=== PATIENT | female | born 1930 | race African-American/Black ===

== ENCOUNTER 2019-09-05 21:56 | Emergency (ER) | payer BC, OTHER ==
[2019-09-05 22:31] VITALS: TEMP 98; BMI 22.4
--- NOTE | 2019-09-05 22:50 | PDOC ---
History of Present Illness - General Chief Complaint: Injury Stated Complaint: FALL Time Seen by Provider: 09/05/19 22:09 History Source: Patient, Family - History of Present Illness Initial Comments: Ms. Hyman is an 88 y/o woman with hx MCI, HTN, previous admission for urosepsis last September, presenting after a fall at home. She lives with her son who is at the bedside. She reports that before arrival she attempted to get out of bed, and slid herself off of the bed. She reports landing straight onto her buttocks , and then being unable to stand back up. She reports that her son found her approx 30 minutes later. She denies any LOC, weakness, chest pain, shortness of breath, palpitations, or change in vision before or after the event. She does not have a PCP, as they just moved from [place] in the last 2 weeks. She denies any fevers, chills, weakness, confusion, nausea, vomiting, chest pain, shortness of breath. Past History - Past Medical History Allergies/Adverse Reactions: Allergies Allergy/AdvReac Type Severity Reaction Status Date / Time No Known Allergies Allergy Verified 09/05/19 23:47 Home Medications: Ambulatory Orders Amoxicillin/Potassium Clav [Augmentin 500-125 Tablet] 1 each PO BID 10 Days #20 tablet 09/06/19 - Psycho Social/Smoking Cessation Hx Smoking History: Never smoked Have you smoked in the past 12 months: No Information on smoking cessation initiated: No Hx Alcohol Use: No Drug/Substance Use Hx: No Review of Systems - Review of Systems Able to Perform ROS?: Yes Comments:: ROS: GENERAL/CONSTITUTIONAL: No fever or chills. No weakness. HEAD, EYES, EARS, NOSE AND THROAT: No change in vision. No ear pain or discharge. No sore throat. CARDIOVASCULAR: No chest pain or shortness of breath RESPIRATORY: No cough, wheezing, or hemoptysis. GASTROINTESTINAL: No nausea, vomiting, diarrhea or constipation. GENITOURINARY: No dysuria, frequency, or change in urination. MUSCULOSKELETAL: No joint or muscle swelling or pain. No neck or back pain. SKIN: No rash NEUROLOGIC: No headache, vertigo, loss of consciousness, or change in strength/ sensation. ENDOCRINE: No increased thirst. No abnormal weight change HEMATOLOGIC/LYMPHATIC: No anemia, easy bleeding, or history of blood clots. ALLERGIC/IMMUNOLOGIC: No hives or skin allergy. *Physical Exam - Vital Signs Last Vital Signs Temp Pulse Resp BP Pulse Ox 98 F 81 20 161/83 97 09/05/19 22:29 09/05/19 22:29 09/05/19 22:29 09/05/19 22:29 09/05/19 22:29 - Physical Exam PE: GENERAL: Awake, alert, and fully oriented, in no acute distress HEAD: No signs of trauma, normocephalic, atraumatic EYES: PERRLA, EOMI, sclera anicteric, conjunctiva clear ENT: Auricles normal inspection, hearing grossly normal, nares patent, oropharynx clear without exudates. Moist mucosa NECK: Normal ROM, supple, no lymphadenopathy, JVD, or masses LUNGS: No distress, speaks full sentences, clear to auscultation bilaterally HEART: Regular rate and rhythm, normal S1 and S2, no murmurs, rubs or gallops, peripheral pulses normal and equal bilaterally. ABDOMEN: Soft, nontender, normoactive bowel sounds. No guarding, no rebound. No masses EXTREMITIES : Normal inspection, Normal range of motion, no edema. No clubbing or cyanosis NEUROLOGICAL: Cranial nerves II through XII grossly intact. Normal speech, normal gait, no focal sensorimotor deficits SKIN: Warm, Dry, normal turgor, no rashes or lesions noted ED Treatment Course - LABORATORY CBC & Chemistry Diagram: 09/05/19 23:00 09/05/19 23:00 - RADIOLOGY Radiology Studies Ordered: Category Date Time Status CHEST X-RAY PORTABLE* [RAD] Stat Radiology 09/05/19 22:27 Ordered Medical Decision Making - Medical Decision Making 88F w/hx MCI, HTN, previous inpatient admission for urosepsis (klebsiella) p/w mechanical fall at home with no LOC and several weeks of intermittent worsening confusion, c/w UTI. No blood thinner use, not currently meeting SIRS criteria. Plan: CBC CMP UA Urine culture CXR EKG CT Head Dispo: Pending labs, imaging --- UA notable for UTI. CXR - negative for acute process CBC, CMP - wnl --- CT Head negative for acute process. Plan for 1g ceftriaxone, then discharge home with course of Augmentin with close follow up at [facility] to f/u urine culture and adjust abx if needed, as well as to establish primary care (as they have just moved from [place]). Discharge - Discharge Information Problems reviewed: Yes Clinical Impression/Diagnosis: UTI (urinary tract infection) Qualifiers: Urinary tract infection type: acute cystitis Hematuria presence: without hematuria Qualified Code(s): N30.00 - Acute cystitis without hematuria Condition: Stable Disposition: HOME - Admission No - Additional Discharge Information Prescriptions: Amoxicillin/Potassium Clav [Augmentin 500-125 Tablet] 1 each PO BID 10 Days #20 tablet - Follow up/Referral - Patient Discharge Instructions Patient Printed Discharge Instructions: DI for Urinary Tract Infection (UTI), How to Prevent Falls Additional Instructions: You were seen in the ER after a fall. Your head CT was negative. Your blood work was normal. Your urine shows a urinary tract infection. We gave you one medicine here in the ER, and are prescribing you an antibiotic to take home. Please take the antibiotic as directed, twice a day for ten days, with food. Please make sure to follow up with the [facility] as soon as possible , in the next 3 days. Please return to the ER if you develop high fevers, weakness, chest pain, or trouble breathting. Otherwise be sure to follow up with the clinic - your antibiotics may need to be changed if your urine culture shows a bacteria that your current antibiotic does not treat effectively. - Post Discharge Activity
[2019-09-05 23:05] LABS: BASO % 0.7 % (0-2.0); EOS % 0.2 % (0-4.5); HEMATOCRIT 39.9 % (32.4-45.2); LYMPH % 6.1 % (8-40); MCH 30.1 pg (25.7-33.7); MCHC 32.5 g/dl (32.0-36.0); MEAN CELL VOLUME 92.6 fl (80-96); MONO % 5.8 % (3.8-10.2); NEUT % 87.2 % (42.8-82.8); PLATELET COUNT 282 K/MM3 (134-434); RBC 4.31 M/mm3 (3.60-5.2); RDW 12.7 % (11.6-15.6); WHITE BLOOD COUNT 6.8 K/mm3 (4.0-10.0)
[2019-09-05 23:24] LABS: INR 1.03 (0.83-1.09); PROTHROMBIN TIME (PATIENT) 12.2 SEC (9.7-13.0)
[2019-09-05 23:27] LABS: ACTIVATED PTT 26.9 SECONDS (25.2-36.5)
[2019-09-05 23:33] LABS: EPI CELLS 7.5 /HPF (0-5/HPF); HYALINE CASTS 13 /lpf (0-8); PH,URINE 5.5 (5.0-8.0); URINE APPEARANCE CLOUDY; URINE BACTERIA 4394.7 /hpf (NEGATIVE); URINE BILIRUBIN NEGATIVE (NEGATIVE); URINE COLOR YELLOW; URINE GLUCOSE (UA) NEGATIVE (NEGATIVE); URINE KETONE TRACE (NEGATIVE); URINE LEUK ESTERASE 1+ (NEGATIVE); URINE NITRITE POSITIVE (NEGATIVE); URINE PROTEIN NEGATIVE (NEGATIVE); URINE RBC 5 /hpf (0-4); URINE WBC 6 /hpf (0-5)
[2019-09-05 23:39] LABS: ALBUMIN 2.8 g/dl (3.4-5.0); BILIRUBIN,TOTAL 0.5 mg/dL (0.2-1); BLOOD UREA NITROGEN 17.5 mg/dL (7-18); CALCIUM 9.2 mg/dL (8.5-10.1); POTASSIUM 4.8 mmol/L (3.5-5.1); TOT PROT 8.2 g/dl (6.4-8.2)
--- NOTE | 2019-09-05 23:40 | PDOC ---
Documentation entered by Adrián Nunes SCRIBE, acting as scribe for Pilar Montoya MD. Pilar Montoya MD: This documentation has been prepared by the qiibe, Adrián Nunes SCRIBE, under my direction and personally reviewed by me in its entirety. I confirm that the documentation accurately reflects all work, treatment, procedures, and medical decision making performed by me. Attending Attestation - Resident Resident Name: ArlynFrederic - ED Attending Attestation I have performed the following: I have examined & evaluated the patient, The case was reviewed & discussed with the resident, I agree w/resident's findings & plan, Exceptions are as noted - HPI HPI: 09/05/19 22:22 The patient is an 88 year old with a past medical history of trigeminal neuralgia, dementia, HTN, HLD, and prior UTI with sepsis here today for evaluation of left hip and thigh pain. As per EMS, the patient was home with her son and rolled out of bed. Patient currently has left thigh and hip pain. Patients son reports that since Thanksgiving the patient has progressively getting more confused and weak. Patient denies headache, lightheadedness. Denies fever, chills. Denies chest pain, shortness of breath. Denies nausea, vomiting, diarrhea, abdominal pain. PCP: none (new to area) - Physicial Exam PE: 09/05/19 22:23 GENERAL: Well developed, well nourished, poor historian HEENT: Normocephalic, atraumatic. PERRLA, EOMI. No conjunctival pallor. Sclera are non- icteric. Moist mucous membranes. Oropharynx is clear. NECK: Supple. Full ROM. No JVD. Carotid pulses 2+ and symmetric, without bruits. No thyromegaly. No lymphadenopathy. CARDIOVASCULAR: Regular rate and rhythm. No murmurs, rubs, or gallops. Distal pulses are 2+ and symmetric. PULMONARY: No evidence of respiratory distress. Lungs clear to auscultation bilaterally. No wheezing, rales or rhonchi. ABDOMINAL: Soft. Non-tender. Non-distended. No rebound or guarding. No organomegaly. Normoactive bowel sounds. MUSCULOSKELETAL: +tenderness to left thigh and hip EXTREMITIES: No cyanosis. No clubbing. No edema. No calf tenderness. SKIN: Warm and dry. Normal capillary refill. No rashes. No jaundice. NEUROLOGICAL: +slow to respond but follows basic commands. Alert, awake, appropriate. Cranial nerves 2-12 intact. No deficits to light touch and temperature in face, upper extremities and lower extremities. No motor deficits in the face or arms and legs , Normal speech. Toes are down- going bilaterally. PSYCHIATRIC: Cooperative. Good eye contact. Appropriate mood and affect. 09/05/19 22:37 - Medical Decision Making 09/05/19 22:39 88-year-old female brought in by ambulance from home after she slid off the bed. HPI the son states that ever since she has had a slow somewhat insidious decline in her mentation. She does have a history of dementia baseline but she now seems slower than usual. They do not have any PCP in this area having moved from [place] recently Son did report that she is had complicated UTI in the past 09/05/19 22:46 Impression failure to thrive will rule out urinary tract infections, dehydration , electrolyte abnormalities and ACS plan c scan head,xrays hip/pelvis,UA,Uc,cbc,comp 09/05/19 23:39 Patient has no fever CBC is unremarkable UA shows urinary tract infection 09/05/19 23:49 pt has UTI and antibiotics will be started 09/06/19 00:44 EXPLAINED TO THE PATIENT AND HER SON that she will be started on antibioticsd but without the culture and sensitivities we don't now which antibiotics meet be most effective so she has be seen later this week she was put in the system for an appt with FLORINA lawrence on [facility] and also told to call tomorrow to confirm an appt 09/06/19 01:05 ct scan head is negative for any acute intracranial pathology
[2019-09-06] MEDS ORDERED: CEFTRIAXONE 1 GM/50 ML BAG ONE (00:27)
[2019-09-06 00:34] VITALS: BP 160/87; PULSE 78
--- NOTE | 2019-09-06 13:26 | EKG ---
Test Reason : Blood Pressure : / mmHG Vent. Rate : 080 BPM Atrial Rate : 080 BPM P-R Int : 204 ms QRS Dur : 096 ms QT Int : 416 ms P-R-T Axes : 016 -01 041 degrees QTc Int : 479 ms NORMAL SINUS RHYTHM POSSIBLE LEFT ATRIAL ENLARGEMENT LEFT VENTRICULAR HYPERTROPHY ABNORMAL ECG NO PREVIOUS ECGS AVAILABLE Confirmed by LILLY SONI, STUART ([id number]) on 09/06/2019 1:26:21 PM Referred By: Confirmed By:STUART CARR MD
== END 2019-09-06 01:24 | disposition home or self-care (01) ==
LOC: JER 21:56
DX: N39.0 Urinary tract infection, site not specified (principal); I10 Essential (primary) hypertension; W06.XXXA Fall from bed, initial encounter; Y93.89 Activity, other specified; Y92.013 Bedroom of single-family (private) house as the place of occurrence of the external cause; Y99.8 Other external cause status
CPT/HCPCS: 36415; 70450-TC; 71045-TC-FY; 73523-TC-FY; 80053; 81003; 82550; 82553; 84484; 85025; 85610; 85730; 87086; 87186; 93005; 93010; 99283-25

== ENCOUNTER 2019-10-11 08:57 | Inpatient (IN) | payer BC, OTHER ==
[2019-10-11 09:15] VITALS: BMI 26.6
--- NOTE | 2019-10-11 09:20 | PDOC ---
Attending Attestation - Resident Resident Name: Aureliano Obando - HPI HPI: 10/11/19 10:28 Pt presents to the ED complaining of generalized weakness and presyncope. Also complains of a vague sensation of chest heaviness. Denies shortness of breath. 10/11/19 10:33 - Physicial Exam PE: 10/11/19 10:33 gen: alert, NAD. CV: RRR no murmurs. pulm: + slight crackles at bases. 10/11/19 10:34 - Critical Care Time Total Critical Care Time: 30 Critical Care Statement: The care of this patient involved high complexity decision making to prevent further life threatening deterioration of the patient 's condition and/or to evaluate & treat vital organ system(s) failure or risk of failure. - Medical Decision Making 10/11/19 10:35 Pt presents to the ED complaining of lightheadness and chest heaviness. EKG shows ST elevations in lead 3, with reciprocal depressions. BP is borderline. Case discussed with Dr. Pineda from cardiology, who recommends medical management for now. Will start ASA, plavix and heparin, check labs and admit to medicine. Will check serial EKGS.
[2019-10-11] MEDS ORDERED: ASPIRIN 81 MG CHEWABLE TABLETS PO ONE (09:43)
[2019-10-11] MEDS ORDERED: ASPIRIN 81 MG CHEWABLE TABLETS ONE (09:46)
[2019-10-11] MEDS ORDERED: CLOPIDOGREL BISULFATE 300 MG TABLET PO ONE (09:56)
[2019-10-11] MEDS ORDERED: HEPARIN NA (PORCINE) 5,000 UNITS/ML 1ML VIAL IVPUSH PRN ×2 (09:57)
[2019-10-11] MEDS ORDERED: CLOPIDOGREL BISULFATE 300 MG TABLET ONE (09:58)
--- NOTE | 2019-10-11 09:58 | PDOC ---
History of Present Illness - General Chief Complaint: Lightheaded Stated Complaint: Shortness of Breath Time Seen by Provider: 10/11/19 09:19 History Source: Patient Exam Limitations: No Limitations - History of Present Illness Initial Comments: Patient's Son - Mal Hyman: [phone] Susie Hyman is an 88 yo F w a hx of CAD, HTN, HCL dementia who presents to the [facility] with acute onset of left arm pain and weakness associated with SOB. She states that she was walking this morning when all of a sudden she came close to falling and was having a hard time standing up. Here in the ER she endorses palpitations and an abnormal chest heaviness sensation however she denies having any active chest pain. PCP: None local Cards: None - Edwin Social hx: Denies smoking, drinking, or other substance usage Allergies: NKA, NKDA Past History - Past Medical History Allergies/Adverse Reactions: Allergies Allergy/AdvReac Type Severity Reaction Status Date / Time No Known Allergies Allergy Verified 10/11/19 09:12 Home Medications: Ambulatory Orders Unobtainable 10/11/19 COPD: No HTN: Yes Hypercholesterolemia: Yes - Immunization History Td Vaccination: Yes TDAP Vaccination: Yes Immunization Up to Date: Yes - Psycho Social/Smoking Cessation Hx Smoking History: Former smoker Have you smoked in the past 12 months: No If you are a former smoker, when did you quit?: 40 YEARS AGO Information on smoking cessation initiated: No Hx Alcohol Use: No Drug/Substance Use Hx: No Review of Systems - Review of Systems Able to Perform ROS?: Yes Comments:: CONSTITUTIONAL: Present: Fatigue Absent: fever, no chills EYES: Absent: visual changes ENT: Absent: ear pain, no sore throat CARDIOVASCULAR: Present: palpitations Absent: chest pain RESPIRATORY: Present: SOB Absent: cough GI: Present: Nausea Absent: abdominal pain, no vomiting, no constipation, no diarrhea GENITOURINARY: Absent: dysuria, no frequency, no hematuria MUSKULOSKELETAL: Absent: back pain, no arthralgia, no myalgia SKIN: Absent: rash NEURO: Absent: headache *Physical Exam - Vital Signs Last Vital Signs Temp Pulse Resp BP Pulse Ox 97.2 F L 86 20 125/80 97 10/11/19 18:00 10/11/19 18:00 10/11/19 18:00 10/11/19 18:00 10/11/19 16:17 - Physical Exam GENERAL: Not well kept - long facial hair. Well-appearing, well-nourished. Mild distress. HEENT: Normocephalic, atraumatic. PERRL, EOM intact. CARDIOVASCULAR: Normal S1, S2. Regular rate and rhythm. PULMONARY: B/l crackles at the bases. Mild evidence of respiratory distress. No wheezing or rhonchi. ABDOMEN: Soft, non-distended, non-tender. EXTREMITIES: Normal ROM in all four extremities. No gross deformities. SKIN: Warm, dry. No rash NEUROLOGICAL: Alert, awake, appropriate. Cranial nerves 2-12 intact. No deficits to light touch in face, upper extremities and lower extremities. No motor deficits in the in face, upper extremities and lower extremities. Normal speech. Toes are down-going bilaterally. ED Treatment Course - LABORATORY CBC & Chemistry Diagram: 10/11/19 09:37 10/11/19 11:37 - ADDITIONAL ORDERS Additional order review: Laboratory Results 10/11/19 10/11/19 10/11/19 11:37 11:37 10:45 PT with INR INR PTT (Actin FS) Sodium 140 Potassium 3.9 Chloride 108 H Carbon Dioxide 23 Anion Gap 10 BUN 13.3 Creatinine 1.1 Est GFR (CKD-EPI)AfAm 52.65 Est GFR (CKD-EPI)NonAf 45.42 Random Glucose 160 H Calcium 8.5 Magnesium Total Bilirubin 0.5 AST 35 ALT 24 Alkaline Phosphatase 315 H Creatine Kinase 64 Troponin I 0.09 H B-Natriuretic Peptide Total Protein 7.8 Albumin 2.6 L Blood Type AB POSITIVE Cancelled Antibody Screen Negative Cancelled 10/11/19 10/11/19 09:37 09:37 PT with INR 13.60 H INR 1.15 H PTT (Actin FS) 28.6 Sodium Cancelled Potassium Cancelled Chloride Cancelled Carbon Dioxide Cancelled Anion Gap Cancelled BUN Cancelled Creatinine Cancelled Est GFR (CKD-EPI)AfAm Cancelled Est GFR (CKD-EPI)NonAf Cancelled Random Glucose Cancelled Calcium Cancelled Magnesium Cancelled Total Bilirubin Cancelled AST Cancelled ALT Cancelled Alkaline Phosphatase Cancelled Creatine Kinase Cancelled Troponin I Cancelled B-Natriuretic Peptide Cancelled Total Protein Cancelled Albumin Cancelled Blood Type Antibody Screen 10/11/19 09:37 RBC 4.15 MCV 93.1 MCHC 32.0 RDW 13.9 MPV 9.5 Neutrophils % 76.4 Lymphocytes % 18.0 D Monocytes % 5.1 Eosinophils % 0.2 Basophils % 0.3 - RADIOLOGY Radiology Studies Ordered: Category Date Time Status CHEST X-RAY PORTABLE* [RAD] Stat Radiology 10/11/19 09:44 Completed - Medications Given in the ED: ED Medications Discontinued Medications Generic Name Dose Route Start Last Admin Trade Name Freq PRN Reason Stop Dose Admin Aspirin 162 mg 10/11/19 09:43 10/11/19 09:49 Asa - PO 10/11/19 09:44 162 mg ONCE ONE Administration Clopidogrel Bisulfate 300 mg 10/11/19 09:56 10/11/19 10:01 Plavix - PO 10/11/19 09:57 300 mg ONCE ONE Administration Medical Decision Making - Medical Decision Making Susie Hyman is an 88 yo F w a hx of CAD, HTN, HCL dementia who presents to the [facility] with acute onset of left arm pain and weakness associated with SOB. She states that she was walking this morning when all of a sudden she came close to falling and was having a hard time standing up. Here in the ER she endorses palpitations and an abnormal chest heaviness sensation however she denies having any active chest pain. Vital Signs Temp Pulse Resp BP Pulse Ox 97.4 F L 100 H 26 H 118/77 95 10/11/19 09:12 10/11/19 09:12 10/11/19 09:12 10/11/19 09:12 10/11/19 09:55 DDx IBNLT: ACS, Heart failure, CVA/TIA, electrolyte/metabolic abnormality EKG#1: There are ST elevations in leads 2,3, and aVF also V3, there are reciprocal ST depressions in 1, aVL - P waves are inverted in multiple leads questionable lead misplacement - Will repeat EKG EKG#2: ST elevation in lead 3 one mm and lead V3 1 mm, ST depression in lead 1 Right sided EKG: Possible 0.[address] elevations in V4R and V5R We are concerned with ACS Cardiac Consult: Dr. Pineda - Recommends admission to [facility] as this is not a good story and this is not an ideal candidate for invasive treatments. Labs: 1st Trop elevated at 0.09 POCUS Cardiac: There appears to be globally reduced cardiac function with a decreased ejection fraction. EPSS elevated at 1.1 MDM: Starting patient on ACS treatment with aspirin, heparin, ticagrelor and admitting to telemetry Disposition: Telemetry Discharge - Discharge Information Problems reviewed: Yes Clinical Impression/Diagnosis: ACS (acute coronary syndrome) Condition: Guarded - Admission Yes - Follow up/Referral - Patient Discharge Instructions - Post Discharge Activity
--- NOTE | 2019-10-11 09:59 | CON.CARD ---
Consult Consult Specialty:: Cardiology Referred by:: Emergency Medicine Reason for Consultation:: Acute coronary syndrome - History of Present Illness Chief Complaint: Dizziness History of Present Illness: 88 yo AAF past medical history of trigeminal neuralgia, dementia, HTN, HLD, and prior UTI with sepsis presents for dizziness and w/o true syncope, poor historian. Patient denies chest pain, dyspnea, palpitations, orthopnea, PND or LE edema, bedside US shows LV dysfunction. EKG shows evolving IWMI pattern. - History Source History Provided By: Medical Record Limitations to Obtaining History: Dementia - Alcohol/Substance Use Hx Alcohol Use: No - Smoking History Smoking history: Former smoker Have you smoked in the past 12 months: No If you are a former smoker, when did you quit?: 40 YEARS AGO Home Medications - Allergies Allergies/Adverse Reactions: Allergies Allergy/AdvReac Type Severity Reaction Status Date / Time No Known Allergies Allergy Verified 10/11/19 09:12 - Home Medications Home Medications: Ambulatory Orders Amoxicillin/Potassium Clav [Augmentin 500-125 Tablet] 1 each PO BID 10 Days #20 tablet 09/06/19 Review of Systems - Review of Systems Neurological: reports: Dizziness Vital Signs: Vital Signs Temperature 97.4 F L 10/11/19 09:12 Pulse Rate 100 H 10/11/19 09:12 Respiratory Rate 26 H 10/11/19 09:12 Blood Pressure 118/77 10/11/19 09:12 O2 Sat by Pulse Oximetry (%) 95 10/11/19 09:55 Constitutional: Yes: No Distress, Calm Neck: Yes: Supple Respiratory: Yes: Regular, CTA Bilaterally Gastrointestinal: Yes: Normal Bowel Sounds, Soft Cardiovascular: Yes: Regular Rate and Rhythm JVD: No Carotid Bruit: No Heart Sounds: Yes: S1, S2 Murmur: Yes: Systolic Murmur, Grade 1 Edema: No - Other Data NSR @ 94 evolving IWMI Echo: Pending Ejection Fraction %: LVEF < 40 % Problem List - Problems (1) Acute coronary syndrome Code(s): I24.9 - ACUTE ISCHEMIC HEART DISEASE, UNSPECIFIED (2) Hypertension Code(s): I10 - ESSENTIAL (PRIMARY) HYPERTENSION Qualifiers: Hypertension type: essential hypertension Qualified Code(s): I10 - Essential (primary) hypertension (3) Hyperlipidemia Code(s): E78.5 - HYPERLIPIDEMIA, UNSPECIFIED Qualifiers: Hyperlipidemia type: unspecified Qualified Code(s): E78.5 - Hyperlipidemia , unspecified Assessment/Plan 1. CAD acute coronary syndrome 2. Dementia 3. Hypertension 4. Hyperlipidemia P:1. ASA, Plavix, heparin, Lopressor, SOLEDAD-I/ARB if LVEF<40%, statin 2. Given baseline dementia and poor historian, not ideal candidate for invasive therapy 3. Echocardiogram to assess LV and valve fxn 4. Cycle cardiac enzymes to document peak, check TSH, lipd panel and Ha1c 5. Thank you for consultative opportunity
[2019-10-11] MEDS ORDERED: HEPARIN - 25,000 UNIT in SODIUM CHLORIDE 495 ML IV SCH (10:00)
[2019-10-11 10:01] LABS: BASO % 0.3 % (0-2.0); EOS % 0.2 % (0-4.5); HEMATOCRIT 38.6 % (32.4-45.2); HEMOGLOBIN 12.3 GM/dL (10.7-15.3); MCH 29.7 pg (25.7-33.7); MEAN CELL VOLUME 93.1 fl (80-96); MEAN PLT VOLUME 9.5 fl (7.5-11.1); MONO % 5.1 % (3.8-10.2); NEUT % 76.4 % (42.8-82.8); PLATELET COUNT 153 K/MM3 (134-434); RBC 4.15 M/mm3 (3.60-5.2); RDW 13.9 % (11.6-15.6); WHITE BLOOD COUNT 12.9 K/mm3 (4.0-10.0)
[2019-10-11] MEDS ORDERED: HEPARIN INFUSION - 25,000 UNITS/500 ML INFUS.BAG IVPB ONE (10:03)
[2019-10-11] MEDS ORDERED: HEPARIN NA (PORCINE) 5,000 UNITS/ML 1ML VIAL ONE (10:03)
[2019-10-11] MEDS: HEPARIN - 25,000 UNIT in SODIUM CHLORIDE 495 ML IV SCH (10:15)
[2019-10-11] MEDS: metoPROLOL SUCCINATE 25 MG TAB.SR.24H (FP) PO SCH (10:22)
[2019-10-11 10:59] LABS: INR 1.15 (0.83-1.09); PROTHROMBIN TIME (PATIENT) 13.6 SEC (9.7-13.0)
[2019-10-11 11:02] LABS: ACTIVATED PTT 28.6 SECONDS (25.2-36.5)
[2019-10-11 12:17] LABS: ALBUMIN 2.6 g/dl (3.4-5.0); BILIRUBIN,TOTAL 0.5 mg/dL (0.2-1); BLOOD UREA NITROGEN 13.3 mg/dL (7-18); CALCIUM 8.5 mg/dL (8.5-10.1); CREATININE 1.1 mg/dL (0.55-1.3); POTASSIUM 3.9 mmol/L (3.5-5.1); TOT PROT 7.8 g/dl (6.4-8.2)
--- NOTE | 2019-10-11 13:09 | EKG ---
Test Reason : Blood Pressure : / mmHG Vent. Rate : 094 BPM Atrial Rate : 094 BPM P-R Int : 174 ms QRS Dur : 086 ms QT Int : 376 ms P-R-T Axes : 011 -17 -06 degrees QTc Int : 470 ms NORMAL SINUS RHYTHM Possible inferior infarction age indetermined POSSIBLE LATERAL INFARCT , AGE UNDETERMINED ABNORMAL ECG WHEN COMPARED WITH ECG OF 11-OCT-2019 09:38, ST elevations in inferolateral leads improved MINIMAL CRITERIA FOR SEPTAL INFARCT ARE NOW PRESENT BORDERLINE CRITERIA FOR LATERAL INFARCT ARE NOW PRESENT T WAVE INVERSION NOW EVIDENT IN LATERAL LEADS Confirmed by Patricia Kearney ([id number]) on 10/11/2019 1:08:42 PM Referred By: Confirmed By:Patricia Kearney
--- NOTE | 2019-10-11 13:10 | EKG ---
Test Reason : Blood Pressure : / mmHG Vent. Rate : 097 BPM Atrial Rate : 097 BPM P-R Int : 168 ms QRS Dur : 090 ms QT Int : 372 ms P-R-T Axes : 017 -18 005 degrees QTc Int : 472 ms SINUS RHYTHM WITH PREMATURE ATRIAL COMPLEXES POSSIBLE LEFT ATRIAL ENLARGEMENT LEFT VENTRICULAR HYPERTROPHY Consider lateral ischemia Possible inferor infarction age indetermined Prolonged QTc ABNORMAL ECG WHEN COMPARED WITH ECG OF 11-OCT-2019 09:26, CRITERIA FOR INFERIOR INFARCT ARE NO LONGER PRESENT Confirmed by Patricia Kearney ([id number]) on 10/11/2019 1:10:10 PM Referred By: Confirmed By:Patricia Kearney
--- NOTE | 2019-10-11 13:12 | EKG ---
Test Reason : Blood Pressure : / mmHG Vent. Rate : 087 BPM Atrial Rate : 087 BPM P-R Int : 200 ms QRS Dur : 086 ms QT Int : 400 ms P-R-T Axes : -22 012 029 degrees QTc Int : 481 ms SINUS RHYTHM WITH PREMATURE ATRIAL COMPLEXES INFERIOR INFARCT , AGE UNDETERMINED ANTERIOR INFARCT , AGE UNDETERMINED MARKED ST ABNORMALITY, POSSIBLE LATERAL SUBENDOCARDIAL INJURY ABNORMAL ECG WHEN COMPARED WITH ECG OF 06-SEP-2019 00:26, SIGNIFICANT CHANGES HAVE OCCURRED Confirmed by Patricia Kearney ([id number]) on 10/11/2019 1:12:20 PM Referred By: Confirmed By:Patricia Kearney
[2019-10-11 14:03] LABS: URINE APPEARANCE CLEAR; URINE BILIRUBIN NEGATIVE (NEGATIVE); URINE COLOR YELLOW; URINE GLUCOSE (UA) NEGATIVE (NEGATIVE); URINE KETONE NEGATIVE (NEGATIVE); URINE LEUK ESTERASE NEGATIVE (NEGATIVE); URINE NITRITE NEGATIVE (NEGATIVE); URINE PROTEIN TRACE (NEGATIVE)
--- NOTE | 2019-10-11 15:23 | ECHO ---
Name: LAILA ANGULO ATRJOÃO Exam:Adult Echocardiogram Study Date: 10/11/2019 01:54 PM Age: 88 yrs Reason For Study: acs Height: 66 in Weight: 165 lb BSA: 1.8 m2 MMode/2D Measurements & Calculations IVSd: 1.1 cm Ao root diam: 3.1 cm LVIDd: 3.1 cm LA dimension: 3.1 cm LVIDs: 2.2 cm LVPWd: 1.3 cm LVPWs: 1.2 cm EDV(Teich): 36.8 ml ESV(Teich): 16.6 ml LVOT diam: 2.0 cm RV S Shine: 8.4 cm/sec Doppler Measurements & Calculations Ao V2 max: 94.3 cm/sec LV V1 max P.1 mmHg Ao max P.6 mmHg LV V1 max: 72.6 cm/sec LEVIS(V,D): 2.4 cm2 TR max shine: 319.6 cm/sec PA V2 max: 47.5 cm/sec TR max P.9 mmHg PA max P.90 mmHg PI end-d shine: 140.6 cm/sec Lat Peak E' Shine: 4.6 cm/sec Procedure The study was technically difficult with many images being suboptimal in quality. Left Ventricle The left ventricle is normal in size. There is mild concentric left ventricular hypertrophy. Ejection Fraction = 30%. Grade I diastolic dysfunction, (abnormal relaxation pattern). There are regional wall motion abnormalities as specified. There is septal akinesis. Anerolatera and inferior hypokinesia. Right Ventricle The right ventricle is moderately dilated. The right ventricular systolic function is moderately redu cathy. Atria The left atrial size is normal. Right atrium not well visualized. Mitral Valve There is mild to moderate mitral valve thickening. There is no mitral regurgitation noted. Tricuspid Valve The tricuspid valve is not well visualized, but is grossly normal. There is mild pulmonary hypertensi on. There is mild tricuspid regurgitation. Aortic Valve The aortic valve is trileaflet. Pulmonic Valve The pulmonic valve is not well visualized. Great Vessels The aortic root is normal size. Pericardium/Pleura There is no pericardial effusion. Interpretation Summary LV: Normal size, mild LVH, segmental wall motion abnormality as above, moderate to severe systolic dysfunction, EF about 30%, grade I diastolic dysfunction RV: Dilated and hypokinetic Mild TR with mild pulmonary hypertension Difficult suboptimal study. Patricia Kearney 10/11/2019 03:22 PM
--- NOTE | 2019-10-11 15:48 | HP ---
Admitting History and Physical - Primary Care Physician PCP: Holden Gallego - Admission History of Present Illness: Pt presents to the ED complaining of light headness and chest heaviness. EKG shows ST elevations in lead 3, with reciprocal depressions. BP is borderline. Case discussed with Dr. Pineda from cardiology, who recommends medical management for now. Will start ASA, plavix and heparin, check labs and admit to medicine. Will check serial EKGS. - Smoking History Smoking history: Former smoker Have you smoked in the past 12 months: No If you are a former smoker, when did you quit?: 40 YEARS AGO - Alcohol/Substance Use Hx Alcohol Use: No Home Medications - Allergies Allergies/Adverse Reactions: Allergies Allergy/AdvReac Type Severity Reaction Status Date / Time No Known Allergies Allergy Verified 10/11/19 09:12 - Home Medications Home Medications: Ambulatory Orders Carbamazepine [Carbamazepine ER] 200 mg PO BID 10/11/19 Aspirin [ASA -] 81 mg PO DAILY #30 tab.chew 10/13/19 Atorvastatin Ca [Lipitor] 80 mg PO HS #30 tablet 10/13/19 Carbamazepine Xr [Tegretol XR -] 400 mg PO BID tab.er.12h 10/13/19 Clopidogrel Bisulfate [Plavix -] 75 mg PO DAILY #30 tablet 10/13/19 Metoprolol Succinate [Toprol XL -] 25 mg PO DAILY #30 tab.sr.24h 10/13/19 Sacubitril/Valsartan [Entresto 24 mg-26 mg Tablet] 1 tab PO BID #60 tablet 10/13 Physical Examination Vital Signs: Vital Signs Temperature 99.0 F 10/11/19 09:15 Pulse Rate 95 H 10/11/19 11:05 Respiratory Rate 26 H 10/11/19 11:05 Blood Pressure 98/72 10/11/19 11:05 O2 Sat by Pulse Oximetry (%) 99 10/11/19 11:05 Constitutional: Yes: No Distress HENT: Yes: Atraumatic Neck: Yes: Supple Cardiovascular: Yes: Regular Rate and Rhythm Respiratory: Yes: CTA Bilaterally Gastrointestinal: Yes: Normal Bowel Sounds Extremities: Yes: WNL Neurological: Yes: Alert, Oriented Labs: CBC, BMP 10/11/19 09:37 10/11/19 11:37 Problem List - Problems (1) Acute coronary syndrome Assessment/Plan: iv heparin fu cardiac profile cardiology consult Code(s): I24.9 - ACUTE ISCHEMIC HEART DISEASE, UNSPECIFIED (2) Hyperlipidemia Assessment/Plan: on lipitor Code(s): E78.5 - HYPERLIPIDEMIA, UNSPECIFIED Qualifiers: Hyperlipidemia type: unspecified Qualified Code(s): E78.5 - Hyperlipidemia , unspecified (3) Hypertension Assessment/Plan: on meds head Ct lacunar infarc Code(s): I10 - ESSENTIAL (PRIMARY) HYPERTENSION Qualifiers: Hypertension type: essential hypertension Qualified Code(s): I10 - Essential (primary) hypertension Assessment/Plan Active Medications Generic Name Dose Route Start Last Admin Trade Name Freq PRN Reason Stop Dose Admin Aspirin 81 mg 10/12/19 10:00 Asa - PO DAILY [facility] Atorvastatin Calcium 80 mg 10/11/19 22:00 Lipitor - PO HS [facility] Clopidogrel Bisulfate 75 mg 10/12/19 10:00 Plavix - PO DAILY [facility] Heparin Sodium (Porcine) 1,000 unit 10/11/19 09:57 Heparin - IVPUSH PRN PRN Heparin Heparin Sodium (Porcine) 5,000 unit 10/11/19 09:57 10/11/19 10:10 Heparin - IVPUSH 5,000 unit PRN PRN Administration Heparin Heparin Sodium (Porcine) 25, 500 mls @ 20 mls/hr 10/11/19 10:45 10/11/19 10: 15 000 unit/ Sodium Chloride IV 1,000 unit/hr TITR KRISTIAN 20 mls/hr Administration Protocol 1,000 UNIT/HR Metoprolol Succinate 25 mg 10/11/19 10:15 10/11/19 10:22 Toprol Xl - PO 25 mg DAILY [facility] Administration Laboratory Tests 10/11/19 10/11/19 10/11/19 09:37 09:37 09:37 WBC 12.9 H RBC 4.15 Hgb 12.3 Hct 38.6 MCV 93.1 MCH 29.7 MCHC 32.0 RDW 13.9 Plt Count 153 D MPV 9.5 Absolute Neuts (auto) 9.9 H Neutrophils % 76.4 Lymphocytes % 18.0 D Monocytes % 5.1 Eosinophils % 0.2 Basophils % 0.3 Nucleated RBC % 0 PT with INR 13.60 H INR 1.15 H PTT (Actin FS) 28.6 Sodium Cancelled Potassium Cancelled Chloride Cancelled Carbon Dioxide Cancelled Anion Gap Cancelled BUN Cancelled Creatinine Cancelled Est GFR (CKD-EPI)AfAm Cancelled Est GFR (CKD-EPI)NonAf Cancelled Random Glucose Cancelled Calcium Cancelled Magnesium Cancelled Total Bilirubin Cancelled AST Cancelled ALT Cancelled Alkaline Phosphatase Cancelled Creatine Kinase Cancelled Troponin I Cancelled B-Natriuretic Peptide Cancelled Total Protein Cancelled Albumin Cancelled Urine Color Urine Appearance Urine pH Ur Specific Crawford Urine Protein Urine Glucose (UA) Urine Ketones Urine Blood Urine Nitrite Urine Bilirubin Urine Urobilinogen Ur Leukocyte Esterase Blood Type Antibody Screen 10/11/19 10/11/19 10/11/19 10:45 11:37 11:37 WBC RBC Hgb Hct MCV MCH MCHC RDW Plt Count MPV Absolute Neuts (auto) Neutrophils % Lymphocytes % Monocytes % Eosinophils % Basophils % Nucleated RBC % PT with INR INR PTT (Actin FS) Sodium 140 Potassium 3.9 Chloride 108 H Carbon Dioxide 23 Anion Gap 10 BUN 13.3 Creatinine 1.1 Est GFR (CKD-EPI)AfAm 52.65 Est GFR (CKD-EPI)NonAf 45.42 Random Glucose 160 H Calcium 8.5 Magnesium Total Bilirubin 0.5 AST 35 ALT 24 Alkaline Phosphatase 315 H Creatine Kinase 64 Troponin I 0.09 H B-Natriuretic Peptide Total Protein 7.8 Albumin 2.6 L Urine Color Urine Appearance Urine pH Ur Specific [place] Urine Protein Urine Glucose (UA) Urine Ketones Urine Blood Urine Nitrite Urine Bilirubin Urine Urobilinogen Ur Leukocyte Esterase Blood Type Cancelled AB POSITIVE Antibody Screen Cancelled Negative 10/11/19 10/11/19 10/11/19 13:33 16:40 18:30 WBC RBC Hgb Hct MCV MCH MCHC RDW Plt Count MPV Absolute Neuts (auto) Neutrophils % Lymphocytes % Monocytes % Eosinophils % Basophils % Nucleated RBC % PT with INR INR PTT (Actin FS) 56.1 H Sodium Potassium Chloride Carbon Dioxide Anion Gap BUN Creatinine Est GFR (CKD-EPI)AfAm Est GFR (CKD-EPI)NonAf Random Glucose Calcium Magnesium Total Bilirubin AST ALT Alkaline Phosphatase Creatine Kinase 53 Troponin I 0.15 H B-Natriuretic Peptide Total Protein Albumin Urine Color Yellow Urine Appearance Clear Urine pH 6.0 Ur Specific [place] 1.014 Urine Protein Trace Urine Glucose (UA) Negative Urine Ketones Negative Urine Blood Negative Urine Nitrite Negative Urine Bilirubin Negative Urine Urobilinogen 1.0 Ur Leukocyte Esterase Negative Blood Type Antibody Screen Active Medications Generic Name Dose Route Start Last Admin Trade Name Freq PRN Reason Stop Dose Admin Aspirin 81 mg 10/12/19 10:00 Asa - PO DAILY [facility] Atorvastatin Calcium 80 mg 10/11/19 22:00 10/11/19 21:00 Lipitor - PO Not Given HS [facility] Clopidogrel Bisulfate 75 mg 10/12/19 10:00 Plavix - PO DAILY [facility] Heparin Sodium (Porcine) 1,000 unit 10/11/19 09:57 Heparin - IVPUSH PRN PRN Heparin Heparin Sodium (Porcine) 5,000 unit 10/11/19 09:57 10/11/19 10:10 Heparin - IVPUSH 5,000 unit PRN PRN Administration Heparin Heparin Sodium (Porcine) 25, 500 mls @ 20 mls/hr 10/11/19 10:45 10/11/19 10: 15 000 unit/ Sodium Chloride IV 1,000 unit/hr TITR KRISTIAN 20 mls/hr Administration Protocol 1,000 UNIT/HR Metoprolol Succinate 25 mg 10/11/19 10:15 10/11/19 10:22 Toprol Xl - PO 25 mg DAILY [facility] Administration
[2019-10-11] MEDS: ATORVASTATIN CA 80 MG TABLET (FP) PO SCH (21:00)
[2019-10-12 06:16] LABS: N-TERMINAL BNP 5672.9 pg/ml (5-450)
[2019-10-12] MEDS: ASPIRIN 81 MG CHEWABLE TABLETS PO SCH (11:14)
[2019-10-12] MEDS: CLOPIDOGREL BISULFATE 75 MG TABLET (FP) PO SCH (11:14)
[2019-10-12] MEDS: metoPROLOL SUCCINATE 25 MG TAB.SR.24H (FP) PO SCH (11:14)
[2019-10-12] MEDS: HEPARIN - 25,000 UNIT in SODIUM CHLORIDE 495 ML IV SCH ×2 (11:15→14:01)
--- NOTE | 2019-10-12 16:46 | PN ---
Progress Note, Physician History of Present Illness: doing well daughter and son by bedside - Current Medication List Current Medications: Active Medications Aspirin (Asa -) 81 mg PO DAILY [facility] Last Admin: 10/12/19 11:14 Dose: 81 mg Atorvastatin Calcium (Lipitor -) 80 mg PO HS [facility] Last Admin: 10/11/19 21:00 Dose: Not Given Clopidogrel Bisulfate (Plavix -) 75 mg PO DAILY [facility] Last Admin: 10/12/19 11:14 Dose: 75 mg Heparin Sodium (Porcine) (Heparin -) 1,000 unit IVPUSH PRN PRN PRN Reason: Heparin Heparin Sodium (Porcine) (Heparin -) 5,000 unit IVPUSH PRN PRN PRN Reason: Heparin Last Admin: 10/11/19 10:10 Dose: 5,000 unit Heparin Sodium (Porcine) 25, (000 unit/ Sodium Chloride) 500 mls @ 20 mls/hr IV TITR [facility]; Protocol Last Admin: 10/12/19 14:01 Dose: 1,000 unit/hr, 20 mls/hr Metoprolol Succinate (Toprol Xl -) 25 mg PO DAILY [facility] Last Admin: 10/12/19 11:14 Dose: 25 mg - Objective Vital Signs: Vital Signs Temperature 98.4 F 10/12/19 15:00 Pulse Rate 82 10/12/19 15:00 Respiratory Rate 18 10/12/19 15:00 Blood Pressure 125/77 10/12/19 15:00 O2 Sat by Pulse Oximetry (%) 98 10/12/19 09:00 Constitutional: Yes: No Distress HENT: Yes: Atraumatic Neck: Yes: Supple Cardiovascular: Yes: Regular Rate and Rhythm Respiratory: Yes: CTA Bilaterally Gastrointestinal: Yes: Normal Bowel Sounds Extremities: Yes: WNL Neurological: Yes: Alert, Oriented Labs: CBC, BMP 10/11/19 09:37 10/11/19 11:37 INR, PTT INR 1.15 (0.83-1.09) H 10/11/19 09:37 Problem List - Problems (1) Acute coronary syndrome Assessment/Plan: iv heparin fu cardiac profile cardiology consult Code(s): I24.9 - ACUTE ISCHEMIC HEART DISEASE, UNSPECIFIED (2) Hyperlipidemia Assessment/Plan: on lipitor Code(s): E78.5 - HYPERLIPIDEMIA, UNSPECIFIED Qualifiers: Hyperlipidemia type: unspecified Qualified Code(s): E78.5 - Hyperlipidemia , unspecified (3) Hypertension Assessment/Plan: on meds head Ct lacunar infarc Code(s): I10 - ESSENTIAL (PRIMARY) HYPERTENSION Qualifiers: Hypertension type: essential hypertension Qualified Code(s): I10 - Essential (primary) hypertension (4) UTI (urinary tract infection) Code(s): N39.0 - URINARY TRACT INFECTION, SITE NOT SPECIFIED Qualifiers: Urinary tract infection type: acute cystitis Hematuria presence: without hematuria Qualified Code(s): N30.00 - Acute cystitis without hematuria Assessment/Plan d/w son and daughter in detail about care plan
[2019-10-12] MEDS ORDERED: PT OWN MED DRAWER 7, Y5N ONE (21:04)
[2019-10-12] MEDS: ATORVASTATIN CA 80 MG TABLET (FP) PO SCH (21:46)
[2019-10-12] MEDS: carBAMazepine XR 200 MG TAB.ER.12H PO SCH (21:46)
[2019-10-13 07:06] LABS: HEMATOCRIT 33.5 % (32.4-45.2); MCH 30.2 pg (25.7-33.7); MEAN CELL VOLUME 91.7 fl (80-96); MEAN PLT VOLUME 9.6 fl (7.5-11.1); PLATELET COUNT 162 K/MM3 (134-434); RBC 3.65 M/mm3 (3.60-5.2); RDW 13.9 % (11.6-15.6); WHITE BLOOD COUNT 6.3 K/mm3 (4.0-10.0)
[2019-10-13] MEDS: ASPIRIN 81 MG CHEWABLE TABLETS PO SCH (10:00)
[2019-10-13] MEDS: CLOPIDOGREL BISULFATE 75 MG TABLET (FP) PO SCH (10:00)
[2019-10-13] MEDS: metoPROLOL SUCCINATE 25 MG TAB.SR.24H (FP) PO SCH (10:00)
--- NOTE | 2019-10-13 10:06 | PN ---
Progress Note, Physician History of Present Illness: History from daughter, patient has been reporting chronic PAREDES and decreased exercise capacity for over a year. She currently denies symptoms of near or true syncope, chest pain, dyspnea, palpitations, orthopnea, PND or LE edema. - Current Medication List Current Medications: Active Medications Aspirin (Asa -) 81 mg PO DAILY [facility] Last Admin: 10/13/19 10:00 Dose: 81 mg Atorvastatin Calcium (Lipitor -) 80 mg PO HS [facility] Last Admin: 10/12/19 21:46 Dose: 80 mg Carbamazepine (Tegretol Xr -) 200 mg PO BID [facility] Last Admin: 10/12/19 21:46 Dose: 200 mg Clopidogrel Bisulfate (Plavix -) 75 mg PO DAILY [facility] Last Admin: 10/13/19 10:00 Dose: 75 mg Heparin Sodium (Porcine) (Heparin -) 1,000 unit IVPUSH PRN PRN PRN Reason: Heparin Heparin Sodium (Porcine) (Heparin -) 5,000 unit IVPUSH PRN PRN PRN Reason: Heparin Last Admin: 10/11/19 10:10 Dose: 5,000 unit Heparin Sodium (Porcine) 25, (000 unit/ Sodium Chloride) 500 mls @ 20 mls/hr IV TITR [facility]; Protocol Last Admin: 10/12/19 14:01 Dose: 1,000 unit/hr, 20 mls/hr Metoprolol Succinate (Toprol Xl -) 25 mg PO DAILY [facility] Last Admin: 10/13/19 10:00 Dose: 25 mg - Objective Vital Signs: Vital Signs Temperature 98.4 F 10/13/19 06:01 Pulse Rate 77 10/13/19 06:01 Respiratory Rate 18 10/13/19 06:01 Blood Pressure 119/72 10/13/19 06:01 O2 Sat by Pulse Oximetry (%) 99 10/12/19 20:16 Constitutional: Yes: No Distress, Calm, Thin Neck: Yes: Supple Cardiovascular: Yes: Regular Rate and Rhythm, Murmur (2/6 SM) Respiratory: Yes: Regular, Diminished, On Nasal O2 Gastrointestinal: Yes: Normal Bowel Sounds, Soft Edema: No Labs: CBC, BMP 10/13/19 06:25 10/11/19 11:37 INR, PTT INR 1.15 (0.83-1.09) H 10/11/19 09:37 - ....Imaging EKG: Report Reviewed (Tele: NSR) Problem List - Problems (1) Hypertension Code(s): I10 - ESSENTIAL (PRIMARY) HYPERTENSION Qualifiers: Hypertension type: essential hypertension Qualified Code(s): I10 - Essential (primary) hypertension (2) Hyperlipidemia Code(s): E78.5 - HYPERLIPIDEMIA, UNSPECIFIED Qualifiers: Hyperlipidemia type: unspecified Qualified Code(s): E78.5 - Hyperlipidemia , unspecified (3) Ischemic cardiomyopathy Code(s): I25.5 - ISCHEMIC CARDIOMYOPATHY (4) Coronary artery disease Code(s): I25.10 - ATHSCL HEART DISEASE OF [place] CORONARY ARTERY W/O ANG PCTRS Qualifiers: Coronary Disease-Associated Artery/Lesion type: [place] artery [place] vs. transplanted heart: [place] heart Associated angina: without angina Qualified Code(s): I25.10 - Atherosclerotic heart disease of [place] coronary artery without angina pectoris Assessment/Plan 10/11/19 Echo: Normal LV size with mild LVH mod-severe decreased LVEF 30%, grade I DD, mod dilated RV with mod decreased RV fxn, septal AK, anterolateral and inferior HK, mild TR RVSP 41 mmHg 10/11/2019 Calcified right posterior meningioma, chronic lacunar stroke left IC 1. CAD h/o [place] 2. Ischemic cardiomyopathy, LVEF 30% 3. Dementia 4. Hypertensive heart disease 5. Hyperlipidemia not at goal control 6. Right meningioma 7. Chronic lacunar stroke left IC P:1. ASA 81 qd, Plavix 75 qd, Toprol XL 25 qd, start Entresto 24/26 bid, eventual aldosterone inhibition, high dose statin, d/c heparin gtt, troponins plateaued 2. Given baseline dementia and poor historian, not ideal candidate for invasive therapy 3. Viability study as outpatient, consideration for LifeVest 4. PT->SNF 5. Thank you for consultative opportunity
[2019-10-13] MEDS: carBAMazepine XR 200 MG TAB.ER.12H PO SCH ×2 (12:18→22:50)
[2019-10-13] MEDS: SACUBITRIL/VALSARTAN 24 MG-26 MG TABLET PO SCH ×2 (12:32→22:50)
--- NOTE | 2019-10-13 13:26 | PN ---
Progress Note, Physician History of Present Illness: doing well daughter bedside - Current Medication List Current Medications: Active Medications Aspirin (Asa -) 81 mg PO DAILY [facility] Last Admin: 10/13/19 10:00 Dose: 81 mg Atorvastatin Calcium (Lipitor -) 80 mg PO HS [facility] Last Admin: 10/12/19 21:46 Dose: 80 mg Carbamazepine (Tegretol Xr -) 400 mg PO BID [facility] Clopidogrel Bisulfate (Plavix -) 75 mg PO DAILY [facility] Last Admin: 10/13/19 10:00 Dose: 75 mg Metoprolol Succinate (Toprol Xl -) 25 mg PO DAILY [facility] Last Admin: 10/13/19 10:00 Dose: 25 mg Sacubitril/Valsartan (Entresto 24 Mg-26 Mg Tablet) 1 tab PO BID [facility] Last Admin: 10/13/19 12:32 Dose: 1 tab - Objective Vital Signs: Vital Signs Temperature 98.4 F 10/13/19 06:01 Pulse Rate 77 10/13/19 06:01 Respiratory Rate 18 10/13/19 09:00 Blood Pressure 119/72 10/13/19 06:01 O2 Sat by Pulse Oximetry (%) 99 10/13/19 09:00 Constitutional: Yes: No Distress HENT: Yes: Atraumatic Neck: Yes: Supple Cardiovascular: Yes: Regular Rate and Rhythm Respiratory: Yes: CTA Bilaterally Gastrointestinal: Yes: Normal Bowel Sounds Extremities: Yes: WNL Edema: No Peripheral Pulses WNL: Yes Neurological: Yes: Alert, Oriented Labs: CBC, BMP 10/13/19 06:25 10/11/19 11:37 INR, PTT INR 1.15 (0.83-1.09) H 10/11/19 09:37 Problem List - Problems (1) Acute coronary syndrome Assessment/Plan: iv heparin...stopped on plavix doing well Code(s): I24.9 - ACUTE ISCHEMIC HEART DISEASE, UNSPECIFIED (2) Hyperlipidemia Assessment/Plan: on lipitor Code(s): E78.5 - HYPERLIPIDEMIA, UNSPECIFIED Qualifiers: Hyperlipidemia type: unspecified Qualified Code(s): E78.5 - Hyperlipidemia , unspecified (3) Hypertension Assessment/Plan: on meds head Ct lacunar infarc Code(s): I10 - ESSENTIAL (PRIMARY) HYPERTENSION Qualifiers: Hypertension type: essential hypertension Qualified Code(s): I10 - Essential (primary) hypertension (4) UTI (urinary tract infection) Code(s): N39.0 - URINARY TRACT INFECTION, SITE NOT SPECIFIED Qualifiers: Urinary tract infection type: acute cystitis Hematuria presence: without hematuria Qualified Code(s): N30.00 - Acute cystitis without hematuria (5) Trigeminal neuralgia Assessment/Plan: on med Code(s): G50.0 - TRIGEMINAL NEURALGIA Assessment/Plan d/w daughter all details about meds/reports/dc planning
--- NOTE | 2019-10-13 21:49 | CON.NEURO ---
Consult Consult Specialty:: NEUROLOGY-ZULEMA SONI - History of Present Illness History of Present Illness: Pt presents to the ED complaining of light headness and chest heaviness. EKG shows ST elevations in lead 3, with reciprocal depressions. BP is borderline. Case discussed with Dr. Pineda from cardiology, who recommends medical management for now. Will start ASA, plavix and heparin, check labs and admit to medicine. Will check serial EKGS. Asked to evaluate for possible dementia. 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 She denies memory difficulties and appears unaware of cognitive decline. - Alcohol/Substance Use Hx Alcohol Use: No - Smoking History Smoking history: Former smoker Have you smoked in the past 12 months: No If you are a former smoker, when did you quit?: 40 YEARS AGO Home Medications - Allergies Allergies/Adverse Reactions: Allergies Allergy/AdvReac Type Severity Reaction Status Date / Time No Known Allergies Allergy Verified 10/11/19 09:12 - Home Medications Home Medications: Ambulatory Orders Carbamazepine [Carbamazepine ER] 200 mg PO BID 10/11/19 Aspirin [ASA -] 81 mg PO DAILY #30 tab.chew 10/13/19 Atorvastatin Ca [Lipitor] 80 mg PO HS #30 tablet 10/13/19 Carbamazepine Xr [Tegretol XR -] 400 mg PO BID tab.er.12h 10/13/19 Clopidogrel Bisulfate [Plavix -] 75 mg PO DAILY #30 tablet 10/13/19 Metoprolol Succinate [Toprol XL -] 25 mg PO DAILY #30 tab.sr.24h 10/13/19 Sacubitril/Valsartan [Entresto 24 mg-26 mg Tablet] 1 tab PO BID #60 tablet 10/13 Physical Exam-Neuro Vital Signs: Vital Signs Temperature 97.8 F 10/13/19 18:00 Pulse Rate 86 10/13/19 18:00 Respiratory Rate 20 10/13/19 18:00 Blood Pressure 134/80 10/13/19 18:00 O2 Sat by Pulse Oximetry (%) 99 10/13/19 09:00 Labs: CBC, BMP 10/13/19 06:25 10/11/19 11:37 INR, PTT INR 1.15 (0.83-1.09) H 10/11/19 09:37 - Neuro Exam Level Of Consciousness: Yes: Alert, Oriented to Person, Oriented to Place (not oriented to time/month/season) Speech: Broca's Aphasia (+ mild anomia and minimal semantic paraphasic errors) Mini Mental Exam: Impaired concentration(impaired serial 7s/digit span), STM 1/ 3. MMSE SCORE-20 DTR's: 0 Left Achilles, 0 Right Achilles, 1+ Left Bicep, 1+ Right Bicep, 1+ Left Tricep, 1+ Right Tricep, 1+ Left Brachioradialis, 1+ Right Brachioradialis Babinski: Present (bilat upgoing toes) Motor Strength: 5/5: Left Arm, Right Arm, Left Leg, Right Leg Gait: Other (refused to stand) Imaging - Results Cat Scan: Report Reviewed (right high parietal convexity meningioma, left IC genu lacunar infarct.) Assessment/Plan Pt. with hx. of TGN, she has a mild dementia-scores 20/30 on MMSE with cortical cognitive deficits-mild aphasia/impaired att/conc. Likely AD but cannot exclude subcort. cog.deficits. Upon discharge would place her on namenda 5mg bid x 30 days than increase to 10mg bid. Thank you, Oneal Valle MD
[2019-10-13] MEDS ORDERED: PT OWN MED DRAWER 7, Y5N ONE (22:23)
[2019-10-13] MEDS: ATORVASTATIN CA 80 MG TABLET (FP) PO SCH (22:50)
[2019-10-14 07:16] LABS: HEMATOCRIT 33.9 % (32.4-45.2); HEMOGLOBIN 11.3 GM/dL (10.7-15.3); MCH 30.4 pg (25.7-33.7); MCHC 33.2 g/dl (32.0-36.0); MEAN CELL VOLUME 91.6 fl (80-96); MEAN PLT VOLUME 9.5 fl (7.5-11.1); PLATELET COUNT 163 K/MM3 (134-434); RDW 14.1 % (11.6-15.6); WHITE BLOOD COUNT 5.7 K/mm3 (4.0-10.0)
[2019-10-14] MEDS: metoPROLOL SUCCINATE 25 MG TAB.SR.24H (FP) PO SCH (09:26)
[2019-10-14] MEDS: CLOPIDOGREL BISULFATE 75 MG TABLET (FP) PO SCH (09:26)
[2019-10-14] MEDS: ASPIRIN 81 MG CHEWABLE TABLETS PO SCH (09:26)
[2019-10-14] MEDS: carBAMazepine XR 200 MG TAB.ER.12H PO SCH ×2 (09:27→22:13)
[2019-10-14] MEDS ORDERED: PT OWN MED DRAWER 7, Y5N ONE ×2 (09:28→22:01)
[2019-10-14] MEDS ORDERED: PNEUMOC 13-VAL CONJ-DIP CRM/PF 0.5 ML DISP.SYRIN IM ONE (10:00)
--- NOTE | 2019-10-14 11:20 | PN ---
Progress Note, Physician History of Present Illness: History from daughter, patient has been reporting chronic PAREDES and decreased exercise capacity for over a year. She currently denies symptoms of near or true syncope, chest pain, dyspnea, palpitations, orthopnea, PND or LE edema. Tolerates PT, awaiting SNF, no events on telemetry. - Current Medication List Current Medications: Active Medications Aspirin (Asa -) 81 mg PO DAILY [facility] Last Admin: 10/14/19 09:26 Dose: 81 mg Atorvastatin Calcium (Lipitor -) 80 mg PO HS [facility] Last Admin: 10/13/19 22:50 Dose: 80 mg Carbamazepine (Tegretol Xr -) 400 mg PO BID [facility] Last Admin: 10/14/19 09:27 Dose: 400 mg Clopidogrel Bisulfate (Plavix -) 75 mg PO DAILY [facility] Last Admin: 10/14/19 09:26 Dose: 75 mg Metoprolol Succinate (Toprol Xl -) 25 mg PO DAILY [facility] Last Admin: 10/14/19 09:26 Dose: 25 mg Sacubitril/Valsartan (Entresto 24 Mg-26 Mg Tablet) 1 tab PO BID [facility] Last Admin: 10/13/19 22:50 Dose: 1 tab - Objective Vital Signs: Vital Signs Temperature 98.9 F 10/14/19 06:00 Pulse Rate 80 10/14/19 06:00 Respiratory Rate 18 10/14/19 06:00 Blood Pressure 117/73 10/14/19 06:00 O2 Sat by Pulse Oximetry (%) 96 10/13/19 21:00 Constitutional: Yes: No Distress, Calm, Thin Neck: Yes: Supple Cardiovascular: Yes: Regular Rate and Rhythm Respiratory: Yes: Regular, CTA Bilaterally Gastrointestinal: Yes: Normal Bowel Sounds, Soft Edema: No Labs: CBC, BMP 10/14/19 06:25 10/11/19 11:37 INR, PTT INR 1.15 (0.83-1.09) H 10/11/19 09:37 - ....Imaging EKG: Report Reviewed (Tele: NSR) Problem List - Problems (1) Hypertension Code(s): I10 - ESSENTIAL (PRIMARY) HYPERTENSION Qualifiers: Hypertension type: essential hypertension Qualified Code(s): I10 - Essential (primary) hypertension (2) Hyperlipidemia Code(s): E78.5 - HYPERLIPIDEMIA, UNSPECIFIED Qualifiers: Hyperlipidemia type: unspecified Qualified Code(s): E78.5 - Hyperlipidemia , unspecified (3) Ischemic cardiomyopathy Code(s): I25.5 - ISCHEMIC CARDIOMYOPATHY (4) Coronary artery disease Code(s): I25.10 - ATHSCL HEART DISEASE OF [place] CORONARY ARTERY W/O ANG PCTRS Qualifiers: Coronary Disease-Associated Artery/Lesion type: [place] artery [place] vs. transplanted heart: [place] heart Associated angina: without angina Qualified Code(s): I25.10 - Atherosclerotic heart disease of [place] coronary artery without angina pectoris Assessment/Plan 10/11/19 Echo: Normal LV size with mild LVH mod-severe decreased LVEF 30%, grade I DD, mod dilated RV with mod decreased RV fxn, septal AK, anterolateral and inferior HK, mild TR RVSP 41 mmHg 10/11/2019 Calcified right posterior meningioma, chronic lacunar stroke left IC 1. CAD h/o [place] 2. Ischemic cardiomyopathy, LVEF 30% 3. Dementia likely Alzheimer's type 4. Hypertensive heart disease 5. Hyperlipidemia not at goal control 6. Right meningioma 7. Chronic lacunar stroke left IC 8. H/o trigeminal neuralgia P:1. ASA 81 qd, Plavix 75 qd, Toprol XL 25 qd, Entresto 24/26 bid, add aldosterone inhibition, BiDIl as outpatient, high dose statin, troponins plateaued 2. Given baseline dementia and poor historian, not ideal candidate for invasive therapy 3. Viability study as outpatient, LifeVest may preclude her from engagement in STR 4. PT->SNF 5. Recommendations for namenda 5 bid per neuro
[2019-10-14] MEDS: SACUBITRIL/VALSARTAN 24 MG-26 MG TABLET PO SCH ×2 (11:31→22:12)
[2019-10-14] MEDS: SPIRONOLACTONE 25 MG TABLET (FP) PO SCH (12:44)
--- NOTE | 2019-10-14 14:59 | DS ---
Physical Examination Vital Signs: Vital Signs Temperature 98.6 F 10/14/19 14:05 Pulse Rate 80 10/14/19 14:05 Respiratory Rate 18 10/14/19 14:05 Blood Pressure 110/53 L 10/14/19 14:05 O2 Sat by Pulse Oximetry (%) 96 10/14/19 10:00 Labs: CBC, BMP 10/14/19 06:25 10/11/19 11:37 Discharge Summary Problems reviewed: Yes Reason For Visit: Shortness of Breath Current Active Problems Acute coronary syndrome (Acute) Coronary artery disease (Acute) Ischemic cardiomyopathy (Acute) Trigeminal neuralgia (Acute) Condition: Guarded - Instructions Referrals: Holden Gallego MD [Staff Physician] - Lena Valle MD [Staff Physician] - Bharat Pineda MD [Staff Physician] - - Home Medications Comprehensive Discharge Medication List: Ambulatory Orders Carbamazepine [Carbamazepine ER] 200 mg PO BID 10/11/19 Aspirin [ASA -] 81 mg PO DAILY #30 tab.chew 10/13/19 Atorvastatin Ca [Lipitor] 80 mg PO HS #30 tablet 10/13/19 Carbamazepine Xr [Tegretol XR -] 400 mg PO BID tab.er.12h 10/13/19 Clopidogrel Bisulfate [Plavix -] 75 mg PO DAILY #30 tablet 10/13/19 Metoprolol Succinate [Toprol XL -] 25 mg PO DAILY #30 tab.sr.24h 10/13/19 Sacubitril/Valsartan [Entresto 24 mg-26 mg Tablet] 1 tab PO BID #60 tablet 10/13 Memantine HCl [Namenda -] 5 mg PO BID #60 tablet 10/14/19 vt home
--- NOTE | 2019-10-14 18:27 | PN ---
Progress Note, Physician - Current Medication List Current Medications: Active Medications Aspirin (Asa -) 81 mg PO DAILY [facility] Last Admin: 10/14/19 09:26 Dose: 81 mg Atorvastatin Calcium (Lipitor -) 80 mg PO HS [facility] Last Admin: 10/13/19 22:50 Dose: 80 mg Carbamazepine (Tegretol Xr -) 400 mg PO BID [facility] Last Admin: 10/14/19 09:27 Dose: 400 mg Clopidogrel Bisulfate (Plavix -) 75 mg PO DAILY [facility] Last Admin: 10/14/19 09:26 Dose: 75 mg Metoprolol Succinate (Toprol Xl -) 25 mg PO DAILY [facility] Last Admin: 10/14/19 09:26 Dose: 25 mg Sacubitril/Valsartan (Entresto 24 Mg-26 Mg Tablet) 1 tab PO BID [facility] Last Admin: 10/14/19 11:31 Dose: 1 tab Spironolactone (Aldactone -) 25 mg PO DAILY [facility] Last Admin: 10/14/19 12:44 Dose: 25 mg - Objective Vital Signs: Vital Signs Temperature 98.6 F 10/14/19 14:05 Pulse Rate 80 10/14/19 14:05 Respiratory Rate 18 10/14/19 14:05 Blood Pressure 110/53 L 10/14/19 14:05 O2 Sat by Pulse Oximetry (%) 96 10/14/19 10:00 Constitutional: Yes: No Distress HENT: Yes: Atraumatic Neck: Yes: Supple Cardiovascular: Yes: Regular Rate and Rhythm Respiratory: Yes: CTA Bilaterally Gastrointestinal: Yes: Normal Bowel Sounds Extremities: Yes: WNL Neurological: Yes: Alert, Oriented Labs: CBC, BMP 10/14/19 06:25 10/11/19 11:37 INR, PTT INR 1.15 (0.83-1.09) H 10/11/19 09:37 Problem List - Problems (1) Acute coronary syndrome Assessment/Plan: on plavix doing well Code(s): I24.9 - ACUTE ISCHEMIC HEART DISEASE, UNSPECIFIED (2) Hyperlipidemia Assessment/Plan: on lipitor Code(s): E78.5 - HYPERLIPIDEMIA, UNSPECIFIED Qualifiers: Hyperlipidemia type: unspecified Qualified Code(s): E78.5 - Hyperlipidemia , unspecified (3) Hypertension Assessment/Plan: on meds head Ct lacunar infarc Code(s): I10 - ESSENTIAL (PRIMARY) HYPERTENSION Qualifiers: Hypertension type: essential hypertension Qualified Code(s): I10 - Essential (primary) hypertension (4) UTI (urinary tract infection) Code(s): N39.0 - URINARY TRACT INFECTION, SITE NOT SPECIFIED Qualifiers: Urinary tract infection type: acute cystitis Hematuria presence: without hematuria Qualified Code(s): N30.00 - Acute cystitis without hematuria (5) Trigeminal neuralgia Code(s): G50.0 - TRIGEMINAL NEURALGIA Assessment/Plan for snf
[2019-10-14] MEDS: ATORVASTATIN CA 80 MG TABLET (FP) PO SCH (22:12)
[2019-10-15 07:03] LABS: HEMOGLOBIN 11.3 GM/dL (10.7-15.3); MCH 30.6 pg (25.7-33.7); MCHC 33.2 g/dl (32.0-36.0); MEAN CELL VOLUME 91.9 fl (80-96); MEAN PLT VOLUME 9.5 fl (7.5-11.1); PLATELET COUNT 173 K/MM3 (134-434); RDW 14.1 % (11.6-15.6); WHITE BLOOD COUNT 6.1 K/mm3 (4.0-10.0)
[2019-10-15] MEDS: SPIRONOLACTONE 25 MG TABLET (FP) PO SCH (09:16)
[2019-10-15] MEDS: ASPIRIN 81 MG CHEWABLE TABLETS PO SCH (09:16)
[2019-10-15] MEDS: metoPROLOL SUCCINATE 25 MG TAB.SR.24H (FP) PO SCH (09:16)
[2019-10-15] MEDS: CLOPIDOGREL BISULFATE 75 MG TABLET (FP) PO SCH (09:17)
[2019-10-15] MEDS: carBAMazepine XR 200 MG TAB.ER.12H PO SCH ×2 (09:17→22:25)
[2019-10-15] MEDS: SACUBITRIL/VALSARTAN 24 MG-26 MG TABLET PO SCH ×2 (09:18→22:25)
--- NOTE | 2019-10-15 10:00 | PN ---
Progress Note, Physician History of Present Illness: History from daughter, patient has been reporting chronic PAREDES and decreased exercise capacity for over a year. She currently denies symptoms of near or true syncope, chest pain, dyspnea, palpitations, orthopnea, PND or LE edema. Tolerates PT, awaiting SNF, no events on telemetry. - Current Medication List Current Medications: Active Medications Aspirin (Asa -) 81 mg PO DAILY [facility] Last Admin: 10/15/19 09:16 Dose: 81 mg Atorvastatin Calcium (Lipitor -) 80 mg PO HS [facility] Last Admin: 10/14/19 22:12 Dose: 80 mg Carbamazepine (Tegretol Xr -) 400 mg PO BID [facility] Last Admin: 10/15/19 09:17 Dose: 400 mg Clopidogrel Bisulfate (Plavix -) 75 mg PO DAILY [facility] Last Admin: 10/15/19 09:17 Dose: 75 mg Metoprolol Succinate (Toprol Xl -) 25 mg PO DAILY [facility] Last Admin: 10/15/19 09:16 Dose: 25 mg Sacubitril/Valsartan (Entresto 24 Mg-26 Mg Tablet) 1 tab PO BID [facility] Last Admin: 10/15/19 09:18 Dose: 1 tab Spironolactone (Aldactone -) 25 mg PO DAILY [facility] Last Admin: 10/15/19 09:16 Dose: 25 mg - Objective Vital Signs: Vital Signs Temperature 98.5 F 10/15/19 08:46 Pulse Rate 78 10/15/19 08:46 Respiratory Rate 16 10/15/19 08:46 Blood Pressure 105/63 10/15/19 08:46 O2 Sat by Pulse Oximetry (%) 96 10/14/19 21:00 Constitutional: Yes: No Distress, Calm, Thin Neck: Yes: Supple Cardiovascular: Yes: Regular Rate and Rhythm Respiratory: Yes: Regular, CTA Bilaterally Gastrointestinal: Yes: Normal Bowel Sounds, Soft Edema: No Labs: CBC, BMP 10/15/19 05:25 10/11/19 11:37 INR, PTT INR 1.15 (0.83-1.09) H 10/11/19 09:37 - ....Imaging EKG: Report Reviewed (Tele: NSR) Problem List - Problems (1) Hypertension Code(s): I10 - ESSENTIAL (PRIMARY) HYPERTENSION Qualifiers: Hypertension type: essential hypertension Qualified Code(s): I10 - Essential (primary) hypertension (2) Hyperlipidemia Code(s): E78.5 - HYPERLIPIDEMIA, UNSPECIFIED Qualifiers: Hyperlipidemia type: unspecified Qualified Code(s): E78.5 - Hyperlipidemia , unspecified (3) Ischemic cardiomyopathy Code(s): I25.5 - ISCHEMIC CARDIOMYOPATHY (4) Coronary artery disease Code(s): I25.10 - ATHSCL HEART DISEASE OF [place] CORONARY ARTERY W/O ANG PCTRS Qualifiers: Coronary Disease-Associated Artery/Lesion type: [place] artery [place] vs. transplanted heart: [place] heart Associated angina: without angina Qualified Code(s): I25.10 - Atherosclerotic heart disease of [place] coronary artery without angina pectoris Assessment/Plan 10/11/19 Echo: Normal LV size with mild LVH mod-severe decreased LVEF 30%, grade I DD, mod dilated RV with mod decreased RV fxn, septal AK, anterolateral and inferior HK, mild TR RVSP 41 mmHg 10/11/2019 Calcified right posterior meningioma, chronic lacunar stroke left IC 1. CAD h/o [place] 2. Ischemic cardiomyopathy, LVEF 30% 3. Dementia likely Alzheimer's type with sundowning 4. Hypertensive heart disease 5. Hyperlipidemia not at goal control 6. Right meningioma 7. Chronic lacunar stroke left IC 8. H/o trigeminal neuralgia P:1. ASA 81 qd, Plavix 75 qd, Toprol XL 25 qd, Lipitor 80 qd, Entresto 24/26 bid , Aldactone 25 qd, BiDIl as outpatient, high dose statin, troponins plateaued 2. Given baseline dementia and poor historian, not ideal candidate for invasive therapy 3. Viability study as outpatient, LifeVest may preclude her from engagement in STR 4. PT->SNF 5. Recommendations for namenda 5 bid per neuro
--- NOTE | 2019-10-15 18:21 | PN ---
Progress Note, Physician - Current Medication List Current Medications: Active Medications Aspirin (Asa -) 81 mg PO DAILY [facility] Last Admin: 10/15/19 09:16 Dose: 81 mg Atorvastatin Calcium (Lipitor -) 80 mg PO HS [facility] Last Admin: 10/14/19 22:12 Dose: 80 mg Carbamazepine (Tegretol Xr -) 400 mg PO BID [facility] Last Admin: 10/15/19 09:17 Dose: 400 mg Clopidogrel Bisulfate (Plavix -) 75 mg PO DAILY [facility] Last Admin: 10/15/19 09:17 Dose: 75 mg Metoprolol Succinate (Toprol Xl -) 25 mg PO DAILY [facility] Last Admin: 10/15/19 09:16 Dose: 25 mg Sacubitril/Valsartan (Entresto 24 Mg-26 Mg Tablet) 1 tab PO BID [facility] Last Admin: 10/15/19 09:18 Dose: 1 tab Spironolactone (Aldactone -) 25 mg PO DAILY [facility] Last Admin: 10/15/19 09:16 Dose: 25 mg - Objective Vital Signs: Vital Signs Temperature 98.6 F 10/15/19 13:51 Pulse Rate 82 10/15/19 13:51 Respiratory Rate 18 10/15/19 13:51 Blood Pressure 106/62 10/15/19 13:51 O2 Sat by Pulse Oximetry (%) 96 10/15/19 10:00 Constitutional: Yes: No Distress HENT: Yes: Atraumatic Neck: Yes: Supple Cardiovascular: Yes: Regular Rate and Rhythm Respiratory: Yes: CTA Bilaterally Extremities: Yes: WNL Labs: CBC, BMP 10/15/19 05:25 10/11/19 11:37 INR, PTT INR 1.15 (0.83-1.09) H 10/11/19 09:37 Problem List - Problems (1) Acute coronary syndrome Assessment/Plan: on plavix doing well Code(s): I24.9 - ACUTE ISCHEMIC HEART DISEASE, UNSPECIFIED (2) Hyperlipidemia Assessment/Plan: on lipitor Code(s): E78.5 - HYPERLIPIDEMIA, UNSPECIFIED Qualifiers: Hyperlipidemia type: unspecified Qualified Code(s): E78.5 - Hyperlipidemia , unspecified (3) Hypertension Assessment/Plan: on meds head Ct lacunar infarc Code(s): I10 - ESSENTIAL (PRIMARY) HYPERTENSION Qualifiers: Hypertension type: essential hypertension Qualified Code(s): I10 - Essential (primary) hypertension (4) UTI (urinary tract infection) Assessment/Plan: cxs negative Code(s): N39.0 - URINARY TRACT INFECTION, SITE NOT SPECIFIED Qualifiers: Urinary tract infection type: acute cystitis Hematuria presence: without hematuria Qualified Code(s): N30.00 - Acute cystitis without hematuria (5) Trigeminal neuralgia Code(s): G50.0 - TRIGEMINAL NEURALGIA
[2019-10-15] MEDS ORDERED: PT OWN MED DRAWER 7, Y5N ONE (21:32)
[2019-10-15] MEDS: ATORVASTATIN CA 80 MG TABLET (FP) PO SCH (22:25)
[2019-10-16 07:52] LABS: HEMATOCRIT 38.1 % (32.4-45.2); HEMOGLOBIN 12.5 GM/dL (10.7-15.3); MCH 30.5 pg (25.7-33.7); MCHC 32.9 g/dl (32.0-36.0); MEAN CELL VOLUME 92.7 fl (80-96); MEAN PLT VOLUME 9.5 fl (7.5-11.1); PLATELET COUNT 197 K/MM3 (134-434); RBC 4.11 M/mm3 (3.60-5.2); RDW 14.1 % (11.6-15.6); WHITE BLOOD COUNT 6.8 K/mm3 (4.0-10.0)
--- NOTE | 2019-10-16 09:38 | PN ---
Progress Note, Physician History of Present Illness: 88 yo AAF past medical history of trigeminal neuralgia, dementia, HTN, HLD, and prior UTI with sepsis presents for dizziness and w/o true syncope, poor historian. Patient denies chest pain, dyspnea, palpitations, orthopnea, PND or LE edema, bedside US shows LV dysfunction. EKG shows evolving IWMI pattern. - Current Medication List Current Medications: Active Medications Aspirin (Asa -) 81 mg PO DAILY [facility] Last Admin: 10/15/19 09:16 Dose: 81 mg Atorvastatin Calcium (Lipitor -) 80 mg PO HS [facility] Last Admin: 10/15/19 22:25 Dose: 80 mg Carbamazepine (Tegretol Xr -) 400 mg PO BID [facility] Last Admin: 10/15/19 22:25 Dose: 400 mg Clopidogrel Bisulfate (Plavix -) 75 mg PO DAILY [facility] Last Admin: 10/15/19 09:17 Dose: 75 mg Metoprolol Succinate (Toprol Xl -) 25 mg PO DAILY [facility] Last Admin: 10/15/19 09:16 Dose: 25 mg Sacubitril/Valsartan (Entresto 24 Mg-26 Mg Tablet) 1 tab PO BID [facility] Last Admin: 10/15/19 22:25 Dose: 1 tab Spironolactone (Aldactone -) 25 mg PO DAILY [facility] Last Admin: 10/15/19 09:16 Dose: 25 mg - Objective Vital Signs: Vital Signs Temperature 97.9 F 10/16/19 06:00 Pulse Rate 84 10/16/19 06:00 Respiratory Rate 18 10/16/19 06:00 Blood Pressure 141/65 10/16/19 06:00 O2 Sat by Pulse Oximetry (%) 97 10/15/19 21:00 Eyes: Yes: WNL, Conjunctiva Clear, EOM Intact HENT: Yes: WNL, Atraumatic, Normocephalic Neck: Yes: WNL, Supple, Trachea Midline Cardiovascular: Yes: WNL, Regular Rate and Rhythm Respiratory: Yes: WNL, Regular, CTA Bilaterally Gastrointestinal: Yes: WNL, Normal Bowel Sounds Genitourinary: Yes: WNL Musculoskeletal: Yes: WNL Extremities: Yes: WNL Edema: No Integumentary: Yes: WNL Neurological: Yes: WNL, Alert, Oriented ...Motor Strength: WNL Psychiatric: Yes: WNL Labs: CBC, BMP 10/16/19 06:34 10/11/19 11:37 INR, PTT INR 1.15 (0.83-1.09) H 10/11/19 09:37 Assessment/Plan Problem List - Problems (1) Hypertension Code(s): I10 - ESSENTIAL (PRIMARY) HYPERTENSION Qualifiers: Hypertension type: essential hypertension Qualified Code(s): I10 - Essential (primary) hypertension (2) Hyperlipidemia Code(s): E78.5 - HYPERLIPIDEMIA, UNSPECIFIED Qualifiers: Hyperlipidemia type: unspecified Qualified Code(s): E78.5 - Hyperlipidemia , unspecified (3) Ischemic cardiomyopathy Code(s): I25.5 - ISCHEMIC CARDIOMYOPATHY (4) Coronary artery disease Code(s): I25.10 - ATHSCL HEART DISEASE OF [place] CORONARY ARTERY W/O ANG PCTRS Qualifiers: Coronary Disease-Associated Artery/Lesion type: [place] artery [place] vs. transplanted heart: [place] heart Associated angina: without angina Qualified Code(s): I25.10 - Atherosclerotic heart disease of [place] coronary artery without angina pectoris Assessment/Plan 10/11/19 Echo: Normal LV size with mild LVH mod-severe decreased LVEF 30%, grade I DD, mod dilated RV with mod decreased RV fxn, septal AK, anterolateral and inferior HK, mild TR RVSP 41 mmHg 10/11/2019 Calcified right posterior meningioma, chronic lacunar stroke left IC 1. CAD h/o [place] 2. Ischemic cardiomyopathy, LVEF 30% 3. Dementia likely Alzheimer's type with sundowning 4. Hypertensive heart disease 5. Hyperlipidemia not at goal control 6. Right meningioma 7. Chronic lacunar stroke left IC 8. H/o trigeminal neuralgia P:1. ASA 81 qd, Plavix 75 qd, Toprol XL 25 qd, Lipitor 80 qd, Entresto 24/26 bid , Aldactone 25 qd, BiDIl as outpatient, high dose statin, troponins plateaued 2. Given baseline dementia and poor historian, not ideal candidate for invasive therapy 3. Viability study as outpatient, LifeVest may preclude her from engagement in STR 4. PT->SNF 5. Recommendations for namenda 5 bid per neuro coverage for dr. Pineda
[2019-10-16] MEDS ORDERED: PT OWN MED DRAWER 7, Y5N ONE ×2 (09:47→21:36)
[2019-10-16] MEDS: SPIRONOLACTONE 25 MG TABLET (FP) PO SCH (10:12)
[2019-10-16] MEDS: ASPIRIN 81 MG CHEWABLE TABLETS PO SCH (10:12)
[2019-10-16] MEDS: carBAMazepine XR 200 MG TAB.ER.12H PO SCH ×2 (10:12→21:57)
[2019-10-16] MEDS: SACUBITRIL/VALSARTAN 24 MG-26 MG TABLET PO SCH ×2 (10:13→21:56)
[2019-10-16] MEDS: metoPROLOL SUCCINATE 25 MG TAB.SR.24H (FP) PO SCH (10:13)
[2019-10-16] MEDS: CLOPIDOGREL BISULFATE 75 MG TABLET (FP) PO SCH (10:13)
--- NOTE | 2019-10-16 12:58 | PN ---
Progress Note, Physician History of Present Illness: awake answering questions - Current Medication List Current Medications: Active Medications Aspirin (Asa -) 81 mg PO DAILY [facility] Last Admin: 10/16/19 10:12 Dose: 81 mg Atorvastatin Calcium (Lipitor -) 80 mg PO HS [facility] Last Admin: 10/15/19 22:25 Dose: 80 mg Carbamazepine (Tegretol Xr -) 400 mg PO BID [facility] Last Admin: 10/16/19 10:12 Dose: 400 mg Clopidogrel Bisulfate (Plavix -) 75 mg PO DAILY [facility] Last Admin: 10/16/19 10:13 Dose: 75 mg Metoprolol Succinate (Toprol Xl -) 25 mg PO DAILY [facility] Last Admin: 10/16/19 10:13 Dose: 25 mg Sacubitril/Valsartan (Entresto 24 Mg-26 Mg Tablet) 1 tab PO BID [facility] Last Admin: 10/16/19 10:13 Dose: 1 tab Spironolactone (Aldactone -) 25 mg PO DAILY [facility] Last Admin: 10/16/19 10:12 Dose: 25 mg - Objective Vital Signs: Vital Signs Temperature 97.7 F 10/16/19 10:21 Pulse Rate 87 10/16/19 10:21 Respiratory Rate 18 10/16/19 10:21 Blood Pressure 141/86 10/16/19 10:21 O2 Sat by Pulse Oximetry (%) 97 10/15/19 21:00 Constitutional: Yes: No Distress HENT: Yes: Atraumatic Neck: Yes: Supple Cardiovascular: Yes: Regular Rate and Rhythm Respiratory: Yes: CTA Bilaterally Gastrointestinal: Yes: Normal Bowel Sounds Extremities: Yes: WNL Edema: No Neurological: Yes: Alert, Oriented Labs: CBC, BMP 10/16/19 06:34 10/11/19 11:37 INR, PTT INR 1.15 (0.83-1.09) H 10/11/19 09:37 Problem List - Problems (1) Acute coronary syndrome Assessment/Plan: on plavix doing well Code(s): I24.9 - ACUTE ISCHEMIC HEART DISEASE, UNSPECIFIED (2) Hyperlipidemia Assessment/Plan: on lipitor Code(s): E78.5 - HYPERLIPIDEMIA, UNSPECIFIED Qualifiers: Hyperlipidemia type: unspecified Qualified Code(s): E78.5 - Hyperlipidemia , unspecified (3) Hypertension Assessment/Plan: on meds head Ct lacunar infarc Code(s): I10 - ESSENTIAL (PRIMARY) HYPERTENSION Qualifiers: Hypertension type: essential hypertension Qualified Code(s): I10 - Essential (primary) hypertension (4) UTI (urinary tract infection) Assessment/Plan: will send another ua id consult Code(s): N39.0 - URINARY TRACT INFECTION, SITE NOT SPECIFIED Qualifiers: Urinary tract infection type: acute cystitis Hematuria presence: without hematuria Qualified Code(s): N30.00 - Acute cystitis without hematuria (5) Trigeminal neuralgia Code(s): G50.0 - TRIGEMINAL NEURALGIA
[2019-10-16 18:49] LABS: BASO % 0.5 % (0-2.0); EOS % 0.3 % (0-4.5); HEMATOCRIT 36.2 % (32.4-45.2); HEMOGLOBIN 11.9 GM/dL (10.7-15.3); LYMPH % 4.5 % (8-40); MCH 30.2 pg (25.7-33.7); MCHC 32.7 g/dl (32.0-36.0); MEAN CELL VOLUME 92.5 fl (80-96); MEAN PLT VOLUME 9.6 fl (7.5-11.1); MONO % 4.8 % (3.8-10.2); NEUT % 89.9 % (42.8-82.8); PLATELET COUNT 197 K/MM3 (134-434); RBC 3.92 M/mm3 (3.60-5.2)
[2019-10-16 19:26] LABS: ALBUMIN 2.4 g/dl (3.4-5.0); BILIRUBIN,TOTAL 0.5 mg/dL (0.2-1); BLOOD UREA NITROGEN 12.7 mg/dL (7-18); CALCIUM 8.1 mg/dL (8.5-10.1); CREATININE 0.8 mg/dL (0.55-1.3); POTASSIUM 4.1 mmol/L (3.5-5.1); TOT PROT 6.5 g/dl (6.4-8.2)
[2019-10-16 19:39] LABS: HYALINE CASTS 2 /lpf (0-8); URINE APPEARANCE CLEAR; URINE BACTERIA 1426.5 /hpf (NEGATIVE); URINE BILIRUBIN NEGATIVE (NEGATIVE); URINE COLOR YELLOW; URINE GLUCOSE (UA) NEGATIVE (NEGATIVE); URINE KETONE NEGATIVE (NEGATIVE); URINE LEUK ESTERASE 1+ (NEGATIVE); URINE NITRITE NEGATIVE (NEGATIVE); URINE PROTEIN NEGATIVE (NEGATIVE); URINE RBC 1 /hpf (0-4); URINE UROBILINOGEN 0.2 mg/dL (0.2-1.0); URINE WBC 8 /hpf (0-5)
[2019-10-16] MEDS ORDERED: CEFTRIAXONE 1 GM in DEXTROSE 5%-WATER - 50 ML IVPB ONE (20:37)
[2019-10-16] MEDS ORDERED: cefTRIAXone SODIUM 1 GM VIAL ONE (21:36)
[2019-10-16] MEDS ORDERED: DEXTROSE 5%-WATER - 50 ML IVPB ONE (21:36)
[2019-10-16] MEDS: ATORVASTATIN CA 80 MG TABLET (FP) PO SCH (21:57)
[2019-10-17 06:21] LABS: HEMATOCRIT 37.6 % (32.4-45.2); HEMOGLOBIN 12.2 GM/dL (10.7-15.3); MCH 30.2 pg (25.7-33.7); MCHC 32.6 g/dl (32.0-36.0); MEAN CELL VOLUME 92.8 fl (80-96); MEAN PLT VOLUME 9.4 fl (7.5-11.1); PLATELET COUNT 199 K/MM3 (134-434); RBC 4.05 M/mm3 (3.60-5.2); WHITE BLOOD COUNT 5.8 K/mm3 (4.0-10.0)
--- NOTE | 2019-10-17 09:42 | PN ---
Progress Note, Physician History of Present Illness: 88 yo AAF past medical history of trigeminal neuralgia, dementia, HTN, HLD, and prior UTI with sepsis presents for dizziness and w/o true syncope, poor historian. Patient denies chest pain, dyspnea, palpitations, orthopnea, PND or LE edema, bedside US shows LV dysfunction. EKG shows evolving IWMI pattern. - Current Medication List Current Medications: Active Medications Aspirin (Asa -) 81 mg PO DAILY [facility] Last Admin: 10/16/19 10:12 Dose: 81 mg Atorvastatin Calcium (Lipitor -) 80 mg PO HS [facility] Last Admin: 10/16/19 21:57 Dose: Not Given Carbamazepine (Tegretol Xr -) 400 mg PO BID [facility] Last Admin: 10/16/19 21:57 Dose: Not Given Clopidogrel Bisulfate (Plavix -) 75 mg PO DAILY [facility] Last Admin: 10/16/19 10:13 Dose: 75 mg Metoprolol Succinate (Toprol Xl -) 25 mg PO DAILY [facility] Last Admin: 10/16/19 10:13 Dose: 25 mg Sacubitril/Valsartan (Entresto 24 Mg-26 Mg Tablet) 1 tab PO BID [facility] Last Admin: 10/16/19 21:56 Dose: Not Given Spironolactone (Aldactone -) 25 mg PO DAILY [facility] Last Admin: 10/16/19 10:12 Dose: 25 mg - Objective Vital Signs: Vital Signs Temperature 98.2 F 10/17/19 06:13 Pulse Rate 82 10/17/19 06:13 Respiratory Rate 20 10/17/19 06:13 Blood Pressure 141/81 10/17/19 06:13 O2 Sat by Pulse Oximetry (%) 96 10/16/19 21:00 Eyes: Yes: WNL, Conjunctiva Clear, EOM Intact HENT: Yes: WNL, Atraumatic, Normocephalic Neck: Yes: WNL, Supple, Trachea Midline Cardiovascular: Yes: WNL, Regular Rate and Rhythm Respiratory: Yes: WNL, Regular, CTA Bilaterally Gastrointestinal: Yes: WNL, Normal Bowel Sounds Genitourinary: Yes: WNL Musculoskeletal: Yes: WNL Extremities: Yes: WNL Edema: No Integumentary: Yes: WNL Neurological: Yes: WNL, Alert, Oriented ...Motor Strength: WNL Psychiatric: Yes: WNL Labs: CBC, BMP 10/17/19 05:35 10/16/19 18:30 INR, PTT INR 1.15 (0.83-1.09) H 10/11/19 09:37 Assessment/Plan Problem List - Problems (1) Hypertension Code(s): I10 - ESSENTIAL (PRIMARY) HYPERTENSION Qualifiers: Hypertension type: essential hypertension Qualified Code(s): I10 - Essential (primary) hypertension (2) Hyperlipidemia Code(s): E78.5 - HYPERLIPIDEMIA, UNSPECIFIED Qualifiers: Hyperlipidemia type: unspecified Qualified Code(s): E78.5 - Hyperlipidemia , unspecified (3) Ischemic cardiomyopathy Code(s): I25.5 - ISCHEMIC CARDIOMYOPATHY (4) Coronary artery disease Code(s): I25.10 - ATHSCL HEART DISEASE OF [place] CORONARY ARTERY W/O ANG PCTRS Qualifiers: Coronary Disease-Associated Artery/Lesion type: [place] artery [place] vs. transplanted heart: [place] heart Associated angina: without angina Qualified Code(s): I25.10 - Atherosclerotic heart disease of [place] coronary artery without angina pectoris Assessment/Plan 10/11/19 Echo: Normal LV size with mild LVH mod-severe decreased LVEF 30%, grade I DD, mod dilated RV with mod decreased RV fxn, septal [place], anterolateral and inferior HK, mild TR RVSP 41 mmHg 10/11/2019 Calcified right posterior meningioma, chronic lacunar stroke left IC 1. CAD h/o [place] 2. Ischemic cardiomyopathy, LVEF 30% 3. Dementia likely Alzheimer's type with sundowning 4. Hypertensive heart disease 5. Hyperlipidemia not at goal control 6. Right meningioma 7. Chronic lacunar stroke left IC 8. H/o trigeminal neuralgia P:1. ASA 81 qd, Plavix 75 qd, Toprol XL 25 qd, Lipitor 80 qd, Entresto 24/26 bid , Aldactone 25 qd, BiDIl as outpatient, high dose statin, troponins plateaued 2. Given baseline dementia and poor historian, not ideal candidate for invasive therapy 3. Viability study as outpatient, LifeVest may preclude her from engagement in STR 4. PT->SNF 5. Recommendations for namenda 5 bid per neuro coverage for dr. Pineda
[2019-10-17] MEDS ORDERED: PT OWN MED DRAWER 7, Y5N ONE ×2 (09:56→21:21)
[2019-10-17] MEDS: SACUBITRIL/VALSARTAN 24 MG-26 MG TABLET PO SCH ×2 (10:07→21:42)
[2019-10-17] MEDS: metoPROLOL SUCCINATE 25 MG TAB.SR.24H (FP) PO SCH (10:07)
[2019-10-17] MEDS: SPIRONOLACTONE 25 MG TABLET (FP) PO SCH (10:07)
[2019-10-17] MEDS: CLOPIDOGREL BISULFATE 75 MG TABLET (FP) PO SCH (10:07)
[2019-10-17] MEDS: ASPIRIN 81 MG CHEWABLE TABLETS PO SCH (10:07)
[2019-10-17] MEDS: carBAMazepine XR 200 MG TAB.ER.12H PO SCH ×2 (10:08→21:42)
--- NOTE | 2019-10-17 13:48 | CON.ID ---
Consult - History of Present Illness History of Present Illness: 88 y.o. female with PMH of dementia, HTN, HLD, trigeminal neuralgia, previous UTI/Sepsis admitted initially for c/o dizziness and diagnosed with ACS, currently being managed. Initially pt with wbc of 12.9K but repeat testing was in normal range. Yesterday she was noted to have mild temp elevation to 99F with UA indicative of a UTI. Urine culture is pending. CXR with possible atelectasis vs infiltrate. A dose of Ceftriaxone was given yesterday. She is afebrile today. Pt is a poor historian and confused due to dementia but states she feels well. Denies dysuria/suprapubic pain, CP, SOB/cough, abdominal pain. No acute distress noted. Vitals are stable. - History Source History Provided By: Medical Record Limitations to Obtaining History: Dementia - Past Medical History EMERGENCY DEPT TECH: Yes: Dementia, Other (trigeminal neuralgia) Cardio/Vascular: Yes: HTN, Hyperlipdemia - Alcohol/Substance Use Hx Alcohol Use: No - Smoking History Smoking history: Former smoker Have you smoked in the past 12 months: No If you are a former smoker, when did you quit?: 40 YEARS AGO Home Medications - Allergies Allergies/Adverse Reactions: Allergies Allergy/AdvReac Type Severity Reaction Status Date / Time No Known Allergies Allergy Verified 10/11/19 09:12 - Home Medications Home Medications: Ambulatory Orders Carbamazepine [Carbamazepine ER] 200 mg PO BID 10/11/19 Aspirin [ASA -] 81 mg PO DAILY #30 tab.chew 10/13/19 Atorvastatin Ca [Lipitor] 80 mg PO HS #30 tablet 10/13/19 Carbamazepine Xr [Tegretol XR -] 400 mg PO BID tab.er.12h 10/13/19 Clopidogrel Bisulfate [Plavix -] 75 mg PO DAILY #30 tablet 10/13/19 Metoprolol Succinate [Toprol XL -] 25 mg PO DAILY #30 tab.sr.24h 10/13/19 Sacubitril/Valsartan [Entresto 24 mg-26 mg Tablet] 1 tab PO BID #60 tablet 10/13 Memantine HCl [Namenda -] 5 mg PO BID #60 tablet 10/14/19 Review of Systems Findings/Remarks: Pt has dementia, poor historian - Review of Systems Constitutional: reports: No Symptoms. denies: Chills, Diaphoresis, Fever, Lethargy, Loss of Appetite, Malaise, Night Sweats, Unintentional Wgt. Loss, Weakness, Other Eyes: reports: No Symptoms. denies: Blind Spots, Blurred Vision, Double Vision , Eye Pain, Floaters, Photophobia, Recent Change in Vision, Other HENT: reports: No Symptoms. denies: Difficult Swallowing, Ear Discharge, Ear Pain, Epistaxis, Gingival Bleeding, Hearing Loss, Mouth Swelling, Nasal Congestion, Ocular Prosthesis, Throat Pain, Toothache, Ringing in Ears, Other Neck: reports: No Symptoms. denies: Decreased ROM, Lumps, Pain on Movement, Stiffness, Swollen Glands, Tenderness, Other Cardiovascular: reports: No Symptoms. denies: Chest Pain, Edema, Palpitations, Shortness of Breath, Other Respiratory: reports: No Symptoms. denies: Cough, Exercise Intolerance, Hemoptysis, Orthopnea, PND, Snoring, SOB, SOB on Exertion, Wheezing, Other Gastrointestinal: reports: No Symptoms. denies: Abdominal Pain, Bloating, Constipation, Diarrhea, Dysphagia, Indigestion, Melena, Nausea, Rectal Bleeding , Vomiting, Vomiting Blood, Other Genitourinary: reports: No Symptoms. denies: Burning, Discharge, Dysuria, Flank Pain, Frequency, Hematuria, Incontinence, Lesions, Menses, Pain, Testicular Mass, Testicular Pain, Testicular Swelling, Urgency, Vaginal Bleeding , Other Musculoskeletal: reports: No Symptoms. denies: Back Pain, Crepitus, Decreased ROM, Extremity Pain, Joint Pain, Joint Swelling, Muscle Pain, Muscle Cramps, Muscle Weakness, Other Integumentary: reports: No Symptoms. denies: Blister, Bruising, Change in Color , Eczema, Erythema, Incision, Lesions, Lump, Pallor, Pruritis, Rash, Wound, Other Neurological: reports: Confusion Endocrine: reports: No Symptoms. denies: Excessive Sweating, Flushing, Increased Hunger, Increased Thirst, Intolerance to Cold, Intolerance to Heat, Unexplained Weight Gain, Unexplained Weight Loss, Other Hematology/Lymphatic: reports: No Symptoms. denies: Easily Bruised, Excessive Bleeding, Swollen Glands, Other Psychiatric: reports: No Symptoms. denies: Altered Sleep Pattern, Anxiety, Depression, Hallucinations, Panic, Paranoia, Suicidal, Other Physical Exam Vital Signs: Vital Signs Temperature 98.2 F 10/17/19 06:13 Pulse Rate 82 10/17/19 06:13 Respiratory Rate 20 10/17/19 06:13 Blood Pressure 141/81 10/17/19 06:13 O2 Sat by Pulse Oximetry (%) 96 10/17/19 10:00 Constitutional: Yes: Well Nourished, No Distress, Calm Eyes: Yes: Conjunctiva Clear, EOM Intact HENT: Yes: Atraumatic, Normocephalic Neck: Yes: Supple, Trachea Midline Cardiovascular: Yes: Regular Rate and Rhythm Respiratory: Yes: CTA Bilaterally Gastrointestinal: Yes: Normal Bowel Sounds, Soft Renal/: Yes: WNL Musculoskeletal: Yes: WNL Extremities: Yes: WNL Edema: No Peripheral Pulses WNL: Yes Integumentary: Yes: WNL Neurological: Yes: Alert, Confusion Psychiatric: Yes: Alert Labs: CBC, BMP 10/17/19 05:35 10/16/19 18:30 Microbiology 10/11/19 13:33 Urine - Urine - Catheterized Urine Culture - Final NO GROWTH OBTAINED 10/16/19 Urine culture pending UA: Leuk est 1+, bact >1426, wbc 8, blood 2+ Imaging - Results Chest X-ray: Report Reviewed Problem List - Problems (1) Acute coronary syndrome Code(s): I24.9 - ACUTE ISCHEMIC HEART DISEASE, UNSPECIFIED (2) Coronary artery disease Code(s): I25.10 - ATHSCL HEART DISEASE OF [place] CORONARY ARTERY W/O ANG PCTRS Qualifiers: Coronary Disease-Associated Artery/Lesion type: [place] artery [place] vs. transplanted heart: [place] heart Associated angina: without angina Qualified Code(s): I25.10 - Atherosclerotic heart disease of [place] coronary artery without angina pectoris (3) Ischemic cardiomyopathy Code(s): I25.5 - ISCHEMIC CARDIOMYOPATHY (4) Trigeminal neuralgia Code(s): G50.0 - TRIGEMINAL NEURALGIA (5) Hyperlipidemia Code(s): E78.5 - HYPERLIPIDEMIA, UNSPECIFIED Qualifiers: Hyperlipidemia type: unspecified Qualified Code(s): E78.5 - Hyperlipidemia , unspecified (6) Hypertension Code(s): I10 - ESSENTIAL (PRIMARY) HYPERTENSION Qualifiers: Hypertension type: essential hypertension Qualified Code(s): I10 - Essential (primary) hypertension (7) UTI (urinary tract infection) Code(s): N39.0 - URINARY TRACT INFECTION, SITE NOT SPECIFIED Qualifiers: Urinary tract infection type: acute cystitis Hematuria presence: without hematuria Qualified Code(s): N30.00 - Acute cystitis without hematuria Assessment/Plan 88 y.o. female with PMH of dementia, HTN, HLD, trigeminal neuralgia, previous UTI/Sepsis admitted initially for c/o dizziness and diagnosed with ACS. Noted to have mild temp elevation to 99F yesterday. UA indicative of possible UTI, CXR with retrocardiac atelectasis vs infiltrate. Low grade fever - r/o UTI/PNA ACS Dementia CAD HTN HLD Hx of trigeminal neuralgia Hx of UTI/Sepsis -- s/p 1 dose of Ceftriaxone last night -- will order one more dose until Urine Cx results available and re-assess need for antibiotics -- no leukocytosis but +left shift -- Pt denies SOB, is without cough and denies dysuria/suprapubic/flank pain but is a poor historian due to dementia -- Afebrile today, vitals stable, in no distress continue to monitor Will follow Thank you
--- NOTE | 2019-10-17 16:02 | PN ---
Progress Note, Physician - Current Medication List Current Medications: Active Medications Aspirin (Asa -) [address] [facility] Last Admin: 10/17/19 10:07 Dose: 81 mg Atorvastatin Calcium (Lipitor -) [address] [facility] Last Admin: 10/16/19 21:57 Dose: Not Given Carbamazepine (Tegretol Xr -) [address] [facility] Last Admin: 10/17/19 10:08 Dose: 400 mg Clopidogrel Bisulfate (Plavix -) [address] [facility] Last Admin: 10/17/19 10:07 Dose: 75 mg Ceftriaxone Sodium 1 gm/ (Dextrose) 50 mls @ 200 mls/hr IVPB ONCE ONE; Protocol Stop: 10/17/19 22:14 Metoprolol Succinate (Toprol Xl -) [address] [facility] Last Admin: 10/17/19 10:07 Dose: 25 mg Sacubitril/Valsartan (Entresto 24 Mg-26 Mg Tablet) [address] [facility] Last Admin: 10/17/19 10:07 Dose: 1 tab Spironolactone (Aldactone -) [address] [facility] Last Admin: 10/17/19 10:07 Dose: 25 mg - Objective Vital Signs: Vital Signs Temperature 98.4 F 10/17/19 14:22 Pulse Rate 80 10/17/19 14:22 Respiratory Rate 18 10/17/19 14:22 Blood Pressure 127/66 10/17/19 14:22 O2 Sat by Pulse Oximetry (%) 96 10/17/19 10:00 Constitutional: Yes: No Distress HENT: Yes: Atraumatic Neck: Yes: Supple Cardiovascular: Yes: Regular Rate and Rhythm Respiratory: Yes: CTA Bilaterally Extremities: Yes: WNL Neurological: Yes: Alert, Oriented Labs: CBC, BMP 10/17/19 05:35 10/16/19 18:30 INR, PTT INR 1.15 (0.83-1.09) H 10/11/19 09:37 Problem List - Problems (1) Acute coronary syndrome Assessment/Plan: on plavix doing well Code(s): I24.9 - ACUTE ISCHEMIC HEART DISEASE, UNSPECIFIED (2) Hyperlipidemia Assessment/Plan: on lipitor Code(s): E78.5 - HYPERLIPIDEMIA, UNSPECIFIED Qualifiers: Hyperlipidemia type: unspecified Qualified Code(s): E78.5 - Hyperlipidemia , unspecified (3) Hypertension Assessment/Plan: on meds head Ct lacun[place] infarc Code(s): I10 - ESSENTIAL (PRIMARY) HYPERTENSION Qualifiers: Hypertension type: essential hypertension Qualified Code(s): I10 - Essential (primary) hypertension (4) UTI (urinary tract infection) Assessment/Plan: will send another ua/uc id consult Code(s): N39.0 - URINARY TRACT INFECTION, SITE NOT SPECIFIED Qualifiers: Urinary tract infection type: acute cystitis Hematuria presence: without hematuria Qualified Code(s): N30.00 - Acute cystitis without hematuria (5) Trigeminal neuralgia Assessment/Plan: on med Code(s): G50.0 - TRIGEMINAL NEURALGIA
[2019-10-17] MEDS ORDERED: cefTRIAXone SODIUM 1 GM VIAL ONE (21:21)
[2019-10-17] MEDS ORDERED: DEXTROSE 5%-WATER - 50 ML IVPB ONE (21:21)
[2019-10-17] MEDS: ATORVASTATIN CA 80 MG TABLET (FP) PO SCH (21:43)
[2019-10-17] MEDS ORDERED: CEFTRIAXONE 1 GM in DEXTROSE 5%-WATER - 50 ML IVPB ONE (22:00)
[2019-10-18] MEDS: ASPIRIN 81 MG CHEWABLE TABLETS PO SCH (10:04)
[2019-10-18] MEDS: SPIRONOLACTONE 25 MG TABLET (FP) PO SCH (10:04)
[2019-10-18] MEDS: CLOPIDOGREL BISULFATE 75 MG TABLET (FP) PO SCH (10:04)
[2019-10-18] MEDS: SACUBITRIL/VALSARTAN 24 MG-26 MG TABLET PO SCH ×2 (10:04→21:30)
[2019-10-18] MEDS: metoPROLOL SUCCINATE 25 MG TAB.SR.24H (FP) PO SCH (10:04)
[2019-10-18] MEDS: carBAMazepine XR 200 MG TAB.ER.12H PO SCH ×2 (10:05→21:30)
--- NOTE | 2019-10-18 14:57 | PN ---
Progress Note, Physician Chief Complaint: Events noted Not in distress History of Present Illness: Patient was seen and examined. Awake with underlying dementia. Chart was reviewed Denies chest pain, SOB or palpitations - Current Medication List Current Medications: Active Medications Aspirin (Asa -) 81 mg PO DAILY [facility] Last Admin: 10/18/19 10:04 Dose: 81 mg Atorvastatin Calcium (Lipitor -) 80 mg PO HS [facility] Last Admin: 10/17/19 21:43 Dose: 80 mg Carbamazepine (Tegretol Xr -) 400 mg PO BID [facility] Last Admin: 10/18/19 10:05 Dose: 400 mg Clopidogrel Bisulfate (Plavix -) 75 mg PO DAILY [facility] Last Admin: 10/18/19 10:04 Dose: 75 mg Metoprolol Succinate (Toprol Xl -) 25 mg PO DAILY [facility] Last Admin: 10/18/19 10:04 Dose: 25 mg Sacubitril/Valsartan (Entresto 24 Mg-26 Mg Tablet) 1 tab PO BID [facility] Last Admin: 10/18/19 10:04 Dose: 1 tab Spironolactone (Aldactone -) 25 mg PO DAILY [facility] Last Admin: 10/18/19 10:04 Dose: 25 mg - Objective Vital Signs: Vital Signs Temperature 98.3 F 10/18/19 10:00 Pulse Rate 84 10/18/19 10:00 Respiratory Rate 16 10/18/19 10:00 Blood Pressure 123/69 10/18/19 10:00 O2 Sat by Pulse Oximetry (%) 97 10/18/19 10:00 Eyes: Yes: PERRL HENT: Yes: Atraumatic Neck: Yes: Supple Cardiovascular: Yes: Regular Rate and Rhythm, S1, S2 Respiratory: Yes: CTA Bilaterally Gastrointestinal: Yes: Normal Bowel Sounds, Soft. No: Tenderness Edema: No Additional Findings/Remarks: - Review of Systems Constitutional: denies: Chills, Fever Cardiovascular: denies Shortness of Breath. denies: Chest Pain, Palpitations Respiratory: denies Cough, SOB, SOB on Exertion. denies: Hemoptysis, Orthopnea , PND Gastrointestinal: denies: Abdominal Pain, Constipation, Diarrhea, Melena, Nausea , Rectal Bleeding, Vomiting Musculoskeletal: denies: Back Pain, Joint Pain Neurological: denies: Dizziness, Headache, Seizure, Syncope Labs: CBC, BMP 10/17/19 05:35 10/16/19 18:30 Problem List - Problems (1) Coronary artery disease Code(s): I25.10 - ATHSCL HEART DISEASE OF [place] CORONARY ARTERY W/O ANG PCTRS Qualifiers: Coronary Disease-Associated Artery/Lesion type: [place] artery [place] vs. transplanted heart: [place] heart Associated angina: without angina Qualified Code(s): I25.10 - Atherosclerotic heart disease of [place] coronary artery without angina pectoris (2) Ischemic cardiomyopathy Code(s): I25.5 - ISCHEMIC CARDIOMYOPATHY (3) Hyperlipidemia Code(s): E78.5 - HYPERLIPIDEMIA, UNSPECIFIED Qualifiers: Hyperlipidemia type: unspecified Qualified Code(s): E78.5 - Hyperlipidemia , unspecified (4) Hypertension Code(s): I10 - ESSENTIAL (PRIMARY) HYPERTENSION Qualifiers: Hypertension type: essential hypertension Qualified Code(s): I10 - Essential (primary) hypertension (5) Demand ischemia Code(s): I24.8 - OTHER FORMS OF ACUTE ISCHEMIC HEART DISEASE (6) Dementia Code(s): F03.90 - UNSPECIFIED DEMENTIA WITHOUT BEHAVIORAL DISTURBANCE Assessment/Plan 1. CAD history of SD 2. Ischemic cardiomyopathy (LVEF 30%) 3. 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 Hypertensive heart disease 5. Hyperlipidemia 6. Right meningioma 7. Chronic lacunar stroke left IC 8. History of trigeminal neuralgia PLAN: 1. ASA 81 mg QD, Plavix 75 mg QD, Toprol XL 25 mg QD, Lipitor 80 mg QHS, Entresto 24/26 mg BID and Aldactone 25 mg QD 2. Given baseline dementia and poor historian, continue conservative therapy 3. Viability study may be done as outpatient 4. PT and SNF Further plans are to follow Catalino Arreola MD
--- NOTE | 2019-10-18 15:52 | PN ---
Progress Note, Physician History of Present Illness: patient stable dementia confused has uti awaiting for cx reports - Current Medication List Current Medications: Active Medications Aspirin (Asa -) 81 mg PO DAILY [facility] Last Admin: 10/18/19 10:04 Dose: 81 mg Atorvastatin Calcium (Lipitor -) 80 mg PO HS [facility] Last Admin: 10/17/19 21:43 Dose: 80 mg Carbamazepine (Tegretol Xr -) 400 mg PO BID [facility] Last Admin: 10/18/19 10:05 Dose: 400 mg Clopidogrel Bisulfate (Plavix -) 75 mg PO DAILY [facility] Last Admin: 10/18/19 10:04 Dose: 75 mg Ceftriaxone Sodium 1 gm/ (Dextrose) 50 mls @ 200 mls/hr IVPB DAILY [facility]; Protocol Metoprolol Succinate (Toprol Xl -) 25 mg PO DAILY [facility] Last Admin: 10/18/19 10:04 Dose: 25 mg Sacubitril/Valsartan (Entresto 24 Mg-26 Mg Tablet) 1 tab PO BID [facility] Last Admin: 10/18/19 10:04 Dose: 1 tab Spironolactone (Aldactone -) 25 mg PO DAILY [facility] Last Admin: 10/18/19 10:04 Dose: 25 mg - Objective Vital Signs: Vital Signs Temperature 98.1 F 10/18/19 15:00 Pulse Rate 81 10/18/19 15:00 Respiratory Rate 16 10/18/19 15:00 Blood Pressure 120/60 10/18/19 15:00 O2 Sat by Pulse Oximetry (%) 97 10/18/19 10:00 Constitutional: Yes: No Distress, Calm Cardiovascular: Yes: S1, S2 Respiratory: Yes: Regular, CTA Bilaterally Gastrointestinal: Yes: Normal Bowel Sounds, Soft Musculoskeletal: Yes: WNL Extremities: Yes: WNL Neurological: Yes: Alert, Confusion Psychiatric: Yes: Other Labs: CBC, BMP 10/17/19 05:35 10/16/19 18:30 INR, PTT INR 1.15 (0.83-1.09) H 10/11/19 09:37 Assessment/Plan Problem List - Problems (1) Acute coronary syndrome Code(s): I24.9 - ACUTE ISCHEMIC HEART DISEASE, UNSPECIFIED (2) Coronary artery disease Code(s): I25.10 - ATHSCL HEART DISEASE OF [place] CORONARY ARTERY W/O ANG PCTRS Qualifiers: Coronary Disease-Associated Artery/Lesion type: [place] artery [place] vs. transplanted heart: [place] heart Associated angina: without angina Qualified Code(s): I25.10 - Atherosclerotic heart disease of [place] coronary artery without angina pectoris (3) Ischemic cardiomyopathy Code(s): I25.5 - ISCHEMIC CARDIOMYOPATHY (4) Trigeminal neuralgia Code(s): G50.0 - TRIGEMINAL NEURALGIA (5) Hyperlipidemia Code(s): E78.5 - HYPERLIPIDEMIA, UNSPECIFIED Qualifiers: Hyperlipidemia type: unspecified Qualified Code(s): E78.5 - Hyperlipidemia , unspecified (6) Hypertension Code(s): I10 - ESSENTIAL (PRIMARY) HYPERTENSION Qualifiers: Hypertension type: essential hypertension Qualified Code(s): I10 - Essential (primary) hypertension (7) UTI (urinary tract infection) Code(s): N39.0 - URINARY TRACT INFECTION, SITE NOT SPECIFIED Qualifiers: Urinary tract infection type: acute cystitis Hematuria presence: without hematuria Qualified Code(s): N30.00 - Acute cystitis without hematuria Assessment/Plan 88 y.o. female with PMH of dementia, HTN, HLD, trigeminal neuralgia, previous UTI/Sepsis admitted initially for c/o dizziness and diagnosed with ACS. Noted to have mild temp elevation to 99F yesterday. UA indicative of possible UTI, CXR with retrocardiac atelectasis vs infiltrate. Low grade fever - r/o UTI/PNA ACS Dementia CAD HTN HLD Hx of trigeminal neuralgia Hx of UTI/Sepsis plan will continue abx await for cx reports rest as per the team
[2019-10-18] MEDS ORDERED: cefTRIAXone SODIUM 1 GM VIAL ONE (16:40)
[2019-10-18] MEDS ORDERED: DEXTROSE 5%-WATER - 50 ML IVPB ONE (16:40)
[2019-10-18] MEDS: CEFTRIAXONE 1 GM in DEXTROSE 5%-WATER - 50 ML IVPB SCH (17:36)
--- NOTE | 2019-10-18 18:26 | PN ---
Progress Note, Physician History of Present Illness: awake answering questions - Current Medication List Current Medications: Active Medications Aspirin (Asa -) 81 mg PO DAILY [facility] Last Admin: 10/18/19 10:04 Dose: 81 mg Atorvastatin Calcium (Lipitor -) 80 mg PO HS [facility] Last Admin: 10/17/19 21:43 Dose: 80 mg Carbamazepine (Tegretol Xr -) 400 mg PO BID [facility] Last Admin: 10/18/19 10:05 Dose: 400 mg Clopidogrel Bisulfate (Plavix -) 75 mg PO DAILY [facility] Last Admin: 10/18/19 10:04 Dose: 75 mg Ceftriaxone Sodium 1 gm/ (Dextrose) 50 mls @ 200 mls/hr IVPB DAILY [facility]; Protocol Last Admin: 10/18/19 17:36 Dose: 200 mls/hr Metoprolol Succinate (Toprol Xl -) 25 mg PO DAILY [facility] Last Admin: 10/18/19 10:04 Dose: 25 mg Sacubitril/Valsartan (Entresto 24 Mg-26 Mg Tablet) 1 tab PO BID [facility] Last Admin: 10/18/19 10:04 Dose: 1 tab Spironolactone (Aldactone -) 25 mg PO DAILY [facility] Last Admin: 10/18/19 10:04 Dose: 25 mg - Objective Vital Signs: Vital Signs Temperature 98.1 F 10/18/19 15:00 Pulse Rate 81 10/18/19 15:00 Respiratory Rate 16 10/18/19 15:00 Blood Pressure 120/60 10/18/19 15:00 O2 Sat by Pulse Oximetry (%) 97 10/18/19 10:00 Constitutional: Yes: No Distress HENT: Yes: Atraumatic Neck: Yes: Supple Cardiovascular: Yes: Regular Rate and Rhythm Respiratory: Yes: CTA Bilaterally Labs: CBC, BMP 10/17/19 05:35 10/16/19 18:30 INR, PTT INR 1.15 (0.83-1.09) H 10/11/19 09:37 Problem List - Problems (1) Acute coronary syndrome Assessment/Plan: on plavix doing well Code(s): I24.9 - ACUTE ISCHEMIC HEART DISEASE, UNSPECIFIED (2) Hyperlipidemia Assessment/Plan: on lipitor Code(s): E78.5 - HYPERLIPIDEMIA, UNSPECIFIED Qualifiers: Hyperlipidemia type: unspecified Qualified Code(s): E78.5 - Hyperlipidemia , unspecified (3) Hypertension Assessment/Plan: on meds head Ct lacunar infarc Code(s): I10 - ESSENTIAL (PRIMARY) HYPERTENSION Qualifiers: Hypertension type: essential hypertension Qualified Code(s): I10 - Essential (primary) hypertension (4) UTI (urinary tract infection) Assessment/Plan: will send another ua/uc id consult Code(s): N39.0 - URINARY TRACT INFECTION, SITE NOT SPECIFIED Qualifiers: Urinary tract infection type: acute cystitis Hematuria presence: without hematuria Qualified Code(s): N30.00 - Acute cystitis without hematuria (5) Trigeminal neuralgia Code(s): G50.0 - TRIGEMINAL NEURALGIA
[2019-10-18] MEDS ORDERED: PT OWN MED DRAWER 7, Y5N ONE (20:56)
[2019-10-18] MEDS: ATORVASTATIN CA 80 MG TABLET (FP) PO SCH (21:30)
[2019-10-19] MEDS ORDERED: PT OWN MED DRAWER 7, Y5N ONE ×4 (09:00→21:36)
[2019-10-19] MEDS ORDERED: cefTRIAXone SODIUM 1 GM VIAL ONE (09:00)
[2019-10-19] MEDS ORDERED: DEXTROSE 5%-WATER - 50 ML IVPB ONE (09:01)
[2019-10-19] MEDS: SACUBITRIL/VALSARTAN 24 MG-26 MG TABLET PO SCH ×2 (09:20→21:37)
[2019-10-19] MEDS: SPIRONOLACTONE 25 MG TABLET (FP) PO SCH (09:20)
[2019-10-19] MEDS: CEFTRIAXONE 1 GM in DEXTROSE 5%-WATER - 50 ML IVPB SCH (09:20)
[2019-10-19] MEDS: CLOPIDOGREL BISULFATE 75 MG TABLET (FP) PO SCH (09:20)
[2019-10-19] MEDS: ASPIRIN 81 MG CHEWABLE TABLETS PO SCH (09:20)
[2019-10-19] MEDS: metoPROLOL SUCCINATE 25 MG TAB.SR.24H (FP) PO SCH (09:21)
[2019-10-19] MEDS: carBAMazepine XR 200 MG TAB.ER.12H PO SCH ×2 (09:21→21:38)
--- NOTE | 2019-10-19 10:57 | PN ---
Progress Note, Physician Chief Complaint: Events noted Not in distress History of Present Illness: Patient was seen and examined. Awake with underlying dementia. Chart was reviewed Denies chest pain, SOB or palpitations - Current Medication List Current Medications: Active Medications Aspirin (Asa -) 81 mg PO DAILY [facility] Last Admin: 10/19/19 09:20 Dose: 81 mg Atorvastatin Calcium (Lipitor -) 80 mg PO HS [facility] Last Admin: 10/18/19 21:30 Dose: 80 mg Carbamazepine (Tegretol Xr -) 400 mg PO BID [facility] Last Admin: 10/19/19 09:21 Dose: 400 mg Clopidogrel Bisulfate (Plavix -) 75 mg PO DAILY [facility] Last Admin: 10/19/19 09:20 Dose: 75 mg Ceftriaxone Sodium 1 gm/ (Dextrose) 50 mls @ 200 mls/hr IVPB DAILY [facility]; Protocol Last Admin: 10/19/19 09:20 Dose: 200 mls/hr Metoprolol Succinate (Toprol Xl -) 25 mg PO DAILY [facility] Last Admin: 10/19/19 09:21 Dose: 25 mg Sacubitril/Valsartan (Entresto 24 Mg-26 Mg Tablet) 1 tab PO BID [facility] Last Admin: 10/19/19 09:20 Dose: 1 tab Spironolactone (Aldactone -) 25 mg PO DAILY [facility] Last Admin: 10/19/19 09:20 Dose: 25 mg - Objective Vital Signs: Vital Signs Temperature 98.1 F 10/19/19 08:16 Pulse Rate 73 10/19/19 08:16 Respiratory Rate 18 10/19/19 08:16 Blood Pressure 132/62 10/19/19 08:16 O2 Sat by Pulse Oximetry (%) 97 10/18/19 20:14 Neck: Yes: Supple Cardiovascular: Yes: Regular Rate and Rhythm, S1, S2 Respiratory: Yes: CTA Bilaterally Gastrointestinal: Yes: Normal Bowel Sounds, Soft. No: Tenderness Edema: No Additional Findings/Remarks: - Review of Systems Constitutional: denies: Chills, Fever Cardiovascular: denies Shortness of Breath. denies: Chest Pain, Palpitations Respiratory: denies Cough, SOB, SOB on Exertion. denies: Hemoptysis, Orthopnea , PND Gastrointestinal: denies: Abdominal Pain, Constipation, Diarrhea, Melena, Nausea , Rectal Bleeding, Vomiting Musculoskeletal: denies: Back Pain, Joint Pain Neurological: denies: Dizziness, Headache, Seizure, Syncope Labs: CBC, BMP 10/17/19 05:35 10/16/19 18:30 INR, PTT INR 1.15 (0.83-1.09) H 10/11/19 09:37 Problem List - Problems (1) Coronary artery disease Code(s): I25.10 - ATHSCL HEART DISEASE OF [place] CORONARY ARTERY W/O ANG PCTRS Qualifiers: Coronary Disease-Associated Artery/Lesion type: [place] artery [place] vs. transplanted heart: [place] heart Associated angina: without angina Qualified Code(s): I25.10 - Atherosclerotic heart disease of [place] coronary artery without angina pectoris (2) Ischemic cardiomyopathy Code(s): I25.5 - ISCHEMIC CARDIOMYOPATHY (3) Hyperlipidemia Code(s): E78.5 - HYPERLIPIDEMIA, UNSPECIFIED Qualifiers: Hyperlipidemia type: unspecified Qualified Code(s): E78.5 - Hyperlipidemia , unspecified (4) Hypertension Code(s): I10 - ESSENTIAL (PRIMARY) HYPERTENSION Qualifiers: Hypertension type: essential hypertension Qualified Code(s): I10 - Essential (primary) hypertension (5) Demand ischemia Code(s): I24.8 - OTHER FORMS OF ACUTE ISCHEMIC HEART DISEASE (6) Dementia Code(s): F03.90 - UNSPECIFIED DEMENTIA WITHOUT BEHAVIORAL DISTURBANCE Assessment/Plan 1. CAD history of MD 2. Ischemic cardiomyopathy (LVEF 30%) 3. 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 Hypertensive heart disease 5. Hyperlipidemia 6. Right meningioma 7. Chronic lacunar stroke left IC 8. History of trigeminal neuralgia PLAN: 1. ASA 81 mg QD, Plavix 75 mg QD, Toprol XL 25 mg QD, Lipitor 80 mg QHS, Entresto 24/26 mg BID and Aldactone 25 mg QD 2. Given baseline dementia and poor historian, continue conservative therapy 3. Viability study may be done as outpatient 4. PT and eventual SNF Further plans are to follow Catalino Arreola MD
--- NOTE | 2019-10-19 14:14 | PN ---
Progress Note, Physician History of Present Illness: stable no new issues - Current Medication List Current Medications: Active Medications Aspirin (Asa -) 81 mg PO DAILY [facility] Last Admin: 10/19/19 09:20 Dose: 81 mg Atorvastatin Calcium (Lipitor -) 80 mg PO HS [facility] Last Admin: 10/18/19 21:30 Dose: 80 mg Carbamazepine (Tegretol Xr -) 400 mg PO BID [facility] Last Admin: 10/19/19 09:21 Dose: 400 mg Clopidogrel Bisulfate (Plavix -) 75 mg PO DAILY [facility] Last Admin: 10/19/19 09:20 Dose: 75 mg Ceftriaxone Sodium 1 gm/ (Dextrose) 50 mls @ 200 mls/hr IVPB DAILY [facility]; Protocol Last Admin: 10/19/19 09:20 Dose: 200 mls/hr Metoprolol Succinate (Toprol Xl -) 25 mg PO DAILY [facility] Last Admin: 10/19/19 09:21 Dose: 25 mg Sacubitril/Valsartan (Entresto 24 Mg-26 Mg Tablet) 1 tab PO BID [facility] Last Admin: 10/19/19 09:20 Dose: 1 tab Spironolactone (Aldactone -) 25 mg PO DAILY [facility] Last Admin: 10/19/19 09:20 Dose: 25 mg - Objective Vital Signs: Vital Signs Temperature 98.1 F 10/19/19 08:16 Pulse Rate 73 10/19/19 08:16 Respiratory Rate 18 10/19/19 08:16 Blood Pressure 132/62 10/19/19 08:16 O2 Sat by Pulse Oximetry (%) 96 10/19/19 09:00 Constitutional: Yes: No Distress, Calm Cardiovascular: Yes: S1, S2 Respiratory: Yes: Regular, CTA Bilaterally Gastrointestinal: Yes: Normal Bowel Sounds, Soft Musculoskeletal: Yes: WNL Extremities: Yes: WNL Neurological: Yes: Alert, Other (dementia) Psychiatric: Yes: Alert Labs: CBC, BMP 10/17/19 05:35 10/16/19 18:30 INR, PTT INR 1.15 (0.83-1.09) H 10/11/19 09:37 Assessment/Plan Problem List - Problems (1) Acute coronary syndrome Code(s): I24.9 - ACUTE ISCHEMIC HEART DISEASE, UNSPECIFIED (2) Coronary artery disease Code(s): I25.10 - ATHSCL HEART DISEASE OF [place] CORONARY ARTERY W/O ANG PCTRS Qualifiers: Coronary Disease-Associated Artery/Lesion type: [place] artery [place] vs. transplanted heart: [place] heart Associated angina: without angina Qualified Code(s): I25.10 - Atherosclerotic heart disease of [place] coronary artery without angina pectoris (3) Ischemic cardiomyopathy Code(s): I25.5 - ISCHEMIC CARDIOMYOPATHY (4) Trigeminal neuralgia Code(s): G50.0 - TRIGEMINAL NEURALGIA (5) Hyperlipidemia Code(s): E78.5 - HYPERLIPIDEMIA, UNSPECIFIED Qualifiers: Hyperlipidemia type: unspecified Qualified Code(s): E78.5 - Hyperlipidemia , unspecified (6) Hypertension Code(s): I10 - ESSENTIAL (PRIMARY) HYPERTENSION Qualifiers: Hypertension type: essential hypertension Qualified Code(s): I10 - Essential (primary) hypertension (7) UTI (urinary tract infection) Code(s): N39.0 - URINARY TRACT INFECTION, SITE NOT SPECIFIED Qualifiers: Urinary tract infection type: acute cystitis Hematuria presence: without hematuria Qualified Code(s): N30.00 - Acute cystitis without hematuria Assessment/Plan 88 y.o. female with PMH of dementia, HTN, HLD, trigeminal neuralgia, previous UTI/Sepsis admitted initially for c/o dizziness and diagnosed with ACS. Noted to have mild temp elevation to 99F yesterday. UA indicative of possible UTI, CXR with retrocardiac atelectasis vs infiltrate. Low grade fever - r/o UTI/PNA ACS Dementia CAD HTN HLD Hx of trigeminal neuralgia Hx of UTI/Sepsis plan will continue abx cx reports noted rest as per the team
--- NOTE | 2019-10-19 18:32 | PN ---
Progress Note, Physician - Current Medication List Current Medications: Active Medications Aspirin (Asa -) 81 mg PO DAILY [facility] Last Admin: 10/19/19 09:20 Dose: 81 mg Atorvastatin Calcium (Lipitor -) 80 mg PO HS [facility] Last Admin: 10/18/19 21:30 Dose: 80 mg Carbamazepine (Tegretol Xr -) 400 mg PO BID [facility] Last Admin: 10/19/19 09:21 Dose: 400 mg Clopidogrel Bisulfate (Plavix -) 75 mg PO DAILY [facility] Last Admin: 10/19/19 09:20 Dose: 75 mg Ceftriaxone Sodium 1 gm/ (Dextrose) 50 mls @ 200 mls/hr IVPB DAILY [facility]; Protocol Last Admin: 10/19/19 09:20 Dose: 200 mls/hr Metoprolol Succinate (Toprol Xl -) 25 mg PO DAILY [facility] Last Admin: 10/19/19 09:21 Dose: 25 mg Sacubitril/Valsartan (Entresto 24 Mg-26 Mg Tablet) 1 tab PO BID [facility] Last Admin: 10/19/19 09:20 Dose: 1 tab Spironolactone (Aldactone -) 25 mg PO DAILY [facility] Last Admin: 10/19/19 09:20 Dose: 25 mg - Objective Vital Signs: Vital Signs Temperature 97.8 F 10/19/19 18:00 Pulse Rate 71 10/19/19 18:00 Respiratory Rate 18 10/19/19 18:00 Blood Pressure 124/74 10/19/19 18:00 O2 Sat by Pulse Oximetry (%) 96 10/19/19 09:00 Constitutional: Yes: No Distress HENT: Yes: Atraumatic Neck: Yes: Supple Cardiovascular: Yes: Regular Rate and Rhythm Respiratory: Yes: CTA Bilaterally Gastrointestinal: Yes: Normal Bowel Sounds Extremities: Yes: WNL Edema: No Neurological: Yes: Alert, Oriented Labs: CBC, BMP 10/17/19 05:35 10/16/19 18:30 INR, PTT INR 1.15 (0.83-1.09) H 10/11/19 09:37 Problem List - Problems (1) Acute coronary syndrome Assessment/Plan: on plavix doing well Code(s): I24.9 - ACUTE ISCHEMIC HEART DISEASE, UNSPECIFIED (2) Hyperlipidemia Assessment/Plan: on lipitor Code(s): E78.5 - HYPERLIPIDEMIA, UNSPECIFIED Qualifiers: Hyperlipidemia type: unspecified Qualified Code(s): E78.5 - Hyperlipidemia , unspecified (3) Hypertension Assessment/Plan: on meds head Ct lacunar infarc Code(s): I10 - ESSENTIAL (PRIMARY) HYPERTENSION Qualifiers: Hypertension type: essential hypertension Qualified Code(s): I10 - Essential (primary) hypertension (4) UTI (urinary tract infection) Assessment/Plan: cxs noted will switch to po levaquin Code(s): N39.0 - URINARY TRACT INFECTION, SITE NOT SPECIFIED Qualifiers: Urinary tract infection type: acute cystitis Hematuria presence: without hematuria Qualified Code(s): N30.00 - Acute cystitis without hematuria (5) Trigeminal neuralgia Assessment/Plan: on med Code(s): G50.0 - TRIGEMINAL NEURALGIA
--- NOTE | 2019-10-19 18:32 | DS ---
Physical Examination Vital Signs: Vital Signs Temperature 97.8 F 10/19/19 18:00 Pulse Rate 71 10/19/19 18:00 Respiratory Rate 18 10/19/19 18:00 Blood Pressure 124/74 10/19/19 18:00 O2 Sat by Pulse Oximetry (%) 96 10/19/19 09:00 Labs: CBC, BMP 10/17/19 05:35 10/16/19 18:30 Discharge Summary Problems reviewed: Yes Reason For Visit: Shortness of Breath Current Active Problems Acute coronary syndrome (Acute) Coronary artery disease (Acute) Demand ischemia (Acute) Dementia (Acute) Ischemic cardiomyopathy (Acute) Trigeminal neuralgia (Acute) Condition: Guarded - Instructions Diet, Activity, Other Instructions: follow up pmd 2 weeks Referrals: Holden Gallego MD [Staff Physician] - Lena Valle MD [Staff Physician] - Bharat Pineda MD [Staff Physician] - - Home Medications Comprehensive Discharge Medication List: Ambulatory Orders Carbamazepine [Carbamazepine ER] 200 mg PO BID 10/11/19 Aspirin [ASA -] 81 mg PO DAILY #30 tab.chew 10/13/19 Atorvastatin Ca [Lipitor] 80 mg PO HS #30 tablet 10/13/19 Carbamazepine Xr [Tegretol XR -] 400 mg PO BID tab.er.12h 10/13/19 Clopidogrel Bisulfate [Plavix -] 75 mg PO DAILY #30 tablet 10/13/19 Metoprolol Succinate [Toprol XL -] 25 mg PO DAILY #30 tab.sr.24h 10/13/19 Sacubitril/Valsartan [Entresto 24 mg-26 mg Tablet] 1 tab PO BID #60 tablet 10/13 Memantine HCl [Namenda -] 5 mg PO BID #60 tablet 10/14/19 Levofloxacin [Levaquin] 500 mg PO DAILY #7 tablet 10/19/19
[2019-10-19] MEDS: ATORVASTATIN CA 80 MG TABLET (FP) PO SCH (21:37)
[2019-10-20] MEDS ORDERED: cefTRIAXone SODIUM 1 GM VIAL ONE (09:13)
[2019-10-20] MEDS ORDERED: DEXTROSE 5%-WATER - 50 ML IVPB ONE (09:13)
[2019-10-20] MEDS ORDERED: PT OWN MED DRAWER 7, Y5N ONE (09:13)
[2019-10-20] MEDS: CEFTRIAXONE 1 GM in DEXTROSE 5%-WATER - 50 ML IVPB SCH (09:17)
[2019-10-20] MEDS: metoPROLOL SUCCINATE 25 MG TAB.SR.24H (FP) PO SCH (09:18)
[2019-10-20] MEDS: SPIRONOLACTONE 25 MG TABLET (FP) PO SCH (09:18)
[2019-10-20] MEDS: CLOPIDOGREL BISULFATE 75 MG TABLET (FP) PO SCH (09:18)
[2019-10-20] MEDS: ASPIRIN 81 MG CHEWABLE TABLETS PO SCH (09:18)
[2019-10-20] MEDS: SACUBITRIL/VALSARTAN 24 MG-26 MG TABLET PO SCH (09:19)
[2019-10-20] MEDS: carBAMazepine XR 200 MG TAB.ER.12H PO SCH (09:20)
--- NOTE | 2019-10-20 12:17 | DS ---
Physical Examination Vital Signs: Vital Signs Temperature 98.1 F 10/20/19 05:37 Pulse Rate 69 10/20/19 05:37 Respiratory Rate 16 10/20/19 09:00 Blood Pressure 112/62 10/20/19 05:37 O2 Sat by Pulse Oximetry (%) 96 10/20/19 09:00 Constitutional: Yes: No Distress HENT: Yes: Atraumatic Neck: Yes: Supple Cardiovascular: Yes: Regular Rate and Rhythm Respiratory: Yes: CTA Bilaterally Gastrointestinal: Yes: Normal Bowel Sounds Extremities: Yes: WNL Neurological: Yes: Alert Labs: CBC, BMP 10/17/19 05:35 10/16/19 18:30 Discharge Summary Problems reviewed: Yes Reason For Visit: Shortness of Breath Current Active Problems Acute coronary syndrome (Acute) Coronary artery disease (Acute) Demand ischemia (Acute) Dementia (Acute) Ischemic cardiomyopathy (Acute) Trigeminal neuralgia (Acute) Condition: Guarded - Instructions Diet, Activity, Other Instructions: follow up pmd 2 weeks Referrals: Holden Gallego MD [Staff Physician] - Lena Valle MD [Staff Physician] - Bharat Pineda MD [Staff Physician] - Disposition[facility] - Home Medications Comprehensive Discharge Medication List: Ambulatory Orders Carbamazepine [Carbamazepine ER] 200 mg PO BID 10/11/19 Aspirin [ASA -] 81 mg PO DAILY #30 tab.chew 10/13/19 Atorvastatin Ca [Lipitor] 80 mg PO HS #30 tablet 10/13/19 Carbamazepine Xr [Tegretol XR -] 400 mg PO BID tab.er.12h 10/13/19 Clopidogrel Bisulfate [Plavix -] 75 mg PO DAILY #30 tablet 10/13/19 Metoprolol Succinate [Toprol XL -] 25 mg PO DAILY #30 tab.sr.24h 10/13/19 Sacubitril/Valsartan [Entresto 24 mg-26 mg Tablet] 1 tab PO BID #60 tablet 10/13 Memantine HCl [Namenda -] 5 mg PO BID #60 tablet 10/14/19 Levofloxacin [Levaquin] 500 mg PO DAILY #7 tablet 10/19/19 [facility]
--- NOTE | 2019-10-20 13:25 | PN ---
Progress Note, Physician History of Present Illness: Denies chest pain, SOB or palpitations, sitting in chair awaiting d/c to SNF. - Current Medication List Current Medications: Active Medications Aspirin (Asa -) 81 mg PO DAILY [facility] Last Admin: 10/20/19 09:18 Dose: 81 mg Atorvastatin Calcium (Lipitor -) 80 mg PO HS [facility] Last Admin: 10/19/19 21:37 Dose: 80 mg Carbamazepine (Tegretol Xr -) 400 mg PO BID [facility] Last Admin: 10/20/19 09:20 Dose: 400 mg Clopidogrel Bisulfate (Plavix -) 75 mg PO DAILY [facility] Last Admin: 10/20/19 09:18 Dose: 75 mg Ceftriaxone Sodium 1 gm/ (Dextrose) 50 mls @ 200 mls/hr IVPB DAILY [facility]; Protocol Last Admin: 10/20/19 09:17 Dose: 200 mls/hr Metoprolol Succinate (Toprol Xl -) 25 mg PO DAILY [facility] Last Admin: 10/20/19 09:18 Dose: 25 mg Sacubitril/Valsartan (Entresto 24 Mg-26 Mg Tablet) 1 tab PO BID [facility] Last Admin: 10/20/19 09:19 Dose: 1 tab Spironolactone (Aldactone -) 25 mg PO DAILY [facility] Last Admin: 10/20/19 09:18 Dose: 25 mg - Objective Vital Signs: Vital Signs Temperature 97.7 F 10/20/19 10:00 Pulse Rate 77 10/20/19 10:00 Respiratory Rate 16 10/20/19 10:00 Blood Pressure 120/66 10/20/19 10:00 O2 Sat by Pulse Oximetry (%) 96 10/20/19 09:00 Constitutional: Yes: No Distress, Calm, Thin Neck: Yes: Supple Cardiovascular: Yes: Regular Rate and Rhythm Respiratory: Yes: Regular, CTA Bilaterally Gastrointestinal: Yes: Normal Bowel Sounds, Soft Edema: No Labs: CBC, BMP 10/17/19 05:35 10/16/19 18:30 INR, PTT INR 1.15 (0.83-1.09) H 10/11/19 09:37 - ....Imaging EKG: Report Reviewed (Tele: NSR w/o ventricular ectopics) Problem List - Problems (1) Hypertension Code(s): I10 - ESSENTIAL (PRIMARY) HYPERTENSION Qualifiers: Hypertension type: essential hypertension Qualified Code(s): I10 - Essential (primary) hypertension (2) Hyperlipidemia Code(s): E78.5 - HYPERLIPIDEMIA, UNSPECIFIED Qualifiers: Hyperlipidemia type: unspecified Qualified Code(s): E78.5 - Hyperlipidemia , unspecified (3) Ischemic cardiomyopathy Code(s): I25.5 - ISCHEMIC CARDIOMYOPATHY (4) Coronary artery disease Code(s): I25.10 - ATHSCL HEART DISEASE OF [place] CORONARY ARTERY W/O ANG PCTRS Qualifiers: Coronary Disease-Associated Artery/Lesion type: [place] artery [place] vs. transplanted heart: [place] heart Associated angina: without angina Qualified Code(s): I25.10 - Atherosclerotic heart disease of [place] coronary artery without angina pectoris Assessment/Plan 10/11/19 Echo: Normal LV size with mild LVH mod-severe decreased LVEF 30%, grade I DD, mod dilated RV with mod decreased RV fxn, septal AK, anterolateral and inferior HK, mild TR RVSP 41 mmHg 10/11/2019 Calcified right posterior meningioma, chronic lacunar stroke left IC 1. CAD history of CA 2. Ischemic cardiomyopathy (LVEF 30%) 3. 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 Hypertensive heart disease 5. Hyperlipidemia 6. Right meningioma 7. Chronic lacunar stroke left IC 8. History of trigeminal neuralgia PLAN: 1. ASA 81 mg QD, Plavix 75 mg QD, Toprol XL 25 mg QD, Lipitor 80 mg QHS, Entresto 24/26 mg BID and Aldactone 25 mg QD 2. Given baseline dementia and poor historian, continue conservative therapy 3. Viability study may be done as outpatient 4. PT and eventual SNF 5. F/u in office upon d/c from [facility]
[2019-10-20 13:51] VITALS: BP 122/53; PULSE 70; TEMP 97.4
--- NOTE | 2019-10-20 14:03 | PN ---
Progress Note, Physician - Objective Vital Signs: Vital Signs Temperature 97.4 F L 10/20/19 13:30 Pulse Rate 70 10/20/19 13:30 Respiratory Rate 16 10/20/19 13:30 Blood Pressure 122/53 L 10/20/19 13:30 O2 Sat by Pulse Oximetry (%) 96 10/20/19 09:00 Labs: CBC, BMP 10/17/19 05:35 10/16/19 18:30 INR, PTT INR 1.15 (0.83-1.09) H 10/11/19 09:37
== END 2019-10-20 13:59 | DRG 311 ==
LOC: JER 08:57 → JERBED 12:36 → J4S 15:41
PROVIDERS: ADMIT Internal Medicine; ATTEND Internal Medicine
DX: I24.8 Other forms of acute ischemic heart disease (principal); N39.0 Urinary tract infection, site not specified; I25.5 Ischemic cardiomyopathy; I25.10 Atherosclerotic heart disease of native coronary artery without angina pectoris; R06.02 Shortness of breath; M79.602 Pain in left arm; G30.9 Alzheimer's disease, unspecified; F02.80 Dementia in other diseases classified elsewhere, unspecified severity, without behavioral disturbance, psychotic disturbance, mood disturbance, and anxiety; G50.0 Trigeminal neuralgia; I11.9 Hypertensive heart disease without heart failure; E78.5 Hyperlipidemia, unspecified
CPT/HCPCS: 36415; 70450-TC; 71045-TC-FY; 80053; 80061; 81003; 82550; 83036; 83721; 83880; 84443; 84484; 85025; 85027; 85610; 85730; 86850; 86900; 86901; 87086; 87186; 90670; 93005; 93010; 93306-TC; 97116-GP; 97162-GP; 99285-25; J1644

== ENCOUNTER 2019-11-08 13:41 | Inpatient (IN) | payer BC ==
[2019-11-08] MEDS ORDERED: SODIUM CHLORIDE 500 ML IV STA (16:38)
--- NOTE | 2019-11-08 17:24 | PDOC ---
History of Present Illness - General History Source: Patient Exam Limitations: No Limitations - History of Present Illness Initial Comments: 11/08/19 17:18 Patient is an 88-year-old female who presents to the ED after being sent from her rehab facility for weakness. She was diagnosed with a pneumonia recently and has been on Rocephin. She was also diagnosed with a right femoral DVT despite being on aspirin, Plavix and heparin. According to the patient's daughter, she is not her active normal self. The patient is very weak and unable to stand or walk on her own. The patient was admitted 2 weeks ago for an [place] and then sent to [facility] rehab facility. The daughter states the patient was doing very well and then started doing poorly again. She was sent to the ER for further evaluation and treatment. <Aleksandra Gomez - Last Filed: 11/08/19 18:54> <Mitchel Rodríguez - Last Filed: 11/11/19 17:35> - General Chief Complaint: Weakness Stated Complaint: DIFF BREATHING/WEAKNESS Time Seen by Provider: 11/08/19 16:25 Past History - Past Medical History Anemia: Yes Asthma: No Cancer: No Cardiac Disorders: No CVA: No COPD: No CHF: No Dementia: Yes Diabetes: No GI Disorders: No Disorders: No HTN: Yes Hypercholesterolemia: Yes Liver Disease: No Seizures: No Thyroid Disease: No - Surgical History Abdominal Surgery: No Appendectomy: No Cardiac Surgery: No Cholecystectomy: No Lung Surgery: No Neurologic Surgery: No Orthopedic Surgery: Yes (B/L knee surgery) - Immunization History Td Vaccination: Yes TDAP Vaccination: Yes Immunization Up to Date: Yes - Psycho Social/Smoking Cessation Hx Smoking History: Never smoked Have you smoked in the past 12 months: No If you are a former smoker, when did you quit?: 40 YEARS AGO 'Breaking Loose' booklet given: 10/11/19 Hx Alcohol Use: No Drug/Substance Use Hx: No Substance Use Type: None Hx Substance Use Treatment: No <Aleksandra Gomez - Last Filed: 11/08/19 18:54> <Mitchel Rodríguez - Last Filed: 11/11/19 17:35> - Past Medical History Allergies/Adverse Reactions: Allergies Allergy/AdvReac Type Severity Reaction Status Date / Time No Known Allergies Allergy Verified 11/08/19 15:43 Home Medications: Ambulatory Orders Carbamazepine [Carbamazepine ER] 200 mg PO BID 10/11/19 Aspirin [ASA -] 81 mg PO DAILY #30 tab.chew 10/13/19 Atorvastatin Ca [Lipitor] 80 mg PO HS #30 tablet 10/13/19 Carbamazepine Xr [Tegretol XR -] 400 mg PO BID tab.er.12h 10/13/19 Clopidogrel Bisulfate [Plavix -] 75 mg PO DAILY #30 tablet 10/13/19 Metoprolol Succinate [Toprol XL -] 25 mg PO DAILY #30 tab.sr.24h 10/13/19 Sacubitril/Valsartan [Entresto 24 mg-26 mg Tablet] 1 tab PO BID #60 tablet 10/13 Memantine HCl [Namenda -] 5 mg PO BID #60 tablet 10/14/19 Levofloxacin [Levaquin] 500 mg PO DAILY #7 tablet 10/19/19 Review of Systems - Review of Systems Comments:: 11/08/19 17:23 - Review of Systems Able to Perform ROS?: Yes Constitutional: No: Fever, Chills, Loss of Appetite, Night Sweats; Positive: Weakness HEENTM: No: Eye Pain, Vision changes, Ear Pain, Throat Pain, Throat Swelling, Mouth Pain, Difficulty Swallowing Respiratory: No: Cough, Shortness of Breath, Wheezing, Sputum Production; Positive: Pneumonia Cardiac (ROS): No: Chest Pain, Chest Tightness, Palpitations, Irregular Heart Beat, Edema ABD/GI: No: Nausea, Vomiting, Abdominal Pain, Diarrhea : No Dysuria, No Hematuria, No Frequency, No Urgency Musculoskeletal: No: Muscle Pain, Back Pain, Joint Pain, Muscle Weakness, Neck Pain; Positive: Right lower extremity DVT Integumentary: No: Lesions, Rash Neurological: No: Headache, Numbness, Tingling, Weakness, Speech Difficulties <Patricia,Aleksandra D - Last Filed: 11/08/19 18:54> *Physical Exam - Vital Signs Last Vital Signs Temp Pulse Resp BP Pulse Ox 97.7 F 75 18 118/60 97 11/08/19 13:47 11/08/19 13:47 11/08/19 13:47 11/08/19 13:47 11/08/19 13:47 - Physical Exam 11/08/19 17:24 - Physical Exam General Appearance: Nourished, Appropriately Dressed, No Distress HEENT: EOMI, Normal Voice, No Muffled/Hoarse voice, No Nasal Congestion, No Rhinorrhea, Hearing Grossly Normal Neck: Supple, No Lymphadenopathy (R), No Lymphadenopathy (L), No Rigidity, No Decreased range of motion Respiratory/Chest: Lungs Clear, Normal Breath Sounds. No Respiratory Distress, No Accessory Muscle Use; Good air entry bilaterally, no wheezes/rales/rhonchi. Cardiovascular: Regular Rhythm, Regular Rate, S1, S2 Gastrointestinal/Abdominal: Normal Bowel Sounds, Soft. Non-tender, No Guarding , No Rebound, No Rigidity Musculoskeletal: Normal Inspection. No Decreased Range of Motion; Right lower extremity edema appreciated. No significant tenderness to palpation to the right lower extremity. DP pulse palpable. Extremity: Normal Capillary Refill, Normal Inspection Integumentary: Normal Color, Dry. 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 II-XII NML intact, Fully Oriented, Alert, Normal Mood/Affect, Normal Response <Aleksandra Gomez - Last Filed: 11/08/19 18:54> - Vital Signs Last Vital Signs Temp Pulse Resp BP Pulse Ox 98.2 F 78 18 101/62 93 L 11/11/19 15:00 11/11/19 15:00 11/11/19 15:00 11/11/19 15:00 11/11/19 10:00 <Mitchel Rodríguez - Last Filed: 11/11/19 17:35> ED Treatment Course - LABORATORY CBC & Chemistry Diagram: 11/08/19 17:00 11/08/19 17:00 - RADIOLOGY Radiology Studies Ordered: Category Date Time Status CHEST PA & LAT [RAD] Stat Radiology 11/08/19 16:38 Ordered <Aleksandra Gomez D - Last Filed: 11/08/19 18:54> - LABORATORY CBC & Chemistry Diagram: 11/09/19 05:45 11/09/19 05:45 - ADDITIONAL ORDERS Additional order review: 11/08/19 17:05 Urine Culture - Final Urine - Urine Clean Catch Enterococcus Faecalis 11/08/19 17:00 RBC 4.04 MCV 93.1 MCHC 32.0 RDW 14.9 MPV 9.3 Neutrophils % 61.5 D Lymphocytes % 21.4 D Monocytes % 10.7 H D Eosinophils % 5.5 H D Basophils % 0.9 - Medications Given in the ED: ED Medications Discontinued Medications Generic Name Dose Route Start Last Admin Trade Name Zenia PRN Reason Stop Dose Admin Aspirin 81 mg 11/09/19 10:00 11/10/19 11:11 Asa - PO 81 mg DAILY [facility]ST[facility] Administration Clopidogrel Bisulfate 75 mg 11/09/19 10:00 11/09/19 10:07 Plavix - PO 75 mg DAILY [facility] Administration Heparin Sodium (Porcine) 5,000 unit 11/08/19 22:00 11/09/19 10:07 Heparin - SQ 5,000 unit BID K[facility]STIAN Administration Sodium Chloride 500 mls @ 500 mls/hr 11/08/19 16:38 11/08/19 17:19 Normal Saline - IV 11/08/19 17:37 500 mls/hr ASDIR STA Administration Ceftriaxone Sodium 1 gm/ 50 mls @ 100 mls/hr 11/08/19 21:45 11/10/19 11:12 Dextrose IVPB 100 mls/hr DAILY [facility] Administration Protocol Sacubitril/Valsartan 1 tab 11/08/19 22:00 11/11/19 11:01 Entresto 24 Mg-26 Mg Tablet PO 1 tab BID [facility] Administration <Mitchel Rodríguez - Last Filed: 11/11/19 17:35> Medical Decision Making - Medical Decision Making 11/08/19 17:26 Assessment: Patient is an 88-year-old female who presents to the ED with weakness after being diagnosed with a pneumonia and a right lower extremity DVT. Plan: -Labs ordered -Chest x-ray ordered -Fluids ordered -Will reassess 11/08/19 18:26 Secondary to the patient having a DVT and weakness with pneumonia, we will send the patient for CTA chest to r/o PE. This has been explained to the patient's daughter and she understands and agrees with this treatment and plan. 11/08/19 18:56 CTA chest pending. The patient's labs are otherwise stable. The patient has been endorsed to [facility] for futher evaluation and treatment. <Aleksandra Gomez - Last Filed: 11/08/19 18:54> - Medical Decision Making The patient was seen and evaluated in conjunction with JULIUS Gomez under my direct supervision, ancillary studies were reviewed. I independently interviewed and evaluated the patient and I agree with the plan as outlined by PA Patricia. Patient sent in from care home for evaluation of new DVT as well as suspected possible pneumonia. pt in n odistress, vitals normal without signs of tachycardia, resp distress, or hypoxia. Patient had lab works obtained, will obtain a CTA to rule out PE as her chest x-ray does not reveal any overt signs of pneumonia. Case was signed out to evening team to follow-up and dispo. <Mitchel Rodríguez - Last Filed: 11/11/19 17:35> Discharge - Discharge Information Problems reviewed: Yes <Aleksandra Gomez - Last Filed: 11/08/19 18:54> <Mitchel Rodríguez - Last Filed: 11/11/19 17:35> - Discharge Information Clinical Impression/Diagnosis: Weakness, Elevated CPK, DVT (deep venous thrombosis) Condition: Stable
[2019-11-08 17:35] LABS: BASO % 0.9 % (0-2.0); EOS % 5.5 % (0-4.5); HEMATOCRIT 37.6 % (32.4-45.2); HEMOGLOBIN 12.1 GM/dL (10.7-15.3); LYMPH % 21.4 % (8-40); MCH 29.8 pg (25.7-33.7); MEAN CELL VOLUME 93.1 fl (80-96); MEAN PLT VOLUME 9.3 fl (7.5-11.1); MONO % 10.7 % (3.8-10.2); NEUT % 61.5 % (42.8-82.8); PLATELET COUNT 222 K/MM3 (134-434); RBC 4.04 M/mm3 (3.60-5.2); RDW 14.9 % (11.6-15.6); WHITE BLOOD COUNT 4.4 K/mm3 (4.0-10.0)
[2019-11-08 17:38] LABS: EPI CELLS 1.4 /HPF (0-5/HPF); HYALINE CASTS 6 /lpf (0-8); URINE APPEARANCE CLEAR; URINE BACTERIA 4.3 /hpf (NEGATIVE); URINE BILIRUBIN NEGATIVE (NEGATIVE); URINE COLOR YELLOW; URINE GLUCOSE (UA) NEGATIVE (NEGATIVE); URINE KETONE NEGATIVE (NEGATIVE); URINE LEUK ESTERASE 1+ (NEGATIVE); URINE NITRITE NEGATIVE (NEGATIVE); URINE PROTEIN TRACE (NEGATIVE); URINE RBC 6 /hpf (0-4); URINE UROBILINOGEN 0.2 mg/dL (0.2-1.0); URINE WBC 5 /hpf (0-5)
[2019-11-08 17:58] LABS: INR 0.97 (0.83-1.09); PROTHROMBIN TIME (PATIENT) 11.5 SEC (9.7-13.0)
[2019-11-08 18:01] LABS: ACTIVATED PTT 33.8 SECONDS (25.2-36.5)
[2019-11-08 18:10] LABS: ALBUMIN 2.6 g/dl (3.4-5.0); ALK PHOS 285 U/L (45-117); ANION GAP 8 MMOL/L (8-16); BILIRUBIN,TOTAL 0.4 mg/dL (0.2-1); BLOOD UREA NITROGEN 17.1 mg/dL (7-18); CHLORIDE 109 mmol/L (98-107); CO2 25 mmol/L (21-32); CREATININE 0.8 mg/dL (0.55-1.3); GLUCOSE,RANDOM 105 mg/dL (74-106); MAGNESIUM 2.2 mg/dL (1.8-2.4); POTASSIUM 4.6 mmol/L (3.5-5.1); SGOT/AST 109 U/L (15-37); SGPT/ALT 41 U/L (13-61); SODIUM 142 mmol/L (136-145); TOT PROT 7.7 g/dl (6.4-8.2)
--- NOTE | 2019-11-08 20:16 | PDOC ---
*Physical Exam - Vital Signs Last Vital Signs Temp Pulse Resp BP Pulse Ox 98.2 F 87 19 124/67 100 11/08/19 18:28 11/08/19 18:28 11/08/19 18:28 11/08/19 18:28 11/08/19 18:28 ED Treatment Course - LABORATORY CBC & Chemistry Diagram: 11/08/19 17:00 11/08/19 17:00 - ADDITIONAL ORDERS Additional order review: Laboratory Results 11/08/19 11/08/19 11/08/19 17:05 17:00 17:00 PT with INR 11.50 INR 0.97 PTT (Actin FS) 33.8 Sodium 142 Potassium 4.6 Chloride 109 H Carbon Dioxide 25 Anion Gap 8 BUN 17.1 Creatinine 0.8 Est GFR (CKD-EPI)AfAm 77.37 Est GFR (CKD-EPI)NonAf 66.76 Random Glucose 105 Calcium 9.0 Magnesium 2.2 Total Bilirubin 0.4 AST 109 H ALT 41 Alkaline Phosphatase 285 H Creatine Kinase 955 H Creatine Kinase Index 0.6 CK-MB (CK-2) 6.2 H Troponin I < 0.02 Total Protein 7.7 Albumin 2.6 L Urine Color Yellow Urine Appearance Clear Urine pH 5.0 Ur Specific [place] 1.019 Urine Protein Trace Urine Glucose (UA) Negative Urine Ketones Negative Urine Blood Negative Urine Nitrite Negative Urine Bilirubin Negative Urine Urobilinogen 0.2 Ur Leukocyte Esterase 1+ H Urine WBC (Auto) 5 Urine RBC (Auto) 6 Urine Casts (Auto) 6 U Epithel Cells (Auto) 1.4 Urine Bacteria (Auto) 4.3 11/08/19 17:00 RBC 4.04 MCV 93.1 MCHC 32.0 RDW 14.9 MPV 9.3 Neutrophils % 61.5 D Lymphocytes % 21.4 D Monocytes % 10.7 H D Eosinophils % 5.5 H D Basophils % 0.9 - Medications Given in the ED: ED Medications Discontinued Medications Generic Name Dose Route Start Last Admin Trade Name Freq PRN Reason Stop Dose Admin Sodium Chloride 500 mls @ 500 mls/hr 11/08/19 16:38 11/08/19 17:19 Normal Saline - IV 11/08/19 17:37 500 mls/hr ASDIR STA Administration Medical Decision Making - Medical Decision Making CTA chest: A small amount of eccentric positioned embolus is seen along the lateral wall of the left pulmonary artery distantly distally extending into the anterior segmental branch of the left upper lobe. This embolus is probably chronic or subacute given the eccentric position. Evaluation of the lower lobe vasculature is limited due to the extra respiratory artifact patient is admitted. heparin and plavix is ordered. patient is admitted under Dr. Gallego service. patient signed out to Dr. Gallego Discharge - Discharge Information Problems reviewed: Yes Clinical Impression/Diagnosis: Weakness, Elevated CPK DVT (deep venous thrombosis) Qualifiers: DVT location: lower extremity Affected thrombotic vein of extremity: femoral Chronicity: acute Laterality: unspecified laterality Qualified Code(s): I82.419 - Acute embolism and thrombosis of unspecified femoral vein Condition: Stable - Admission Yes - Follow up/Referral - Patient Discharge Instructions - Post Discharge Activity
[2019-11-08 20:54] LABS: N-TERMINAL BNP 90.4 pg/ml (5-450)
--- NOTE | 2019-11-08 20:55 | HP ---
Admitting History and Physical - Primary Care Physician PCP: Holden Gallego - Admission History of Present Illness: Patient is an 88-year-old female who presents to the ED after being sent from her rehab facility for weakness. She was diagnosed with a pneumonia recently and has been on Rocephin. She was also diagnosed with a right femoral DVT despite being on aspirin, Plavix and heparin. According to the patient's daughter, she is not her active normal self. The patient is very weak and unable to stand or walk on her own. The patient was admitted 2 weeks ago for an IA and then sent to [facility] rehab facility. The daughter states the patient was doing very well and then started doing poorly again. She was sent to the ER for further evaluation and treatment. - Past Medical History [employer]: Yes: Dementia, Other (trigeminal neuralgia) Cardiovascular: Yes: HTN, Hyperlipdemia - Smoking History Smoking history: Never smoked Have you smoked in the past 12 months: No If you are a former smoker, when did you quit?: 40 YEARS AGO - Alcohol/Substance Use Hx Alcohol Use: No Home Medications - Allergies Allergies/Adverse Reactions: Allergies Allergy/AdvReac Type Severity Reaction Status Date / Time No Known Allergies Allergy Verified 11/08/19 15:43 - Home Medications Home Medications: Ambulatory Orders Carbamazepine [Carbamazepine ER] 200 mg PO BID 10/11/19 Aspirin [ASA -] 81 mg PO DAILY #30 tab.chew 10/13/19 Atorvastatin Ca [Lipitor] 80 mg PO HS #30 tablet 10/13/19 Carbamazepine Xr [Tegretol XR -] 400 mg PO BID tab.er.12h 10/13/19 Clopidogrel Bisulfate [Plavix -] 75 mg PO DAILY #30 tablet 10/13/19 Metoprolol Succinate [Toprol XL -] 25 mg PO DAILY #30 tab.sr.24h 10/13/19 Sacubitril/Valsartan [Entresto 24 mg-26 mg Tablet] 1 tab PO BID #60 tablet 10/13 Memantine HCl [Namenda -] 5 mg PO BID #60 tablet 10/14/19 Levofloxacin [Levaquin] 500 mg PO DAILY #7 tablet 10/19/19 Physical Examination Vital Signs: Vital Signs Temperature 98.2 F 11/08/19 18:28 Pulse Rate 87 11/08/19 18:28 Respiratory Rate 19 11/08/19 18:28 Blood Pressure 124/67 11/08/19 18:28 O2 Sat by Pulse Oximetry (%) 100 11/08/19 18:28 Constitutional: Yes: No Distress HENT: Yes: Atraumatic Neck: Yes: Supple Cardiovascular: Yes: Regular Rate and Rhythm Respiratory: Yes: CTA Bilaterally Gastrointestinal: Yes: Normal Bowel Sounds Extremities: Yes: WNL Neurological: Yes: Alert Labs: CBC, BMP 11/08/19 17:00 11/08/19 17:00 Imaging - Results X-ray: Report Reviewed Problem List - Problems (1) Weakness Code(s): R53.1 - WEAKNESS (2) Dementia Code(s): F03.90 - UNSPECIFIED DEMENTIA WITHOUT BEHAVIORAL DISTURBANCE (3) Hyperlipidemia Assessment/Plan: on lipitor Code(s): E78.5 - HYPERLIPIDEMIA, UNSPECIFIED Qualifiers: Hyperlipidemia type: pure hypercholesterolemia Qualified Code(s): E78.00 - Pure hypercholesterolemia, unspecified; E78.0 - Pure hypercholesterolemia (4) Hypertension Code(s): I10 - ESSENTIAL (PRIMARY) HYPERTENSION Qualifiers: Hypertension type: essential hypertension Qualified Code(s): I10 - Essential (primary) hypertension (5) Ischemic cardiomyopathy Code(s): I25.5 - ISCHEMIC CARDIOMYOPATHY (6) Trigeminal neuralgia Assessment/Plan: on tegretol Code(s): G50.0 - TRIGEMINAL NEURALGIA (7) UTI (urinary tract infection) Code(s): N39.0 - URINARY TRACT INFECTION, SITE NOT SPECIFIED (8) Pneumonia Assessment/Plan: iv abx id consult Code(s): J18.9 - PNEUMONIA, UNSPECIFIED ORGANISM (9) DVT (deep venous thrombosis) Assessment/Plan: on meds heme consult Code(s): I82.409 - ACUTE EMBOLISM AND THOMBOS UNSP DEEP VN UNSP LOWER EXTREMITY Qualifiers: DVT location: lower extremity Affected thrombotic vein of extremity: femoral Chronicity: acute Laterality: unspecified laterality Qualified Code(s): I82.419 - Acute embolism and thrombosis of unspecified femoral vein (10) Elevated CPK Assessment/Plan: ivf monitor Code(s): R74.8 - ABNORMAL LEVELS OF OTHER SERUM ENZYMES Assessment/Plan Laboratory Tests 11/08/19 11/08/19 11/08/19 17:00 17:00 17:00 WBC 4.4 RBC 4.04 Hgb 12.1 Hct 37.6 MCV 93.1 MCH 29.8 MCHC 32.0 RDW 14.9 Plt Count 222 MPV 9.3 Absolute Neuts (auto) 2.7 Neutrophils % 61.5 D Lymphocytes % 21.4 D Monocytes % 10.7 H D Eosinophils % 5.5 H D Basophils % 0.9 Nucleated RBC % 0 PT with INR 11.50 INR 0.97 PTT (Actin FS) 33.8 Sodium 142 Potassium 4.6 Chloride 109 H Carbon Dioxide 25 Anion Gap 8 BUN 17.1 Creatinine 0.8 Est GFR (CKD-EPI)AfAm 77.37 Est GFR (CKD-EPI)NonAf 66.76 Random Glucose 105 Calcium 9.0 Magnesium 2.2 Total Bilirubin 0.4 AST 109 H ALT 41 Alkaline Phosphatase 285 H Creatine Kinase 955 H Creatine Kinase Index 0.6 CK-MB (CK-2) 6.2 H Troponin I < 0.02 B-Natriuretic Peptide 90.4 Total Protein 7.7 Albumin 2.6 L Urine Color Urine Appearance Urine pH Ur Specific [place] Urine Protein Urine Glucose (UA) Urine Ketones Urine Blood Urine Nitrite Urine Bilirubin Urine Urobilinogen Ur Leukocyte Esterase Urine WBC (Auto) Urine RBC (Auto) Urine Casts (Auto) U Epithel Cells (Auto) Urine Bacteria (Auto) 11/08/19 17:05 WBC RBC Hgb Hct MCV MCH MCHC RDW Plt Count MPV Absolute Neuts (auto) Neutrophils % Lymphocytes % Monocytes % Eosinophils % Basophils % Nucleated RBC % PT with INR INR PTT (Actin FS) Sodium Potassium Chloride Carbon Dioxide Anion Gap BUN Creatinine Est GFR (CKD-EPI)AfAm Est GFR (CKD-EPI)NonAf Random Glucose Calcium Magnesium Total Bilirubin AST ALT Alkaline Phosphatase Creatine Kinase Creatine Kinase Index CK-MB (CK-2) Troponin I B-Natriuretic Peptide Total Protein Albumin Urine Color Yellow Urine Appearance Clear Urine pH 5.0 Ur Specific [place] 1.019 Urine Protein Trace Urine Glucose (UA) Negative Urine Ketones Negative Urine Blood Negative Urine Nitrite Negative Urine Bilirubin Negative Urine Urobilinogen 0.2 Ur Leukocyte Esterase 1+ H Urine WBC (Auto) 5 Urine RBC (Auto) 6 Urine Casts (Auto) 6 U Epithel Cells (Auto) 1.4 Urine Bacteria (Auto) 4.3 Active Medications Generic Name Dose Route Start Last Admin Trade Name Freq PRN Reason Stop Dose Admin Acetaminophen 650 mg 0224/20 21:03 Tylenol - PO Q6H PRN FEVER Albuterol/Ipratropium 1 amp 11/08/19 21:52 Duoneb - NEB Q4H PRN SHORTNESS OF BREATH Apixaban 10 mg 11/09/19 22:00 Eliquis - PO 11/16/19 21:59 BID KRISTIAN Aspirin 81 mg 11/09/19 10:00 11/09/19 10:06 Asa - PO 81 mg DAILY KRISTIAN Administration Atorvastatin Calcium 80 mg 11/08/19 22:00 11/09/19 00:03 Lipitor - PO 80 mg HS KRISTIAN Administration Carbamazepine 200 mg 11/08/19 22:00 11/09/19 10:07 Tegretol Xr - PO 200 mg BID KRISTIAN Administration Ceftriaxone Sodium 1 gm/ 50 mls @ 100 mls/hr 11/08/19 21:45 11/09/19 10:07 Dextrose IVPB 100 mls/hr DAILY KRISTIAN Administration Protocol Sodium Chloride 1,000 mls @ 50 mls/hr 11/08/19 21:15 11/09/19 00:02 Normal Saline - IV 50 mls/hr ASDIR KRISTIAN Administration Memantine 5 mg 11/08/19 22:00 11/09/19 10:07 Namenda - PO 5 mg BID KRISTIAN Administration Metoprolol Succinate 25 mg 11/09/19 10:00 11/09/19 10:07 Toprol Xl - PO 25 mg DAILY KRISTIAN Administration Sacubitril/Valsartan 1 tab 11/08/19 22:00 11/09/19 10:06 Entresto 24 Mg-26 Mg Tablet PO 1 tab BID KRISTIAN Administration
[2019-11-08] MEDS ORDERED: ACETAMINOPHEN 325 MG TABLET (FP) PO PRN (21:03)
[2019-11-08] MEDS ORDERED: ALBUTEROL SO4 2.5/IPRATROPIUM 0.5 INH SOL 3 ML VIAL.NEB. NEB PRN (21:52)
[2019-11-08] MEDS ORDERED: ATORVASTATIN CA 80 MG TABLET (FP) ONE (22:43)
[2019-11-08] MEDS ORDERED: HEPARIN NA (PORCINE) 5,000 UNITS/ML 1ML VIAL ONE (22:44)
[2019-11-08] MEDS ORDERED: CEFTRIAXONE 1 GM/50 ML BAG ONE (22:44)
[2019-11-08] MEDS ORDERED: carBAMazepine 200 MG TABLET ONE (23:13)
[2019-11-09] MEDS: SACUBITRIL/VALSARTAN 24 MG-26 MG TABLET PO SCH ×3 (00:02→23:50)
[2019-11-09] MEDS: HEPARIN NA (PORCINE) 5,000 UNITS/ML 1ML VIAL SQ SCH ×2 (00:02→10:07)
[2019-11-09] MEDS: CEFTRIAXONE 1 GM in DEXTROSE 5%-WATER - 50 ML IVPB SCH ×2 (00:02→10:07)
[2019-11-09] MEDS: SODIUM CHLORIDE 1,000 ML IV SCH ×2 (00:02→21:53)
[2019-11-09] MEDS: MEMANTINE HCL 5 MG TABLET (UD) PO SCH ×3 (00:03→21:52)
[2019-11-09] MEDS: ATORVASTATIN CA 80 MG TABLET (FP) PO SCH ×2 (00:03→21:52)
[2019-11-09 05:58] LABS: EOS % 8.3 % (0-4.5); HEMATOCRIT 38.2 % (32.4-45.2); HEMOGLOBIN 12.3 GM/dL (10.7-15.3); MCH 30.1 pg (25.7-33.7); MCHC 32.2 g/dl (32.0-36.0); MEAN CELL VOLUME 93.6 fl (80-96); MEAN PLT VOLUME 8.8 fl (7.5-11.1); MONO % 9.9 % (3.8-10.2); NEUT % 61.8 % (42.8-82.8); PLATELET COUNT 188 K/MM3 (134-434); RBC 4.08 M/mm3 (3.60-5.2); RDW 14.7 % (11.6-15.6); WHITE BLOOD COUNT 4.7 K/mm3 (4.0-10.0)
[2019-11-09 06:24] LABS: ALBUMIN 2.4 g/dl (3.4-5.0); BILIRUBIN,TOTAL 0.2 mg/dL (0.2-1); BLOOD UREA NITROGEN 14.9 mg/dL (7-18); CALCIUM 8.3 mg/dL (8.5-10.1); CREATININE 0.8 mg/dL (0.55-1.3); POTASSIUM 4.2 mmol/L (3.5-5.1); TOT PROT 7.2 g/dl (6.4-8.2)
--- NOTE | 2019-11-09 08:42 | CONSULT ---
Consultation: CONSULT SERVICE: Hematology/Oncology Resident HISTORY OF PRESENT ILLNESS: 88yo F with h/o HTN, HLD, Dementia, Trigeminal neuralgia, ischemic dilated cardiomyopathy who presented originally from [facility] due to generalized weakness. PT was previously hospitalized here 2 weeks prior for NSTEMI and sent to [facility] upon discharge. The daughter reports the patient was improving, however started to worsen about 3 days ago. Pt was noted to have pneumonia receiving Rocephin at her facility at this time. She was on heparin SQ at her rehab facility. During her workup here, pt was noted to have DVT confirmed by vascular imaging. Pt is a poor historian and history provided by family member and EMR. Pt is ECOG 4. PMHx: As above SoHx: Tobacco - Former, quit 40 years ago Alcohol - Denies Drugs - Denies REVIEW OF SYSTEMS: As per HPI PHYSICAL EXAMINATION Vital Signs - 24 hr 11/08/19 11/08/19 11/08/19 13:47 18:28 23:00 Temperature 97.7 F 98.2 F Pulse Rate 75 Pulse Rate [ 87 60 Apical] Respiratory 18 19 18 Rate Blood Pressure 118/60 Blood Pressure 124/67 127/62 [Right Arm] O2 Sat by Pulse 97 100 97 Oximetry (%) 11/09/19 05:44 Temperature 97.9 F Pulse Rate Pulse Rate [ 82 Apical] Respiratory 18 Rate Blood Pressure Blood Pressure 134/84 [Right Arm] O2 Sat by Pulse 95 Oximetry (%) GENERAL: Awake, alert, in no acute distress. HEENT: NC/AT, MARIELLA, MMM without thrush NECK: No JVD, no lymphadenopathy LUNGS: Poor inspiratory effort. CTA bilaterally. No wheezes, and no crackles. No accessory muscle use. HEART: RRR, normal S1 and S2 with grade 2/6 systolic murmur CHEST: Normal br. exam (Search Lead present). no lymphadenopathy of the axilla ABDOMEN: Soft, NT/ND, normoactive bowel sounds, no guarding. No hepatomegaly EXTREMITIES: 2+ DP pulses b/l, warm, well-perfused. No calf tenderness. No peripheral edema. SKIN: Warm, dry, no rashes or lesions noted. Laboratory Results - last 24 hr 11/08/19 11/08/19 11/08/19 17:00 17:00 17:00 WBC 4.4 RBC 4.04 Hgb 12.1 Hct 37.6 MCV 93.1 MCH 29.8 MCHC 32.0 RDW 14.9 Plt Count 222 MPV 9.3 Absolute Neuts (auto) 2.7 Neutrophils % 61.5 D Lymphocytes % 21.4 D Monocytes % 10.7 H D Eosinophils % 5.5 H D Basophils % 0.9 Nucleated RBC % 0 PT with INR 11.50 INR 0.97 PTT (Actin FS) 33.8 Sodium 142 Potassium 4.6 Chloride 109 H Carbon Dioxide 25 Anion Gap 8 BUN 17.1 Creatinine 0.8 Est GFR (CKD-EPI)AfAm 77.37 Est GFR (CKD-EPI)NonAf 66.76 Random Glucose 105 Calcium 9.0 Magnesium 2.2 Total Bilirubin 0.4 AST 109 H ALT 41 Alkaline Phosphatase 285 H Creatine Kinase 955 H Creatine Kinase Index 0.6 CK-MB (CK-2) 6.2 H Troponin I < 0.02 B-Natriuretic Peptide 90.4 Total Protein 7.7 Albumin 2.6 L Urine Color Urine Appearance Urine pH Ur Specific [place] Urine Protein Urine Glucose (UA) Urine Ketones Urine Blood Urine Nitrite Urine Bilirubin Urine Urobilinogen Ur Leukocyte Esterase Urine WBC (Auto) Urine RBC (Auto) Urine Casts (Auto) U Epithel Cells (Auto) Urine Bacteria (Auto) 11/08/19 11/09/19 11/09/19 17:05 05:45 05:45 WBC 4.7 RBC 4.08 Hgb 12.3 Hct 38.2 MCV 93.6 MCH 30.1 MCHC 32.2 RDW 14.7 Plt Count 188 MPV 8.8 Absolute Neuts (auto) 2.9 Neutrophils % 61.8 Lymphocytes % 19.0 Monocytes % 9.9 Eosinophils % 8.3 H Basophils % 1.0 Nucleated RBC % 0 PT with INR INR PTT (Actin FS) Sodium 144 Potassium 4.2 Chloride 112 H Carbon Dioxide 24 Anion Gap 7 L BUN 14.9 Creatinine 0.8 Est GFR (CKD-EPI)AfAm 77.37 Est GFR (CKD-EPI)NonAf 66.76 Random Glucose 88 Calcium 8.3 L Magnesium Total Bilirubin 0.2 AST 90 H ALT 36 Alkaline Phosphatase 280 H Creatine Kinase Creatine Kinase Index CK-MB (CK-2) Troponin I B-Natriuretic Peptide Total Protein 7.2 Albumin 2.4 L Urine Color Yellow Urine Appearance Clear Urine pH 5.0 Ur Specific [place] 1.019 Urine Protein Trace Urine Glucose (UA) Negative Urine Ketones Negative Urine Blood Negative Urine Nitrite Negative Urine Bilirubin Negative Urine Urobilinogen 0.2 Ur Leukocyte Esterase 1+ H Urine WBC (Auto) 5 Urine RBC (Auto) 6 Urine Casts (Auto) 6 U Epithel Cells (Auto) 1.4 Urine Bacteria (Auto) 4.3 Active Medications Generic Name Dose Route Start Last Admin Trade Name Freq PRN Reason Stop Dose Admin Acetaminophen 650 mg 11/08/19 21:03 Tylenol - PO Q6H PRN FEVER Albuterol/Ipratropium 1 amp 11/08/19 21:52 Duoneb - NEB Q4H PRN SHORTNESS OF BREATH Aspirin 81 mg 11/09/19 10:00 Asa - PO DAILY [facility] Atorvastatin Calcium 80 mg 11/08/19 22:00 11/09/19 00:03 Lipitor - PO 80 mg HS KRISTIAN Administration Carbamazepine 200 mg 11/08/19 22:00 11/09/19 00:03 Tegretol Xr - PO 200 mg BID KRISTIAN Administration Clopidogrel Bisulfate 75 mg 11/09/19 10:00 Plavix - PO DAILY [facility] Heparin Sodium (Porcine) 5,000 unit 11/08/19 22:00 11/09/19 00:02 Heparin - SQ 5,000 unit BID [facility] Administration Ceftriaxone Sodium 1 gm/ 50 mls @ 100 mls/hr 11/08/19 21:45 11/09/19 00:02 Dextrose IVPB 100 mls/hr DAILY [facility] Administration Protocol Sodium Chloride 1,000 mls @ 50 mls/hr 11/08/19 21:15 11/09/19 00:02 Normal Saline - IV 50 mls/hr ASDIR KRISTIAN Administration Memantine 5 mg 11/08/19 22:00 11/09/19 00:03 Namenda - PO 5 mg BID KRISTIAN Administration Metoprolol Succinate 25 mg 11/09/19 10:00 Toprol Xl - PO DAILY [facility] Sacubitril/Valsartan 1 tab 11/08/19 22:00 11/09/19 00:02 Entresto 24 Mg-26 Mg Tablet PO 1 tab BID KRISTIAN Administration Vascular U/S: IMPRESSION: 1. Extensive DVT right lower extremity. 2. No evidence of DVT left lower extremity. Please see above discussion. Chest CTA: Impression: A small amount of eccentric positioned embolus is seen along the lateral wall of the left pulmonary artery distally extending into the anterior segmental branch of the left upper lobe. This embolus is probably chronic or subacute given the eccentric position. Evaluation of the lower lobe vasculature is limited due to respiratory motion artifact. Correlation with bilateral lower extremity venous sonography may be performed. ASSESSMENT/PLAN: R DVT, likely provoked Small embolic PE Ischemic dilated cardiomyopathy History of HTN History of dementia, likely Alzheimer type History of HLD --Discussed about AC and preference towards DOAC due to less incidence --Considering no renal impairment: start Eliquis 10mg BID PO x7 days followed by 5mg BID --Discontinue Plavis per cardiology's note and continue ASA 81mg daily --Continue cardiac medications per cardiology --Monitor for any bleeds --Rest per primary teams Case to be discussed Geovanni Garrison DO - IM PGY-3 Visit type - Emergency Visit Emergency Visit: Yes ED Registration Date: 11/08/19 Care time: The patient presented to the Emergency Department on the above date and was hospitalized for further evaluation of their emergent condition. - New Patient This patient is new to me today: Yes Date on this admission: 11/09/19 - Critical Care Critical Care patient: No ATTENDING PHYSICIAN STATEMENT I saw and evaluated the patient. I reviewed the resident's note and discussed the case with the resident. I agree with the resident's findings and plan as documented. SUBJECTIVE: OBJECTIVE: ASSESSMENT AND PLAN:
--- NOTE | 2019-11-09 09:40 | EKG ---
Test Reason : Blood Pressure : / mmHG Vent. Rate : 068 BPM Atrial Rate : 068 BPM P-R Int : 186 ms QRS Dur : 084 ms QT Int : 428 ms P-R-T Axes : -21 -15 -20 degrees QTc Int : 455 ms POOR DATA QUALITY, INTERPRETATION MAY BE ADVERSELY AFFECTED NORMAL SINUS RHYTHM MODERATE VOLTAGE CRITERIA FOR LVH, MAY BE NORMAL VARIANT NONSPECIFIC T WAVE ABNORMALITY ABNORMAL ECG WHEN COMPARED WITH ECG OF 11-OCT-2019 09:42, MINIMAL CRITERIA FOR SEPTAL INFARCT ARE NO LONGER PRESENT BORDERLINE CRITERIA FOR LATERAL INFARCT ARE NO LONGER PRESENT T WAVE INVERSION LESS EVIDENT IN ANTEROLATERAL LEADS Confirmed by Mike Reddy MD ([id number]) on 11/09/2019 9:40:35 AM Referred By: Confirmed By:Mike Reddy MD
[2019-11-09] MEDS ORDERED: CLOPIDOGREL BISULFATE 75 MG TABLET (FP) PO SCH (10:00)
[2019-11-09] MEDS: ASPIRIN 81 MG CHEWABLE TABLETS PO SCH (10:06)
[2019-11-09] MEDS: metoPROLOL SUCCINATE 25 MG TAB.SR.24H (FP) PO SCH (10:07)
--- NOTE | 2019-11-09 10:17 | CON.CARD ---
Consult Consult Specialty:: Cardiology Referred by:: Dr. Gallego Reason for Consultation:: Cardiac evaluation - History of Present Illness Chief Complaint: Weakness, right LE pain History of Present Illness: Patient is an 88 year old female recently seen by our service when admitted here (Sep and Oct 2019) with dizziness, now readmitted from [facility] with weakness. She was diagnosed with pneumonia recently and was given antibiotics. She was also diagnosed with right femoral DVT. Her underlying medical history includes trigeminal neuralgia, dementia, HTN, hypercholesterolemia and history of UTIs. She has ischemic dilated cardiomyopathy with LVEF 30% and is on Entresto, Metoprolol and Spironolactone therapy. Other history includes chronic lacunar stroke. Currently she denies chest pain, shortness of breath or palpitations. She denies paroxysmal nocturnal dyspnea or orthopnea. She denies fever or chills. She denies nausea, vomiting, diarrhea or abdominal pain. She denies headache or lightheadedness. CT chest revealed small amount of eccentric positioned embolus seen along the lateral wall of the left pulmonary artery distally extending into the anterior segmental branch of the left upper lobe. LE Doppler reveled right lower extremity DVT. - History Source History Provided By: Patient, Family Member, Medical Record Limitations to Obtaining History: Dementia - Past Medical History RN SUPPORT SERVICES: Yes: Dementia, Other (trigeminal neuralgia) Cardio/Vascular: Yes: HTN, Hyperlipdemia, Other (Cardiomyopathy) - Alcohol/Substance Use Hx Alcohol Use: No - Smoking History Smoking history: Former smoker Have you smoked in the past 12 months: No If you are a former smoker, when did you quit?: 40 YEARS AGO Home Medications - Allergies Allergies/Adverse Reactions: Allergies Allergy/AdvReac Type Severity Reaction Status Date / Time No Known Allergies Allergy Verified 11/08/19 15:43 - Home Medications Home Medications: Ambulatory Orders Carbamazepine [Carbamazepine ER] 200 mg PO BID 10/11/19 Aspirin [ASA -] 81 mg PO DAILY #30 tab.chew 10/13/19 Atorvastatin Ca [Lipitor] 80 mg PO HS #30 tablet 10/13/19 Carbamazepine Xr [Tegretol XR -] 400 mg PO BID tab.er.12h 10/13/19 Clopidogrel Bisulfate [Plavix -] 75 mg PO DAILY #30 tablet 10/13/19 Metoprolol Succinate [Toprol XL -] 25 mg PO DAILY #30 tab.sr.24h 10/13/19 Sacubitril/Valsartan [Entresto 24 mg-26 mg Tablet] 1 tab PO BID #60 tablet 10/13 Memantine HCl [Namenda -] 5 mg PO BID #60 tablet 10/14/19 Levofloxacin [Levaquin] 500 mg PO DAILY #7 tablet 10/19/19 Review of Systems - Review of Systems Constitutional: reports: Weakness. denies: Chills, Fever Cardiovascular: denies: Chest Pain, Palpitations, Shortness of Breath Gastrointestinal: denies: Abdominal Pain, Constipation, Diarrhea, Melena, Nausea , Rectal Bleeding, Vomiting Genitourinary: denies: Dysuria, Hematuria Musculoskeletal: denies: Back Pain, Joint Pain Neurological: reports: Weakness. denies: Dizziness, Headache, Seizure, Syncope Vital Signs: Vital Signs Temperature 97.9 F 11/09/19 09:56 Pulse Rate 79 11/09/19 09:56 Respiratory Rate 18 11/09/19 09:56 Blood Pressure 139/75 11/09/19 09:56 O2 Sat by Pulse Oximetry (%) 95 11/09/19 09:56 Neck: Yes: Supple Respiratory: Yes: Diminished Gastrointestinal: Yes: Normal Bowel Sounds, Soft. No: Tenderness Cardiovascular: Yes: Regular Rate and Rhythm JVD: No PMI: Non-Displaced Heart Sounds: Yes: S1, S2 Murmur: Yes: Systolic Murmur, Grade 1 Edema: No - Other Data Labs, Other Data: CBC, BMP 11/09/19 05:45 11/09/19 05:45 INR, PTT INR 0.97 (0.83-1.09) 11/08/19 17:00 Troponin, BNP 11/08/19 17:00 Troponin I < 0.02 B-Natriuretic Peptide 90.4 Laboratory Results - last 24 hr 11/08/19 11/08/19 11/08/19 17:00 17:00 17:00 WBC 4.4 RBC 4.04 Hgb 12.1 Hct 37.6 MCV 93.1 MCH 29.8 MCHC 32.0 RDW 14.9 Plt Count 222 MPV 9.3 Absolute Neuts (auto) 2.7 Neutrophils % 61.5 D Lymphocytes % 21.4 D Monocytes % 10.7 H D Eosinophils % 5.5 H D Basophils % 0.9 Nucleated RBC % 0 PT with INR 11.50 INR 0.97 PTT (Actin FS) 33.8 Sodium 142 Potassium 4.6 Chloride 109 H Carbon Dioxide 25 Anion Gap 8 BUN 17.1 Creatinine 0.8 Est GFR (CKD-EPI)AfAm 77.37 Est GFR (CKD-EPI)NonAf 66.76 Random Glucose 105 Calcium 9.0 Magnesium 2.2 Total Bilirubin 0.4 AST 109 H ALT 41 Alkaline Phosphatase 285 H Creatine Kinase 955 H Creatine Kinase Index 0.6 CK-MB (CK-2) 6.2 H Troponin I < 0.02 B-Natriuretic Peptide 90.4 Total Protein 7.7 Albumin 2.6 L Urine Color Urine Appearance Urine pH Ur Specific [place] Urine Protein Urine Glucose (UA) Urine Ketones Urine Blood Urine Nitrite Urine Bilirubin Urine Urobilinogen Ur Leukocyte Esterase Urine WBC (Auto) Urine RBC (Auto) Urine Casts (Auto) U Epithel Cells (Auto) Urine Bacteria (Auto) 11/08/19 11/09/19 11/09/19 17:05 05:45 05:45 WBC 4.7 RBC 4.08 Hgb 12.3 Hct 38.2 MCV 93.6 MCH 30.1 MCHC 32.2 RDW 14.7 Plt Count 188 MPV 8.8 Absolute Neuts (auto) 2.9 Neutrophils % 61.8 Lymphocytes % 19.0 Monocytes % 9.9 Eosinophils % 8.3 H Basophils % 1.0 Nucleated RBC % 0 PT with INR INR PTT (Actin FS) Sodium 144 Potassium 4.2 Chloride 112 H Carbon Dioxide 24 Anion Gap 7 L BUN 14.9 Creatinine 0.8 Est GFR (CKD-EPI)AfAm 77.37 Est GFR (CKD-EPI)NonAf 66.76 Random Glucose 88 Calcium 8.3 L Magnesium Total Bilirubin 0.2 AST 90 H ALT 36 Alkaline Phosphatase 280 H Creatine Kinase Creatine Kinase Index CK-MB (CK-2) Troponin I B-Natriuretic Peptide Total Protein 7.2 Albumin 2.4 L Urine Color Yellow Urine Appearance Clear Urine pH 5.0 Ur Specific [place] 1.019 Urine Protein Trace Urine Glucose (UA) Negative Urine Ketones Negative Urine Blood Negative Urine Nitrite Negative Urine Bilirubin Negative Urine Urobilinogen 0.2 Ur Leukocyte Esterase 1+ H Urine WBC (Auto) 5 Urine RBC (Auto) 6 Urine Casts (Auto) 6 U Epithel Cells (Auto) 1.4 Urine Bacteria (Auto) 4.3 NSR with nonspecific T abnormality and LVH Echo: Pending Imaging - Results Chest X-ray: Report Reviewed (Left base ateletasis or infiltrates and large heart. elevated right hemidiaphragm) Cat Scan: Report Reviewed (Chest CT as outlined above) Ultrasound: Report Reviewed (Right LE DVT) EKG: Report Reviewed Problem List - Problems (1) Pulmonary embolism Code(s): I26.99 - OTHER PULMONARY EMBOLISM WITHOUT ACUTE COR PULMONALE (2) DVT (deep venous thrombosis) Code(s): I82.409 - ACUTE EMBOLISM AND THOMBOS UNSP DEEP VN UNSP LOWER EXTREMITY Qualifiers: DVT location: lower extremity Affected thrombotic vein of extremity: femoral Chronicity: acute Laterality: unspecified laterality Qualified Code(s): I82.419 - Acute embolism and thrombosis of unspecified femoral vein (3) Weakness Code(s): R53.1 - WEAKNESS (4) Coronary artery disease Code(s): I25.10 - ATHSCL HEART DISEASE OF [place] CORONARY ARTERY W/O ANG PCTRS Qualifiers: Coronary Disease-Associated Artery/Lesion type: [place] artery [place] vs. transplanted heart: [place] heart Associated angina: without angina Qualified Code(s): I25.10 - Atherosclerotic heart disease of [place] coronary artery without angina pectoris (5) Dementia Code(s): F03.90 - UNSPECIFIED DEMENTIA WITHOUT BEHAVIORAL DISTURBANCE (6) Hyperlipidemia Code(s): E78.5 - HYPERLIPIDEMIA, UNSPECIFIED Qualifiers: Hyperlipidemia type: pure hypercholesterolemia Qualified Code(s): E78.00 - Pure hypercholesterolemia, unspecified; E78.0 - Pure hypercholesterolemia (7) Hypertension Code(s): I10 - ESSENTIAL (PRIMARY) HYPERTENSION Qualifiers: Hypertension type: essential hypertension (8) Ischemic cardiomyopathy Code(s): I25.5 - ISCHEMIC CARDIOMYOPATHY (9) Trigeminal neuralgia Code(s): G50.0 - TRIGEMINAL NEURALGIA (10) UTI (urinary tract infection) Code(s): N39.0 - URINARY TRACT INFECTION, SITE NOT SPECIFIED Assessment/Plan 1. Generalized weakness 2. Right LE DVT 3. Small embolus in pulmonary artery 4. CAD with history of [place] 5. Ischemic cardiomyopathy with low LVEF 6. HTN 7. Hypercholesterolemia 8. History of meningioma 9. Chronic lacunar stroke 10. Dementia likely Alzheimer type 11. History of trigeminal neuralgia 12. UTI PLAN: 1. Consider anticoagulation - may consider DOAC/Eliquis if not contraindicated. Heme/Onc on board and will wait for further input. 2. Continue Entresto 24/26 mg BID and uptitrate as tolerated 3. Continue Spironolactone 25 mg QD 4. Continue Metoprolol ER 25 mg QD 5. Currently maintained on ASA and Plavix, but may consider only ASA if anticoagulation is started 6. Consider further viability study as outpatient 7. Atorvastatin (dose needs to be clarified whether to remain at high dose or reduce it) 8. Echocardiography may be repeated although it was done recently to assess RV stain, size and function 9. Antibiotic coverage Further plans are to follow Catalino Arreola MD
--- NOTE | 2019-11-09 14:02 | CON.ID ---
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: Yes: Dementia, Other (trigeminal neuralgia) Cardio/Vascular: Yes: HTN, Hyperlipdemia, Other (Cardiomyopathy) - Alcohol/Substance Use Hx Alcohol Use: No - Smoking History Smoking history: Former smoker Have you smoked in the past 12 months: No If you are a former smoker, when did you quit?: 40 YEARS AGO Home Medications - Allergies Allergies/Adverse Reactions: Allergies Allergy/AdvReac Type Severity Reaction Status Date / Time No Known Allergies Allergy Verified 11/08/19 15:43 - Home Medications Home Medications: Ambulatory Orders Carbamazepine [Carbamazepine ER] 200 mg PO BID 10/11/19 Aspirin [ASA -] 81 mg PO DAILY #30 tab.chew 10/13/19 Atorvastatin Ca [Lipitor] 80 mg PO HS #30 tablet 10/13/19 Carbamazepine Xr [Tegretol XR -] 400 mg PO BID tab.er.12h 10/13/19 Clopidogrel Bisulfate [Plavix -] 75 mg PO DAILY #30 tablet 10/13/19 Metoprolol Succinate [Toprol XL -] 25 mg PO DAILY #30 tab.sr.24h 10/13/19 Sacubitril/Valsartan [Entresto 24 mg-26 mg Tablet] 1 tab PO BID #60 tablet 10/13 Memantine HCl [Namenda -] 5 mg PO BID #60 tablet 10/14/19 Levofloxacin [Levaquin] 500 mg PO DAILY #7 tablet 10/19/19 Physical Exam Vital Signs: Vital Signs Temperature 97.9 F 11/09/19 09:56 Pulse Rate 79 11/09/19 09:56 Respiratory Rate 18 11/09/19 09:56 Blood Pressure 139/75 11/09/19 09:56 O2 Sat by Pulse Oximetry (%) 95 11/09/19 09:56 Labs: CBC, BMP 11/09/19 05:45 11/09/19 05:45
--- NOTE | 2019-11-09 16:44 | PN ---
Progress Note, Physician - Current Medication List Current Medications: Active Medications Acetaminophen (Tylenol -) 650 mg PO Q6H PRN PRN Reason: FEVER Albuterol/Ipratropium (Duoneb -) 1 amp NEB Q4H PRN PRN Reason: SHORTNESS OF BREATH Apixaban (Eliquis -) 10 mg PO BID [facility] Stop: 11/16/19 21:59 Aspirin (Asa -) 81 mg PO DAILY [facility] Last Admin: 11/09/19 10:06 Dose: 81 mg Atorvastatin Calcium (Lipitor -) 80 mg PO HS [facility] Last Admin: 11/09/19 00:03 Dose: 80 mg Carbamazepine (Tegretol Xr -) 200 mg PO BID [facility] Last Admin: 11/09/19 10:07 Dose: 200 mg Ceftriaxone Sodium 1 gm/ (Dextrose) 50 mls @ 100 mls/hr IVPB DAILY [facility]; Protocol Last Admin: 11/09/19 10:07 Dose: 100 mls/hr Sodium Chloride (Normal Saline -) 1,000 mls @ 50 mls/hr IV ASDIR [facility] Last Admin: 11/09/19 00:02 Dose: 50 mls/hr Memantine (Namenda -) 5 mg PO BID [facility] Last Admin: 11/09/19 10:07 Dose: 5 mg Metoprolol Succinate (Toprol Xl -) 25 mg PO DAILY [facility] Last Admin: 11/09/19 10:07 Dose: 25 mg Sacubitril/Valsartan (Entresto 24 Mg-26 Mg Tablet) 1 tab PO BID [facility] Last Admin: 11/09/19 10:06 Dose: 1 tab - Objective Vital Signs: Vital Signs Temperature 97.9 F 11/09/19 09:56 Pulse Rate 79 11/09/19 09:56 Respiratory Rate 18 11/09/19 09:56 Blood Pressure 139/75 11/09/19 09:56 O2 Sat by Pulse Oximetry (%) 95 11/09/19 09:56 Constitutional: Yes: No Distress HENT: Yes: Atraumatic Neck: Yes: Supple Cardiovascular: Yes: Regular Rate and Rhythm Respiratory: Yes: CTA Bilaterally Gastrointestinal: Yes: Normal Bowel Sounds Extremities: Yes: WNL Edema: No Neurological: Yes: Alert, Oriented Labs: CBC, BMP 11/09/19 05:45 11/09/19 05:45 INR, PTT INR 0.97 (0.83-1.09) 11/08/19 17:00 Problem List - Problems (1) Weakness Code(s): R53.1 - WEAKNESS (2) Dementia Code(s): F03.90 - UNSPECIFIED DEMENTIA WITHOUT BEHAVIORAL DISTURBANCE (3) Hyperlipidemia Assessment/Plan: on lipitor Code(s): E78.5 - HYPERLIPIDEMIA, UNSPECIFIED Qualifiers: Hyperlipidemia type: pure hypercholesterolemia Qualified Code(s): E78.00 - Pure hypercholesterolemia, unspecified; E78.0 - Pure hypercholesterolemia (4) Hypertension Assessment/Plan: on meds monitor Code(s): I10 - ESSENTIAL (PRIMARY) HYPERTENSION Qualifiers: Hypertension type: essential hypertension Qualified Code(s): I10 - Essential (primary) hypertension (5) Ischemic cardiomyopathy Code(s): I25.5 - ISCHEMIC CARDIOMYOPATHY (6) Trigeminal neuralgia Assessment/Plan: on tegretol Code(s): G50.0 - TRIGEMINAL NEURALGIA (7) UTI (urinary tract infection) Assessment/Plan: on iv bax cxs pending Code(s): N39.0 - URINARY TRACT INFECTION, SITE NOT SPECIFIED (8) DVT (deep venous thrombosis) Assessment/Plan: on meds heme consult Code(s): I82.409 - ACUTE EMBOLISM AND THOMBOS UNSP DEEP VN UNSP LOWER EXTREMITY Qualifiers: DVT location: lower extremity Affected thrombotic vein of extremity: femoral Chronicity: acute Laterality: right Qualified Code(s): I82.411 - Acute embolism and thrombosis of right femoral vein (9) Elevated CPK Assessment/Plan: ivf monitor Code(s): R74.8 - ABNORMAL LEVELS OF OTHER SERUM ENZYMES (10) Pneumonia Assessment/Plan: iv abx id consult Code(s): J18.9 - PNEUMONIA, UNSPECIFIED ORGANISM
[2019-11-09 20:30] VITALS: BMI 28.8
[2019-11-09] MEDS: APIXABAN 5 MG TABLET PO SCH (21:52)
[2019-11-10] MEDS ORDERED: PT OWN MED DRAWER 7, Y5N ONE ×4 (11:10→21:40)
[2019-11-10] MEDS ORDERED: DEXTROSE 5%-WATER - 50 ML IVPB ONE ×2 (11:10→17:32)
[2019-11-10] MEDS ORDERED: cefTRIAXone SODIUM 1 GM VIAL ONE (11:10)
[2019-11-10] MEDS: ASPIRIN 81 MG CHEWABLE TABLETS PO SCH (11:11)
[2019-11-10] MEDS: APIXABAN 5 MG TABLET PO SCH ×2 (11:11→22:59)
[2019-11-10] MEDS: metoPROLOL SUCCINATE 25 MG TAB.SR.24H (FP) PO SCH (11:12)
[2019-11-10] MEDS: CEFTRIAXONE 1 GM in DEXTROSE 5%-WATER - 50 ML IVPB SCH (11:12)
[2019-11-10] MEDS: SACUBITRIL/VALSARTAN 24 MG-26 MG TABLET PO SCH ×2 (11:13→22:59)
--- NOTE | 2019-11-10 13:45 | PN ---
Progress Note, Physician Chief Complaint: stable looks much better - Current Medication List Current Medications: Active Medications Acetaminophen (Tylenol -) 650 mg PO Q6H PRN PRN Reason: FEVER Albuterol/Ipratropium (Duoneb -) 1 amp NEB Q4H PRN PRN Reason: SHORTNESS OF BREATH Apixaban (Eliquis -) 10 mg PO BID [facility] Stop: 11/16/19 21:59 Last Admin: 11/10/19 11:11 Dose: 10 mg Aspirin (Asa -) 81 mg PO DAILY [facility] Last Admin: 11/10/19 11:11 Dose: 81 mg Atorvastatin Calcium (Lipitor -) 80 mg PO HS [facility] Last Admin: 11/09/19 21:52 Dose: 80 mg Carbamazepine (Tegretol Xr -) 200 mg PO BID [facility] Last Admin: 11/10/19 11:14 Dose: 200 mg Ceftriaxone Sodium 1 gm/ (Dextrose) 50 mls @ 100 mls/hr IVPB DAILY [facility]; Protocol Last Admin: 11/10/19 11:12 Dose: 100 mls/hr Sodium Chloride (Normal Saline -) 1,000 mls @ 50 mls/hr IV ASDIR [facility] Last Admin: 11/09/19 21:53 Dose: 50 mls/hr Memantine (Namenda -) 5 mg PO BID [facility] Last Admin: 11/09/19 21:52 Dose: 5 mg Metoprolol Succinate (Toprol Xl -) 25 mg PO DAILY [facility] Last Admin: 11/10/19 11:12 Dose: 25 mg Sacubitril/Valsartan (Entresto 24 Mg-26 Mg Tablet) 1 tab PO BID [facility] Last Admin: 11/10/19 11:13 Dose: 1 tab - Objective Vital Signs: Vital Signs Temperature 97.9 F 11/10/19 11:06 Pulse Rate 85 11/10/19 11:06 Respiratory Rate 20 11/10/19 11:06 Blood Pressure 139/61 11/10/19 11:06 O2 Sat by Pulse Oximetry (%) 98 11/09/19 21:00 Constitutional: Yes: No Distress, Calm HENT: Yes: Atraumatic Cardiovascular: Yes: Regular Rate and Rhythm Respiratory: Yes: Regular, CTA Bilaterally Gastrointestinal: Yes: Normal Bowel Sounds, Soft Neurological: Yes: Alert, Oriented Psychiatric: Yes: Alert, Oriented Labs: CBC, BMP 11/09/19 05:45 02/25/20 05:45 INR, PTT INR 0.97 (0.83-1.09) 11/08/19 17:00 Assessment/Plan Problem List - Problems (1) Weakness Code(s): R53.1 - WEAKNESS (2) Dementia Code(s): F03.90 - UNSPECIFIED DEMENTIA WITHOUT BEHAVIORAL DISTURBANCE (3) Hyperlipidemia Assessment/Plan: on lipitor Code(s): E78.5 - HYPERLIPIDEMIA, UNSPECIFIED Qualifiers: Hyperlipidemia type: pure hypercholesterolemia Qualified Code(s): E78.00 - Pure hypercholesterolemia, unspecified; E78.0 - Pure hypercholesterolemia (4) Hypertension Code(s): I10 - ESSENTIAL (PRIMARY) HYPERTENSION Qualifiers: Hypertension type: essential hypertension Qualified Code(s): I10 - Essential (primary) hypertension (5) Ischemic cardiomyopathy Code(s): I25.5 - ISCHEMIC CARDIOMYOPATHY (6) Trigeminal neuralgia Assessment/Plan: on tegretol Code(s): G50.0 - TRIGEMINAL NEURALGIA (7) UTI (urinary tract infection) Code(s): N39.0 - URINARY TRACT INFECTION, SITE NOT SPECIFIED (8) Pneumonia Code(s): J18.9 - PNEUMONIA, UNSPECIFIED ORGANISM (9) DVT (deep venous thrombosis) Code(s): I82.409 - ACUTE EMBOLISM AND THOMBOS UNSP DEEP VN UNSP LOWER EXTREMITY Qualifiers: DVT location: lower extremity Affected thrombotic vein of extremity: femoral Chronicity: acute Laterality: unspecified laterality Qualified Code(s): I82.419 - Acute embolism and thrombosis of unspecified femoral vein (10) Elevated CPK Code(s): R74.8 - ABNORMAL LEVELS OF OTHER SERUM ENZYMES plan continue abx urine cx noted await for identification of the organism rest as per the team
--- NOTE | 2019-11-10 14:47 | PN ---
Progress Note, Physician History of Present Illness: Resting in bed w/o complaints. - Current Medication List Current Medications: Active Medications Acetaminophen (Tylenol -) 650 mg PO Q6H PRN PRN Reason: FEVER Albuterol/Ipratropium (Duoneb -) 1 amp NEB Q4H PRN PRN Reason: SHORTNESS OF BREATH Apixaban (Eliquis -) 10 mg PO BID [facility] Stop: 11/16/19 21:59 Last Admin: 11/10/19 11:11 Dose: 10 mg Aspirin (Asa -) 81 mg PO DAILY [facility] Last Admin: 11/10/19 11:11 Dose: 81 mg Atorvastatin Calcium (Lipitor -) 80 mg PO HS [facility] Last Admin: 11/09/19 21:52 Dose: 80 mg Carbamazepine (Tegretol Xr -) 200 mg PO BID [facility] Last Admin: 11/10/19 11:14 Dose: 200 mg Sodium Chloride (Normal Saline -) 1,000 mls @ 50 mls/hr IV ASDIR [facility] Last Admin: 11/09/19 21:53 Dose: 50 mls/hr Piperacillin Sod/Tazobactam (Sod 3.375 gm/ Dextrose) 50 mls @ 100 mls/hr IVPB Q8H-IV [facility]; Protocol Memantine (Namenda -) 5 mg PO BID [facility] Last Admin: 11/09/19 21:52 Dose: 5 mg Metoprolol Succinate (Toprol Xl -) 25 mg PO DAILY [facility] Last Admin: 11/10/19 11:12 Dose: 25 mg Sacubitril/Valsartan (Entresto 24 Mg-26 Mg Tablet) 1 tab PO BID [facility] Last Admin: 11/10/19 11:13 Dose: 1 tab - Objective Vital Signs: Vital Signs Temperature 97.9 F 11/10/19 11:06 Pulse Rate 85 11/10/19 11:06 Respiratory Rate 20 11/10/19 11:06 Blood Pressure 139/61 11/10/19 11:06 O2 Sat by Pulse Oximetry (%) 98 11/09/19 21:00 Constitutional: Yes: No Distress, Calm Neck: Yes: Supple Cardiovascular: Yes: Regular Rate and Rhythm Respiratory: Yes: Regular, CTA Bilaterally Gastrointestinal: Yes: Normal Bowel Sounds, Soft Edema: Yes Edema: LLE: Trace, RLE: Trace Labs: CBC, BMP 11/09/19 05:45 11/09/19 05:45 INR, PTT INR 0.97 (0.83-1.09) 11/08/19 17:00 Problem List - Problems (1) DVT (deep venous thrombosis) Code(s): I82.409 - ACUTE EMBOLISM AND THOMBOS UNSP DEEP VN UNSP LOWER EXTREMITY Qualifiers: DVT location: lower extremity Affected thrombotic vein of extremity: femoral Chronicity: acute Laterality: right Qualified Code(s): I82.411 - Acute embolism and thrombosis of right femoral vein (2) Pulmonary embolism Code(s): I26.99 - OTHER PULMONARY EMBOLISM WITHOUT ACUTE COR PULMONALE Qualifiers: Pulmonary embolism type: unspecified Acute cor pulmonale presence: without acute cor pulmonale (3) Weakness Code(s): R53.1 - WEAKNESS (4) Coronary artery disease Code(s): I25.10 - ATHSCL HEART DISEASE OF [place] CORONARY ARTERY W/O ANG PCTRS Qualifiers: Coronary Disease-Associated Artery/Lesion type: [place] artery [place] vs. transplanted heart: [place] heart Associated angina: without angina Qualified Code(s): I25.10 - Atherosclerotic heart disease of [place] coronary artery without angina pectoris (5) Dementia Code(s): F03.90 - UNSPECIFIED DEMENTIA WITHOUT BEHAVIORAL DISTURBANCE (6) Hyperlipidemia Code(s): E78.5 - HYPERLIPIDEMIA, UNSPECIFIED Qualifiers: Hyperlipidemia type: pure hypercholesterolemia Qualified Code(s): E78.00 - Pure hypercholesterolemia, unspecified; E78.0 - Pure hypercholesterolemia (7) Hypertension Code(s): I10 - ESSENTIAL (PRIMARY) HYPERTENSION Qualifiers: Hypertension type: essential hypertension Qualified Code(s): I10 - Essential (primary) hypertension (8) Ischemic cardiomyopathy Code(s): I25.5 - ISCHEMIC CARDIOMYOPATHY (9) UTI (urinary tract infection) Code(s): N39.0 - URINARY TRACT INFECTION, SITE NOT SPECIFIED Assessment/Plan 10/11/19 Echo: Normal LV size with mild LVH mod-severe decreased LVEF 30%, grade I DD, mod dilated RV with mod decreased RV fxn, septal AK, anterolateral and inferior HK, mild TR RVSP 41 mmHg 10/11/2019 Calcified right posterior meningioma, chronic lacunar stroke left IC 1. Generalized weakness -> Group D strep or enterococcus UTI 2. Right LE DVT and small embolus in left pulmonary artery 3. CAD with history of [place] 4. Ischemic cardiomyopathy LVEF 30% 5. HTN 6. Hypercholesterolemia 7. Right meningioma 8. Chronic lacunar stroke 9. 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 History of trigeminal neuralgia PLAN: 1. Started Eliquis 10 bid, d/c ASA as CAD is stable 2. Continue Entresto 24/26 mg BID and uptitrate as tolerated 3. Resume Spironolactone 25 mg QD 4. Continue Metoprolol ER 25 mg QD and Atorvastatin 80 qd 6. Consider further viability study as outpatient 7. Complete abx antibiotic course per ID
[2019-11-10] MEDS: MEMANTINE HCL 5 MG TABLET (UD) PO SCH ×2 (15:48→22:59)
--- NOTE | 2019-11-10 16:01 | PN ---
Progress Note, Physician History of Present Illness: doing well - Current Medication List Current Medications: Active Medications Acetaminophen (Tylenol -) 650 mg PO Q6H PRN PRN Reason: FEVER Albuterol/Ipratropium (Duoneb -) 1 amp NEB Q4H PRN PRN Reason: SHORTNESS OF BREATH Apixaban (Eliquis -) 10 mg PO BID [facility] Stop: 11/16/19 21:59 Last Admin: 11/10/19 11:11 Dose: 10 mg Atorvastatin Calcium (Lipitor -) 80 mg PO HS [facility] Last Admin: 11/09/19 21:52 Dose: 80 mg Carbamazepine (Tegretol Xr -) 200 mg PO BID [facility] Last Admin: 11/10/19 11:14 Dose: 200 mg Sodium Chloride (Normal Saline -) 1,000 mls @ 50 mls/hr IV ASDIR [facility] Last Admin: 11/09/19 21:53 Dose: 50 mls/hr Piperacillin Sod/Tazobactam (Sod 3.375 gm/ Dextrose) 50 mls @ 100 mls/hr IVPB Q8H-IV [facility]; Protocol Memantine (Namenda -) 5 mg PO BID [facility] Last Admin: 11/10/19 15:48 Dose: 5 mg Metoprolol Succinate (Toprol Xl -) 25 mg PO DAILY [facility] Last Admin: 11/10/19 11:12 Dose: 25 mg Sacubitril/Valsartan (Entresto 24 Mg-26 Mg Tablet) 1 tab PO BID [facility] Last Admin: 11/10/19 11:13 Dose: 1 tab Spironolactone (Aldactone -) 25 mg PO DAILY [facility] - Objective Vital Signs: Vital Signs Temperature 98.6 F 11/10/19 15:00 Pulse Rate 67 11/10/19 15:00 Respiratory Rate 20 11/10/19 15:00 Blood Pressure 129/57 L 11/10/19 15:00 O2 Sat by Pulse Oximetry (%) 98 11/09/19 21:00 Constitutional: Yes: No Distress HENT: Yes: Atraumatic Neck: Yes: Supple Cardiovascular: Yes: Regular Rate and Rhythm Respiratory: Yes: CTA Bilaterally Gastrointestinal: Yes: Normal Bowel Sounds Extremities: Yes: WNL Edema: No Neurological: Yes: Alert, Oriented Labs: CBC, BMP 11/09/19 05:45 02/25/20 05:45 INR, PTT INR 0.97 (0.83-1.09) 11/08/19 17:00 Problem List - Problems (1) Weakness Code(s): R53.1 - WEAKNESS (2) Dementia Code(s): F03.90 - UNSPECIFIED DEMENTIA WITHOUT BEHAVIORAL DISTURBANCE (3) Hyperlipidemia Assessment/Plan: on lipitor Code(s): E78.5 - HYPERLIPIDEMIA, UNSPECIFIED Qualifiers: Hyperlipidemia type: pure hypercholesterolemia Qualified Code(s): E78.00 - Pure hypercholesterolemia, unspecified; E78.0 - Pure hypercholesterolemia (4) Hypertension Assessment/Plan: on meds monitor Code(s): I10 - ESSENTIAL (PRIMARY) HYPERTENSION Qualifiers: Hypertension type: essential hypertension Qualified Code(s): I10 - Essential (primary) hypertension (5) Ischemic cardiomyopathy Code(s): I25.5 - ISCHEMIC CARDIOMYOPATHY (6) Trigeminal neuralgia Assessment/Plan: on tegretol Code(s): G50.0 - TRIGEMINAL NEURALGIA (7) UTI (urinary tract infection) Assessment/Plan: on iv abx cxs pending Code(s): N39.0 - URINARY TRACT INFECTION, SITE NOT SPECIFIED (8) Pneumonia Code(s): J18.9 - PNEUMONIA, UNSPECIFIED ORGANISM (9) DVT (deep venous thrombosis) Assessment/Plan: on meds heme consult Code(s): I82.409 - ACUTE EMBOLISM AND THOMBOS UNSP DEEP VN UNSP LOWER EXTREMITY Qualifiers: DVT location: lower extremity Affected thrombotic vein of extremity: femoral Chronicity: acute Laterality: right Qualified Code(s): I82.411 - Acute embolism and thrombosis of right femoral vein (10) Elevated CPK Assessment/Plan: ivf monitor Code(s): R74.8 - ABNORMAL LEVELS OF OTHER SERUM ENZYMES (11) Pulmonary embolism Code(s): I26.99 - OTHER PULMONARY EMBOLISM WITHOUT ACUTE COR PULMONALE Qualifiers: Pulmonary embolism type: unspecified Acute cor pulmonale presence: without acute cor pulmonale
[2019-11-10] MEDS ORDERED: PIPERACILLIN/TAZOBACTAM 3.375 GM VIAL IVPB ONE (17:32)
[2019-11-10] MEDS: PIPERACILLIN/TAZOB 3.375 GM 3.375 GM in DEXTROSE 5%-WATER - 50 ML IVPB SCH (18:03)
--- NOTE | 2019-11-10 20:41 | PN ---
Teaching Attending Note Name of Resident: Geovanni Garrison ATTENDING PHYSICIAN STATEMENT I saw and evaluated the patient. I reviewed the resident's note and discussed the case with the resident. I agree with the resident's findings and plan as documented. SUBJECTIVE: Patient seen and examined Recently hospitilized for NSTEMI. Sent to [facility] and returns with extensive DVT RLE involving common femoral distal and proximal superficial femoral veins. ? subacute or chronic PE Left lung Review of meds at [facility] - tylnol, ASA-81, atorvastatin, carbamazepine, plavix-75 , metoprolol, entresto, namenda, heparin -5000 bid, tamiflu rocephin, duoneb, mucinex Last Vital Signs Temp Pulse Resp BP Pulse Ox 98.5 F 69 20 122/78 98 11/10/19 18:00 11/10/19 18:00 11/10/19 18:00 11/10/19 18:00 11/09/19 21:00 HEENT:right eye dense cataract Oropharynx: No thrush, No mucositis Neck: Supple Nodes: Without adenopathy Breasts: Without masses Cor: RSR, No murmurs, No gallops Lungs: Clear to P&A Abd: Soft, Normal bowel sounds, No organomegaly Ext: proximal RLE swelling Skin: No rashes, Integument intact CBC, BMP 11/09/19 05:45 11/09/19 05:45 Current Medications Generic Name Dose Route Start Last Admin Trade Name Freq PRN Reason Stop Dose Admin Acetaminophen 650 mg 11/08/19 21:03 Tylenol - PO Q6H PRN FEVER Albuterol/Ipratropium 1 amp 11/08/19 21:52 Duoneb - NEB Q4H PRN SHORTNESS OF BREATH Apixaban 10 mg 11/09/19 22:00 11/10/19 11:11 Eliquis - PO 11/16/19 21:59 10 mg BID [facility] Administration Atorvastatin Calcium 80 mg 11/08/19 22:00 11/09/19 21:52 Lipitor - PO 80 mg HS [facility] Administration Carbamazepine 200 mg 11/08/19 22:00 11/10/19 11:14 Tegretol Xr - PO 200 mg BID [facility] Administration Sodium Chloride 1,000 mls @ 50 mls/hr 11/08/19 21:15 11/09/19 21:53 Normal Saline - IV 50 mls/hr ASDIR [facility] Administration Piperacillin Sod/Tazobactam 50 mls @ 100 mls/hr 11/10/19 18:00 11/10/19 18:03 Sod 3.375 gm/ Dextrose IVPB 100 mls/hr Q8H-IV [facility] Administration Protocol Memantine 5 mg 11/08/19 22:00 11/10/19 15:48 Namenda - PO 5 mg BID [facility] Administration Metoprolol Succinate 25 mg 11/09/19 10:00 11/10/19 11:12 Toprol Xl - PO 25 mg DAILY [facility] Administration Sacubitril/Valsartan 1 tab 11/08/19 22:00 11/10/19 11:13 Entresto 24 Mg-26 Mg Tablet PO 1 tab BID [facility] Administration Spironolactone 25 mg 11/11/19 10:00 Aldactone - PO DAILY [facility] OBJECTIVE: impression: Provoked DVT related to bed rest, recent hospitilization NSTEMI and recent infection. Likely old or subacute PE . Sub q heparin at 5000 units BID , plavix, and ASA-81 all stated in [facility] med record. ?? inadequate dosing of heparin prophylaxis in setting of cardiomyopathy, bedrest , infection , and NSTEMI. Patient will need a/c Coumadin or eliquis appropriate - has been placed on eliquis. Duration based upon activity ,sedentary or ambulatory status, with high risk in view of cardiomyopathy , PE, and new DVT. ASSESSMENT AND PLAN:
[2019-11-10] MEDS: SODIUM CHLORIDE 1,000 ML IV SCH ×2 (22:57→22:58)
[2019-11-10] MEDS: ATORVASTATIN CA 80 MG TABLET (FP) PO SCH (22:59)
[2019-11-11] MEDS ORDERED: DEXTROSE 5%-WATER - 50 ML IVPB ONE ×3 (02:31→17:10)
[2019-11-11] MEDS ORDERED: PIPERACILLIN/TAZOBACTAM 3.375 GM VIAL IVPB ONE ×3 (02:31→17:10)
[2019-11-11] MEDS: PIPERACILLIN/TAZOB 3.375 GM 3.375 GM in DEXTROSE 5%-WATER - 50 ML IVPB SCH ×3 (03:04→17:43)
--- NOTE | 2019-11-11 10:22 | PN ---
Progress Note, Physician History of Present Illness: stable no new issues - Current Medication List Current Medications: Active Medications Acetaminophen (Tylenol -) 650 mg PO Q6H PRN PRN Reason: FEVER Albuterol/Ipratropium (Duoneb -) 1 amp NEB Q4H PRN PRN Reason: SHORTNESS OF BREATH Apixaban (Eliquis -) 10 mg PO BID [facility] Stop: 11/16/19 21:59 Last Admin: 11/10/19 22:59 Dose: 10 mg Atorvastatin Calcium (Lipitor -) 80 mg PO HS [facility] Last Admin: 11/10/19 22:59 Dose: 80 mg Carbamazepine (Tegretol Xr -) 200 mg PO BID [facility] Last Admin: 11/10/19 23:00 Dose: 200 mg Sodium Chloride (Normal Saline -) 1,000 mls @ 50 mls/hr IV ASDIR [facility] Last Admin: 11/10/19 22:58 Dose: Not Given Piperacillin Sod/Tazobactam (Sod 3.375 gm/ Dextrose) 50 mls @ 100 mls/hr IVPB Q8H-IV [facility]; Protocol Last Admin: 11/11/19 03:04 Dose: 100 mls/hr Memantine (Namenda -) 5 mg PO BID [facility] Last Admin: 11/10/19 22:59 Dose: 5 mg Metoprolol Succinate (Toprol Xl -) 25 mg PO DAILY [facility] Last Admin: 11/10/19 11:12 Dose: 25 mg Sacubitril/Valsartan (Entresto 24 Mg-26 Mg Tablet) 1 tab PO BID [facility] Last Admin: 11/10/19 22:59 Dose: 1 tab Spironolactone (Aldactone -) 25 mg PO DAILY [facility] - Objective Vital Signs: Vital Signs Temperature 98.7 F 11/11/19 07:04 Pulse Rate 70 11/11/19 07:04 Respiratory Rate 18 11/11/19 07:04 Blood Pressure 143/74 11/11/19 07:04 O2 Sat by Pulse Oximetry (%) 96 11/10/19 11:10 Constitutional: Yes: No Distress, Calm Cardiovascular: Yes: S1, S2 Respiratory: Yes: Regular, CTA Bilaterally Gastrointestinal: Yes: Normal Bowel Sounds, Soft Musculoskeletal: Yes: WNL Extremities: Yes: WNL Neurological: Yes: Alert, Oriented Psychiatric: Yes: Alert, Oriented Labs: CBC, BMP 11/09/19 05:45 11/09/19 05:45 INR, PTT INR 0.97 (0.83-1.09) 11/08/19 17:00 Assessment/Plan Problem List - Problems (1) Weakness Code(s): R53.1 - WEAKNESS (2) Dementia Code(s): F03.90 - UNSPECIFIED DEMENTIA WITHOUT BEHAVIORAL DISTURBANCE (3) Hyperlipidemia Assessment/Plan: on lipitor Code(s): E78.5 - HYPERLIPIDEMIA, UNSPECIFIED Qualifiers: Hyperlipidemia type: pure hypercholesterolemia Qualified Code(s): E78.00 - Pure hypercholesterolemia, unspecified; E78.0 - Pure hypercholesterolemia (4) Hypertension Code(s): I10 - ESSENTIAL (PRIMARY) HYPERTENSION Qualifiers: Hypertension type: essential hypertension Qualified Code(s): I10 - Essential (primary) hypertension (5) Ischemic cardiomyopathy Code(s): I25.5 - ISCHEMIC CARDIOMYOPATHY (6) Trigeminal neuralgia Assessment/Plan: on tegretol Code(s): G50.0 - TRIGEMINAL NEURALGIA (7) UTI (urinary tract infection) Code(s): N39.0 - URINARY TRACT INFECTION, SITE NOT SPECIFIED (8) Pneumonia Code(s): J18.9 - PNEUMONIA, UNSPECIFIED ORGANISM (9) DVT (deep venous thrombosis) Code(s): I82.409 - ACUTE EMBOLISM AND THOMBOS UNSP DEEP VN UNSP LOWER EXTREMITY Qualifiers: DVT location: lower extremity Affected thrombotic vein of extremity: femoral Chronicity: acute Laterality: unspecified laterality Qualified Code(s): I82.419 - Acute embolism and thrombosis of unspecified femoral vein (10) Elevated CPK Code(s): R74.8 - ABNORMAL LEVELS OF OTHER SERUM ENZYMES plan continue abx urine cx noted await for identification of the organism rest as per the team
--- NOTE | 2019-11-11 10:31 | PN ---
Progress Note, Physician History of Present Illness: Sitting in chair eating lunch, sensorium improving. Denies chest pain or dyspnea. - Current Medication List Current Medications: Active Medications Acetaminophen (Tylenol -) 650 mg PO Q6H PRN PRN Reason: FEVER Albuterol/Ipratropium (Duoneb -) 1 amp NEB Q4H PRN PRN Reason: SHORTNESS OF BREATH Apixaban (Eliquis -) 10 mg PO BID [facility] Stop: 11/16/19 21:59 Last Admin: 11/10/19 22:59 Dose: 10 mg Atorvastatin Calcium (Lipitor -) 80 mg PO HS [facility] Last Admin: 11/10/19 22:59 Dose: 80 mg Carbamazepine (Tegretol Xr -) 200 mg PO BID [facility] Last Admin: 11/10/19 23:00 Dose: 200 mg Sodium Chloride (Normal Saline -) 1,000 mls @ 50 mls/hr IV ASDIR [facility] Last Admin: 11/10/19 22:58 Dose: Not Given Piperacillin Sod/Tazobactam (Sod 3.375 gm/ Dextrose) 50 mls @ 100 mls/hr IVPB Q8H-IV [facility]; Protocol Last Admin: 11/11/19 03:04 Dose: 100 mls/hr Memantine (Namenda -) 5 mg PO BID [facility] Last Admin: 11/10/19 22:59 Dose: 5 mg Metoprolol Succinate (Toprol Xl -) 25 mg PO DAILY [facility] Last Admin: 11/10/19 11:12 Dose: 25 mg Sacubitril/Valsartan (Entresto 24 Mg-26 Mg Tablet) 1 tab PO BID [facility] Last Admin: 11/10/19 22:59 Dose: 1 tab Spironolactone (Aldactone -) 25 mg PO DAILY [facility] - Objective Vital Signs: Vital Signs Temperature 98.7 F 11/11/19 07:04 Pulse Rate 70 11/11/19 07:04 Respiratory Rate 18 11/11/19 07:04 Blood Pressure 143/74 11/11/19 07:04 O2 Sat by Pulse Oximetry (%) 96 11/10/19 11:10 Constitutional: Yes: No Distress, Calm, Thin Neck: Yes: Supple Cardiovascular: Yes: Regular Rate and Rhythm Respiratory: Yes: Regular, CTA Bilaterally Gastrointestinal: Yes: Normal Bowel Sounds, Soft Edema: Yes Edema: LLE: Trace, RLE: Trace Labs: CBC, BMP 11/09/19 05:45 11/09/19 05:45 INR, PTT INR 0.97 (0.83-1.09) 11/08/19 17:00 Problem List - Problems (1) DVT (deep venous thrombosis) Code(s): I82.409 - ACUTE EMBOLISM AND THOMBOS UNSP DEEP VN UNSP LOWER EXTREMITY Qualifiers: DVT location: lower extremity Affected thrombotic vein of extremity: femoral Chronicity: acute Laterality: right Qualified Code(s): I82.411 - Acute embolism and thrombosis of right femoral vein (2) Pulmonary embolism Code(s): I26.99 - OTHER PULMONARY EMBOLISM WITHOUT ACUTE COR PULMONALE Qualifiers: Pulmonary embolism type: unspecified Acute cor pulmonale presence: without acute cor pulmonale (3) Weakness Code(s): R53.1 - WEAKNESS (4) Coronary artery disease Code(s): I25.10 - ATHSCL HEART DISEASE OF [place] CORONARY ARTERY W/O ANG PCTRS Qualifiers: Coronary Disease-Associated Artery/Lesion type: [place] artery [place] vs. transplanted heart: [place] heart Associated angina: without angina Qualified Code(s): I25.10 - Atherosclerotic heart disease of [place] coronary artery without angina pectoris (5) Dementia Code(s): F03.90 - UNSPECIFIED DEMENTIA WITHOUT BEHAVIORAL DISTURBANCE (6) Hyperlipidemia Code(s): E78.5 - HYPERLIPIDEMIA, UNSPECIFIED Qualifiers: Hyperlipidemia type: pure hypercholesterolemia Qualified Code(s): E78.00 - Pure hypercholesterolemia, unspecified; E78.0 - Pure hypercholesterolemia (7) Hypertension Code(s): I10 - ESSENTIAL (PRIMARY) HYPERTENSION Qualifiers: Hypertension type: essential hypertension Qualified Code(s): I10 - Essential (primary) hypertension (8) Ischemic cardiomyopathy Code(s): I25.5 - ISCHEMIC CARDIOMYOPATHY (9) UTI (urinary tract infection) Code(s): N39.0 - URINARY TRACT INFECTION, SITE NOT SPECIFIED Assessment/Plan 10/11/19 Echo: Normal LV size with mild LVH mod-severe decreased LVEF 30%, grade I DD, mod dilated RV with mod decreased RV fxn, septal AK, anterolateral and inferior HK, mild TR RVSP 41 mmHg 10/11/2019 Calcified right posterior meningioma, chronic lacunar stroke left IC 1. Generalized weakness -> enterococcus UTI 2. Right LE DVT and small embolus in left pulmonary artery 3. CAD with history of [place] 4. Ischemic cardiomyopathy LVEF 30% 5. HTN 6. Hypercholesterolemia 7. Right meningioma 8. Chronic lacunar stroke 9. 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 History of trigeminal neuralgia PLAN: 1. Continue Eliquis 10 bid, d/c ASA as CAD is stable 2. Increase Entresto 49/51 mg BID and uptitrate as tolerated 3. Continue Spironolactone 25 mg QD 4. Continue Metoprolol ER 25 mg QD and Atorvastatin 80 qd 5. Consider further viability study as outpatient 6. Complete abx antibiotic course per ID
[2019-11-11] MEDS: MEMANTINE HCL 5 MG TABLET (UD) PO SCH ×2 (10:59→22:21)
[2019-11-11] MEDS: SPIRONOLACTONE 25 MG TABLET (FP) PO SCH (11:00)
[2019-11-11] MEDS: metoPROLOL SUCCINATE 25 MG TAB.SR.24H (FP) PO SCH (11:00)
[2019-11-11] MEDS: SACUBITRIL/VALSARTAN 24 MG-26 MG TABLET PO SCH (11:01)
[2019-11-11] MEDS ORDERED: PT OWN MED DRAWER 7, Y5N ONE ×2 (11:05→22:13)
[2019-11-11] MEDS: APIXABAN 5 MG TABLET PO SCH ×2 (12:29→22:17)
--- NOTE | 2019-11-11 20:01 | PN ---
Progress Note, Physician - Current Medication List Current Medications: Active Medications Acetaminophen (Tylenol -) 650 mg PO Q6H PRN PRN Reason: FEVER Albuterol/Ipratropium (Duoneb -) 1 amp NEB Q4H PRN PRN Reason: SHORTNESS OF BREATH Apixaban (Eliquis -) 10 mg PO BID [facility] Stop: 11/16/19 21:59 Last Admin: 11/11/19 12:29 Dose: 10 mg Atorvastatin Calcium (Lipitor -) 80 mg PO HS [facility] Last Admin: 11/10/19 22:59 Dose: 80 mg Carbamazepine (Tegretol Xr -) 200 mg PO BID [facility] Last Admin: 11/11/19 11:03 Dose: 200 mg Sodium Chloride (Normal Saline -) 1,000 mls @ 50 mls/hr IV ASDIR [facility] Last Admin: 11/10/19 22:58 Dose: Not Given Piperacillin Sod/Tazobactam (Sod 3.375 gm/ Dextrose) 50 mls @ 100 mls/hr IVPB Q8H-IV [facility]; Protocol Last Admin: 11/11/19 17:43 Dose: 100 mls/hr Memantine (Namenda -) 5 mg PO BID [facility] Last Admin: 11/11/19 10:59 Dose: 5 mg Metoprolol Succinate (Toprol Xl -) 25 mg PO DAILY [facility] Last Admin: 11/11/19 11:00 Dose: 25 mg Sacubitril/Valsartan (Entresto 49 Mg-51 Mg Tablet) 1 tab PO BID [facility] Spironolactone (Aldactone -) 25 mg PO DAILY [facility] Last Admin: 11/11/19 11:00 Dose: 25 mg - Objective Vital Signs: Vital Signs Temperature 98.5 F 11/11/19 19:11 Pulse Rate 70 11/11/19 19:11 Respiratory Rate 18 11/11/19 19:11 Blood Pressure 127/68 11/11/19 19:11 O2 Sat by Pulse Oximetry (%) 93 L 11/11/19 10:00 Constitutional: Yes: No Distress HENT: Yes: Atraumatic Neck: Yes: Supple Cardiovascular: Yes: Regular Rate and Rhythm Respiratory: Yes: CTA Bilaterally Gastrointestinal: Yes: Normal Bowel Sounds Extremities: Yes: WNL Edema: No Neurological: Yes: Alert Labs: CBC, BMP 11/09/19 05:45 11/09/19 05:45 INR, PTT INR 0.97 (0.83-1.09) 11/08/19 17:00 Problem List - Problems (1) Weakness Code(s): R53.1 - WEAKNESS (2) Dementia Code(s): F03.90 - UNSPECIFIED DEMENTIA WITHOUT BEHAVIORAL DISTURBANCE (3) Hyperlipidemia Assessment/Plan: on lipitor Code(s): E78.5 - HYPERLIPIDEMIA, UNSPECIFIED Qualifiers: Hyperlipidemia type: pure hypercholesterolemia Qualified Code(s): E78.00 - Pure hypercholesterolemia, unspecified; E78.0 - Pure hypercholesterolemia (4) Hypertension Code(s): I10 - ESSENTIAL (PRIMARY) HYPERTENSION Qualifiers: Hypertension type: essential hypertension Qualified Code(s): I10 - Essential (primary) hypertension (5) Ischemic cardiomyopathy Code(s): I25.5 - ISCHEMIC CARDIOMYOPATHY (6) Trigeminal neuralgia Assessment/Plan: on tegretol Code(s): G50.0 - TRIGEMINAL NEURALGIA (7) UTI (urinary tract infection) Assessment/Plan: on iv abx cxs noted Code(s): N39.0 - URINARY TRACT INFECTION, SITE NOT SPECIFIED (8) Pneumonia Assessment/Plan: iv abx id consult Code(s): J18.9 - PNEUMONIA, UNSPECIFIED ORGANISM (9) DVT (deep venous thrombosis) Assessment/Plan: on meds heme consult Code(s): I82.409 - ACUTE EMBOLISM AND THOMBOS UNSP DEEP VN UNSP LOWER EXTREMITY Qualifiers: DVT location: lower extremity Affected thrombotic vein of extremity: femoral Chronicity: acute Laterality: right Qualified Code(s): I82.411 - Acute embolism and thrombosis of right femoral vein (10) Elevated CPK Assessment/Plan: ivf monitor Code(s): R74.8 - ABNORMAL LEVELS OF OTHER SERUM ENZYMES (11) Pulmonary embolism Code(s): I26.99 - OTHER PULMONARY EMBOLISM WITHOUT ACUTE COR PULMONALE Qualifiers: Pulmonary embolism type: unspecified Acute cor pulmonale presence: without acute cor pulmonale Assessment/Plan spoke to daughter on phone
[2019-11-11] MEDS: SODIUM CHLORIDE 1,000 ML IV SCH (22:15)
[2019-11-11] MEDS: ATORVASTATIN CA 80 MG TABLET (FP) PO SCH (22:21)
[2019-11-11] MEDS: SACUBITRIL/VALSARTAN 49 MG-51 MG TABLET PO SCH (23:07)
[2019-11-12] MEDS ORDERED: DEXTROSE 5%-WATER - 50 ML IVPB ONE ×3 (01:39→17:25)
[2019-11-12] MEDS ORDERED: PIPERACILLIN/TAZOBACTAM 3.375 GM VIAL IVPB ONE ×3 (01:39→17:24)
[2019-11-12] MEDS: PIPERACILLIN/TAZOB 3.375 GM 3.375 GM in DEXTROSE 5%-WATER - 50 ML IVPB SCH ×3 (01:43→18:07)
[2019-11-12] MEDS: SODIUM CHLORIDE 1,000 ML IV SCH (06:21)
--- NOTE | 2019-11-12 09:41 | PN ---
Progress Note (short form) - Note Progress Note: OOB in chair, feels nuch better, son at bedside ; no CP/SOB/PAlpitation No cardiac events No JVP L:CTA H:RRR Ext: No edema CBC WBC 4.7 K/mm3 (4.0-10.0) 11/09/19 05:45 RBC 4.08 M/mm3 (3.60-5.2) 11/09/19 05:45 Hgb 12.3 GM/dL (10.7-15.3) 11/09/19 05:45 Hct 38.2 % (32.4-45.2) 11/09/19 05:45 MCV 93.6 fl (80-96) 11/09/19 05:45 MCH 30.1 pg (25.7-33.7) 11/09/19 05:45 MCHC 32.2 g/dl (32.0-36.0) 11/09/19 05:45 RDW 14.7 % (11.6-15.6) 11/09/19 05:45 Plt Count 188 K/MM3 (134-434) 11/09/19 05:45 MPV 8.8 fl (7.5-11.1) 11/09/19 05:45 Absolute Neuts (auto) 2.9 K/mm3 (1.5-8.0) 11/09/19 05:45 Neutrophils % 61.8 % (42.8-82.8) 11/09/19 05:45 Lymphocytes % 19.0 % (8-40) 11/09/19 05:45 Monocytes % 9.9 % (3.8-10.2) 11/09/19 05:45 Eosinophils % 8.3 % (0-4.5) H 11/09/19 05:45 Basophils % 1.0 % (0-2.0) 11/09/19 05:45 Nucleated RBC % 0 % (0-0) 11/09/19 05:45 CMP Sodium 144 mmol/L (136-145) 11/09/19 05:45 Potassium 4.2 mmol/L (3.5-5.1) 11/09/19 05:45 Chloride 112 mmol/L (98-107) H 11/09/19 05:45 Carbon Dioxide 24 mmol/L (21-32) 11/09/19 05:45 Anion Gap 7 MMOL/L (8-16) L 11/09/19 05:45 BUN 14.9 mg/dL (7-18) 11/09/19 05:45 Creatinine 0.8 mg/dL (0.55-1.3) 11/09/19 05:45 Est GFR (CKD-EPI)AfAm 77.37 11/09/19 05:45 Est GFR (CKD-EPI)NonAf 66.76 11/09/19 05:45 Random Glucose 88 mg/dL (74-106) 11/09/19 05:45 Calcium 8.3 mg/dL (8.5-10.1) L 11/09/19 05:45 Magnesium 2.2 mg/dL (1.8-2.4) 11/08/19 17:00 Total Bilirubin 0.2 mg/dL (0.2-1) 11/09/19 05:45 AST 90 U/L (15-37) H 11/09/19 05:45 ALT 36 U/L (13-61) 11/09/19 05:45 Alkaline Phosphatase 280 U/L (45-117) H 11/09/19 05:45 Creatine Kinase 706 U/L (26-192) H 11/09/19 19:50 Creatine Kinase Index 0.9 % (0.0-5.0) 11/09/19 19:50 CK-MB (CK-2) 6.7 ng/mL (0.5-3.6) H 11/09/19 19:50 Troponin I 0.02 ng/ml (0.00-0.05) 11/09/19 19:50 B-Natriuretic Peptide 168.7 pg/ml (5-450) 11/10/19 00:45 Total Protein 7.2 g/dl (6.4-8.2) 11/09/19 05:45 Albumin 2.4 g/dl (3.4-5.0) L 11/09/19 05:45 Current Medications Generic Name Dose Route Start Last Admin Trade Name Freq PRN Reason Stop Dose Admin Acetaminophen 650 mg 11/08/19 21:03 Tylenol - PO Q6H PRN FEVER Albuterol/Ipratropium 1 amp 11/08/19 21:52 Duoneb - NEB Q4H PRN SHORTNESS OF BREATH Apixaban 10 mg 11/09/19 22:00 11/11/19 22:17 Eliquis - PO 11/16/19 21:59 10 mg BID [facility] Administration Atorvastatin Calcium 80 mg 11/08/19 22:00 11/11/19 22:21 Lipitor - PO 80 mg HS [facility] Administration Carbamazepine 200 mg 11/08/19 22:00 11/11/19 22:25 Tegretol Xr - PO 200 mg BID [facility] Administration Sodium Chloride 1,000 mls @ 50 mls/hr 11/08/19 21:15 11/12/19 06:21 Normal Saline - IV 50 mls/hr ASDIR [facility] Administration Piperacillin Sod/Tazobactam 50 mls @ 100 mls/hr 11/10/19 18:00 11/12/19 01:43 Sod 3.375 gm/ Dextrose IVPB 100 mls/hr Q8H-IV [facility] Administration Protocol Memantine 5 mg 11/08/19 22:00 11/11/19 22:21 Namenda - PO 5 mg BID [facility] Administration Metoprolol Succinate 25 mg 11/09/19 10:00 11/11/19 11:00 Toprol Xl - PO 25 mg DAILY [facility] Administration Sacubitril/Valsartan 1 tab 11/11/19 22:00 11/11/19 23:07 Entresto 49 Mg-51 Mg Tablet PO 1 tab BID [facility] Administration Spironolactone 25 mg 11/11/19 10:00 11/11/19 11:00 Aldactone - PO 25 mg DAILY [facility] Administration Assessment: 10/11/19 Echo: Normal LV size with mild LVH mod-severe decreased LVEF 30%, grade I DD, mod dilated RV with mod decreased RV fxn, septal AK, anterolateral and inferior HK, mild TR RVSP 41 mmHg 10/11/2019 Calcified right posterior meningioma, chronic lacunar stroke left IC 1. Generalized weakness -> enterococcus UTI 2. Right LE DVT and small embolus in left pulmonary artery 3. CAD with history of [place] 4. Ischemic cardiomyopathy LVEF 30% 5. HTN 6. Hypercholesterolemia 7. Right meningioma 8. Chronic lacunar stroke 9. 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 History of trigeminal neuralgia PLAN: 1. Continue Eliquis 10 bid, d/c ASA as CAD is stable 2. Cont Entresto 49/51 mg BID and uptitrate as tolerated 3. Continue Spironolactone 25 mg QD 4. Continue Metoprolol ER 25 mg QD and Atorvastatin 80 qd 5. Consider further viability study as outpatient 6. Complete abx antibiotic course per ID
[2019-11-12] MEDS ORDERED: PT OWN MED DRAWER 7, Y5N ONE ×3 (10:03→20:35)
[2019-11-12] MEDS: SACUBITRIL/VALSARTAN 49 MG-51 MG TABLET PO SCH ×2 (10:12→21:23)
[2019-11-12] MEDS: metoPROLOL SUCCINATE 25 MG TAB.SR.24H (FP) PO SCH (10:12)
[2019-11-12] MEDS: APIXABAN 5 MG TABLET PO SCH ×2 (10:12→21:21)
[2019-11-12] MEDS: MEMANTINE HCL 5 MG TABLET (UD) PO SCH ×2 (10:12→21:22)
[2019-11-12] MEDS: SPIRONOLACTONE 25 MG TABLET (FP) PO SCH (10:12)
[2019-11-12] MEDS: carBAMazepine XR 200 MG TAB.ER.12H PO SCH ×2 (10:23→21:22)
--- NOTE | 2019-11-12 12:20 | PN ---
Progress Note, Physician History of Present Illness: no new issues - Current Medication List Current Medications: Active Medications Acetaminophen (Tylenol -) 650 mg PO Q6H PRN PRN Reason: FEVER Albuterol/Ipratropium (Duoneb -) 1 amp NEB Q4H PRN PRN Reason: SHORTNESS OF BREATH Apixaban (Eliquis -) 10 mg PO BID [facility] Stop: 11/16/19 21:59 Last Admin: 11/12/19 10:12 Dose: 10 mg Atorvastatin Calcium (Lipitor -) 80 mg PO HS [facility] Last Admin: 11/11/19 22:21 Dose: 80 mg Carbamazepine (Tegretol Xr -) 200 mg PO BID [facility] Last Admin: 11/12/19 10:23 Dose: Not Given Sodium Chloride (Normal Saline -) 1,000 mls @ 50 mls/hr IV ASDIR [facility] Last Admin: 11/12/19 06:21 Dose: 50 mls/hr Piperacillin Sod/Tazobactam (Sod 3.375 gm/ Dextrose) 50 mls @ 100 mls/hr IVPB Q8H-IV [facility]; Protocol Last Admin: 11/12/19 10:11 Dose: 100 mls/hr Memantine (Namenda -) 5 mg PO BID [facility] Last Admin: 11/12/19 10:12 Dose: 5 mg Metoprolol Succinate (Toprol Xl -) 25 mg PO DAILY [facility] Last Admin: 11/12/19 10:12 Dose: 25 mg Sacubitril/Valsartan (Entresto 49 Mg-51 Mg Tablet) 1 tab PO BID [facility] Last Admin: 11/12/19 10:12 Dose: 1 tab Spironolactone (Aldactone -) 25 mg PO DAILY [facility] Last Admin: 11/12/19 10:12 Dose: 25 mg - Objective Vital Signs: Vital Signs Temperature 98.3 F 11/12/19 10:00 Pulse Rate 79 11/12/19 10:00 Respiratory Rate 18 11/12/19 10:00 Blood Pressure 133/72 11/12/19 10:00 O2 Sat by Pulse Oximetry (%) 100 11/11/19 21:00 Constitutional: Yes: No Distress, Calm HENT: Yes: Atraumatic Neck: Yes: Supple Cardiovascular: Yes: Regular Rate and Rhythm Respiratory: Yes: Regular, CTA Bilaterally Musculoskeletal: Yes: WNL Extremities: Yes: WNL Neurological: Yes: Alert, Oriented Psychiatric: Yes: Alert, Oriented Labs: CBC, BMP 11/09/19 05:45 11/09/19 05:45 INR, PTT INR 0.97 (0.83-1.09) 11/08/19 17:00 Assessment/Plan Problem List - Problems (1) Weakness Code(s): R53.1 - WEAKNESS (2) Dementia Code(s): F03.90 - UNSPECIFIED DEMENTIA WITHOUT BEHAVIORAL DISTURBANCE (3) Hyperlipidemia Assessment/Plan: on lipitor Code(s): E78.5 - HYPERLIPIDEMIA, UNSPECIFIED Qualifiers: Hyperlipidemia type: pure hypercholesterolemia Qualified Code(s): E78.00 - Pure hypercholesterolemia, unspecified; E78.0 - Pure hypercholesterolemia (4) Hypertension Code(s): I10 - ESSENTIAL (PRIMARY) HYPERTENSION Qualifiers: Hypertension type: essential hypertension Qualified Code(s): I10 - Essential (primary) hypertension (5) Ischemic cardiomyopathy Code(s): I25.5 - ISCHEMIC CARDIOMYOPATHY (6) Trigeminal neuralgia Assessment/Plan: on tegretol Code(s): G50.0 - TRIGEMINAL NEURALGIA (7) UTI (urinary tract infection) Code(s): N39.0 - URINARY TRACT INFECTION, SITE NOT SPECIFIED (8) Pneumonia Code(s): J18.9 - PNEUMONIA, UNSPECIFIED ORGANISM (9) DVT (deep venous thrombosis) Code(s): I82.409 - ACUTE EMBOLISM AND THOMBOS UNSP DEEP VN UNSP LOWER EXTREMITY Qualifiers: DVT location: lower extremity Affected thrombotic vein of extremity: femoral Chronicity: acute Laterality: unspecified laterality Qualified Code(s): I82.419 - Acute embolism and thrombosis of unspecified femoral vein (10) Elevated CPK Code(s): R74.8 - ABNORMAL LEVELS OF OTHER SERUM ENZYMES plan continue abx urine cx noted rest as per the team
--- NOTE | 2019-11-12 18:14 | PN ---
Progress Note, Physician - Current Medication List Current Medications: Active Medications Acetaminophen (Tylenol -) 650 mg PO Q6H PRN PRN Reason: FEVER Albuterol/Ipratropium (Duoneb -) 1 amp NEB Q4H PRN PRN Reason: SHORTNESS OF BREATH Apixaban (Eliquis -) 10 mg PO BID [facility] Stop: 11/16/19 21:59 Last Admin: 11/12/19 10:12 Dose: 10 mg Atorvastatin Calcium (Lipitor -) 80 mg PO HS [facility] Last Admin: 11/11/19 22:21 Dose: 80 mg Carbamazepine (Tegretol Xr -) 200 mg PO BID [facility] Last Admin: 11/12/19 10:23 Dose: Not Given Sodium Chloride (Normal Saline -) 1,000 mls @ 50 mls/hr IV ASDIR [facility] Last Admin: 11/12/19 06:21 Dose: 50 mls/hr Piperacillin Sod/Tazobactam (Sod 3.375 gm/ Dextrose) 50 mls @ 100 mls/hr IVPB Q8H-IV [facility]; Protocol Last Admin: 11/12/19 18:07 Dose: 100 mls/hr Memantine (Namenda -) 5 mg PO BID [facility] Last Admin: 11/12/19 10:12 Dose: 5 mg Metoprolol Succinate (Toprol Xl -) 25 mg PO DAILY [facility] Last Admin: 11/12/19 10:12 Dose: 25 mg Sacubitril/Valsartan (Entresto 49 Mg-51 Mg Tablet) 1 tab PO BID [facility] Last Admin: 11/12/19 10:12 Dose: 1 tab Spironolactone (Aldactone -) 25 mg PO DAILY [facility] Last Admin: 11/12/19 10:12 Dose: 25 mg - Objective Vital Signs: Vital Signs Temperature 98.0 F 11/12/19 15:21 Pulse Rate 68 11/12/19 15:21 Respiratory Rate 18 11/12/19 15:21 Blood Pressure 107/52 L 11/12/19 15:21 O2 Sat by Pulse Oximetry (%) 100 11/11/19 21:00 Constitutional: Yes: No Distress HENT: Yes: Atraumatic Neck: Yes: Supple Cardiovascular: Yes: Regular Rate and Rhythm Respiratory: Yes: CTA Bilaterally Gastrointestinal: Yes: Normal Bowel Sounds Extremities: Yes: WNL Edema: No Peripheral Pulses WNL: Yes Neurological: Yes: Alert Labs: CBC, BMP 11/09/19 05:45 11/09/19 05:45 INR, PTT INR 0.97 (0.83-1.09) 11/08/19 17:00 Problem List - Problems (1) Weakness Code(s): R53.1 - WEAKNESS (2) Dementia Code(s): F03.90 - UNSPECIFIED DEMENTIA WITHOUT BEHAVIORAL DISTURBANCE (3) Hyperlipidemia Assessment/Plan: on lipitor Code(s): E78.5 - HYPERLIPIDEMIA, UNSPECIFIED Qualifiers: Hyperlipidemia type: pure hypercholesterolemia Qualified Code(s): E78.00 - Pure hypercholesterolemia, unspecified; E78.0 - Pure hypercholesterolemia (4) Hypertension Assessment/Plan: on meds monitor Code(s): I10 - ESSENTIAL (PRIMARY) HYPERTENSION Qualifiers: Hypertension type: essential hypertension Qualified Code(s): I10 - Essential (primary) hypertension (5) Ischemic cardiomyopathy Code(s): I25.5 - ISCHEMIC CARDIOMYOPATHY (6) Trigeminal neuralgia Assessment/Plan: on tegretol Code(s): G50.0 - TRIGEMINAL NEURALGIA (7) UTI (urinary tract infection) Assessment/Plan: on iv abx cxs noted Code(s): N39.0 - URINARY TRACT INFECTION, SITE NOT SPECIFIED (8) Pneumonia Assessment/Plan: iv abx id consult Code(s): J18.9 - PNEUMONIA, UNSPECIFIED ORGANISM (9) DVT (deep venous thrombosis) Assessment/Plan: on meds heme consult Code(s): I82.409 - ACUTE EMBOLISM AND THOMBOS UNSP DEEP VN UNSP LOWER EXTREMITY Qualifiers: DVT location: lower extremity Affected thrombotic vein of extremity: femoral Chronicity: acute Laterality: right Qualified Code(s): I82.411 - Acute embolism and thrombosis of right femoral vein (10) Elevated CPK Assessment/Plan: ivf monitor Code(s): R74.8 - ABNORMAL LEVELS OF OTHER SERUM ENZYMES (11) Pulmonary embolism Code(s): I26.99 - OTHER PULMONARY EMBOLISM WITHOUT ACUTE COR PULMONALE Qualifiers: Pulmonary embolism type: unspecified Acute cor pulmonale presence: without acute cor pulmonale Assessment/Plan spoke to daughter on phone, she is requesting vascular consult to see if there is any option to take the clot out
[2019-11-12] MEDS: ATORVASTATIN CA 80 MG TABLET (FP) PO SCH (21:22)
[2019-11-13 08:44] LABS: BASO % 1.7 % (0-2.0); EOS % 8.2 % (0-4.5); HEMATOCRIT 33.2 % (32.4-45.2); HEMOGLOBIN 10.9 GM/dL (10.7-15.3); LYMPH % 19.6 % (8-40); MCH 30.5 pg (25.7-33.7); MCHC 32.8 g/dl (32.0-36.0); MEAN CELL VOLUME 92.9 fl (80-96); MEAN PLT VOLUME 8.9 fl (7.5-11.1); MONO % 9.5 % (3.8-10.2); PLATELET COUNT 237 K/MM3 (134-434); RBC 3.57 M/mm3 (3.60-5.2); RDW 14.4 % (11.6-15.6)
[2019-11-13] MEDS: SODIUM CHLORIDE 1,000 ML IV SCH (08:56)
[2019-11-13] MEDS: AMOX TR/POT CLAV 875MG/125MG TABLETS (FP) PO SCH ×2 (08:57→17:47)
[2019-11-13 09:48] LABS: ALBUMIN 2.2 g/dl (3.4-5.0); BILIRUBIN,TOTAL 0.7 mg/dL (0.2-1); BLOOD UREA NITROGEN 12.6 mg/dL (7-18); CREATININE 0.7 mg/dL (0.55-1.3); POTASSIUM 4.1 mmol/L (3.5-5.1); TOT PROT 6.4 g/dl (6.4-8.2)
[2019-11-13] MEDS ORDERED: PT OWN MED DRAWER 7, Y5N ONE ×2 (11:01→11:33)
[2019-11-13] MEDS: APIXABAN 5 MG TABLET PO SCH ×2 (11:06→22:47)
[2019-11-13] MEDS: MEMANTINE HCL 5 MG TABLET (UD) PO SCH ×2 (11:06→22:47)
[2019-11-13] MEDS: metoPROLOL SUCCINATE 25 MG TAB.SR.24H (FP) PO SCH (11:06)
[2019-11-13] MEDS: SPIRONOLACTONE 25 MG TABLET (FP) PO SCH (11:06)
[2019-11-13] MEDS: SACUBITRIL/VALSARTAN 49 MG-51 MG TABLET PO SCH ×2 (11:08→22:48)
[2019-11-13] MEDS: carBAMazepine XR 200 MG TAB.ER.12H PO SCH ×2 (11:08→22:49)
[2019-11-13] MEDS ORDERED: INSULIN (NOVOLOG) ASPART 100 UNITS/ML 10ML VIAL ONE (11:34)
--- NOTE | 2019-11-13 14:11 | PN ---
Progress Note, Physician History of Present Illness: Sensorium improving. Denies chest pain or dyspnea, ambulating w/o complaints. - Current Medication List Current Medications: Active Medications Acetaminophen (Tylenol -) 650 mg PO Q6H PRN PRN Reason: FEVER Albuterol/Ipratropium (Duoneb -) 1 amp NEB Q4H PRN PRN Reason: SHORTNESS OF BREATH Amoxicillin/Clavulanate Potassium (Augmentin - 875mg Tablet) 1 tab PO BID@0800, 1730 [facility] Last Admin: 11/13/19 08:57 Dose: 1 tab Apixaban (Eliquis -) 10 mg PO BID [facility] Stop: 11/16/19 21:59 Last Admin: 11/13/19 11:06 Dose: 10 mg Atorvastatin Calcium (Lipitor -) 80 mg PO HS [facility] Last Admin: 11/12/19 21:22 Dose: 80 mg Carbamazepine (Tegretol Xr -) 200 mg PO BID [facility] Last Admin: 11/13/19 11:08 Dose: 200 mg Sodium Chloride (Normal Saline -) 1,000 mls @ 50 mls/hr IV ASDIR [facility] Last Admin: 11/13/19 08:56 Dose: 50 mls/hr Memantine (Namenda -) 5 mg PO BID [facility] Last Admin: 11/13/19 11:06 Dose: 5 mg Metoprolol Succinate (Toprol Xl -) 25 mg PO DAILY [facility] Last Admin: 11/13/19 11:06 Dose: 25 mg Sacubitril/Valsartan (Entresto 49 Mg-51 Mg Tablet) 1 tab PO BID [facility] Last Admin: 11/13/19 11:08 Dose: Not Given Spironolactone (Aldactone -) 25 mg PO DAILY [facility] Last Admin: 11/13/19 11:06 Dose: 25 mg - Objective Vital Signs: Vital Signs Temperature 98 F 11/13/19 10:57 Pulse Rate 71 11/13/19 10:57 Respiratory Rate 20 11/13/19 10:57 Blood Pressure 123/66 11/13/19 10:57 O2 Sat by Pulse Oximetry (%) 98 11/12/19 10:00 Constitutional: Yes: No Distress, Calm, Thin Neck: Yes: Supple Cardiovascular: Yes: Regular Rate and Rhythm Respiratory: Yes: Regular, CTA Bilaterally Gastrointestinal: Yes: Normal Bowel Sounds, Soft Edema: No Labs: CBC, BMP 02/29/20 07:00 11/13/19 07:00 INR, PTT INR 0.97 (0.83-1.09) 11/08/19 17:00 Problem List - Problems (1) DVT (deep venous thrombosis) Code(s): I82.409 - ACUTE EMBOLISM AND THOMBOS UNSP DEEP VN UNSP LOWER EXTREMITY Qualifiers: DVT location: lower extremity Affected thrombotic vein of extremity: femoral Chronicity: acute Laterality: right Qualified Code(s): I82.411 - Acute embolism and thrombosis of right femoral vein (2) Pulmonary embolism Code(s): I26.99 - OTHER PULMONARY EMBOLISM WITHOUT ACUTE COR PULMONALE Qualifiers: Pulmonary embolism type: unspecified Acute cor pulmonale presence: without acute cor pulmonale (3) Weakness Code(s): R53.1 - WEAKNESS (4) Coronary artery disease Code(s): I25.10 - ATHSCL HEART DISEASE OF [place] CORONARY ARTERY W/O ANG PCTRS Qualifiers: Coronary Disease-Associated Artery/Lesion type: [place] artery [place] vs. transplanted heart: [place] heart Associated angina: without angina Qualified Code(s): I25.10 - Atherosclerotic heart disease of [place] coronary artery without angina pectoris (5) Dementia Code(s): F03.90 - UNSPECIFIED DEMENTIA WITHOUT BEHAVIORAL DISTURBANCE (6) Hyperlipidemia Code(s): E78.5 - HYPERLIPIDEMIA, UNSPECIFIED Qualifiers: Hyperlipidemia type: pure hypercholesterolemia Qualified Code(s): E78.00 - Pure hypercholesterolemia, unspecified; E78.0 - Pure hypercholesterolemia (7) Hypertension Code(s): I10 - ESSENTIAL (PRIMARY) HYPERTENSION Qualifiers: Hypertension type: essential hypertension Qualified Code(s): I10 - Essential (primary) hypertension (8) Ischemic cardiomyopathy Code(s): I25.5 - ISCHEMIC CARDIOMYOPATHY (9) UTI (urinary tract infection) Code(s): N39.0 - URINARY TRACT INFECTION, SITE NOT SPECIFIED Assessment/Plan 10/11/19 Echo: Normal LV size with mild LVH mod-severe decreased LVEF 30%, grade I DD, mod dilated RV with mod decreased RV fxn, septal AK, anterolateral and inferior HK, mild TR RVSP 41 mmHg 10/11/2019 Calcified right posterior meningioma, chronic lacunar stroke left IC 1. Generalized weakness -> enterococcus UTI 2. Right LE DVT and small embolus in left pulmonary artery 3. CAD with history of NV 4. Ischemic cardiomyopathy LVEF 30% 5. HTN 6. Hypercholesterolemia 7. Right meningioma 8. Chronic lacunar stroke 9. 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 History of trigeminal neuralgia PLAN: 1. Continue Eliquis 10 bid for 1 week then->5 bid, d/c ASA as CAD is stable 2. Continue Entresto 49/51 mg BID and uptitrate as tolerated 3. Continue Spironolactone 25 mg QD 4. Continue Metoprolol ER 25 mg QD and Atorvastatin 80 qd 5. Consider further viability study as outpatient 6. Complete oral abx antibiotic course per ID 7. D/c planning with f/u in office
--- NOTE | 2019-11-13 15:36 | PN ---
Progress Note, Physician History of Present Illness: doing well - Current Medication List Current Medications: Active Medications Acetaminophen (Tylenol -) 650 mg PO Q6H PRN PRN Reason: FEVER Albuterol/Ipratropium (Duoneb -) 1 amp NEB Q4H PRN PRN Reason: SHORTNESS OF BREATH Amoxicillin/Clavulanate Potassium (Augmentin - 875mg Tablet) 1 tab PO BID@0800, 1730 [facility] Last Admin: 11/13/19 08:57 Dose: 1 tab Apixaban (Eliquis -) 10 mg PO BID [facility] Stop: 11/16/19 21:59 Last Admin: 11/13/19 11:06 Dose: 10 mg Atorvastatin Calcium (Lipitor -) 80 mg PO HS [facility] Last Admin: 11/12/19 21:22 Dose: 80 mg Carbamazepine (Tegretol Xr -) 200 mg PO BID [facility] Last Admin: 11/13/19 11:08 Dose: 200 mg Sodium Chloride (Normal Saline -) 1,000 mls @ 50 mls/hr IV ASDIR [facility] Last Admin: 11/13/19 08:56 Dose: 50 mls/hr Memantine (Namenda -) 5 mg PO BID [facility] Last Admin: 11/13/19 11:06 Dose: 5 mg Metoprolol Succinate (Toprol Xl -) 25 mg PO DAILY [facility] Last Admin: 11/13/19 11:06 Dose: 25 mg Sacubitril/Valsartan (Entresto 49 Mg-51 Mg Tablet) 1 tab PO BID [facility] Last Admin: 11/13/19 11:08 Dose: Not Given Spironolactone (Aldactone -) 25 mg PO DAILY [facility] Last Admin: 11/13/19 11:06 Dose: 25 mg - Objective Vital Signs: Vital Signs Temperature 98 F 11/13/19 10:57 Pulse Rate 71 11/13/19 10:57 Respiratory Rate 20 11/13/19 10:57 Blood Pressure 123/66 11/13/19 10:57 O2 Sat by Pulse Oximetry (%) 98 11/12/19 10:00 Constitutional: Yes: No Distress HENT: Yes: Atraumatic Neck: Yes: Supple Cardiovascular: Yes: Regular Rate and Rhythm Respiratory: Yes: CTA Bilaterally Gastrointestinal: Yes: Normal Bowel Sounds Extremities: Yes: WNL Edema: No Peripheral Pulses WNL: Yes Neurological: Yes: Alert, Oriented Labs: CBC, BMP 11/13/19 07:00 11/13/19 07:00 INR, PTT INR 0.97 (0.83-1.09) 11/08/19 17:00 Problem List - Problems (1) Weakness Code(s): R53.1 - WEAKNESS (2) Dementia Code(s): F03.90 - UNSPECIFIED DEMENTIA WITHOUT BEHAVIORAL DISTURBANCE (3) Hyperlipidemia Assessment/Plan: on lipitor Code(s): E78.5 - HYPERLIPIDEMIA, UNSPECIFIED Qualifiers: Hyperlipidemia type: pure hypercholesterolemia Qualified Code(s): E78.00 - Pure hypercholesterolemia, unspecified; E78.0 - Pure hypercholesterolemia (4) Hypertension Assessment/Plan: on meds monitor Code(s): I10 - ESSENTIAL (PRIMARY) HYPERTENSION Qualifiers: Hypertension type: essential hypertension Qualified Code(s): I10 - Essential (primary) hypertension (5) Ischemic cardiomyopathy Code(s): I25.5 - ISCHEMIC CARDIOMYOPATHY (6) Trigeminal neuralgia Assessment/Plan: on tegretol Code(s): G50.0 - TRIGEMINAL NEURALGIA (7) UTI (urinary tract infection) Assessment/Plan: on iv abx cxs noted Code(s): N39.0 - URINARY TRACT INFECTION, SITE NOT SPECIFIED (8) Pneumonia Assessment/Plan: iv abx id consult Code(s): J18.9 - PNEUMONIA, UNSPECIFIED ORGANISM (9) DVT (deep venous thrombosis) Code(s): I82.409 - ACUTE EMBOLISM AND THOMBOS UNSP DEEP VN UNSP LOWER EXTREMITY Qualifiers: DVT location: lower extremity Affected thrombotic vein of extremity: femoral Chronicity: acute Laterality: right Qualified Code(s): I82.411 - Acute embolism and thrombosis of right femoral vein (10) Elevated CPK Assessment/Plan: wnl dc ivf Code(s): R74.8 - ABNORMAL LEVELS OF OTHER SERUM ENZYMES (11) Pulmonary embolism Code(s): I26.99 - OTHER PULMONARY EMBOLISM WITHOUT ACUTE COR PULMONALE Qualifiers: Pulmonary embolism type: unspecified Acute cor pulmonale presence: without acute cor pulmonale Assessment/Plan spoke to daughter on phone, she is requesting vascular consult to see if there is any option to take the clot out
--- NOTE | 2019-11-13 18:22 | PN ---
Progress Note, Physician History of Present Illness: Pt states she feels well. Has no new complaints. Denies SOB or dysuria. - Current Medication List Current Medications: Active Medications Acetaminophen (Tylenol -) 650 mg PO Q6H PRN PRN Reason: FEVER Albuterol/Ipratropium (Duoneb -) 1 amp NEB Q4H PRN PRN Reason: SHORTNESS OF BREATH Amoxicillin/Clavulanate Potassium (Augmentin - 875mg Tablet) 1 tab PO BID@0800, 1730 [facility] Last Admin: 11/13/19 17:47 Dose: 1 tab Apixaban (Eliquis -) 10 mg PO BID [facility] Stop: 11/16/19 21:59 Last Admin: 11/13/19 11:06 Dose: 10 mg Atorvastatin Calcium (Lipitor -) 80 mg PO HS [facility] Last Admin: 11/12/19 21:22 Dose: 80 mg Carbamazepine (Tegretol Xr -) 200 mg PO BID [facility] Last Admin: 11/13/19 11:08 Dose: 200 mg Memantine (Namenda -) 5 mg PO BID [facility] Last Admin: 11/13/19 11:06 Dose: 5 mg Metoprolol Succinate (Toprol Xl -) 25 mg PO DAILY [facility] Last Admin: 11/13/19 11:06 Dose: 25 mg Sacubitril/Valsartan (Entresto 49 Mg-51 Mg Tablet) 1 tab PO BID [facility] Last Admin: 11/13/19 11:08 Dose: Not Given Spironolactone (Aldactone -) 25 mg PO DAILY [facility] Last Admin: 11/13/19 11:06 Dose: 25 mg - Objective Vital Signs: Vital Signs Temperature 97.6 F 11/13/19 14:00 Pulse Rate 67 11/13/19 14:00 Respiratory Rate 20 11/13/19 14:00 Blood Pressure 124/66 11/13/19 14:00 O2 Sat by Pulse Oximetry (%) 98 11/12/19 10:00 Constitutional: Yes: No Distress, Calm Cardiovascular: Yes: Regular Rate and Rhythm Respiratory: Yes: Regular Gastrointestinal: Yes: Normal Bowel Sounds, Soft Genitourinary: Yes: WNL Extremities: Yes: WNL Integumentary: Yes: WNL Neurological: Yes: Alert Labs: CBC, BMP 11/13/19 07:00 11/13/19 07:00 INR, PTT INR 0.97 (0.83-1.09) 11/08/19 17:00 Microbiology 11/09/19 05:45 Blood - Peripheral Venous Blood Culture - Preliminary NO GROWTH OBTAINED AFTER 96 HOURS, INCUBATION TO CONTINUE FOR 1 DAYS. 11/09/19 05:45 Blood - Peripheral Venous Blood Culture - Preliminary NO GROWTH OBTAINED AFTER 96 HOURS, INCUBATION TO CONTINUE FOR 1 DAYS. 11/08/19 17:05 Urine - Urine Clean Catch Urine Culture - Final Enterococcus Faecalis Problem List - Problems (1) DVT (deep venous thrombosis) Code(s): I82.409 - ACUTE EMBOLISM AND THOMBOS UNSP DEEP VN UNSP LOWER EXTREMITY Qualifiers: DVT location: lower extremity Affected thrombotic vein of extremity: femoral Chronicity: acute Laterality: right Qualified Code(s): I82.411 - Acute embolism and thrombosis of right femoral vein (2) Pulmonary embolism Code(s): I26.99 - OTHER PULMONARY EMBOLISM WITHOUT ACUTE COR PULMONALE Qualifiers: Pulmonary embolism type: unspecified Acute cor pulmonale presence: without acute cor pulmonale (3) Coronary artery disease Code(s): I25.10 - ATHSCL HEART DISEASE OF [place] CORONARY ARTERY W/O ANG PCTRS Qualifiers: Coronary Disease-Associated Artery/Lesion type: [place] artery [place] vs. transplanted heart: [place] heart Associated angina: without angina Qualified Code(s): I25.10 - Atherosclerotic heart disease of [place] coronary artery without angina pectoris (4) Hyperlipidemia Code(s): E78.5 - HYPERLIPIDEMIA, UNSPECIFIED Qualifiers: Hyperlipidemia type: pure hypercholesterolemia Qualified Code(s): E78.00 - Pure hypercholesterolemia, unspecified; E78.0 - Pure hypercholesterolemia (5) Hypertension Code(s): I10 - ESSENTIAL (PRIMARY) HYPERTENSION Qualifiers: Hypertension type: essential hypertension Qualified Code(s): I10 - Essential (primary) hypertension (6) Ischemic cardiomyopathy Code(s): I25.5 - ISCHEMIC CARDIOMYOPATHY (7) Trigeminal neuralgia Code(s): G50.0 - TRIGEMINAL NEURALGIA (8) UTI (urinary tract infection) Code(s): N39.0 - URINARY TRACT INFECTION, SITE NOT SPECIFIED Assessment/Plan Enterococcal UTI DVT Pulmonary embolism CAD Cardiomyopathy HLD HTN -- continue Augmentin x 3 more days -- pt is currently without distress/SOB/CP or dysuria, remains afebrile/alert
[2019-11-13] MEDS: ATORVASTATIN CA 80 MG TABLET (FP) PO SCH (22:47)
[2019-11-14] MEDS: AMOX TR/POT CLAV 875MG/125MG TABLETS (FP) PO SCH ×2 (09:24→18:41)
[2019-11-14] MEDS ORDERED: PT OWN MED DRAWER 7, Y5N ONE ×2 (10:18→13:08)
[2019-11-14] MEDS: APIXABAN 5 MG TABLET PO SCH ×2 (10:23→21:40)
[2019-11-14] MEDS: MEMANTINE HCL 5 MG TABLET (UD) PO SCH ×2 (10:23→21:41)
[2019-11-14] MEDS: metoPROLOL SUCCINATE 25 MG TAB.SR.24H (FP) PO SCH (10:24)
[2019-11-14] MEDS: carBAMazepine XR 200 MG TAB.ER.12H PO SCH ×2 (10:24→21:42)
[2019-11-14] MEDS: SACUBITRIL/VALSARTAN 49 MG-51 MG TABLET PO SCH ×2 (10:28→21:41)
[2019-11-14] MEDS: SPIRONOLACTONE 25 MG TABLET (FP) PO SCH (10:28)
--- NOTE | 2019-11-14 13:49 | PN ---
Progress Note, Physician History of Present Illness: Sensorium improved to baseline. Denies chest pain or dyspnea, ambulating w/o complaints. - Current Medication List Current Medications: Active Medications Acetaminophen (Tylenol -) 650 mg PO Q6H PRN PRN Reason: FEVER Amoxicillin/Clavulanate Potassium (Augmentin - 875mg Tablet) 1 tab PO BID@0800, 1730 [facility] Last Admin: 11/14/19 09:24 Dose: 1 tab Apixaban (Eliquis -) 10 mg PO BID [facility] Stop: 11/16/19 21:59 Last Admin: 11/14/19 10:23 Dose: 10 mg Atorvastatin Calcium (Lipitor -) 80 mg PO HS [facility] Last Admin: 11/13/19 22:47 Dose: 80 mg Carbamazepine (Tegretol Xr -) 200 mg PO BID [facility] Last Admin: 11/14/19 10:24 Dose: 200 mg Memantine (Namenda -) 5 mg PO BID [facility] Last Admin: 11/14/19 10:23 Dose: 5 mg Metoprolol Succinate (Toprol Xl -) 25 mg PO DAILY [facility] Last Admin: 11/14/19 10:24 Dose: 25 mg Sacubitril/Valsartan (Entresto 49 Mg-51 Mg Tablet) 1 tab PO BID [facility] Last Admin: 11/14/19 10:28 Dose: 1 tab Spironolactone (Aldactone -) 25 mg PO DAILY [facility] Last Admin: 11/14/19 10:28 Dose: 25 mg - Objective Vital Signs: Vital Signs Temperature 98.3 F 11/14/19 10:16 Pulse Rate 84 11/14/19 10:16 Respiratory Rate 20 11/14/19 10:16 Blood Pressure 114/67 11/14/19 10:16 O2 Sat by Pulse Oximetry (%) 99 11/13/19 21:00 Constitutional: Yes: No Distress, Calm, Thin Neck: Yes: Supple Cardiovascular: Yes: Regular Rate and Rhythm Respiratory: Yes: Regular, CTA Bilaterally Gastrointestinal: Yes: Normal Bowel Sounds, Soft Edema: No Labs: CBC, BMP 11/13/19 07:00 11/13/19 07:00 INR, PTT INR 0.97 (0.83-1.09) 11/08/19 17:00 Problem List - Problems (1) DVT (deep venous thrombosis) Code(s): I82.409 - ACUTE EMBOLISM AND THOMBOS UNSP DEEP VN UNSP LOWER EXTREMITY Qualifiers: DVT location: lower extremity Affected thrombotic vein of extremity: femoral Chronicity: acute Laterality: right Qualified Code(s): I82.411 - Acute embolism and thrombosis of right femoral vein (2) Pulmonary embolism Code(s): I26.99 - OTHER PULMONARY EMBOLISM WITHOUT ACUTE COR PULMONALE Qualifiers: Pulmonary embolism type: unspecified Acute cor pulmonale presence: without acute cor pulmonale (3) Weakness Code(s): R53.1 - WEAKNESS (4) Coronary artery disease Code(s): I25.10 - ATHSCL HEART DISEASE OF [place] CORONARY ARTERY W/O ANG PCTRS Qualifiers: Coronary Disease-Associated Artery/Lesion type: [place] artery [place] vs. transplanted heart: [place] heart Associated angina: without angina Qualified Code(s): I25.10 - Atherosclerotic heart disease of [place] coronary artery without angina pectoris (5) Dementia Code(s): F03.90 - UNSPECIFIED DEMENTIA WITHOUT BEHAVIORAL DISTURBANCE (6) Hyperlipidemia Code(s): E78.5 - HYPERLIPIDEMIA, UNSPECIFIED Qualifiers: Hyperlipidemia type: pure hypercholesterolemia Qualified Code(s): E78.00 - Pure hypercholesterolemia, unspecified; E78.0 - Pure hypercholesterolemia (7) Hypertension Code(s): I10 - ESSENTIAL (PRIMARY) HYPERTENSION Qualifiers: Hypertension type: essential hypertension Qualified Code(s): I10 - Essential (primary) hypertension (8) Ischemic cardiomyopathy Code(s): I25.5 - ISCHEMIC CARDIOMYOPATHY (9) UTI (urinary tract infection) Code(s): N39.0 - URINARY TRACT INFECTION, SITE NOT SPECIFIED Assessment/Plan 10/11/19 Echo: Normal LV size with mild LVH mod-severe decreased LVEF 30%, grade I DD, mod dilated RV with mod decreased RV fxn, septal AK, anterolateral and inferior HK, mild TR RVSP 41 mmHg 10/11/2019 Calcified right posterior meningioma, chronic lacunar stroke left IC 1. Generalized weakness -> enterococcus UTI 2. Right LE DVT and small embolus in left pulmonary artery 3. CAD with history of [place] 4. Ischemic cardiomyopathy LVEF 30% 5. HTN 6. Hypercholesterolemia 7. Right meningioma 8. Chronic lacunar stroke 9. 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 History of trigeminal neuralgia PLAN: 1. Continue Eliquis 10 bid for 1 week then->5 bid, d/c ASA as CAD is stable 2. Continue Entresto 49/51 mg BID and uptitrate as tolerated 3. Continue Spironolactone 25 mg QD 4. Increase Metoprolol ER 50 mg QD and continue Atorvastatin 80 qd 5. Consider further viability study as outpatient 6. Complete oral abx antibiotic course per ID 7. D/c planning with f/u in office
--- NOTE | 2019-11-14 17:12 | PN ---
Progress Note, Physician History of Present Illness: Pt states she feels well. Sitting in chair. Afebrile. Denies dysuria. - Current Medication List Current Medications: Active Medications Acetaminophen (Tylenol -) 650 mg PO Q6H PRN PRN Reason: FEVER Amoxicillin/Clavulanate Potassium (Augmentin - 875mg Tablet) 1 tab PO BID@0800, 1730 [facility] Last Admin: 11/14/19 09:24 Dose: 1 tab Apixaban (Eliquis -) 10 mg PO BID [facility] Stop: 11/16/19 21:59 Last Admin: 11/14/19 10:23 Dose: 10 mg Atorvastatin Calcium (Lipitor -) 80 mg PO HS [facility] Last Admin: 11/13/19 22:47 Dose: 80 mg Carbamazepine (Tegretol Xr -) 200 mg PO BID [facility] Last Admin: 11/14/19 10:24 Dose: 200 mg Memantine (Namenda -) 5 mg PO BID [facility] Last Admin: 11/14/19 10:23 Dose: 5 mg Metoprolol Succinate (Toprol Xl -) 50 mg PO DAILY [facility] Sacubitril/Valsartan (Entresto 49 Mg-51 Mg Tablet) 1 tab PO BID [facility] Last Admin: 11/14/19 10:28 Dose: 1 tab Spironolactone (Aldactone -) 25 mg PO DAILY [facility] Last Admin: 11/14/19 10:28 Dose: 25 mg - Objective Vital Signs: Vital Signs Temperature 97.5 F L 11/14/19 14:00 Pulse Rate 69 11/14/19 14:00 Respiratory Rate 20 11/14/19 14:00 Blood Pressure 118/67 11/14/19 14:00 O2 Sat by Pulse Oximetry (%) 99 11/13/19 21:00 Constitutional: Yes: No Distress, Calm Cardiovascular: Yes: Regular Rate and Rhythm Respiratory: Yes: Regular Gastrointestinal: Yes: Normal Bowel Sounds, Soft Genitourinary: Yes: WNL Integumentary: Yes: WNL Neurological: Yes: Alert Labs: CBC, BMP 11/13/19 07:00 11/13/19 07:00 INR, PTT INR 0.97 (0.83-1.09) 11/08/19 17:00 Microbiology 11/09/19 05:45 Blood - Peripheral Venous Blood Culture - Final NO GROWTH AFTER 5 DAYS INCUBATION 11/09/19 05:45 Blood - Peripheral Venous Blood Culture - Final NO GROWTH AFTER 5 DAYS INCUBATION 11/08/19 17:05 Urine - Urine Clean Catch Urine Culture - Final Enterococcus Faecalis Problem List - Problems (1) DVT (deep venous thrombosis) Code(s): I82.409 - ACUTE EMBOLISM AND THOMBOS UNSP DEEP VN UNSP LOWER EXTREMITY Qualifiers: DVT location: lower extremity Affected thrombotic vein of extremity: femoral Chronicity: acute Laterality: right Qualified Code(s): I82.411 - Acute embolism and thrombosis of right femoral vein (2) Pulmonary embolism Code(s): I26.99 - OTHER PULMONARY EMBOLISM WITHOUT ACUTE COR PULMONALE Qualifiers: Pulmonary embolism type: unspecified Acute cor pulmonale presence: without acute cor pulmonale (3) Coronary artery disease Code(s): I25.10 - ATHSCL HEART DISEASE OF [place] CORONARY ARTERY W/O ANG PCTRS Qualifiers: Coronary Disease-Associated Artery/Lesion type: [place] artery [place] vs. transplanted heart: [place] heart Associated angina: without angina Qualified Code(s): I25.10 - Atherosclerotic heart disease of [place] coronary artery without angina pectoris (4) Hyperlipidemia Code(s): E78.5 - HYPERLIPIDEMIA, UNSPECIFIED Qualifiers: Hyperlipidemia type: pure hypercholesterolemia Qualified Code(s): E78.00 - Pure hypercholesterolemia, unspecified; E78.0 - Pure hypercholesterolemia (5) Hypertension Code(s): I10 - ESSENTIAL (PRIMARY) HYPERTENSION Qualifiers: Hypertension type: essential hypertension Qualified Code(s): I10 - Essential (primary) hypertension (6) Ischemic cardiomyopathy Code(s): I25.5 - ISCHEMIC CARDIOMYOPATHY (7) Trigeminal neuralgia Code(s): G50.0 - TRIGEMINAL NEURALGIA (8) UTI (urinary tract infection) Code(s): N39.0 - URINARY TRACT INFECTION, SITE NOT SPECIFIED Assessment/Plan Enterococcal UTI DVT Pulmonary embolism CAD Cardiomyopathy HLD HTN -- continue Augmentin x 2 more days -- pt is afebrile, without SOB/CP
[2019-11-14] MEDS: ATORVASTATIN CA 80 MG TABLET (FP) PO SCH (21:41)
--- NOTE | 2019-11-14 22:20 | PN ---
Progress Note, Physician History of Present Illness: No new complaints - Current Medication List Current Medications: Active Medications Acetaminophen (Tylenol -) 650 mg PO Q6H PRN PRN Reason: FEVER Amoxicillin/Clavulanate Potassium (Augmentin - 875mg Tablet) 1 tab PO BID@0800, 1730 [facility] Last Admin: 11/14/19 18:41 Dose: 1 tab Apixaban (Eliquis -) 10 mg PO BID [facility] Stop: 11/16/19 21:59 Last Admin: 11/14/19 21:40 Dose: 10 mg Atorvastatin Calcium (Lipitor -) 80 mg PO HS [facility] Last Admin: 11/14/19 21:41 Dose: 80 mg Carbamazepine (Tegretol Xr -) 200 mg PO BID [facility] Last Admin: 11/14/19 21:42 Dose: 200 mg Memantine (Namenda -) 5 mg PO BID [facility] Last Admin: 11/14/19 21:41 Dose: 5 mg Metoprolol Succinate (Toprol Xl -) 50 mg PO DAILY [facility] Sacubitril/Valsartan (Entresto 49 Mg-51 Mg Tablet) 1 tab PO BID [facility] Last Admin: 11/14/19 21:41 Dose: 1 tab Spironolactone (Aldactone -) 25 mg PO DAILY [facility] Last Admin: 11/14/19 10:28 Dose: 25 mg - Objective Vital Signs: Vital Signs Temperature 98.5 F 11/14/19 21:38 Pulse Rate 77 11/14/19 21:38 Respiratory Rate 18 11/14/19 21:38 Blood Pressure 110/56 L 11/14/19 21:38 O2 Sat by Pulse Oximetry (%) 100 11/14/19 10:20 Cardiovascular: Yes: WNL, Regular Rate and Rhythm Respiratory: Yes: WNL, Regular, CTA Bilaterally Gastrointestinal: Yes: WNL, Normal Bowel Sounds, Soft Labs: CBC, BMP 11/13/19 07:00 11/13/19 07:00 INR, PTT INR 0.97 (0.83-1.09) 11/08/19 17:00 Problem List - Problems (1) UTI (urinary tract infection) Assessment/Plan: Cont augmentin Code(s): N39.0 - URINARY TRACT INFECTION, SITE NOT SPECIFIED (2) DVT (deep venous thrombosis) Assessment/Plan: Cont eliquis Code(s): I82.409 - ACUTE EMBOLISM AND [place] UNSP DEEP VN UNSP LOWER EXTREMITY Qualifiers: DVT location: lower extremity Affected thrombotic vein of extremity: femoral Chronicity: acute Laterality: right Qualified Code(s): I82.411 - Acute embolism and thrombosis of right femoral vein (3) Pulmonary embolism Assessment/Plan: Cont eliquis Code(s): I26.99 - OTHER PULMONARY EMBOLISM WITHOUT ACUTE COR PULMONALE Qualifiers: Pulmonary embolism type: unspecified Acute cor pulmonale presence: without acute cor pulmonale (4) Coronary artery disease Code(s): I25.10 - ATHSCL HEART DISEASE OF [place] CORONARY ARTERY W/O ANG PCTRS Qualifiers: Coronary Disease-Associated Artery/Lesion type: [place] artery [place] vs. transplanted heart: [place] heart Associated angina: without angina Qualified Code(s): I25.10 - Atherosclerotic heart disease of [place] coronary artery without angina pectoris (5) Dementia Code(s): F03.90 - UNSPECIFIED DEMENTIA WITHOUT BEHAVIORAL DISTURBANCE (6) Hyperlipidemia Code(s): E78.5 - HYPERLIPIDEMIA, UNSPECIFIED Qualifiers: Hyperlipidemia type: pure hypercholesterolemia Qualified Code(s): E78.00 - Pure hypercholesterolemia, unspecified; E78.0 - Pure hypercholesterolemia (7) Hypertension Code(s): I10 - ESSENTIAL (PRIMARY) HYPERTENSION Qualifiers: Hypertension type: essential hypertension Qualified Code(s): I10 - Essential (primary) hypertension
--- NOTE | 2019-11-15 08:04 | PN ---
Progress Note, Physician History of Present Illness: stable no new issues - Current Medication List Current Medications: Active Medications Acetaminophen (Tylenol -) 650 mg PO Q6H PRN PRN Reason: FEVER Amoxicillin/Clavulanate Potassium (Augmentin - 875mg Tablet) 1 tab PO BID@0800, 1730 [facility] Last Admin: 11/14/19 18:41 Dose: 1 tab Apixaban (Eliquis -) 10 mg PO BID [facility] Stop: 11/16/19 21:59 Last Admin: 11/14/19 21:40 Dose: 10 mg Atorvastatin Calcium (Lipitor -) 80 mg PO HS [facility] Last Admin: 11/14/19 21:41 Dose: 80 mg Carbamazepine (Tegretol Xr -) 200 mg PO BID [facility] Last Admin: 11/14/19 21:42 Dose: 200 mg Memantine (Namenda -) 5 mg PO BID [facility] Last Admin: 11/14/19 21:41 Dose: 5 mg Metoprolol Succinate (Toprol Xl -) 50 mg PO DAILY [facility] Sacubitril/Valsartan (Entresto 49 Mg-51 Mg Tablet) 1 tab PO BID [facility] Last Admin: 11/14/19 21:41 Dose: 1 tab Spironolactone (Aldactone -) 25 mg PO DAILY [facility] Last Admin: 11/14/19 10:28 Dose: 25 mg - Objective Vital Signs: Vital Signs Temperature 98.6 F 11/15/19 06:00 Pulse Rate 75 11/15/19 06:00 Respiratory Rate 18 11/15/19 06:00 Blood Pressure 112/51 L 11/15/19 06:00 O2 Sat by Pulse Oximetry (%) 100 11/14/19 21:00 Constitutional: Yes: No Distress, Calm Cardiovascular: Yes: S1, S2 Respiratory: Yes: Regular, CTA Bilaterally Gastrointestinal: Yes: Normal Bowel Sounds, Soft Musculoskeletal: Yes: WNL Extremities: Yes: WNL Neurological: Yes: Alert, Oriented Psychiatric: Yes: Alert, Oriented Labs: CBC, BMP 11/13/19 07:00 11/13/19 07:00 INR, PTT INR 0.97 (0.83-1.09) 11/08/19 17:00 Assessment/Plan Problem List - Problems (1) Weakness Code(s): R53.1 - WEAKNESS (2) Dementia Code(s): F03.90 - UNSPECIFIED DEMENTIA WITHOUT BEHAVIORAL DISTURBANCE (3) Hyperlipidemia Assessment/Plan: on lipitor Code(s): E78.5 - HYPERLIPIDEMIA, UNSPECIFIED Qualifiers: Hyperlipidemia type: pure hypercholesterolemia Qualified Code(s): E78.00 - Pure hypercholesterolemia, unspecified; E78.0 - Pure hypercholesterolemia (4) Hypertension Code(s): I10 - ESSENTIAL (PRIMARY) HYPERTENSION Qualifiers: Hypertension type: essential hypertension Qualified Code(s): I10 - Essential (primary) hypertension (5) Ischemic cardiomyopathy Code(s): I25.5 - ISCHEMIC CARDIOMYOPATHY (6) Trigeminal neuralgia Assessment/Plan: on tegretol Code(s): G50.0 - TRIGEMINAL NEURALGIA (7) UTI (urinary tract infection) Code(s): N39.0 - URINARY TRACT INFECTION, SITE NOT SPECIFIED (8) Pneumonia Code(s): J18.9 - PNEUMONIA, UNSPECIFIED ORGANISM (9) DVT (deep venous thrombosis) Code(s): I82.409 - ACUTE EMBOLISM AND [place] UNSP DEEP VN UNSP LOWER EXTREMITY Qualifiers: DVT location: lower extremity Affected thrombotic vein of extremity: femoral Chronicity: acute Laterality: unspecified laterality Qualified Code(s): I82.419 - Acute embolism and thrombosis of unspecified femoral vein (10) Elevated CPK Code(s): R74.8 - ABNORMAL LEVELS OF OTHER SERUM ENZYMES plan continue abx urine cx noted rest as per the team complete the course
[2019-11-15] MEDS: AMOX TR/POT CLAV 875MG/125MG TABLETS (FP) PO SCH ×2 (08:19→16:32)
[2019-11-15] MEDS ORDERED: PT OWN MED DRAWER 7, Y5N ONE ×2 (09:31→21:38)
[2019-11-15] MEDS: metoPROLOL SUCCINATE 25 MG TAB.SR.24H (FP) PO SCH (10:22)
[2019-11-15] MEDS: SPIRONOLACTONE 25 MG TABLET (FP) PO SCH (10:22)
[2019-11-15] MEDS: APIXABAN 5 MG TABLET PO SCH ×2 (10:22→21:58)
[2019-11-15] MEDS: MEMANTINE HCL 5 MG TABLET (UD) PO SCH ×2 (10:23→21:59)
[2019-11-15] MEDS: carBAMazepine XR 200 MG TAB.ER.12H PO SCH ×2 (10:23→22:00)
[2019-11-15] MEDS: SACUBITRIL/VALSARTAN 49 MG-51 MG TABLET PO SCH ×2 (10:24→21:59)
--- NOTE | 2019-11-15 13:19 | PN ---
Progress Note, Physician History of Present Illness: Sensorium improved to baseline. Denies chest pain or dyspnea, ambulating w/o complaints. - Current Medication List Current Medications: Active Medications Acetaminophen (Tylenol -) 650 mg PO Q6H PRN PRN Reason: FEVER Amoxicillin/Clavulanate Potassium (Augmentin - 875mg Tablet) 1 tab PO BID@0800, 1730 [facility] Last Admin: 11/15/19 08:19 Dose: 1 tab Apixaban (Eliquis -) 10 mg PO BID [facility] Stop: 11/16/19 21:59 Last Admin: 11/15/19 10:22 Dose: 10 mg Atorvastatin Calcium (Lipitor -) 80 mg PO HS [facility] Last Admin: 11/14/19 21:41 Dose: 80 mg Carbamazepine (Tegretol Xr -) 200 mg PO BID [facility] Last Admin: 11/15/19 10:23 Dose: 200 mg Memantine (Namenda -) 5 mg PO BID [facility] Last Admin: 11/15/19 10:23 Dose: 5 mg Metoprolol Succinate (Toprol Xl -) 50 mg PO DAILY [facility] Last Admin: 11/15/19 10:22 Dose: 50 mg Sacubitril/Valsartan (Entresto 49 Mg-51 Mg Tablet) 1 tab PO BID [facility] Last Admin: 11/15/19 10:24 Dose: 1 tab Spironolactone (Aldactone -) 25 mg PO DAILY [facility] Last Admin: 11/15/19 10:22 Dose: 25 mg - Objective Vital Signs: Vital Signs Temperature 97.9 F 11/15/19 10:00 Pulse Rate 81 11/15/19 10:00 Respiratory Rate 18 11/15/19 10:00 Blood Pressure 141/89 11/15/19 10:00 O2 Sat by Pulse Oximetry (%) 100 11/15/19 09:00 Constitutional: Yes: No Distress, Calm, Thin Neck: Yes: Supple Cardiovascular: Yes: Regular Rate and Rhythm Respiratory: Yes: Regular, CTA Bilaterally Gastrointestinal: Yes: Normal Bowel Sounds, Soft Edema: Yes Edema: LLE: Trace, RLE: Trace Labs: CBC, BMP 11/13/19 07:00 11/13/19 07:00 INR, PTT INR 0.97 (0.83-1.09) 11/08/19 17:00 Problem List - Problems (1) DVT (deep venous thrombosis) Code(s): I82.409 - ACUTE EMBOLISM AND [place] UNSP DEEP VN UNSP LOWER EXTREMITY Qualifiers: DVT location: lower extremity Affected thrombotic vein of extremity: femoral Chronicity: acute Laterality: right Qualified Code(s): I82.411 - Acute embolism and thrombosis of right femoral vein (2) Pulmonary embolism Code(s): I26.99 - OTHER PULMONARY EMBOLISM WITHOUT ACUTE COR PULMONALE Qualifiers: Pulmonary embolism type: unspecified Acute cor pulmonale presence: without acute cor pulmonale (3) Weakness Code(s): R53.1 - WEAKNESS (4) Coronary artery disease Code(s): I25.10 - ATHSCL HEART DISEASE OF [place] CORONARY ARTERY W/O ANG PCTRS Qualifiers: Coronary Disease-Associated Artery/Lesion type: [place] artery [place] vs. transplanted heart: [place] heart Associated angina: without angina Qualified Code(s): I25.10 - Atherosclerotic heart disease of [place] coronary artery without angina pectoris (5) Dementia Code(s): F03.90 - UNSPECIFIED DEMENTIA WITHOUT BEHAVIORAL DISTURBANCE (6) Hyperlipidemia Code(s): E78.5 - HYPERLIPIDEMIA, UNSPECIFIED Qualifiers: Hyperlipidemia type: pure hypercholesterolemia Qualified Code(s): E78.00 - Pure hypercholesterolemia, unspecified; E78.0 - Pure hypercholesterolemia (7) Hypertension Code(s): I10 - ESSENTIAL (PRIMARY) HYPERTENSION Qualifiers: Hypertension type: essential hypertension Qualified Code(s): I10 - Essential (primary) hypertension (8) Ischemic cardiomyopathy Code(s): I25.5 - ISCHEMIC CARDIOMYOPATHY (9) UTI (urinary tract infection) Code(s): N39.0 - URINARY TRACT INFECTION, SITE NOT SPECIFIED Assessment/Plan 10/11/19 Echo: Normal LV size with mild LVH mod-severe decreased LVEF 30%, grade I DD, mod dilated RV with mod decreased RV fxn, septal AK, anterolateral and inferior HK, mild TR RVSP 41 mmHg 10/11/2019 Calcified right posterior meningioma, chronic lacunar stroke left IC 1. Generalized weakness -> enterococcus UTI 2. Right LE DVT and small embolus in left pulmonary artery 3. CAD with history of [place] 4. Ischemic cardiomyopathy LVEF 30% 5. HTN 6. Hypercholesterolemia 7. Right meningioma 8. Chronic lacunar stroke 9. 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 History of trigeminal neuralgia PLAN: 1. Continue Eliquis 10 bid for 1 week then->5 bid, d/c ASA as CAD is stable 2. Continue Entresto 49/51 mg BID and uptitrate as tolerated 3. Continue Spironolactone 25 mg QD 4. Increased Metoprolol ER 50 mg QD and continue Atorvastatin 80 qd 5. Consider further viability study as outpatient 6. Complete oral abx antibiotic course per ID 7. D/c planning with f/u in office
--- NOTE | 2019-11-15 15:27 | CONSULT ---
- Consultation REQUESTING PROVIDER: CONSULT REQUEST: We have been asked to surgically evaluate this patient for RLE DVT and PE PCP:Holden Gallego HISTORY OF PRESENT ILLNESS: Patient is an 88-year-old female who presented to the ED after being sent from her rehab facility for weakness. She was diagnosed with a pneumonia recently and has been on Rocephin. She was also diagnosed with a right femoral DVT despite being on aspirin, Plavix and heparin. According to the chart the patient's daughter, she is not her active normal self. Pt was started on Eliquiis her in the hospital as per Hematology. Pt denies previous history of DVT, but is a difficult historian. Pt denies h/o vascular disease or surgery. Pt is former smoker who quit 40 years ago. Home Medications Medication Instructions Recorded Carbamazepine [Carbamazepine ER] 200 mg PO BID 10/11/19 Atorvastatin Ca [Lipitor] 80 mg PO HS #30 tablet 10/13/19 Metoprolol Succinate [Toprol XL -] 25 mg PO DAILY #30 tab.sr.24h 10/13/19 Sacubitril/Valsartan [Entresto 24 1 tab PO BID #60 tablet 10/13/19 mg-26 mg Tablet] Memantine HCl [Namenda -] 5 mg PO BID #60 tablet 10/14/19 Albuterol 2.5/Ipratropium 0.5 1 amp NEB Q4H PRN amp 11/12/19 [Duoneb -] Amoxicillin/Potassium Clav 1 each PO BID #10 tablet 11/12/19 [Augmentin 875-125 Tablet] Apixaban [Eliquis -] 10 mg PO BID tablet 11/12/19 Spironolactone [Aldactone -] 25 mg PO DAILY #0 tablet 11/12/19 Allergies Allergy/AdvReac Type Severity Reaction Status Date / Time No Known Allergies Allergy Verified 11/08/19 15:43 PHYSICAL EXAM: GENERAL: Awake, alert, and fully oriented, in no acute distress. HEAD: Normal with no signs of trauma. EYES: PERRL, sclera anicteric, conjunctiva clear. NECK: Normal ROM, supple without lymphadenopathy, JVD, or masses. LUNGS: Clear to auscultation bilat anteriorly. No wheezes, and no crackles. No accessory muscle use. HEART: Regular rate and rhythm. No murmurs LOWER EXTREMITIES: 1+ pulses, warm, well-perfused. No calf tenderness. +1 edema LLE NEUROLOGICAL: Normal speech, gait not observed. PSYCH: Cooperative. Good eye contact. Appropriate mood and affect. SKIN: Warm, dry, normal turgor, no rashes or lesions noted. Vital Signs Temperature 97.9 F 11/15/19 10:00 Pulse Rate 81 11/15/19 10:00 Respiratory Rate 18 11/15/19 10:00 Blood Pressure 141/89 11/15/19 10:00 O2 Sat by Pulse Oximetry (%) 100 11/15/19 09:00 Lab Results WBC 4.0 K/mm3 (4.0-10.0) 11/13/19 07:00 RBC 3.57 M/mm3 (3.60-5.2) L 11/13/19 07:00 Hgb 10.9 GM/dL (10.7-15.3) 11/13/19 07:00 Hct 33.2 % (32.4-45.2) 11/13/19 07:00 MCV 92.9 fl (80-96) 11/13/19 07:00 MCHC 32.8 g/dl (32.0-36.0) 11/13/19 07:00 RDW 14.4 % (11.6-15.6) 11/13/19 07:00 Plt Count 237 K/MM3 (134-434) D 11/13/19 07:00 Sodium 144 mmol/L (136-145) 11/13/19 07:00 Potassium 4.1 mmol/L (3.5-5.1) 11/13/19 07:00 Chloride 113 mmol/L (98-107) H 11/13/19 07:00 Carbon Dioxide 27 mmol/L (21-32) 11/13/19 07:00 Anion Gap 4 MMOL/L (8-16) L 11/13/19 07:00 BUN 12.6 mg/dL (7-18) 11/13/19 07:00 Creatinine 0.7 mg/dL (0.55-1.3) 11/13/19 07:00 Random Glucose 76 mg/dL (74-106) 11/13/19 07:00 Calcium 8.0 mg/dL (8.5-10.1) L 11/13/19 07:00 INR 0.97 (0.83-1.09) 11/08/19 17:00 Problem List - Problems (1) DVT (deep venous thrombosis) Assessment/Plan: Plan -agree with plan for anticoagulation, pt should follow up in 8-12 weeks for reimaging of DVTs -no acute surgical intervention at this time. pt discussed with Dr. Leos who agrees with plan Code(s): I82.409 - ACUTE EMBOLISM AND [place] UNSP DEEP VN UNSP LOWER EXTREMITY Qualifiers: DVT location: lower extremity Affected thrombotic vein of extremity: femoral Chronicity: acute Laterality: right Qualified Code(s): I82.411 - Acute embolism and thrombosis of right femoral vein
--- NOTE | 2019-11-15 17:50 | PN ---
Progress Note, Physician - Current Medication List Current Medications: Active Medications Acetaminophen (Tylenol -) 650 mg PO Q6H PRN PRN Reason: FEVER Amoxicillin/Clavulanate Potassium (Augmentin - 875mg Tablet) 1 tab PO BID@0800, 1730 [facility] Last Admin: 11/15/19 16:32 Dose: 1 tab Apixaban (Eliquis -) 10 mg PO BID [facility] Stop: 11/16/19 21:59 Last Admin: 11/15/19 10:22 Dose: 10 mg Atorvastatin Calcium (Lipitor -) 80 mg PO HS [facility] Last Admin: 11/14/19 21:41 Dose: 80 mg Carbamazepine (Tegretol Xr -) 200 mg PO BID [facility] Last Admin: 11/15/19 10:23 Dose: 200 mg Memantine (Namenda -) 5 mg PO BID [facility] Last Admin: 11/15/19 10:23 Dose: 5 mg Metoprolol Succinate (Toprol Xl -) 50 mg PO DAILY [facility] Last Admin: 11/15/19 10:22 Dose: 50 mg Sacubitril/Valsartan (Entresto 49 Mg-51 Mg Tablet) 1 tab PO BID [facility] Last Admin: 11/15/19 10:24 Dose: 1 tab Spironolactone (Aldactone -) 25 mg PO DAILY [facility] Last Admin: 11/15/19 10:22 Dose: 25 mg - Objective Vital Signs: Vital Signs Temperature 98.7 F 11/15/19 14:00 Pulse Rate 83 11/15/19 14:00 Respiratory Rate 18 11/15/19 14:00 Blood Pressure 148/69 11/15/19 14:00 O2 Sat by Pulse Oximetry (%) 100 11/15/19 09:00 Constitutional: Yes: No Distress HENT: Yes: Atraumatic Neck: Yes: Supple Cardiovascular: Yes: Regular Rate and Rhythm Respiratory: Yes: CTA Bilaterally Gastrointestinal: Yes: Normal Bowel Sounds Extremities: Yes: WNL Neurological: Yes: Alert, Oriented Labs: CBC, BMP 11/13/19 07:00 11/13/19 07:00 INR, PTT INR 0.97 (0.83-1.09) 11/08/19 17:00 Problem List - Problems (1) Weakness Code(s): R53.1 - WEAKNESS (2) Dementia Code(s): F03.90 - UNSPECIFIED DEMENTIA WITHOUT BEHAVIORAL DISTURBANCE (3) Hyperlipidemia Assessment/Plan: on lipitor Code(s): E78.5 - HYPERLIPIDEMIA, UNSPECIFIED Qualifiers: Hyperlipidemia type: pure hypercholesterolemia Qualified Code(s): E78.00 - Pure hypercholesterolemia, unspecified; E78.0 - Pure hypercholesterolemia (4) Hypertension Code(s): I10 - ESSENTIAL (PRIMARY) HYPERTENSION Qualifiers: Hypertension type: essential hypertension Qualified Code(s): I10 - Essential (primary) hypertension (5) Ischemic cardiomyopathy Code(s): I25.5 - ISCHEMIC CARDIOMYOPATHY (6) Trigeminal neuralgia Assessment/Plan: on tegretol Code(s): G50.0 - TRIGEMINAL NEURALGIA (7) UTI (urinary tract infection) Assessment/Plan: on po abx Code(s): N39.0 - URINARY TRACT INFECTION, SITE NOT SPECIFIED (8) Pneumonia Assessment/Plan: po abx...2 more days id consult Code(s): J18.9 - PNEUMONIA, UNSPECIFIED ORGANISM (9) DVT (deep venous thrombosis) Code(s): I82.409 - ACUTE EMBOLISM AND THOMBOS UNSP DEEP VN UNSP LOWER EXTREMITY Qualifiers: DVT location: lower extremity Affected thrombotic vein of extremity: femoral Chronicity: acute Laterality: right Qualified Code(s): I82.411 - Acute embolism and thrombosis of right femoral vein (10) Elevated CPK Code(s): R74.8 - ABNORMAL LEVELS OF OTHER SERUM ENZYMES (11) Pulmonary embolism Code(s): I26.99 - OTHER PULMONARY EMBOLISM WITHOUT ACUTE COR PULMONALE Qualifiers: Pulmonary embolism type: unspecified Acute cor pulmonale presence: without acute cor pulmonale
--- NOTE | 2019-11-15 17:52 | DS ---
Physical Examination Vital Signs: Vital Signs Temperature 98.7 F 11/15/19 14:00 Pulse Rate 83 11/15/19 14:00 Respiratory Rate 18 11/15/19 14:00 Blood Pressure 148/69 11/15/19 14:00 O2 Sat by Pulse Oximetry (%) 100 11/15/19 09:00 Labs: CBC, BMP 11/13/19 07:00 11/13/19 07:00 Discharge Summary Problems reviewed: Yes Reason For Visit: WEAKNESS Current Active Problems DVT (deep venous thrombosis) (Acute) Elevated CPK (Acute) Pneumonia (Acute) Pulmonary embolism (Acute) Weakness (Acute) Condition: Stable - Instructions Referrals: Alicia Gallego MD [Primary Care Provider] - - Home Medications Comprehensive Discharge Medication List: Ambulatory Orders Carbamazepine [Carbamazepine ER] 200 mg PO BID 10/11/19 Atorvastatin Ca [Lipitor] 80 mg PO HS #30 tablet 10/13/19 Metoprolol Succinate [Toprol XL -] 25 mg PO DAILY #30 tab.sr.24h 10/13/19 Sacubitril/Valsartan [Entresto 24 mg-26 mg Tablet] 1 tab PO BID #60 tablet 10/13 Memantine HCl [Namenda -] 5 mg PO BID #60 tablet 10/14/19 Albuterol 2.5/Ipratropium 0.5 [Duoneb -] 1 amp NEB Q4H PRN amp 11/12/19 Apixaban [Eliquis -] 10 mg PO BID tablet 11/12/19 Spironolactone [Aldactone -] 25 mg PO DAILY #0 tablet 11/12/19
[2019-11-15] MEDS: ATORVASTATIN CA 80 MG TABLET (FP) PO SCH (21:59)
[2019-11-16] MEDS ORDERED: PT OWN MED DRAWER 7, Y5N ONE ×2 (09:22→20:25)
[2019-11-16] MEDS: MEMANTINE HCL 5 MG TABLET (UD) PO SCH ×2 (09:25→21:05)
[2019-11-16] MEDS: metoPROLOL SUCCINATE 25 MG TAB.SR.24H (FP) PO SCH (09:25)
[2019-11-16] MEDS: SPIRONOLACTONE 25 MG TABLET (FP) PO SCH (09:25)
[2019-11-16] MEDS: carBAMazepine XR 200 MG TAB.ER.12H PO SCH ×2 (09:26→21:04)
[2019-11-16] MEDS: SACUBITRIL/VALSARTAN 49 MG-51 MG TABLET PO SCH ×2 (09:27→21:08)
[2019-11-16] MEDS: APIXABAN 5 MG TABLET PO SCH ×2 (10:31→21:55)
--- NOTE | 2019-11-16 12:12 | PN ---
Progress Note, Physician Chief Complaint: Events noted Feels better History of Present Illness: Patient was seen and examined. Awake and alert. Chart was reviewed Denies chest pain, SOB or palpitations - Current Medication List Current Medications: Active Medications Acetaminophen (Tylenol -) 650 mg PO Q6H PRN PRN Reason: FEVER Apixaban (Eliquis -) 10 mg PO BID [facility] Stop: 11/16/19 21:59 Last Admin: 11/16/19 10:31 Dose: 10 mg Atorvastatin Calcium (Lipitor -) 80 mg PO HS [facility] Last Admin: 11/15/19 21:59 Dose: 80 mg Carbamazepine (Tegretol Xr -) 200 mg PO BID [facility] Last Admin: 11/16/19 09:26 Dose: 200 mg Memantine (Namenda -) 5 mg PO BID [facility] Last Admin: 11/16/19 09:25 Dose: 5 mg Metoprolol Succinate (Toprol Xl -) 50 mg PO DAILY [facility] Last Admin: 11/16/19 09:25 Dose: 50 mg Sacubitril/Valsartan (Entresto 49 Mg-51 Mg Tablet) 1 tab PO BID [facility] Last Admin: 11/16/19 09:27 Dose: 1 tab Spironolactone (Aldactone -) 25 mg PO DAILY [facility] Last Admin: 11/16/19 09:25 Dose: 25 mg - Objective Vital Signs: Vital Signs Temperature 98.7 F 11/16/19 06:00 Pulse Rate 62 11/16/19 06:00 Respiratory Rate 18 11/16/19 06:00 Blood Pressure 110/54 L 11/16/19 06:00 O2 Sat by Pulse Oximetry (%) 98 11/15/19 21:00 Eyes: Yes: PERRL HENT: Yes: Atraumatic Neck: Yes: Supple Cardiovascular: Yes: Regular Rate and Rhythm Respiratory: Yes: CTA Bilaterally Gastrointestinal: Yes: Normal Bowel Sounds, Soft. No: Tenderness Edema: Yes Edema: LLE: Trace, RLE: Trace Problem List - Problems (1) Pulmonary embolism Code(s): I26.99 - OTHER PULMONARY EMBOLISM WITHOUT ACUTE COR PULMONALE Qualifiers: Pulmonary embolism type: unspecified Acute cor pulmonale presence: without acute cor pulmonale (2) DVT (deep venous thrombosis) Code(s): I82.409 - ACUTE EMBOLISM AND THOMBOS UNSP DEEP VN UNSP LOWER EXTREMITY Qualifiers: DVT location: lower extremity Affected thrombotic vein of extremity: femoral Chronicity: acute Laterality: right Qualified Code(s): I82.411 - Acute embolism and thrombosis of right femoral vein (3) Weakness Code(s): R53.1 - WEAKNESS (4) Coronary artery disease Code(s): I25.10 - ATHSCL HEART DISEASE OF [place] CORONARY ARTERY W/O ANG PCTRS Qualifiers: Coronary Disease-Associated Artery/Lesion type: [place] artery [place] vs. transplanted heart: [place] heart Associated angina: without angina Qualified Code(s): I25.10 - Atherosclerotic heart disease of [place] coronary artery without angina pectoris (5) Dementia Code(s): F03.90 - UNSPECIFIED DEMENTIA WITHOUT BEHAVIORAL DISTURBANCE (6) Hyperlipidemia Code(s): E78.5 - HYPERLIPIDEMIA, UNSPECIFIED Qualifiers: Hyperlipidemia type: pure hypercholesterolemia Qualified Code(s): E78.00 - Pure hypercholesterolemia, unspecified; E78.0 - Pure hypercholesterolemia (7) Hypertension Code(s): I10 - ESSENTIAL (PRIMARY) HYPERTENSION Qualifiers: Hypertension type: essential hypertension Qualified Code(s): I10 - Essential (primary) hypertension (8) Ischemic cardiomyopathy Code(s): I25.5 - ISCHEMIC CARDIOMYOPATHY (9) Trigeminal neuralgia Code(s): G50.0 - TRIGEMINAL NEURALGIA (10) UTI (urinary tract infection) Code(s): N39.0 - URINARY TRACT INFECTION, SITE NOT SPECIFIED Assessment/Plan 1. Generalized weakness - enterococcus UTI 2. Right LE DVT and small embolus in left pulmonary artery 3. CAD with history of [place] 4. Ischemic cardiomyopathy LVEF 30% 5. HTN 6. Hypercholesterolemia 7. Right meningioma 8. Chronic lacunar stroke 9. 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 History of trigeminal neuralgia PLAN: 1. Continue Eliquis 10 mg BID for 1 week then 5 mg BID. 2. Continue Entresto 49/51 mg BID and uptitrate as tolerated 3. Continue Spironolactone 25 mg QD 4. Continue Metoprolol ER 50 mg QD and continue Atorvastatin 80 mg QHS 5. Consider further viability study as outpatient 6. D/c planning with f/u in office Further plans are to follow Catalino Arreola MD
--- NOTE | 2019-11-16 13:01 | PN ---
Progress Note, Physician - Current Medication List Current Medications: Active Medications Acetaminophen (Tylenol -) 650 mg PO Q6H PRN PRN Reason: FEVER Apixaban (Eliquis -) 10 mg PO BID [facility] Stop: 11/16/19 21:59 Last Admin: 11/16/19 10:31 Dose: 10 mg Atorvastatin Calcium (Lipitor -) 80 mg PO HS [facility] Last Admin: 11/15/19 21:59 Dose: 80 mg Carbamazepine (Tegretol Xr -) 200 mg PO BID [facility] Last Admin: 11/16/19 09:26 Dose: 200 mg Memantine (Namenda -) 5 mg PO BID [facility] Last Admin: 11/16/19 09:25 Dose: 5 mg Metoprolol Succinate (Toprol Xl -) 50 mg PO DAILY [facility] Last Admin: 11/16/19 09:25 Dose: 50 mg Sacubitril/Valsartan (Entresto 49 Mg-51 Mg Tablet) 1 tab PO BID [facility] Last Admin: 11/16/19 09:27 Dose: 1 tab Spironolactone (Aldactone -) 25 mg PO DAILY [facility] Last Admin: 11/16/19 09:25 Dose: 25 mg - Objective Vital Signs: Vital Signs Temperature 98.7 F 11/16/19 06:00 Pulse Rate 62 11/16/19 06:00 Respiratory Rate 18 11/16/19 06:00 Blood Pressure 110/54 L 11/16/19 06:00 O2 Sat by Pulse Oximetry (%) 96 11/16/19 09:00 Labs: CBC, BMP 11/13/19 07:00 11/13/19 07:00 INR, PTT INR 0.97 (0.83-1.09) 11/08/19 17:00
--- NOTE | 2019-11-16 18:10 | PN ---
Progress Note, Physician History of Present Illness: doing well - Current Medication List Current Medications: Active Medications Acetaminophen (Tylenol -) 650 mg PO Q6H PRN PRN Reason: FEVER Apixaban (Eliquis -) 10 mg PO BID [facility] Stop: 11/16/19 21:59 Last Admin: 11/16/19 10:31 Dose: 10 mg Atorvastatin Calcium (Lipitor -) 80 mg PO HS [facility] Last Admin: 11/15/19 21:59 Dose: 80 mg Carbamazepine (Tegretol Xr -) 200 mg PO BID [facility] Last Admin: 11/16/19 09:26 Dose: 200 mg Memantine (Namenda -) 5 mg PO BID [facility] Last Admin: 11/16/19 09:25 Dose: 5 mg Metoprolol Succinate (Toprol Xl -) 50 mg PO DAILY [facility] Last Admin: 11/16/19 09:25 Dose: 50 mg Sacubitril/Valsartan (Entresto 49 Mg-51 Mg Tablet) 1 tab PO BID [facility] Last Admin: 11/16/19 09:27 Dose: 1 tab Spironolactone (Aldactone -) 25 mg PO DAILY [facility] Last Admin: 11/16/19 09:25 Dose: 25 mg - Objective Vital Signs: Vital Signs Temperature 98.9 F 11/16/19 14:00 Pulse Rate 67 11/16/19 14:00 Respiratory Rate 18 11/16/19 14:00 Blood Pressure 100/52 L 11/16/19 14:00 O2 Sat by Pulse Oximetry (%) 96 11/16/19 09:00 Constitutional: Yes: No Distress HENT: Yes: Atraumatic Neck: Yes: Supple Cardiovascular: Yes: Regular Rate and Rhythm Respiratory: Yes: CTA Bilaterally Gastrointestinal: Yes: Normal Bowel Sounds Extremities: Yes: WNL Edema: No Neurological: Yes: Alert, Oriented Labs: CBC, BMP 11/13/19 07:00 11/13/19 07:00 INR, PTT INR 0.97 (0.83-1.09) 11/08/19 17:00 Problem List - Problems (1) Weakness Code(s): R53.1 - WEAKNESS (2) Dementia Code(s): F03.90 - UNSPECIFIED DEMENTIA WITHOUT BEHAVIORAL DISTURBANCE (3) Hyperlipidemia Assessment/Plan: on lipitor Code(s): E78.5 - HYPERLIPIDEMIA, UNSPECIFIED Qualifiers: Hyperlipidemia type: pure hypercholesterolemia Qualified Code(s): E78.00 - Pure hypercholesterolemia, unspecified; E78.0 - Pure hypercholesterolemia (4) Hypertension Assessment/Plan: on meds monitor Code(s): I10 - ESSENTIAL (PRIMARY) HYPERTENSION Qualifiers: Hypertension type: essential hypertension Qualified Code(s): I10 - Essential (primary) hypertension (5) Ischemic cardiomyopathy Code(s): I25.5 - ISCHEMIC CARDIOMYOPATHY (6) Trigeminal neuralgia Code(s): G50.0 - TRIGEMINAL NEURALGIA (7) UTI (urinary tract infection) Assessment/Plan: on po abx Code(s): N39.0 - URINARY TRACT INFECTION, SITE NOT SPECIFIED (8) Pneumonia Assessment/Plan: po abx...2 more days id consult Code(s): J18.9 - PNEUMONIA, UNSPECIFIED ORGANISM (9) DVT (deep venous thrombosis) Code(s): I82.409 - ACUTE EMBOLISM AND THOMBOS UNSP DEEP VN UNSP LOWER EXTREMITY Qualifiers: DVT location: lower extremity Affected thrombotic vein of extremity: femoral Chronicity: acute Laterality: right Qualified Code(s): I82.411 - Acute embolism and thrombosis of right femoral vein (10) Elevated CPK Code(s): R74.8 - ABNORMAL LEVELS OF OTHER SERUM ENZYMES (11) Pulmonary embolism Code(s): I26.99 - OTHER PULMONARY EMBOLISM WITHOUT ACUTE COR PULMONALE Qualifiers: Pulmonary embolism type: unspecified Acute cor pulmonale presence: without acute cor pulmonale Assessment/Plan AWAITING TO BE DISCHARGE
[2019-11-16] MEDS: ATORVASTATIN CA 80 MG TABLET (FP) PO SCH (21:04)
[2019-11-17] MEDS: SPIRONOLACTONE 25 MG TABLET (FP) PO SCH (10:07)
[2019-11-17] MEDS: MEMANTINE HCL 5 MG TABLET (UD) PO SCH ×2 (10:07→22:41)
[2019-11-17] MEDS: metoPROLOL SUCCINATE 25 MG TAB.SR.24H (FP) PO SCH (10:07)
[2019-11-17] MEDS: APIXABAN 5 MG TABLET PO SCH ×2 (10:07→22:41)
[2019-11-17] MEDS: SACUBITRIL/VALSARTAN 49 MG-51 MG TABLET PO SCH ×2 (10:08→22:41)
[2019-11-17] MEDS: carBAMazepine XR 200 MG TAB.ER.12H PO SCH ×2 (10:09→22:42)
--- NOTE | 2019-11-17 10:10 | PN ---
Progress Note, Physician History of Present Illness: Sensorium improved to baseline. Denies chest pain or dyspnea. - Current Medication List Current Medications: Active Medications Acetaminophen (Tylenol -) 650 mg PO Q6H PRN PRN Reason: FEVER Apixaban (Eliquis -) 10 mg PO BID [facility] Last Admin: 11/16/19 21:55 Dose: 10 mg Atorvastatin Calcium (Lipitor -) 80 mg PO HS [facility] Last Admin: 11/16/19 21:04 Dose: 80 mg Carbamazepine (Tegretol Xr -) 200 mg PO BID [facility] Last Admin: 11/16/19 21:04 Dose: 200 mg Memantine (Namenda -) 5 mg PO BID [facility] Last Admin: 11/16/19 21:05 Dose: 5 mg Metoprolol Succinate (Toprol Xl -) 50 mg PO DAILY [facility] Last Admin: 11/16/19 09:25 Dose: 50 mg Sacubitril/Valsartan (Entresto 49 Mg-51 Mg Tablet) 1 tab PO BID [facility] Last Admin: 11/16/19 21:08 Dose: 1 tab Spironolactone (Aldactone -) 25 mg PO DAILY [facility] Last Admin: 11/16/19 09:25 Dose: 25 mg - Objective Vital Signs: Vital Signs Temperature 98.2 F 11/17/19 09:50 Pulse Rate 65 11/17/19 09:50 Respiratory Rate 18 11/17/19 09:50 Blood Pressure 106/60 11/17/19 09:50 O2 Sat by Pulse Oximetry (%) 96 11/16/19 21:00 Constitutional: Yes: No Distress, Calm, Thin Neck: Yes: Supple Cardiovascular: Yes: Regular Rate and Rhythm Respiratory: Yes: Regular, CTA Bilaterally Gastrointestinal: Yes: Normal Bowel Sounds, Soft Edema: No Labs: CBC, BMP 11/13/19 07:00 11/13/19 07:00 INR, PTT INR 0.97 (0.83-1.09) 11/08/19 17:00 Problem List - Problems (1) DVT (deep venous thrombosis) Code(s): I82.409 - ACUTE EMBOLISM AND [place] UNSP DEEP VN UNSP LOWER EXTREMITY Qualifiers: DVT location: lower extremity Affected thrombotic vein of extremity: femoral Chronicity: acute Laterality: right Qualified Code(s): I82.411 - Acute embolism and thrombosis of right femoral vein (2) Pulmonary embolism Code(s): I26.99 - OTHER PULMONARY EMBOLISM WITHOUT ACUTE COR PULMONALE Qualifiers: Pulmonary embolism type: unspecified Acute cor pulmonale presence: without acute cor pulmonale (3) Weakness Code(s): R53.1 - WEAKNESS (4) Coronary artery disease Code(s): I25.10 - ATHSCL HEART DISEASE OF [place] CORONARY ARTERY W/O ANG PCTRS Qualifiers: Coronary Disease-Associated Artery/Lesion type: [place] artery [place] vs. transplanted heart: [place] heart Associated angina: without angina Qualified Code(s): I25.10 - Atherosclerotic heart disease of [place] coronary artery without angina pectoris (5) Dementia Code(s): F03.90 - UNSPECIFIED DEMENTIA WITHOUT BEHAVIORAL DISTURBANCE (6) Hyperlipidemia Code(s): E78.5 - HYPERLIPIDEMIA, UNSPECIFIED Qualifiers: Hyperlipidemia type: pure hypercholesterolemia Qualified Code(s): E78.00 - Pure hypercholesterolemia, unspecified; E78.0 - Pure hypercholesterolemia (7) Hypertension Code(s): I10 - ESSENTIAL (PRIMARY) HYPERTENSION Qualifiers: Hypertension type: essential hypertension Qualified Code(s): I10 - Essential (primary) hypertension (8) Ischemic cardiomyopathy Code(s): I25.5 - ISCHEMIC CARDIOMYOPATHY (9) UTI (urinary tract infection) Code(s): N39.0 - URINARY TRACT INFECTION, SITE NOT SPECIFIED Assessment/Plan 10/11/19 Echo: Normal LV size with mild LVH mod-severe decreased LVEF 30%, grade I DD, mod dilated RV with mod decreased RV fxn, septal AK, anterolateral and inferior HK, mild TR RVSP 41 mmHg 10/11/2019 Calcified right posterior meningioma, chronic lacunar stroke left IC 1. Generalized weakness -> enterococcus UTI 2. Right LE DVT and small embolus in left pulmonary artery 3. CAD with history of [place] 4. Ischemic cardiomyopathy LVEF 30% 5. HTN 6. Hypercholesterolemia 7. Right meningioma 8. Chronic lacunar stroke 9. 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 History of trigeminal neuralgia PLAN: 1. Continue Eliquis 10 bid for 1 week then->5 bid, d/c ASA as CAD is stable 2. Continue Entresto 49/51 mg BID and uptitrate as tolerated 3. Continue Spironolactone 25 mg QD 4. Increased Metoprolol ER 50 mg QD and continue Atorvastatin 80 qd 5. Consider further viability study as outpatient 6. Complete oral abx antibiotic course per ID 7. D/c planning with f/u in office
--- NOTE | 2019-11-17 22:13 | PN ---
Progress Note, Physician History of Present Illness: No new complaints - Current Medication List Current Medications: Active Medications Acetaminophen (Tylenol -) 650 mg PO Q6H PRN PRN Reason: FEVER Apixaban (Eliquis -) 10 mg PO BID [facility] Last Admin: 11/17/19 10:07 Dose: 10 mg Atorvastatin Calcium (Lipitor -) 80 mg PO HS [facility] Last Admin: 11/16/19 21:04 Dose: 80 mg Carbamazepine (Tegretol Xr -) 200 mg PO BID [facility] Last Admin: 11/17/19 10:09 Dose: 200 mg Memantine (Namenda -) 5 mg PO BID [facility] Last Admin: 11/17/19 10:07 Dose: 5 mg Metoprolol Succinate (Toprol Xl -) 50 mg PO DAILY [facility] Last Admin: 11/17/19 10:07 Dose: 50 mg Sacubitril/Valsartan (Entresto 49 Mg-51 Mg Tablet) 1 tab PO BID [facility] Last Admin: 11/17/19 10:08 Dose: 1 tab Spironolactone (Aldactone -) 25 mg PO DAILY [facility] Last Admin: 11/17/19 10:07 Dose: 25 mg - Objective Vital Signs: Vital Signs Temperature 98.3 F 11/17/19 18:00 Pulse Rate 63 11/17/19 18:00 Respiratory Rate 18 11/17/19 18:00 Blood Pressure 119/68 11/17/19 18:00 O2 Sat by Pulse Oximetry (%) 96 11/17/19 09:00 Cardiovascular: Yes: WNL, Regular Rate and Rhythm Respiratory: Yes: WNL, Regular, CTA Bilaterally Gastrointestinal: Yes: WNL, Normal Bowel Sounds, Soft Labs: CBC, BMP 11/13/19 07:00 11/13/19 07:00 INR, PTT INR 0.97 (0.83-1.09) 11/08/19 17:00 Problem List - Problems (1) UTI (urinary tract infection) Code(s): N39.0 - URINARY TRACT INFECTION, SITE NOT SPECIFIED (2) DVT (deep venous thrombosis) Code(s): I82.409 - ACUTE EMBOLISM AND [place] UNSP DEEP VN UNSP LOWER EXTREMITY Qualifiers: DVT location: lower extremity Affected thrombotic vein of extremity: femoral Chronicity: acute Laterality: right Qualified Code(s): I82.411 - Acute embolism and thrombosis of right femoral vein (3) Pulmonary embolism Code(s): I26.99 - OTHER PULMONARY EMBOLISM WITHOUT ACUTE COR PULMONALE Qualifiers: Pulmonary embolism type: unspecified Acute cor pulmonale presence: without acute cor pulmonale (4) Coronary artery disease Code(s): I25.10 - ATHSCL HEART DISEASE OF [place] CORONARY ARTERY W/O ANG PCTRS Qualifiers: Coronary Disease-Associated Artery/Lesion type: [place] artery [place] vs. transplanted heart: [place] heart Associated angina: without angina Qualified Code(s): I25.10 - Atherosclerotic heart disease of [place] coronary artery without angina pectoris (5) Dementia Code(s): F03.90 - UNSPECIFIED DEMENTIA WITHOUT BEHAVIORAL DISTURBANCE (6) Hyperlipidemia Code(s): E78.5 - HYPERLIPIDEMIA, UNSPECIFIED Qualifiers: Hyperlipidemia type: pure hypercholesterolemia Qualified Code(s): E78.00 - Pure hypercholesterolemia, unspecified; E78.0 - Pure hypercholesterolemia (7) Hypertension Code(s): I10 - ESSENTIAL (PRIMARY) HYPERTENSION Qualifiers: Hypertension type: essential hypertension Qualified Code(s): I10 - Essential (primary) hypertension
[2019-11-17] MEDS ORDERED: PT OWN MED DRAWER 7, Y5N ONE (22:14)
[2019-11-17] MEDS: ATORVASTATIN CA 80 MG TABLET (FP) PO SCH (22:41)
[2019-11-18] MEDS ORDERED: PT OWN MED DRAWER 7, Y5N ONE ×2 (09:07→22:07)
[2019-11-18] MEDS: metoPROLOL SUCCINATE 25 MG TAB.SR.24H (FP) PO SCH (09:27)
[2019-11-18] MEDS: MEMANTINE HCL 5 MG TABLET (UD) PO SCH ×2 (09:27→22:15)
[2019-11-18] MEDS: APIXABAN 5 MG TABLET PO SCH ×2 (09:27→22:15)
[2019-11-18] MEDS: SPIRONOLACTONE 25 MG TABLET (FP) PO SCH (09:27)
[2019-11-18] MEDS: SACUBITRIL/VALSARTAN 49 MG-51 MG TABLET PO SCH ×2 (09:28→22:16)
[2019-11-18] MEDS: carBAMazepine XR 200 MG TAB.ER.12H PO SCH ×2 (09:29→22:15)
--- NOTE | 2019-11-18 09:44 | PN ---
Progress Note, Physician History of Present Illness: Sensorium improved to baseline. Denies chest pain or dyspnea. - Current Medication List Current Medications: Active Medications Acetaminophen (Tylenol -) 650 mg PO Q6H PRN PRN Reason: FEVER Apixaban (Eliquis -) 10 mg PO BID [facility] Last Admin: 11/18/19 09:27 Dose: 10 mg Documented by: Atorvastatin Calcium (Lipitor -) 80 mg PO HS [facility] Last Admin: 11/17/19 22:41 Dose: 80 mg Documented by: Carbamazepine (Tegretol Xr -) 200 mg PO BID [facility] Last Admin: 11/18/19 09:29 Dose: 200 mg Documented by: Memantine (Namenda -) 5 mg PO BID [facility] Last Admin: 11/18/19 09:27 Dose: 5 mg Documented by: Metoprolol Succinate (Toprol Xl -) 50 mg PO DAILY [facility] Last Admin: 11/18/19 09:27 Dose: 50 mg Documented by: Sacubitril/Valsartan (Entresto 49 Mg-51 Mg Tablet) 1 tab PO BID [facility] Last Admin: 11/18/19 09:28 Dose: 1 tab Documented by: Spironolactone (Aldactone -) 25 mg PO DAILY [facility] Last Admin: 11/18/19 09:27 Dose: 25 mg Documented by: - Objective Vital Signs: Vital Signs Temperature 98.2 F 11/18/19 09:01 Pulse Rate 60 11/18/19 09:01 Respiratory Rate 18 11/18/19 09:01 Blood Pressure 107/55 L 11/18/19 09:01 O2 Sat by Pulse Oximetry (%) 97 11/17/19 21:00 Constitutional: Yes: No Distress, Calm, Thin Neck: Yes: Supple Cardiovascular: Yes: Regular Rate and Rhythm Respiratory: Yes: Regular, CTA Bilaterally Gastrointestinal: Yes: Normal Bowel Sounds, Soft Edema: No Labs: CBC, BMP 11/13/19 07:00 11/13/19 07:00 INR, PTT INR 0.97 (0.83-1.09) 11/08/19 17:00 Problem List - Problems (1) DVT (deep venous thrombosis) Code(s): I82.409 - ACUTE EMBOLISM AND THOMBOS UNSP DEEP VN UNSP LOWER EXTREMITY Qualifiers: DVT location: lower extremity Affected thrombotic vein of extremity: femoral Chronicity: acute Laterality: right Qualified Code(s): I82.411 - Acute embolism and thrombosis of right femoral vein (2) Pulmonary embolism Code(s): I26.99 - OTHER PULMONARY EMBOLISM WITHOUT ACUTE COR PULMONALE Qualifiers: Pulmonary embolism type: unspecified Acute cor pulmonale presence: without acute cor pulmonale (3) Weakness Code(s): R53.1 - WEAKNESS (4) Coronary artery disease Code(s): I25.10 - ATHSCL HEART DISEASE OF [place] CORONARY ARTERY W/O ANG PCTRS Qualifiers: Coronary Disease-Associated Artery/Lesion type: [place] artery [place] vs. transplanted heart: [place] heart Associated angina: without angina Qualified Code(s): I25.10 - Atherosclerotic heart disease of [place] coronary artery w ithout angina pectoris (5) Dementia Code(s): F03.90 - UNSPECIFIED DEMENTIA WITHOUT BEHAVIORAL DISTURBANCE (6) Hyperlipidemia Code(s): E78.5 - HYPERLIPIDEMIA, UNSPECIFIED Qualifiers: Hyperlipidemia type: pure hypercholesterolemia Qualified Code(s): E78.00 - Pure hypercholesterolemia, unspecified; E78.0 - Pure hypercholesterolemia (7) Hypertension Code(s): I10 - ESSENTIAL (PRIMARY) HYPERTENSION Qualifiers: Hypertension type: essential hypertension Qualified Code(s): I10 - Essential (primary) hypertension (8) Ischemic cardiomyopathy Code(s): I25.5 - ISCHEMIC CARDIOMYOPATHY (9) UTI (urinary tract infection) Code(s): N39.0 - URINARY TRACT INFECTION, SITE NOT SPECIFIED Assessment/Plan 10/11/19 Echo: Normal LV size with mild LVH mod-severe decreased LVEF 30%, grade I DD, mod dilated RV with mod decreased RV fxn, septal AK, anterolateral and inferior HK, mild TR RVSP 41 mmHg 10/11/2019 Calcified right posterior meningioma, chronic lacunar stroke left IC 1. Generalized weakness -> enterococcus UTI 2. Right LE DVT and small embolus in left pulmonary artery 3. CAD with history of [place] 4. Ischemic cardiomyopathy LVEF 30% 5. HTN 6. Hypercholesterolemia 7. Right meningioma 8. Chronic lacunar stroke 9. 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 History of trigeminal neuralgia PLAN: 1. Decrease Eliquis 5 bid, d/c ASA as CAD is stable 2. Continue Entresto 49/51 mg BID and uptitrate as tolerated 3. Continue Spironolactone 25 mg QD 4. Continue Metoprolol ER 50 mg QD and continue Atorvastatin 80 qd 5. Consider further viability study as outpatient 6. Completed oral abx antibiotic course per ID 7. D/c planning to SNF with f/u in office
--- NOTE | 2019-11-18 11:36 | PN ---
Progress Note, Physician History of Present Illness: stable no new issues - Current Medication List Current Medications: Active Medications Acetaminophen (Tylenol -) 650 mg PO Q6H PRN PRN Reason: FEVER Apixaban (Eliquis -) 5 mg PO BID [facility] Atorvastatin Calcium (Lipitor -) 80 mg PO HS [facility] Last Admin: 11/17/19 22:41 Dose: 80 mg Documented by: Carbamazepine (Tegretol Xr -) 200 mg PO BID [facility] Last Admin: 11/18/19 09:29 Dose: 200 mg Documented by: Memantine (Namenda -) 5 mg PO BID [facility] Last Admin: 11/18/19 09:27 Dose: 5 mg Documented by: Metoprolol Succinate (Toprol Xl -) 50 mg PO DAILY [facility] Last Admin: 11/18/19 09:27 Dose: 50 mg Documented by: Sacubitril/Valsartan (Entresto 49 Mg-51 Mg Tablet) 1 tab PO BID [facility] Last Admin: 11/18/19 09:28 Dose: 1 tab Documented by: Spironolactone (Aldactone -) 25 mg PO DAILY [facility] Last Admin: 11/18/19 09:27 Dose: 25 mg Documented by: - Objective Vital Signs: Vital Signs Temperature 98.2 F 11/18/19 09:01 Pulse Rate 60 11/18/19 09:01 Respiratory Rate 18 11/18/19 09:01 Blood Pressure 107/55 L 11/18/19 09:01 O2 Sat by Pulse Oximetry (%) 97 11/17/19 21:00 Constitutional: Yes: No Distress, Calm Cardiovascular: Yes: S1, S2 Respiratory: Yes: Regular, CTA Bilaterally Gastrointestinal: Yes: Normal Bowel Sounds, Soft Musculoskeletal: Yes: WNL Extremities: Yes: WNL Neurological: Yes: Alert Psychiatric: Yes: Alert Labs: CBC, BMP 11/13/19 07:00 11/13/19 07:00 INR, PTT INR 0.97 (0.83-1.09) 11/08/19 17:00 Assessment/Plan Problem List - Problems (1) Weakness Code(s): R53.1 - WEAKNESS (2) Dementia Code(s): F03.90 - UNSPECIFIED DEMENTIA WITHOUT BEHAVIORAL DISTURBANCE (3) Hyperlipidemia Assessment/Plan: on lipitor Code(s): E78.5 - HYPERLIPIDEMIA, UNSPECIFIED Qualifiers: Hyperlipidemia type: pure hypercholesterolemia Qualified Code(s): E78.00 - Pure hypercholesterolemia, unspecified; E78.0 - Pure hypercholesterolemia (4) Hypertension Code(s): I10 - ESSENTIAL (PRIMARY) HYPERTENSION Qualifiers: Hypertension type: essential hypertension Qualified Code(s): I10 - Essential (primary) hypertension (5) Ischemic cardiomyopathy Code(s): I25.5 - ISCHEMIC CARDIOMYOPATHY (6) Trigeminal neuralgia Assessment/Plan: on tegretol Code(s): G50.0 - TRIGEMINAL NEURALGIA (7) UTI (urinary tract infection) Code(s): N39.0 - URINARY TRACT INFECTION, SITE NOT SPECIFIED (8) Pneumonia Code(s): J18.9 - PNEUMONIA, UNSPECIFIED ORGANISM (9) DVT (deep venous thrombosis) Code(s): I82.409 - ACUTE EMBOLISM AND THOMBOS UNSP DEEP VN UNSP LOWER EXTREMITY Qualifiers: DVT location: lower extremity Affected thrombotic vein of extremity: femoral Chronicity: acute Laterality: unspecified laterality Qualified Code(s): I82.419 - Acute embolism and thrombosis of unspecified femoral vein (10) Elevated CPK Code(s): R74.8 - ABNORMAL LEVELS OF OTHER SERUM ENZYMES plan can stop abx rest as per the team
--- NOTE | 2019-11-18 11:37 | PN ---
Progress Note, Physician History of Present Illness: stable no new issues - Current Medication List Current Medications: Active Medications Acetaminophen (Tylenol -) 650 mg PO Q6H PRN PRN Reason: FEVER Apixaban (Eliquis -) 5 mg PO BID [facility] Atorvastatin Calcium (Lipitor -) 80 mg PO HS [facility] Last Admin: 11/17/19 22:41 Dose: 80 mg Documented by: Carbamazepine (Tegretol Xr -) 200 mg PO BID [facility] Last Admin: 11/18/19 09:29 Dose: 200 mg Documented by: Memantine (Namenda -) 5 mg PO BID [facility] Last Admin: 11/18/19 09:27 Dose: 5 mg Documented by: Metoprolol Succinate (Toprol Xl -) 50 mg PO DAILY [facility] Last Admin: 11/18/19 09:27 Dose: 50 mg Documented by: Sacubitril/Valsartan (Entresto 49 Mg-51 Mg Tablet) 1 tab PO BID [facility] Last Admin: 11/18/19 09:28 Dose: 1 tab Documented by: Spironolactone (Aldactone -) 25 mg PO DAILY [facility] Last Admin: 11/18/19 09:27 Dose: 25 mg Documented by: - Objective Vital Signs: Vital Signs Temperature 98.2 F 11/18/19 09:01 Pulse Rate 60 11/18/19 09:01 Respiratory Rate 18 11/18/19 09:01 Blood Pressure 107/55 L 11/18/19 09:01 O2 Sat by Pulse Oximetry (%) 97 11/17/19 21:00 Constitutional: Yes: No Distress, Calm Cardiovascular: Yes: S1, S2 Respiratory: Yes: Regular, CTA Bilaterally Gastrointestinal: Yes: Normal Bowel Sounds, Soft Musculoskeletal: Yes: WNL Extremities: Yes: Other Neurological: Yes: Alert Psychiatric: Yes: Alert Labs: CBC, BMP 11/13/19 07:00 11/13/19 07:00 INR, PTT INR 0.97 (0.83-1.09) 11/08/19 17:00 Assessment/Plan Problem List - Problems (1) Weakness Code(s): R53.1 - WEAKNESS (2) Dementia Code(s): F03.90 - UNSPECIFIED DEMENTIA WITHOUT BEHAVIORAL DISTURBANCE (3) Hyperlipidemia Assessment/Plan: on lipitor Code(s): E78.5 - HYPERLIPIDEMIA, UNSPECIFIED Qualifiers: Hyperlipidemia type: pure hypercholesterolemia Qualified Code(s): E78.00 - Pure hypercholesterolemia, unspecified; E78.0 - Pure hypercholesterolemia (4) Hypertension Code(s): I10 - ESSENTIAL (PRIMARY) HYPERTENSION Qualifiers: Hypertension type: essential hypertension Qualified Code(s): I10 - Essential (primary) hypertension (5) Ischemic cardiomyopathy Code(s): I25.5 - ISCHEMIC CARDIOMYOPATHY (6) Trigeminal neuralgia Assessment/Plan: on tegretol Code(s): G50.0 - TRIGEMINAL NEURALGIA (7) UTI (urinary tract infection) Code(s): N39.0 - URINARY TRACT INFECTION, SITE NOT SPECIFIED (8) Pneumonia Code(s): J18.9 - PNEUMONIA, UNSPECIFIED ORGANISM (9) DVT (deep venous thrombosis) Code(s): I82.409 - ACUTE EMBOLISM AND THOMBOS UNSP DEEP VN UNSP LOWER EXTREMITY Qualifiers: DVT location: lower extremity Affected thrombotic vein of extremity: femoral Chronicity: acute Laterality: unspecified laterality Qualified Code(s): I82.419 - Acute embolism and thrombosis of unspecified femoral vein (10) Elevated CPK Code(s): R74.8 - ABNORMAL LEVELS OF OTHER SERUM ENZYMES plan can stop abx tomorrow rest as per the team
--- NOTE | 2019-11-18 17:46 | PN ---
Progress Note, Physician History of Present Illness: doing well - Current Medication List Current Medications: Active Medications Acetaminophen (Tylenol -) 650 mg PO Q6H PRN PRN Reason: FEVER Apixaban (Eliquis -) 5 mg PO BID [facility] Atorvastatin Calcium (Lipitor -) 80 mg PO HS [facility] Last Admin: 11/17/19 22:41 Dose: 80 mg Documented by: Carbamazepine (Tegretol Xr -) 200 mg PO BID [facility] Last Admin: 11/18/19 09:29 Dose: 200 mg Documented by: Memantine (Namenda -) 5 mg PO BID [facility] Last Admin: 11/18/19 09:27 Dose: 5 mg Documented by: Metoprolol Succinate (Toprol Xl -) 50 mg PO DAILY [facility] Last Admin: 11/18/19 09:27 Dose: 50 mg Documented by: Sacubitril/Valsartan (Entresto 49 Mg-51 Mg Tablet) 1 tab PO BID [facility] Last Admin: 11/18/19 09:28 Dose: 1 tab Documented by: Spironolactone (Aldactone -) 25 mg PO DAILY [facility] Last Admin: 11/18/19 09:27 Dose: 25 mg Documented by: - Objective Vital Signs: Vital Signs Temperature 97.8 F 11/18/19 13:00 Pulse Rate 64 11/18/19 13:00 Respiratory Rate 18 11/18/19 13:00 Blood Pressure 104/54 L 11/18/19 13:00 O2 Sat by Pulse Oximetry (%) 97 11/18/19 09:00 Constitutional: Yes: No Distress HENT: Yes: Atraumatic Neck: Yes: Supple Cardiovascular: Yes: Regular Rate and Rhythm Respiratory: Yes: CTA Bilaterally Gastrointestinal: Yes: Normal Bowel Sounds Extremities: Yes: WNL Edema: No Neurological: Yes: Alert, Oriented Labs: CBC, BMP 11/13/19 07:00 11/13/19 07:00 INR, PTT INR 0.97 (0.83-1.09) 11/08/19 17:00 Problem List - Problems (1) Weakness Code(s): R53.1 - WEAKNESS (2) Dementia Code(s): F03.90 - UNSPECIFIED DEMENTIA WITHOUT BEHAVIORAL DISTURBANCE (3) Hyperlipidemia Assessment/Plan: on lipitor Code(s): E78.5 - HYPERLIPIDEMIA, UNSPECIFIED Qualifiers: Hyperlipidemia type: pure hypercholesterolemia Qualified Code(s): E78.00 - Pure hypercholesterolemia, unspecified; E78.0 - Pure hypercholesterolemia (4) Hypertension Assessment/Plan: on meds monitor Code(s): I10 - ESSENTIAL (PRIMARY) HYPERTENSION Qualifiers: Hypertension type: essential hypertension Qualified Code(s): I10 - Essential (primary) hypertension (5) Ischemic cardiomyopathy Code(s): I25.5 - ISCHEMIC CARDIOMYOPATHY (6) Trigeminal neuralgia Assessment/Plan: on tegretol Code(s): G50.0 - TRIGEMINAL NEURALGIA (7) UTI (urinary tract infection) Assessment/Plan: on po abx Code(s): N39.0 - URINARY TRACT INFECTION, SITE NOT SPECIFIED (8) Pneumonia Code(s): J18.9 - PNEUMONIA, UNSPECIFIED ORGANISM (9) DVT (deep venous thrombosis) Code(s): I82.409 - ACUTE EMBOLISM AND THOMBOS UNSP DEEP VN UNSP LOWER EXTREMITY Qualifiers: DVT location: lower extremity Affected thrombotic vein of extremity: femoral Chronicity: acute Laterality: right Qualified Code(s): I82.411 - Acute embolism and thrombosis of right femoral vein (10) Elevated CPK Code(s): R74.8 - ABNORMAL LEVELS OF OTHER SERUM ENZYMES (11) Pulmonary embolism Code(s): I26.99 - OTHER PULMONARY EMBOLISM WITHOUT ACUTE COR PULMONALE Qualifiers: Pulmonary embolism type: unspecified Acute cor pulmonale presence: without acute cor pulmonale Assessment/Plan AWAITING TO BE DISCHARGE
[2019-11-18] MEDS: ATORVASTATIN CA 80 MG TABLET (FP) PO SCH (22:15)
--- NOTE | 2019-11-19 10:15 | PN ---
Progress Note (short form) - Note Progress Note: no cardiac events Hemodynamically stable Vital Signs Temperature 97.4 F L 11/19/19 06:00 Pulse Rate 60 11/19/19 06:00 Respiratory Rate 18 11/19/19 06:00 Blood Pressure 126/62 11/19/19 06:00 O2 Sat by Pulse Oximetry (%) 98 11/18/19 21:00 CBC, BMP 11/13/19 07:00 11/13/19 07:00 Current Medications Acetaminophen (Tylenol -) 650 mg PO Q6H PRN PRN Reason: FEVER Apixaban (Eliquis -) 5 mg PO BID [facility] Last Admin: 11/18/19 22:15 Dose: 5 mg Documented by: Atorvastatin Calcium (Lipitor -) 80 mg PO HS [facility] Last Admin: 11/18/19 22:15 Dose: 80 mg Documented by: Carbamazepine (Tegretol Xr -) 200 mg PO BID [facility] Last Admin: 11/18/19 22:15 Dose: 200 mg Documented by: Memantine (Namenda -) 5 mg PO BID [facility] Last Admin: 11/18/19 22:15 Dose: 5 mg Documented by: Metoprolol Succinate (Toprol Xl -) 50 mg PO DAILY [facility] Last Admin: 11/18/19 09:27 Dose: 50 mg Documented by: Sacubitril/Valsartan (Entresto 49 Mg-51 Mg Tablet) 1 tab PO BID [facility] Last Admin: 11/18/19 22:16 Dose: 1 tab Documented by: Spironolactone (Aldactone -) 25 mg PO DAILY [facility] Last Admin: 11/18/19 09:27 Dose: 25 mg Documented by: Assessment: 10/11/19 Echo: Normal LV size with mild LVH mod-severe decreased LVEF 30%, grade I DD, mod dilated RV with mod decreased RV fxn, septal AK, anterolateral and inferior HK, mild TR RVSP 41 mmHg 10/11/2019 Calcified right posterior meningioma, chronic lacunar stroke left IC 1. Generalized weakness -> enterococcus UTI 2. Right LE DVT and small embolus in left pulmonary artery 3. CAD with history of [place] 4. Ischemic cardiomyopathy LVEF 30% 5. HTN 6. Hypercholesterolemia 7. Right meningioma 8. Chronic lacunar stroke 9. 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 History of trigeminal neuralgia PLAN: 1. Continue Eliquis 5 bid, 2. Continue Entresto 49/51 mg BID and uptitrate as tolerated 3. Continue Spironolactone 25 mg QD 4. Continue Metoprolol ER 50 mg QD and continue Atorvastatin 80 qd 5. Consider further viability study as outpatient 6. Completed oral abx antibiotic course per ID 7. D/c planning to SNF with f/u in office
[2019-11-19] MEDS: SPIRONOLACTONE 25 MG TABLET (FP) PO SCH (11:10)
[2019-11-19] MEDS: APIXABAN 5 MG TABLET PO SCH (11:11)
[2019-11-19] MEDS: metoPROLOL SUCCINATE 25 MG TAB.SR.24H (FP) PO SCH (11:11)
[2019-11-19] MEDS: MEMANTINE HCL 5 MG TABLET (UD) PO SCH (11:11)
[2019-11-19] MEDS: SACUBITRIL/VALSARTAN 49 MG-51 MG TABLET PO SCH (11:14)
[2019-11-19] MEDS: carBAMazepine XR 200 MG TAB.ER.12H PO SCH (11:14)
[2019-11-19 11:25] VITALS: BP 130/76; PULSE 65; TEMP 98.6
--- NOTE | 2019-11-19 11:34 | PN ---
Progress Note, Physician History of Present Illness: stable no new issues - Current Medication List Current Medications: Active Medications Acetaminophen (Tylenol -) 650 mg PO Q6H PRN PRN Reason: FEVER Apixaban (Eliquis -) 5 mg PO BID [facility] Last Admin: 11/19/19 11:11 Dose: 5 mg Documented by: Atorvastatin Calcium (Lipitor -) 80 mg PO HS [facility] Last Admin: 11/18/19 22:15 Dose: 80 mg Documented by: Carbamazepine (Tegretol Xr -) 200 mg PO BID [facility] Last Admin: 11/19/19 11:14 Dose: 200 mg Documented by: Memantine (Namenda -) 5 mg PO BID [facility] Last Admin: 11/19/19 11:11 Dose: 5 mg Documented by: Metoprolol Succinate (Toprol Xl -) 50 mg PO DAILY [facility] Last Admin: 11/19/19 11:11 Dose: 50 mg Documented by: Sacubitril/Valsartan (Entresto 49 Mg-51 Mg Tablet) 1 tab PO BID [facility] Last Admin: 11/19/19 11:14 Dose: 1 tab Documented by: Spironolactone (Aldactone -) 25 mg PO DAILY [facility] Last Admin: 11/19/19 11:10 Dose: 25 mg Documented by: - Objective Vital Signs: Vital Signs Temperature 98.6 F 11/19/19 11:24 Pulse Rate 65 11/19/19 11:24 Respiratory Rate 18 11/19/19 11:24 Blood Pressure 130/76 11/19/19 11:24 O2 Sat by Pulse Oximetry (%) 98 11/18/19 21:00 Constitutional: Yes: No Distress, Calm Cardiovascular: Yes: S1, S2 Respiratory: Yes: Regular, CTA Bilaterally Gastrointestinal: Yes: Normal Bowel Sounds, Soft Musculoskeletal: Yes: WNL Extremities: Yes: WNL Neurological: Yes: Alert, Oriented Psychiatric: Yes: Alert, Oriented Labs: CBC, BMP 11/13/19 07:00 11/13/19 07:00 INR, PTT INR 0.97 (0.83-1.09) 11/08/19 17:00 Assessment/Plan Problem List - Problems (1) Weakness Code(s): R53.1 - WEAKNESS (2) Dementia Code(s): F03.90 - UNSPECIFIED DEMENTIA WITHOUT BEHAVIORAL DISTURBANCE (3) Hyperlipidemia Assessment/Plan: on lipitor Code(s): E78.5 - HYPERLIPIDEMIA, UNSPECIFIED Qualifiers: Hyperlipidemia type: pure hypercholesterolemia Qualified Code(s): E78.00 - Pure hypercholesterolemia, unspecified; E78.0 - Pure hypercholesterolemia (4) Hypertension Code(s): I10 - ESSENTIAL (PRIMARY) HYPERTENSION Qualifiers: Hypertension type: essential hypertension Qualified Code(s): I10 - Essential (primary) hypertension (5) Ischemic cardiomyopathy Code(s): I25.5 - ISCHEMIC CARDIOMYOPATHY (6) Trigeminal neuralgia Assessment/Plan: on tegretol Code(s): G50.0 - TRIGEMINAL NEURALGIA (7) UTI (urinary tract infection) Code(s): N39.0 - URINARY TRACT INFECTION, SITE NOT SPECIFIED (8) Pneumonia Code(s): J18.9 - PNEUMONIA, UNSPECIFIED ORGANISM (9) DVT (deep venous thrombosis) Code(s): I82.409 - ACUTE EMBOLISM AND THOMBOS UNSP DEEP VN UNSP LOWER EXTREMITY Qualifiers: DVT location: lower extremity Affected thrombotic vein of extremity: femoral Chronicity: acute Laterality: unspecified laterality Qualified Code(s): I82.419 - Acute embolism and thrombosis of unspecified femoral vein (10) Elevated CPK Code(s): R74.8 - ABNORMAL LEVELS OF OTHER SERUM ENZYMES plan continue current mgmt rest as per the team
--- NOTE | 2019-11-22 19:53 | DS ---
Physical Examination Vital Signs: Vital Signs Temperature 98.6 F 11/19/19 11:24 Pulse Rate 65 11/19/19 11:24 Respiratory Rate 18 11/19/19 11:24 Blood Pressure 130/76 11/19/19 11:24 O2 Sat by Pulse Oximetry (%) 98 11/19/19 09:00 Labs: CBC, BMP 11/13/19 07:00 11/13/19 07:00 Discharge Summary Problems reviewed: Yes Reason For Visit: WEAKNESS Condition: Stable - Instructions Diet, Activity, Other Instructions: completed antibiotic course Referrals: Holden Gallego MD [Staff Physician] - Disposition: HOME - Home Medications Comprehensive Discharge Medication List: Ambulatory Orders Carbamazepine [Carbamazepine ER] 200 mg PO BID 10/11/19 Atorvastatin Ca [Lipitor] 80 mg PO HS #30 tablet 10/13/19 Metoprolol Succinate [Toprol XL -] 25 mg PO DAILY #30 tab.sr.24h 10/13/19 Sacubitril/Valsartan [Entresto 24 mg-26 mg Tablet] 1 tab PO BID #60 tablet 10/13/19 Memantine HCl [Namenda -] 5 mg PO BID #60 tablet 10/14/19 Albuterol 2.5/Ipratropium 0.5 [Duoneb -] 1 amp NEB Q4H PRN amp 11/12/19 Apixaban [Eliquis -] 10 mg PO BID tablet 11/12/19 Spironolactone [Aldactone -] 25 mg PO DAILY #0 tablet 11/12/19 nd home
== END 2019-11-19 14:38 | disposition home or self-care (01) | DRG 280 ==
LOC: JER 13:41 → JERBED 20:19 → J5S 11-09 17:53 → JERBED 11-09 17:57 → J5S 11-09 18:42
PROVIDERS: ADMIT Internal Medicine; ATTEND Internal Medicine
DX: I82.411 Acute embolism and thrombosis of right femoral vein (principal); J18.9 Pneumonia, unspecified organism; I21.4 Non-ST elevation (NSTEMI) myocardial infarction; I26.99 Other pulmonary embolism without acute cor pulmonale; N39.0 Urinary tract infection, site not specified; I27.82 Chronic pulmonary embolism; E78.00 Pure hypercholesterolemia, unspecified; F03.90 Unspecified dementia, unspecified severity, without behavioral disturbance, psychotic disturbance, mood disturbance, and anxiety; G50.0 Trigeminal neuralgia; I10 Essential (primary) hypertension; I25.5 Ischemic cardiomyopathy; R74.8 Abnormal levels of other serum enzymes; D32.9 Benign neoplasm of meninges, unspecified; I25.10 Atherosclerotic heart disease of native coronary artery without angina pectoris; B95.2 Enterococcus as the cause of diseases classified elsewhere
CPT/HCPCS: 36415; 71046-TC-FY; 71275-TC; 80053; 81003; 82550; 82553; 83735; 83880; 84484; 85025; 85610; 85730; 87040; 87086; 87186; 93005; 93010; 93970-TC; 97116-GP; 97161-GP; 99285-25; J1644; J7030; Q9967

== ENCOUNTER 2019-11-21 17:22 | Emergency (ER) | payer BC, OTHER ==
--- NOTE | 2019-11-21 17:36 | PDOC ---
History of Present Illness - General Stated Complaint: FALL Time Seen by Provider: 11/21/19 17:33 - History of Present Illness Initial Comments: 11/24/19 00:57 88F PMH HTN, HLD, CAD, h/o PE/DVT on Eliquis BIBEMS from home after falling in kitchen while pulling hard to open kitchen door. Fell on her back, denies LOC, denies head strike. Denies preceding sx - cp/sob, n/v. Denies weakness, numbness, tingling. Endorsing increased left knee pain (chronic issue). Aide at bedside states she was on the other side of the door; per aide - behavior pre and post is baseline. normally ambulates w/ walker. NKDA Past History - Past Medical History Allergies/Adverse Reactions: Allergies Allergy/AdvReac Type Severity Reaction Status Date / Time No Known Allergies Allergy Verified 11/21/19 18:19 Home Medications: Ambulatory Orders Carbamazepine [Carbamazepine ER] 200 mg PO BID 10/11/19 Atorvastatin Ca [Lipitor] 80 mg PO HS #30 tablet 10/13/19 Metoprolol Succinate [Toprol XL -] 25 mg PO DAILY #30 tab.sr.24h 10/13/19 Sacubitril/Valsartan [Entresto 24 mg-26 mg Tablet] 1 tab PO BID #60 tablet 10/13/19 Memantine HCl [Namenda -] 5 mg PO BID #60 tablet 10/14/19 Albuterol 2.5/Ipratropium 0.5 [Duoneb -] 1 amp NEB Q4H PRN amp 11/12/19 Apixaban [Eliquis -] 10 mg PO BID tablet 11/12/19 Spironolactone [Aldactone -] 25 mg PO DAILY #0 tablet 11/12/19 Anemia: Yes Asthma: No Cancer: No Cardiac Disorders: No CVA: No COPD: No CHF: No Dementia: Yes Diabetes: No GI Disorders: No Disorders: No HTN: Yes Hypercholesterolemia: Yes Liver Disease: No Seizures: No Thyroid Disease: No - Surgical History Abdominal Surgery: No Appendectomy: No Cardiac Surgery: No Cholecystectomy: No Lung Surgery: No Neurologic Surgery: No Orthopedic Surgery: Yes (B/L knee surgery) - Immunization History Td Vaccination: Yes TDAP Vaccination: Yes Immunization Up to Date: Yes - Psycho Social/Smoking Cessation Hx Smoking History: Former smoker Have you smoked in the past 12 months: No If you are a former smoker, when did you quit?: 40 YEARS AGO 'Breaking Loose' booklet given: 10/11/19 Hx Alcohol Use: No Drug/Substance Use Hx: No Substance Use Type: None Hx Substance Use Treatment: No Review of Systems - Review of Systems Comments:: 11/24/19 00:57 CONSTITUTIONAL: Denies F / C HEENT: Denies headache, lightheadedness, dizziness, changes in vision / hearing, diplopia, blurry vision RESP: Denies SOB CARD: Denies chest pain GI: Denies N / V / D, abdominal pain, inability to tolerate PO : Denies dysuria, frequency SKIN: Denies rashes NEURO: Denies numbness, tingling, weakness MSK: endorses left knee pain (acute on chronic). Denies back pain *Physical Exam - Physical Exam 11/24/19 00:57 GEN: Well appearing, NAD, awake, alert, conversive HEENT: NC/AT, CN II-XII intact, EOMI, PERRL. No facial asymmetry. Moist mucous membranes. Normal voice speaking full sentences. Supple neck w/ FROM, no midline TTP. CV: S1/S2, RRR, no m/r/g LUNG: CTAB, no wheezes, crackles, rales, rhonchi. GI: Soft, ndnt, +BS, no guarding, no rebound. No masses. MSK: No effusion of knees. No LE edema. No obvious deformities of all extremities. SKIN: Warm, dry, no rashes appreciated. PSYCH: Normal mood and affect. NEURO: Moving all extremities well, left leg limited ROM (pt states this is chronic). sensation symmetric intact. BACK: no midline ttp; no stepoffs; no pelvic instability. Medical Decision Making - Medical Decision Making 11/21/19 18:11 88F BIBEMS from home after mechanical fall. She is on AC. No LOC or headstrike. Reliable historian. Increased pain of the left knee but otherwise unremarkable exam. - CT head and neck - XR left knee 11/21/19 19:11 CT head and neck reports reviewed - no acute pathology DC home Discharge - Discharge Information Problems reviewed: Yes Clinical Impression/Diagnosis: Fall Condition: Stable Disposition: HOME - Admission No - Follow up/Referral - Patient Discharge Instructions Patient Printed Discharge Instructions: How to Prevent Falls Additional Instructions: Your CAT scan and X-Rays were reassuring. Follow up with your primary care doctor in the next 2-5 days. Return to the Emergency Department if you experience: - fainting, loss of consciousness, change in behavior - numbness, tingling, weakness - changes in vision, hearing - worsening pain - anything that concerns you - Post Discharge Activity
--- NOTE | 2019-11-21 18:08 | PDOC ---
Documentation entered by Bruce Lopez SCRIBE, acting as scribe for Pilar Montoya MD. Pilar Montoya MD: This documentation has been prepared by the John zamora Nirvannie, SCRIBE, under my direction and personally reviewed by me in its entirety. I confirm that the documentation accurately reflects all work, treatment, procedures, and medical decision making performed by me. Attending Attestation - Resident Resident Name: HaroonSeth - ED Attending Attestation I have performed the following: I have examined & evaluated the patient, The case was reviewed & discussed with the resident, I agree w/resident's findings & plan, Exceptions are as noted - HPI HPI: 11/21/19 18:09 The patient is an 88 year old with a past medical history of trigeminal neuralgia, dementia, HTN, HLD, urosepsis, recent diagnosis of pneumonia, right femoral DVT (on Eliquis), and arthritis who presents to the ED s/p fall with chronic knee pain. As per patient, she was opening the door at which time she fell backwards. While in the ED, the patients only complaint is chronic knee pain secondary to arthritis. She denies any lightheadedness, dizziness, diaphoresis, chest pain, or shortness of breath. Allergies: NKDA - Physicial Exam PE: 11/21/19 18:16 Well-nourished well-developed conversant 88-year-old female with complaint of left knee pain after falling backwards Head no scalp laceration, no hematoma noted Neck no midline cervical vertebral tenderness Lungs are clear to auscultation CVS is regular rate and rhythm S1-S2 Extremities bilateral surgical incisions well-healed, left patellar area tender to palpation, no quadriceps deficit No appreciable deformity Skin warm and dry, no lacerations Neuro alert and conversant - Medical Decision Making 11/21/19 18:[address] scanning of the head, left knee radiographs Patient just discharged from the hospital 2 days ago
[2019-11-21 18:19] VITALS: BP 140/77; PULSE 73; TEMP 98; BMI 30.2
--- NOTE | 2019-11-24 11:14 | EKG ---
Test Reason : Blood Pressure : / mmHG Vent. Rate : 068 BPM Atrial Rate : 068 BPM P-R Int : 184 ms QRS Dur : 098 ms QT Int : 428 ms P-R-T Axes : -20 -07 017 degrees QTc Int : 455 ms NORMAL SINUS RHYTHM WITH SINUS ARRHYTHMIA MINIMAL VOLTAGE CRITERIA FOR LVH, MAY BE NORMAL VARIANT BORDERLINE ECG WHEN COMPARED WITH ECG OF 08-NOV-2019 18:17, T WAVE INVERSION NO LONGER EVIDENT IN INFERIOR LEADS T WAVE INVERSION NO LONGER EVIDENT IN ANTERIOR LEADS Confirmed by MD EDWIN, VERA ([id number]) on 11/24/2019 11:14:47 AM Referred By: Confirmed By:VERA PINEDA MD
== END 2019-11-21 20:04 | disposition home or self-care (01) ==
LOC: JER 17:22
DX: M25.562 Pain in left knee (principal); I10 Essential (primary) hypertension; E78.5 Hyperlipidemia, unspecified; I25.10 Atherosclerotic heart disease of native coronary artery without angina pectoris; Z86.711 Personal history of pulmonary embolism; Z79.01 Long term (current) use of anticoagulants; Z87.891 Personal history of nicotine dependence
CPT/HCPCS: 70450-TC; 72125-TC; 73560-TC-LT-FY; 93005; 93010; 99284-25

== ENCOUNTER 2020-11-27 19:45 | Emergency (ER) | payer BC, OTHER ==
[2020-11-27 19:56] VITALS: BP 185/100; PULSE 85; TEMP 98.2; BMI 30.2
[2020-11-27 21:03] LABS: HEMATOCRIT 38.4 % (32.4-45.2); HEMOGLOBIN 12.4 GM/dL (10.7-15.3); MCH 30.7 pg (25.7-33.7); MCHC 32.3 g/dl (32.0-36.0); MEAN CELL VOLUME 95.1 fl (80-96); MEAN PLT VOLUME 9.6 fl (7.5-11.1); PLATELET COUNT 207 K/MM3 (134-434); RBC 4.03 M/mm3 (3.60-5.2); RDW 13.4 % (11.6-15.6); WHITE BLOOD COUNT 6.5 K/mm3 (4.0-10.0)
[2020-11-27 21:04] LABS: INR 0.94 (0.83-1.09); PROTHROMBIN TIME (PATIENT) 11.6 SEC (9.7-13.0)
== END 2020-11-27 22:43 | disposition short-term general hospital (02) ==
LOC: JER 19:45
DX: S00.03XA Contusion of scalp, initial encounter (principal); S01.01XA Laceration without foreign body of scalp, initial encounter
CPT/HCPCS: 36415; 36430; 70450-TC; 71045-TC-FY; 72125-TC; 80053; 80307; 82550; 84484; 85027; 85610; 85730; 86922; 99291; 99292; C9803; P9058; U0003

== ENCOUNTER 2020-12-19 16:03 | Inpatient (IN) | payer BC, OTHER ==
[2020-12-19 20:33] LABS: BASO % 0.7 % (0-2.0); EOS % 0.1 % (0-4.5); HEMOGLOBIN 9.4 GM/dL (10.7-15.3); LYMPH % 4.5 % (8-40); MCH 29.9 pg (25.7-33.7); MCHC 32.6 g/dl (32.0-36.0); MEAN CELL VOLUME 91.7 fl (80-96); MEAN PLT VOLUME 10.1 fl (7.5-11.1); MONO % 6.5 % (3.8-10.2); NEUT % 88.2 % (42.8-82.8); PLATELET COUNT 204 K/MM3 (134-434); RBC 3.16 M/mm3 (3.60-5.2); WHITE BLOOD COUNT 15.8 K/mm3 (4.0-10.0)
[2020-12-19 20:40] LABS: INR 1.09 (0.83-1.09); PROTHROMBIN TIME (PATIENT) 13.4 SEC (9.7-13.0)
[2020-12-19 20:43] LABS: ACTIVATED PTT 27.9 SECONDS (25.2-36.5)
[2020-12-19 20:55] LABS: CALCIUM 8.5 mg/dL (8.5-10.1)
[2020-12-19 20:56] LABS: ALBUMIN 2.2 g/dl (3.4-5.0); BLOOD UREA NITROGEN 25.5 mg/dL (7-18)
[2020-12-19 20:59] LABS: CREATININE 1.1 mg/dL (0.55-1.3)
[2020-12-19 21:01] LABS: BILIRUBIN,TOTAL 0.7 mg/dL (0.2-1); TOT PROT 7.5 g/dl (6.4-8.2)
[2020-12-19 21:18] LABS: EPI CELLS 15 /uL (0-25.1); HYALINE CASTS 1 /uL (0-3.1); URINE APPEARANCE CLOUDY; URINE BACTERIA >9,000 /uL (0-1359); URINE BILIRUBIN NEGATIVE (NEGATIVE); URINE COLOR DK YELLOW; URINE GLUCOSE (UA) NEGATIVE (NEGATIVE); URINE KETONE NEGATIVE (NEGATIVE); URINE LEUK ESTERASE 1+ (NEGATIVE); URINE NITRITE NEGATIVE (NEGATIVE); URINE PROTEIN 1+ (NEGATIVE); URINE RBC 1 /uL (0-23.9); URINE WBC 44 /uL (0-25.8)
[2020-12-19] MEDS ORDERED: CEFTRIAXONE 1,000 MG in DEXTROSE 5%-WATER - 50 ML IVPB ONE (21:29)
[2020-12-19] MEDS ORDERED: CEFTRIAXONE 1 GM/50 ML BAG ONE (21:44)
[2020-12-20] MEDS ORDERED: SODIUM CHLORIDE 250 ML IV STA (01:20)
[2020-12-20 08:01] LABS: HEMATOCRIT 29.2 % (32.4-45.2); HEMOGLOBIN 9.6 GM/dL (10.7-15.3); MCH 30.3 pg (25.7-33.7); MCHC 32.8 g/dl (32.0-36.0); MEAN CELL VOLUME 92.2 fl (80-96); MEAN PLT VOLUME 10.1 fl (7.5-11.1); PLATELET COUNT 191 K/MM3 (134-434); RBC 3.17 M/mm3 (3.60-5.2); WHITE BLOOD COUNT 15.2 K/mm3 (4.0-10.0)
[2020-12-20 08:10] LABS: CALCIUM 8.4 mg/dL (8.5-10.1)
[2020-12-20 08:11] LABS: BLOOD UREA NITROGEN 22.4 mg/dL (7-18); MAGNESIUM 2.5 mg/dL (1.8-2.4)
[2020-12-20 08:13] LABS: IRON SERUM 16 ug/dL (50-175); PHOSPHOROUS 2.4 mg/dL (2.5-4.9); TOTAL IRON BINDING CAPACITY 177 ug/dL (250-450)
[2020-12-20 08:15] LABS: BILIRUBIN,TOTAL 0.6 mg/dL (0.2-1); TOT PROT 7.3 g/dl (6.4-8.2)
[2020-12-20] MEDS ORDERED: PT OWN MED DRAWER 7, Y5N ONE ×2 (09:03→21:47)
[2020-12-20] MEDS ORDERED: metoPROLOL SUCCINATE 25 MG TAB.SR.24H (FP) ONE (09:04)
[2020-12-20] MEDS: metoPROLOL SUCCINATE 25 MG TAB.SR.24H (FP) PO SCH (09:30)
[2020-12-20] MEDS: SACUBITRIL/VALSARTAN 24 MG-26 MG TABLET PO SCH ×2 (09:30→22:48)
[2020-12-20 16:10] VITALS: BMI 28.0
[2020-12-20] MEDS ORDERED: CEFTRIAXONE 1,000 MG in DEXTROSE 5%-WATER - 50 ML IVPB ONE (21:00)
[2020-12-20] MEDS ORDERED: CEFTRIAXONE 1 GM in DEXTROSE 5%-WATER - 50 ML IVPB ONE (22:00)
[2020-12-20] MEDS ORDERED: cefTRIAXone SODIUM 1 GM VIAL ONE (22:34)
[2020-12-20] MEDS ORDERED: DEXTROSE 5%-WATER - 50 ML IVPB ONE (22:34)
[2020-12-20] MEDS: ATORVASTATIN CA 80 MG TABLET (FP) PO SCH (22:47)
[2020-12-21 08:37] LABS: BASO % 0.3 % (0-2.0); EOS % 0.2 % (0-4.5); HEMATOCRIT 30.8 % (32.4-45.2); HEMOGLOBIN 10.1 GM/dL (10.7-15.3); LYMPH % 6.2 % (8-40); MCH 30.7 pg (25.7-33.7); MCHC 32.9 g/dl (32.0-36.0); MEAN CELL VOLUME 93.1 fl (80-96); MONO % 10.9 % (3.8-10.2); NEUT % 82.4 % (42.8-82.8); PLATELET COUNT 220 K/MM3 (134-434); RBC 3.31 M/mm3 (3.60-5.2); WHITE BLOOD COUNT 12.5 K/mm3 (4.0-10.0)
[2020-12-21 09:11] LABS: CALCIUM 8.4 mg/dL (8.5-10.1)
[2020-12-21 09:12] LABS: MAGNESIUM 2.2 mg/dL (1.8-2.4)
[2020-12-21 09:15] LABS: PHOSPHOROUS 2.3 mg/dL (2.5-4.9)
[2020-12-21 09:16] LABS: BILIRUBIN,TOTAL 0.7 mg/dL (0.2-1)
[2020-12-21 09:17] LABS: TOT PROT 7.2 g/dl (6.4-8.2)
[2020-12-21] MEDS ORDERED: PT OWN MED DRAWER 7, Y5N ONE ×2 (09:28→22:23)
[2020-12-21] MEDS: metoPROLOL SUCCINATE 25 MG TAB.SR.24H (FP) PO SCH (09:53)
[2020-12-21] MEDS: SACUBITRIL/VALSARTAN 24 MG-26 MG TABLET PO SCH ×2 (09:53→22:26)
[2020-12-21] MEDS ORDERED: cefTRIAXone SODIUM 1 GM VIAL ONE (20:52)
[2020-12-21] MEDS ORDERED: DEXTROSE 5%-WATER - 50 ML IVPB ONE (20:52)
[2020-12-21] MEDS: ATORVASTATIN CA 80 MG TABLET (FP) PO SCH (22:13)
[2020-12-21] MEDS: CEFTRIAXONE 1 GM in DEXTROSE 5%-WATER - 50 ML IVPB SCH (22:13)
[2020-12-22] MEDS ORDERED: DEXTROSE 5%-WATER - 50 ML IVPB ONE (10:09)
[2020-12-22] MEDS ORDERED: cefTRIAXone SODIUM 1 GM VIAL ONE (10:09)
[2020-12-22] MEDS: CEFTRIAXONE 1 GM in DEXTROSE 5%-WATER - 50 ML IVPB SCH (10:13)
[2020-12-22] MEDS: metoPROLOL SUCCINATE 25 MG TAB.SR.24H (FP) PO SCH (10:13)
[2020-12-22] MEDS: SACUBITRIL/VALSARTAN 24 MG-26 MG TABLET PO SCH ×2 (10:23→21:17)
[2020-12-22] MEDS: ATORVASTATIN CA 80 MG TABLET (FP) PO SCH (21:17)
[2020-12-23] MEDS ORDERED: PT OWN MED DRAWER 7, Y5N ONE (10:02)
[2020-12-23] MEDS ORDERED: cefTRIAXone SODIUM 1 GM VIAL ONE (10:02)
[2020-12-23] MEDS ORDERED: DEXTROSE 5%-WATER - 50 ML IVPB ONE (10:03)
[2020-12-23] MEDS: SACUBITRIL/VALSARTAN 24 MG-26 MG TABLET PO SCH ×2 (10:09→21:15)
[2020-12-23] MEDS: CEFTRIAXONE 1 GM in DEXTROSE 5%-WATER - 50 ML IVPB SCH (10:09)
[2020-12-23] MEDS: metoPROLOL SUCCINATE 25 MG TAB.SR.24H (FP) PO SCH (10:12)
[2020-12-23] MEDS: ATORVASTATIN CA 80 MG TABLET (FP) PO SCH (21:15)
[2020-12-24] MEDS ORDERED: PT OWN MED DRAWER 7, Y5N ONE (09:42)
[2020-12-24] MEDS ORDERED: cefTRIAXone SODIUM 1 GM VIAL ONE (09:43)
[2020-12-24] MEDS ORDERED: DEXTROSE 5%-WATER - 50 ML IVPB ONE (09:43)
[2020-12-24] MEDS: metoPROLOL SUCCINATE 25 MG TAB.SR.24H (FP) PO SCH (09:48)
[2020-12-24] MEDS: SACUBITRIL/VALSARTAN 24 MG-26 MG TABLET PO SCH ×2 (09:48→21:36)
[2020-12-24] MEDS: CEFTRIAXONE 1 GM in DEXTROSE 5%-WATER - 50 ML IVPB SCH (09:49)
[2020-12-24 10:03] LABS: BASO % 0.1 % (0-2.0); EOS % 0.1 % (0-4.5); HEMATOCRIT 30.2 % (32.4-45.2); HEMOGLOBIN 9.7 GM/dL (10.7-15.3); MCH 29.6 pg (25.7-33.7); MCHC 32.1 g/dl (32.0-36.0); MEAN CELL VOLUME 92.3 fl (80-96); MEAN PLT VOLUME 10.1 fl (7.5-11.1); MONO % 6.6 % (3.8-10.2); NEUT % 88.2 % (42.8-82.8); PLATELET COUNT 222 K/MM3 (134-434); RBC 3.27 M/mm3 (3.60-5.2); WHITE BLOOD COUNT 17.4 K/mm3 (4.0-10.0)
[2020-12-24 10:24] LABS: CALCIUM 8.5 mg/dL (8.5-10.1)
[2020-12-24 10:26] LABS: ALBUMIN 1.8 g/dl (3.4-5.0); BLOOD UREA NITROGEN 16.9 mg/dL (7-18)
[2020-12-24 10:29] LABS: BILIRUBIN,TOTAL 0.6 mg/dL (0.2-1); CREATININE 1.1 mg/dL (0.55-1.3); TOT PROT 7.1 g/dl (6.4-8.2)
[2020-12-24] MEDS ORDERED: ACETAMINOPHEN 325 MG TABLET (FP) ONE (21:29)
[2020-12-24] MEDS: ATORVASTATIN CA 80 MG TABLET (FP) PO SCH (21:36)
[2020-12-24] MEDS: ACETAMINOPHEN 325 MG TABLET (FP) PO PRN (21:41)
[2020-12-24] MEDS ORDERED: POTASSIUM CHLORIDE TABS 20 MEQ TABLET.ER (FP) PO ONE (22:42)
[2020-12-25] MEDS ORDERED: cefTRIAXone SODIUM 1 GM VIAL ONE (08:54)
[2020-12-25] MEDS ORDERED: DEXTROSE 5%-WATER - 50 ML IVPB ONE (08:54)
[2020-12-25] MEDS: SACUBITRIL/VALSARTAN 24 MG-26 MG TABLET PO SCH ×2 (09:14→21:59)
[2020-12-25] MEDS: metoPROLOL SUCCINATE 25 MG TAB.SR.24H (FP) PO SCH (09:14)
[2020-12-25] MEDS: CEFTRIAXONE 1 GM in DEXTROSE 5%-WATER - 50 ML IVPB SCH (09:14)
[2020-12-25 09:48] LABS: HEMATOCRIT 30.3 % (32.4-45.2); HEMOGLOBIN 9.7 GM/dL (10.7-15.3); MCH 29.6 pg (25.7-33.7); MCHC 31.9 g/dl (32.0-36.0); MEAN CELL VOLUME 92.5 fl (80-96); MEAN PLT VOLUME 9.8 fl (7.5-11.1); PLATELET COUNT 250 K/MM3 (134-434); RBC 3.27 M/mm3 (3.60-5.2); WHITE BLOOD COUNT 17.5 K/mm3 (4.0-10.0)
[2020-12-25 10:30] LABS: CALCIUM 8.5 mg/dL (8.5-10.1)
[2020-12-25 10:31] LABS: ALBUMIN 1.7 g/dl (3.4-5.0)
[2020-12-25 10:32] LABS: TOT PROT 7.3 g/dl (6.4-8.2)
[2020-12-25 10:34] LABS: CREATININE 1.3 mg/dL (0.55-1.3)
[2020-12-25 10:36] LABS: BILIRUBIN,TOTAL 0.6 mg/dL (0.2-1)
[2020-12-25] MEDS ORDERED: PT OWN MED DRAWER 7, Y5N ONE (20:46)
[2020-12-25] MEDS: ATORVASTATIN CA 80 MG TABLET (FP) PO SCH (21:59)
[2020-12-26] MEDS ORDERED: PT OWN MED DRAWER 7, Y5N ONE ×3 (11:33→18:35)
[2020-12-26] MEDS ORDERED: cefTRIAXone SODIUM 1 GM VIAL ONE (11:33)
[2020-12-26] MEDS ORDERED: DEXTROSE 5%-WATER - 50 ML IVPB ONE (11:33)
[2020-12-26] MEDS: CEFTRIAXONE 1 GM in DEXTROSE 5%-WATER - 50 ML IVPB SCH (11:48)
[2020-12-26] MEDS: ACETAMINOPHEN 325 MG TABLET (FP) PO PRN (11:49)
[2020-12-26] MEDS: SACUBITRIL/VALSARTAN 24 MG-26 MG TABLET PO SCH (11:49)
[2020-12-26] MEDS: metoPROLOL SUCCINATE 25 MG TAB.SR.24H (FP) PO SCH (11:49)
[2020-12-26] MEDS ORDERED: carBAMazepine 200 MG TABLET PO SCH (15:45)
[2020-12-26] MEDS: HEPARIN NA (PORCINE) 5,000 UNITS/ML 1ML VIAL SQ SCH (21:36)
[2020-12-26] MEDS: ATORVASTATIN CA 80 MG TABLET (FP) PO SCH (21:36)
[2020-12-26] MEDS: MEMANTINE HCL 5 MG TABLET (UD) PO SCH (21:36)
[2020-12-26] MEDS: carBAMazepine XR 200 MG TAB.ER.12H PO SCH (21:37)
[2020-12-27] MEDS: ACETAMINOPHEN 325 MG TABLET (FP) PO PRN ×2 (05:53→08:00)
[2020-12-27] MEDS ORDERED: PT OWN MED DRAWER 7, Y5N ONE (10:30)
[2020-12-27] MEDS ORDERED: DEXTROSE 5%-WATER - 50 ML IVPB ONE (10:31)
[2020-12-27] MEDS ORDERED: cefTRIAXone SODIUM 1 GM VIAL ONE (10:31)
[2020-12-27] MEDS: HEPARIN NA (PORCINE) 5,000 UNITS/ML 1ML VIAL SQ SCH ×2 (11:21→22:14)
[2020-12-27] MEDS: CEFTRIAXONE 1 GM in DEXTROSE 5%-WATER - 50 ML IVPB SCH (11:21)
[2020-12-27] MEDS: VALSARTAN 80 MG TABLET PO SCH (11:22)
[2020-12-27] MEDS: MEMANTINE HCL 5 MG TABLET (UD) PO SCH ×2 (11:22→22:13)
[2020-12-27] MEDS: ASPIRIN COATED 81 MG TABLET.EC PO SCH (11:22)
[2020-12-27] MEDS: SPIRONOLACTONE 25 MG TABLET PO SCH (11:22)
[2020-12-27] MEDS: carBAMazepine XR 200 MG TAB.ER.12H PO SCH ×2 (11:23→22:15)
[2020-12-27] MEDS: metoPROLOL SUCCINATE 25 MG TAB.SR.24H (FP) PO SCH (11:23)
[2020-12-27] MEDS: ATORVASTATIN CA 80 MG TABLET (FP) PO SCH (22:14)
[2020-12-28] MEDS: ACETAMINOPHEN 325 MG TABLET (FP) PO PRN ×2 (02:01→23:01)
[2020-12-28] MEDS ORDERED: PIPERACILLIN/TAZOBACTAM 3.375 GM VIAL IVPB ONE ×2 (10:22→16:57)
[2020-12-28] MEDS ORDERED: DEXTROSE 5%-WATER - 50 ML IVPB ONE ×2 (10:22→16:57)
[2020-12-28] MEDS: VALSARTAN 80 MG TABLET PO SCH (10:25)
[2020-12-28] MEDS: ASPIRIN COATED 81 MG TABLET.EC PO SCH (10:25)
[2020-12-28] MEDS: HEPARIN NA (PORCINE) 5,000 UNITS/ML 1ML VIAL SQ SCH ×2 (10:25→23:05)
[2020-12-28] MEDS: metoPROLOL SUCCINATE 25 MG TAB.SR.24H (FP) PO SCH (10:25)
[2020-12-28] MEDS: SPIRONOLACTONE 25 MG TABLET PO SCH (10:25)
[2020-12-28] MEDS: MEMANTINE HCL 5 MG TABLET (UD) PO SCH ×2 (10:26→23:03)
[2020-12-28] MEDS: carBAMazepine XR 200 MG TAB.ER.12H PO SCH ×2 (10:27→23:04)
[2020-12-28] MEDS: PIPERACILLIN/TAZOB 3.375 GM 3.375 GM in DEXTROSE 5%-WATER - 50 ML IVPB SCH ×2 (10:27→17:55)
[2020-12-28] MEDS ORDERED: PT OWN MED DRAWER 7, Y5N ONE ×2 (17:05→21:59)
[2020-12-28] MEDS: ATORVASTATIN CA 80 MG TABLET (FP) PO SCH (23:03)
[2020-12-29] MEDS ORDERED: DEXTROSE 5%-WATER - 50 ML IVPB ONE ×3 (00:58→16:23)
[2020-12-29] MEDS ORDERED: PIPERACILLIN/TAZOBACTAM 3.375 GM VIAL IVPB ONE ×3 (00:58→16:22)
[2020-12-29] MEDS: PIPERACILLIN/TAZOB 3.375 GM 3.375 GM in DEXTROSE 5%-WATER - 50 ML IVPB SCH ×3 (01:18→17:35)
[2020-12-29] MEDS ORDERED: PT OWN MED DRAWER 7, Y5N ONE ×2 (09:36→20:44)
[2020-12-29] MEDS: HEPARIN NA (PORCINE) 5,000 UNITS/ML 1ML VIAL SQ SCH (10:05)
[2020-12-29] MEDS: metoPROLOL SUCCINATE 25 MG TAB.SR.24H (FP) PO SCH (10:05)
[2020-12-29] MEDS: VALSARTAN 80 MG TABLET PO SCH (10:05)
[2020-12-29] MEDS: ASPIRIN COATED 81 MG TABLET.EC PO SCH (10:05)
[2020-12-29] MEDS: SPIRONOLACTONE 25 MG TABLET PO SCH (10:05)
[2020-12-29] MEDS: MEMANTINE HCL 5 MG TABLET (UD) PO SCH ×2 (10:06→22:12)
[2020-12-29] MEDS: carBAMazepine XR 200 MG TAB.ER.12H PO SCH ×2 (10:07→22:12)
[2020-12-29 10:24] LABS: BASO % 0.4 % (0-2.0); EOS % 0.3 % (0-4.5); HEMATOCRIT 27.4 % (32.4-45.2); LYMPH % 5.7 % (8-40); MCH 30.3 pg (25.7-33.7); MCHC 32.8 g/dl (32.0-36.0); MEAN CELL VOLUME 92.5 fl (80-96); MEAN PLT VOLUME 9.3 fl (7.5-11.1); MONO % 7.7 % (3.8-10.2); NEUT % 85.9 % (42.8-82.8); PLATELET COUNT 310 K/MM3 (134-434); RBC 2.97 M/mm3 (3.60-5.2); RDW 14.5 % (11.6-15.6); WHITE BLOOD COUNT 13.4 K/mm3 (4.0-10.0)
[2020-12-29 11:00] LABS: CALCIUM 8.2 mg/dL (8.5-10.1)
[2020-12-29 11:01] LABS: ALBUMIN 1.6 g/dl (3.4-5.0); BLOOD UREA NITROGEN 33.5 mg/dL (7-18)
[2020-12-29 11:04] LABS: CREATININE 1.7 mg/dL (0.55-1.3)
[2020-12-29 11:05] LABS: BILIRUBIN,TOTAL 0.5 mg/dL (0.2-1)
[2020-12-29 11:06] LABS: TOT PROT 7.2 g/dl (6.4-8.2)
[2020-12-29] MEDS ORDERED: SODIUM CHLORIDE 1,000 ML IV SCH (13:45)
[2020-12-29] MEDS: AMINO ACIDS/PROTEIN HYDROLYS 30 ML LIQUID.PKT PO SCH (16:42)
[2020-12-29] MEDS: DEXTROSE 5%-0.45% SALINE 1,000 ML IV SCH (16:43)
[2020-12-29] MEDS: PANTOPRAZOLE SODIUM 40 MG VIAL IVPUSH SCH (22:12)
[2020-12-29] MEDS: ATORVASTATIN CA 80 MG TABLET (FP) PO SCH (22:12)
[2020-12-30] MEDS: PIPERACILLIN/TAZOB 3.375 GM 3.375 GM in DEXTROSE 5%-WATER - 50 ML IVPB SCH ×3 (02:25→17:34)
[2020-12-30] MEDS ORDERED: PIPERACILLIN/TAZOBACTAM 3.375 GM VIAL IVPB ONE ×3 (03:00→17:21)
[2020-12-30] MEDS ORDERED: DEXTROSE 5%-WATER - 50 ML IVPB ONE ×3 (03:00→17:21)
[2020-12-30] MEDS: DEXTROSE 5%-0.45% SALINE 1,000 ML IV SCH ×3 (07:47→22:13)
[2020-12-30 07:57] LABS: BASO % 0.3 % (0-2.0); EOS % 0.4 % (0-4.5); HEMATOCRIT 27.9 % (32.4-45.2); HEMOGLOBIN 9.1 GM/dL (10.7-15.3); MCH 30.1 pg (25.7-33.7); MCHC 32.6 g/dl (32.0-36.0); MEAN CELL VOLUME 92.4 fl (80-96); MEAN PLT VOLUME 9.1 fl (7.5-11.1); MONO % 8.5 % (3.8-10.2); NEUT % 85.8 % (42.8-82.8); PLATELET COUNT 332 K/MM3 (134-434); RBC 3.02 M/mm3 (3.60-5.2); RDW 14.4 % (11.6-15.6); WHITE BLOOD COUNT 12.4 K/mm3 (4.0-10.0)
[2020-12-30 08:21] LABS: ALBUMIN 1.5 g/dl (3.4-5.0)
[2020-12-30 08:24] LABS: CREATININE 1.7 mg/dL (0.55-1.3)
[2020-12-30 08:26] LABS: BILIRUBIN,TOTAL 0.4 mg/dL (0.2-1); TOT PROT 7.1 g/dl (6.4-8.2)
[2020-12-30] MEDS ORDERED: PT OWN MED DRAWER 7, Y5N ONE ×2 (11:11→21:52)
[2020-12-30] MEDS: AMINO ACIDS/PROTEIN HYDROLYS 30 ML LIQUID.PKT PO SCH ×2 (11:17→17:32)
[2020-12-30] MEDS: PANTOPRAZOLE SODIUM 40 MG VIAL IVPUSH SCH ×2 (11:17→22:15)
[2020-12-30] MEDS: carBAMazepine XR 200 MG TAB.ER.12H PO SCH ×2 (11:18→22:15)
[2020-12-30] MEDS: MEMANTINE HCL 5 MG TABLET (UD) PO SCH ×2 (11:18→22:15)
[2020-12-30] MEDS: metoPROLOL SUCCINATE 25 MG TAB.SR.24H (FP) PO SCH (11:18)
[2020-12-30 13:02] LABS: EPI CELLS >36 /uL (0-25.1); HYALINE CASTS 7 /uL (0-3.1); URINE APPEARANCE TURBID; URINE BACTERIA 112 /uL (0-1359); URINE BILIRUBIN NEGATIVE (NEGATIVE); URINE COLOR YELLOW; URINE GLUCOSE (UA) NEGATIVE (NEGATIVE); URINE KETONE NEGATIVE (NEGATIVE); URINE LEUK ESTERASE NEGATIVE (NEGATIVE); URINE NITRITE NEGATIVE (NEGATIVE); URINE PROTEIN 1+ (NEGATIVE); URINE RBC 12 /uL (0-23.9); URINE UROBILINOGEN 0.2 mg/dL (0.2-1.0)
[2020-12-30 16:05] LABS: URINE WBC 75.2 /uL (0-25.8)
[2020-12-30] MEDS: ATORVASTATIN CA 80 MG TABLET (FP) PO SCH (22:14)
[2020-12-31] MEDS ORDERED: PIPERACILLIN/TAZOBACTAM 3.375 GM VIAL IVPB ONE ×3 (01:23→16:58)
[2020-12-31] MEDS: PIPERACILLIN/TAZOB 3.375 GM 3.375 GM in DEXTROSE 5%-WATER - 50 ML IVPB SCH ×3 (01:27→17:05)
[2020-12-31] MEDS: AMINO ACIDS/PROTEIN HYDROLYS 30 ML LIQUID.PKT PO SCH ×2 (08:10→17:05)
[2020-12-31 08:27] LABS: BASO % 0.1 % (0-2.0); EOS % 0.4 % (0-4.5); HEMATOCRIT 26.4 % (32.4-45.2); HEMOGLOBIN 8.6 GM/dL (10.7-15.3); LYMPH % 5.7 % (8-40); MCHC 32.4 g/dl (32.0-36.0); MEAN CELL VOLUME 92.7 fl (80-96); MEAN PLT VOLUME 9.3 fl (7.5-11.1); MONO % 10.6 % (3.8-10.2); NEUT % 83.2 % (42.8-82.8); PLATELET COUNT 308 K/MM3 (134-434); RBC 2.85 M/mm3 (3.60-5.2); RDW 14.4 % (11.6-15.6); WHITE BLOOD COUNT 12.6 K/mm3 (4.0-10.0)
[2020-12-31 08:36] LABS: ALBUMIN 1.3 g/dl (3.4-5.0); CALCIUM 7.4 mg/dL (8.5-10.1)
[2020-12-31 08:37] LABS: BLOOD UREA NITROGEN 31.3 mg/dL (7-18)
[2020-12-31 08:39] LABS: CREATININE 1.6 mg/dL (0.55-1.3)
[2020-12-31 08:41] LABS: BILIRUBIN,TOTAL 0.4 mg/dL (0.2-1); TOT PROT 6.4 g/dl (6.4-8.2)
[2020-12-31] MEDS ORDERED: DEXTROSE 5%-WATER - 50 ML IVPB ONE ×2 (08:59→16:58)
[2020-12-31] MEDS: metoPROLOL SUCCINATE 25 MG TAB.SR.24H (FP) PO SCH (09:05)
[2020-12-31] MEDS: MEMANTINE HCL 5 MG TABLET (UD) PO SCH ×2 (09:06→21:00)
[2020-12-31] MEDS: PANTOPRAZOLE SODIUM 40 MG VIAL IVPUSH SCH ×2 (09:06→21:00)
[2020-12-31] MEDS: carBAMazepine XR 200 MG TAB.ER.12H PO SCH ×2 (09:06→21:00)
[2020-12-31] MEDS: DEXTROSE 5%-0.45% SALINE 1,000 ML IV SCH ×2 (13:06→21:00)
[2020-12-31] MEDS ORDERED: PT OWN MED DRAWER 7, Y5N ONE (20:54)
[2020-12-31] MEDS: ATORVASTATIN CA 80 MG TABLET (FP) PO SCH (21:00)
[2021-01-01] MEDS ORDERED: PIPERACILLIN/TAZOBACTAM 3.375 GM VIAL IVPB ONE ×3 (00:55→17:58)
[2021-01-01] MEDS ORDERED: DEXTROSE 5%-WATER - 50 ML IVPB ONE ×3 (00:56→17:58)
[2021-01-01] MEDS: PIPERACILLIN/TAZOB 3.375 GM 3.375 GM in DEXTROSE 5%-WATER - 50 ML IVPB SCH ×3 (01:46→18:05)
[2021-01-01 08:35] LABS: BASO % 0.2 % (0-2.0); EOS % 0.4 % (0-4.5); HEMATOCRIT 27.2 % (32.4-45.2); HEMOGLOBIN 8.8 GM/dL (10.7-15.3); MCH 30.2 pg (25.7-33.7); MCHC 32.4 g/dl (32.0-36.0); MEAN CELL VOLUME 93.5 fl (80-96); MONO % 11.4 % (3.8-10.2); PLATELET COUNT 300 K/MM3 (134-434); RBC 2.91 M/mm3 (3.60-5.2); RDW 14.8 % (11.6-15.6); WHITE BLOOD COUNT 13.1 K/mm3 (4.0-10.0)
[2021-01-01 09:03] LABS: CALCIUM 7.3 mg/dL (8.5-10.1)
[2021-01-01 09:04] LABS: ALBUMIN 1.3 g/dl (3.4-5.0)
[2021-01-01 09:07] LABS: CREATININE 1.4 mg/dL (0.55-1.3)
[2021-01-01 09:09] LABS: BILIRUBIN,TOTAL 0.5 mg/dL (0.2-1); TOT PROT 6.3 g/dl (6.4-8.2)
[2021-01-01] MEDS: AMINO ACIDS/PROTEIN HYDROLYS 30 ML LIQUID.PKT PO SCH ×2 (10:38→18:05)
[2021-01-01] MEDS: metoPROLOL SUCCINATE 25 MG TAB.SR.24H (FP) PO SCH (10:38)
[2021-01-01] MEDS: carBAMazepine XR 200 MG TAB.ER.12H PO SCH ×2 (10:39→21:36)
[2021-01-01] MEDS: PANTOPRAZOLE SODIUM 40 MG VIAL IVPUSH SCH ×2 (10:39→21:37)
[2021-01-01] MEDS: MEMANTINE HCL 5 MG TABLET (UD) PO SCH ×2 (10:39→21:36)
[2021-01-01 13:07] LABS: HEP B CORE AB, TOT Negative (Negative)
[2021-01-01 14:07] LABS: TRANSGLUTAMINASE IGA 4 U/mL (0-3); TRANSGLUTAMINASE IGG 4 U/mL (0-5)
[2021-01-01] MEDS: DEXTROSE 5%-0.45% SALINE 1,000 ML IV SCH (18:04)
[2021-01-01] MEDS: ATORVASTATIN CA 80 MG TABLET (FP) PO SCH (21:36)
[2021-01-02] MEDS ORDERED: DEXTROSE 5%-WATER - 50 ML IVPB ONE ×3 (01:10→18:25)
[2021-01-02] MEDS ORDERED: PIPERACILLIN/TAZOBACTAM 3.375 GM VIAL IVPB ONE ×3 (01:10→18:25)
[2021-01-02] MEDS: PIPERACILLIN/TAZOB 3.375 GM 3.375 GM in DEXTROSE 5%-WATER - 50 ML IVPB SCH ×3 (01:22→18:27)
[2021-01-02] MEDS: DEXTROSE 5%-0.45% SALINE 1,000 ML IV SCH ×3 (06:44→22:15)
[2021-01-02] MEDS ORDERED: PT OWN MED DRAWER 7, Y5N ONE ×2 (11:19→20:18)
[2021-01-02] MEDS: AMINO ACIDS/PROTEIN HYDROLYS 30 ML LIQUID.PKT PO SCH ×2 (11:35→18:27)
[2021-01-02] MEDS: PANTOPRAZOLE SODIUM 40 MG VIAL IVPUSH SCH ×2 (11:35→21:02)
[2021-01-02] MEDS: metoPROLOL SUCCINATE 25 MG TAB.SR.24H (FP) PO SCH (11:36)
[2021-01-02] MEDS: POLYETHYLENE GLYCOL 3350 119 GM BTL PO SCH ×2 (11:36→15:02)
[2021-01-02] MEDS: carBAMazepine XR 200 MG TAB.ER.12H PO SCH ×2 (13:44→21:01)
[2021-01-02] MEDS: MEMANTINE HCL 5 MG TABLET (UD) PO SCH ×2 (13:45→21:00)
[2021-01-02] MEDS: ACETAMINOPHEN 325 MG TABLET (FP) PO PRN (20:53)
[2021-01-02] MEDS: ATORVASTATIN CA 80 MG TABLET (FP) PO SCH (21:00)
[2021-01-03] MEDS ORDERED: PIPERACILLIN/TAZOBACTAM 3.375 GM VIAL IVPB ONE (00:49)
[2021-01-03] MEDS ORDERED: DEXTROSE 5%-WATER - 50 ML IVPB ONE (00:50)
[2021-01-03] MEDS: PIPERACILLIN/TAZOB 3.375 GM 3.375 GM in DEXTROSE 5%-WATER - 50 ML IVPB SCH (01:21)
[2021-01-03] MEDS: AMINO ACIDS/PROTEIN HYDROLYS 30 ML LIQUID.PKT PO SCH ×2 (09:00→18:45)
[2021-01-03 10:13] LABS: BASO % 0.3 % (0-2.0); EOS % 0.8 % (0-4.5); HEMATOCRIT 30.1 % (32.4-45.2); HEMOGLOBIN 9.5 GM/dL (10.7-15.3); LYMPH % 8.1 % (8-40); MCH 29.3 pg (25.7-33.7); MCHC 31.6 g/dl (32.0-36.0); MEAN CELL VOLUME 92.5 fl (80-96); MEAN PLT VOLUME 8.6 fl (7.5-11.1); MONO % 9.9 % (3.8-10.2); NEUT % 80.9 % (42.8-82.8); PLATELET COUNT 297 K/MM3 (134-434); RBC 3.25 M/mm3 (3.60-5.2); RDW 14.6 % (11.6-15.6); WHITE BLOOD COUNT 11.3 K/mm3 (4.0-10.0)
[2021-01-03] MEDS ORDERED: PT OWN MED DRAWER 7, Y5N ONE ×2 (10:20→21:10)
[2021-01-03 10:32] LABS: CALCIUM 8.3 mg/dL (8.5-10.1)
[2021-01-03 10:33] LABS: ALBUMIN 1.3 g/dl (3.4-5.0); BLOOD UREA NITROGEN 21.9 mg/dL (7-18)
[2021-01-03] MEDS: metoPROLOL SUCCINATE 25 MG TAB.SR.24H (FP) PO SCH (10:34)
[2021-01-03] MEDS: MEMANTINE HCL 5 MG TABLET (UD) PO SCH (10:34)
[2021-01-03] MEDS: POLYETHYLENE GLYCOL 3350 119 GM BTL PO SCH (10:35)
[2021-01-03] MEDS: PANTOPRAZOLE SODIUM 40 MG VIAL IVPUSH SCH ×2 (10:35→21:46)
[2021-01-03 10:36] LABS: CREATININE 1.2 mg/dL (0.55-1.3)
[2021-01-03] MEDS: carBAMazepine XR 200 MG TAB.ER.12H PO SCH (10:36)
[2021-01-03 10:38] LABS: BILIRUBIN,TOTAL 0.4 mg/dL (0.2-1); TOT PROT 6.9 g/dl (6.4-8.2)
[2021-01-03] MEDS: DEXTROSE 5%-0.45% SALINE 1,000 ML IV SCH (12:34)
[2021-01-03] MEDS ORDERED: ACETAMINOPHEN 1000 MG/100 ML VIAL (NON FORMULARY) IVPB PRN (21:01)
[2021-01-04] MEDS: ATORVASTATIN CA 80 MG TABLET (FP) PO SCH (00:01)
[2021-01-04] MEDS: carBAMazepine XR 200 MG TAB.ER.12H PO SCH ×3 (00:02→22:37)
[2021-01-04] MEDS: MEMANTINE HCL 5 MG TABLET (UD) PO SCH ×3 (00:02→22:37)
[2021-01-04 07:50] LABS: BASO % 0.4 % (0-2.0); EOS % 0.5 % (0-4.5); LYMPH % 7.7 % (8-40); MCH 30.4 pg (25.7-33.7); MCHC 33.2 g/dl (32.0-36.0); MEAN CELL VOLUME 91.5 fl (80-96); MEAN PLT VOLUME 8.9 fl (7.5-11.1); MONO % 9.7 % (3.8-10.2); NEUT % 81.7 % (42.8-82.8); PLATELET COUNT 271 K/MM3 (134-434); RBC 2.96 M/mm3 (3.60-5.2); RDW 14.9 % (11.6-15.6); WHITE BLOOD COUNT 9.8 K/mm3 (4.0-10.0)
[2021-01-04 08:16] LABS: ALBUMIN 1.3 g/dl (3.4-5.0); BLOOD UREA NITROGEN 20.4 mg/dL (7-18)
[2021-01-04 08:19] LABS: CREATININE 1.2 mg/dL (0.55-1.3)
[2021-01-04 08:20] LABS: BILIRUBIN,TOTAL 0.4 mg/dL (0.2-1)
[2021-01-04 08:21] LABS: TOT PROT 6.8 g/dl (6.4-8.2)
[2021-01-04] MEDS: AMINO ACIDS/PROTEIN HYDROLYS 30 ML LIQUID.PKT PO SCH ×3 (08:38→18:05)
[2021-01-04] MEDS ORDERED: PT OWN MED DRAWER 7, Y5N ONE ×2 (11:28→20:43)
[2021-01-04] MEDS: POLYETHYLENE GLYCOL 3350 119 GM BTL PO SCH (11:32)
[2021-01-04] MEDS: PANTOPRAZOLE SODIUM 40 MG VIAL IVPUSH SCH (11:34)
[2021-01-04] MEDS: metoPROLOL SUCCINATE 25 MG TAB.SR.24H (FP) PO SCH (11:34)
[2021-01-04] MEDS: VALSARTAN 80 MG TABLET PO SCH (12:17)
[2021-01-04] MEDS: DEXTROSE 5%-0.45% SALINE 1,000 ML IV SCH ×2 (18:05)
[2021-01-04] MEDS: POTASSIUM CHLORIDE 20 MEQ in AMINO ACIDS 4.25%/D5W 1,000 ML IV SCH (18:44)
[2021-01-05] MEDS ORDERED: PT OWN MED DRAWER 7, Y5N ONE (09:55)
[2021-01-05] MEDS: VALSARTAN 80 MG TABLET PO SCH (10:00)
[2021-01-05] MEDS ORDERED: PANTOPRAZOLE 20 MG TABLET PO SCH (10:00)
[2021-01-05] MEDS: AMINO ACIDS/PROTEIN HYDROLYS 30 ML LIQUID.PKT PO SCH ×2 (10:00→17:17)
[2021-01-05] MEDS: carBAMazepine XR 200 MG TAB.ER.12H PO SCH ×2 (10:01→21:39)
[2021-01-05] MEDS: metoPROLOL SUCCINATE 25 MG TAB.SR.24H (FP) PO SCH (10:01)
[2021-01-05] MEDS: PANTOPRAZOLE SODIUM 40 MG VIAL IVPUSH SCH (10:02)
[2021-01-05] MEDS: POLYETHYLENE GLYCOL 3350 119 GM BTL PO SCH (10:02)
[2021-01-05] MEDS: MEMANTINE HCL 5 MG TABLET (UD) PO SCH ×2 (10:02→21:39)
[2021-01-05] MEDS: POTASSIUM CHLORIDE 20 MEQ in AMINO ACIDS 4.25%/D5W 1,000 ML IV SCH ×2 (15:01→17:17)
[2021-01-06] MEDS: AMINO ACIDS/PROTEIN HYDROLYS 30 ML LIQUID.PKT PO SCH ×2 (08:30→17:48)
[2021-01-06] MEDS ORDERED: PT OWN MED DRAWER 7, Y5N ONE ×2 (09:44→20:57)
[2021-01-06] MEDS: metoPROLOL SUCCINATE 25 MG TAB.SR.24H (FP) PO SCH (09:47)
[2021-01-06] MEDS: PANTOPRAZOLE SODIUM 40 MG VIAL IVPUSH SCH (09:48)
[2021-01-06] MEDS: VALSARTAN 80 MG TABLET PO SCH (09:48)
[2021-01-06] MEDS: MEMANTINE HCL 5 MG TABLET (UD) PO SCH ×2 (09:48→23:58)
[2021-01-06] MEDS: POLYETHYLENE GLYCOL 3350 119 GM BTL PO SCH (09:48)
[2021-01-06] MEDS: carBAMazepine XR 200 MG TAB.ER.12H PO SCH ×2 (09:49→23:59)
[2021-01-06] MEDS: POTASSIUM CHLORIDE 20 MEQ in AMINO ACIDS 4.25%/D5W 1,000 ML IV SCH (17:45)
[2021-01-06] MEDS ORDERED: ACETAMINOPHEN 325 MG TABLET (FP) PO ONE (23:14)
[2021-01-07 08:33] LABS: BASO % 0.2 % (0-2.0); HEMATOCRIT 26.1 % (32.4-45.2); HEMOGLOBIN 8.7 GM/dL (10.7-15.3); LYMPH % 7.4 % (8-40); MCH 30.2 pg (25.7-33.7); MCHC 33.2 g/dl (32.0-36.0); MEAN CELL VOLUME 91.1 fl (80-96); MEAN PLT VOLUME 8.9 fl (7.5-11.1); MONO % 9.5 % (3.8-10.2); NEUT % 81.9 % (42.8-82.8); PLATELET COUNT 221 K/MM3 (134-434); RBC 2.87 M/mm3 (3.60-5.2); WHITE BLOOD COUNT 10.7 K/mm3 (4.0-10.0)
[2021-01-07 08:57] LABS: CALCIUM 7.9 mg/dL (8.5-10.1)
[2021-01-07 08:58] LABS: ALBUMIN 1.3 g/dl (3.4-5.0); BLOOD UREA NITROGEN 28.2 mg/dL (7-18)
[2021-01-07] MEDS: AMINO ACIDS/PROTEIN HYDROLYS 30 ML LIQUID.PKT PO SCH ×2 (08:58→17:45)
[2021-01-07 09:01] LABS: CREATININE 0.9 mg/dL (0.55-1.3)
[2021-01-07 09:02] LABS: BILIRUBIN,TOTAL 0.4 mg/dL (0.2-1); TOT PROT 6.9 g/dl (6.4-8.2)
[2021-01-07] MEDS ORDERED: PT OWN MED DRAWER 7, Y5N ONE ×2 (10:39→20:38)
[2021-01-07] MEDS: metoPROLOL SUCCINATE 25 MG TAB.SR.24H (FP) PO SCH (10:49)
[2021-01-07] MEDS: PANTOPRAZOLE SODIUM 40 MG VIAL IVPUSH SCH (10:49)
[2021-01-07] MEDS: VALSARTAN 80 MG TABLET PO SCH (10:49)
[2021-01-07] MEDS: MEMANTINE HCL 5 MG TABLET (UD) PO SCH ×2 (10:50→22:36)
[2021-01-07] MEDS: carBAMazepine XR 400 MG TAB.ER.12H PO SCH (10:50)
[2021-01-07] MEDS: POLYETHYLENE GLYCOL 3350 119 GM BTL PO SCH (10:50)
[2021-01-07] MEDS: POTASSIUM CHLORIDE 20 MEQ in AMINO ACIDS 4.25%/D5W 1,000 ML IV SCH (17:37)
[2021-01-08] MEDS: POTASSIUM CHLORIDE 20 MEQ in AMINO ACIDS 4.25%/D5W 1,000 ML IV SCH ×2 (07:03→18:04)
[2021-01-08] MEDS: MEMANTINE HCL 5 MG TABLET (UD) PO SCH ×2 (10:33→21:57)
[2021-01-08] MEDS: metoPROLOL SUCCINATE 25 MG TAB.SR.24H (FP) PO SCH (10:33)
[2021-01-08] MEDS: carBAMazepine XR 400 MG TAB.ER.12H PO SCH (10:34)
[2021-01-08] MEDS: VALSARTAN 80 MG TABLET PO SCH (10:34)
[2021-01-08] MEDS: TAMSULOSIN HCL 0.4 MG CAP PO SCH (10:34)
[2021-01-08] MEDS: AMINO ACIDS/PROTEIN HYDROLYS 30 ML LIQUID.PKT PO SCH ×2 (10:35→19:39)
[2021-01-08] MEDS: POLYETHYLENE GLYCOL 3350 119 GM BTL PO SCH (10:44)
[2021-01-08] MEDS: PANTOPRAZOLE SODIUM 40 MG VIAL IVPUSH SCH (11:23)
[2021-01-08] MEDS ORDERED: PT OWN MED DRAWER 7, Y5N ONE ×2 (11:42→20:22)
[2021-01-08] MEDS: carBAMazepine 200 MG TABLET PO SCH (21:57)
[2021-01-09] MEDS: carBAMazepine 200 MG TABLET PO SCH ×3 (05:22→21:25)
[2021-01-09] MEDS ORDERED: PT OWN MED DRAWER 7, Y5N ONE ×2 (09:30→21:10)
[2021-01-09] MEDS: AMINO ACIDS/PROTEIN HYDROLYS 30 ML LIQUID.PKT PO SCH ×2 (09:34→18:06)
[2021-01-09] MEDS: MEMANTINE HCL 5 MG TABLET (UD) PO SCH ×2 (09:34→21:24)
[2021-01-09] MEDS: metoPROLOL SUCCINATE 25 MG TAB.SR.24H (FP) PO SCH (09:34)
[2021-01-09] MEDS: TAMSULOSIN HCL 0.4 MG CAP PO SCH (09:34)
[2021-01-09] MEDS: PANTOPRAZOLE SODIUM 40 MG VIAL IVPUSH SCH (09:35)
[2021-01-09] MEDS: VALSARTAN 80 MG TABLET PO SCH (09:35)
[2021-01-09] MEDS: POLYETHYLENE GLYCOL 3350 119 GM BTL PO SCH (09:36)
[2021-01-09] MEDS: POTASSIUM CHLORIDE 20 MEQ in AMINO ACIDS 4.25%/D5W 1,000 ML IV SCH (09:54)
[2021-01-09] MEDS ORDERED: PHYTONADIONE 10 MG/1 ML AMP IVPB ONE (16:26)
[2021-01-10] MEDS: carBAMazepine 200 MG TABLET PO SCH ×3 (05:59→21:14)
[2021-01-10] MEDS: AMINO ACIDS/PROTEIN HYDROLYS 30 ML LIQUID.PKT PO SCH ×2 (08:00→16:54)
[2021-01-10 08:36] LABS: BASO % 0.4 % (0-2.0); EOS % 0.3 % (0-4.5); HEMATOCRIT 25.9 % (32.4-45.2); HEMOGLOBIN 8.4 GM/dL (10.7-15.3); LYMPH % 5.8 % (8-40); MCH 29.3 pg (25.7-33.7); MCHC 32.6 g/dl (32.0-36.0); MEAN CELL VOLUME 90.2 fl (80-96); MEAN PLT VOLUME 8.5 fl (7.5-11.1); MONO % 8.4 % (3.8-10.2); NEUT % 85.1 % (42.8-82.8); PLATELET COUNT 233 K/MM3 (134-434); RBC 2.87 M/mm3 (3.60-5.2); RDW 15.2 % (11.6-15.6); WHITE BLOOD COUNT 13.5 K/mm3 (4.0-10.0)
[2021-01-10 08:39] LABS: INR 1.26 (0.83-1.09); PROTHROMBIN TIME (PATIENT) 15.4 SEC (9.7-13.0)
[2021-01-10 09:06] LABS: ALBUMIN 1.3 g/dl (3.4-5.0); BLOOD UREA NITROGEN 23.7 mg/dL (7-18); CALCIUM 8.2 mg/dL (8.5-10.1)
[2021-01-10 09:08] LABS: BILIRUBIN,TOTAL 0.5 mg/dL (0.2-1); CREATININE 0.7 mg/dL (0.55-1.3); TOT PROT 6.9 g/dl (6.4-8.2)
[2021-01-10] MEDS ORDERED: PT OWN MED DRAWER 7, Y5N ONE ×2 (14:01→20:32)
[2021-01-10] MEDS: PANTOPRAZOLE 40 MG TABLET PO SCH (14:07)
[2021-01-10] MEDS: metoPROLOL SUCCINATE 25 MG TAB.SR.24H (FP) PO SCH (14:08)
[2021-01-10] MEDS: MEMANTINE HCL 5 MG TABLET (UD) PO SCH ×2 (14:08→21:14)
[2021-01-10] MEDS: POLYETHYLENE GLYCOL 3350 119 GM BTL PO SCH (14:08)
[2021-01-10] MEDS: TAMSULOSIN HCL 0.4 MG CAP PO SCH (14:08)
[2021-01-10] MEDS: VALSARTAN 80 MG TABLET PO SCH (14:08)
[2021-01-10] MEDS ORDERED: CEFTRIAXONE 1 GM in DEXTROSE 5%-WATER - 50 ML IVPB ONE (16:21)
[2021-01-10] MEDS ORDERED: DEXTROSE 5%-WATER - 50 ML IVPB ONE (16:46)
[2021-01-10] MEDS ORDERED: cefTRIAXone SODIUM 1 GM VIAL ONE (16:46)
[2021-01-11] MEDS: carBAMazepine 200 MG TABLET PO SCH ×4 (05:35→22:55)
[2021-01-11] MEDS: AMINO ACIDS/PROTEIN HYDROLYS 30 ML LIQUID.PKT PO SCH ×2 (08:30→17:41)
[2021-01-11] MEDS: TAMSULOSIN HCL 0.4 MG CAP PO SCH (08:30)
[2021-01-11 08:41] LABS: BASO % 0.4 % (0-2.0); EOS % 0.6 % (0-4.5); HEMATOCRIT 26.9 % (32.4-45.2); HEMOGLOBIN 8.4 GM/dL (10.7-15.3); MCH 28.9 pg (25.7-33.7); MCHC 31.3 g/dl (32.0-36.0); MEAN CELL VOLUME 92.2 fl (80-96); MEAN PLT VOLUME 8.7 fl (7.5-11.1); MONO % 6.7 % (3.8-10.2); NEUT % 85.3 % (42.8-82.8); PLATELET COUNT 261 K/MM3 (134-434); RBC 2.91 M/mm3 (3.60-5.2); RDW 15.7 % (11.6-15.6); WHITE BLOOD COUNT 11.6 K/mm3 (4.0-10.0)
[2021-01-11 09:29] LABS: ALBUMIN 1.4 g/dl (3.4-5.0); BLOOD UREA NITROGEN 19.8 mg/dL (7-18); CALCIUM 8.2 mg/dL (8.5-10.1)
[2021-01-11 09:33] LABS: CREATININE 0.7 mg/dL (0.55-1.3)
[2021-01-11 09:35] LABS: BILIRUBIN,TOTAL 0.6 mg/dL (0.2-1); TOT PROT 7.1 g/dl (6.4-8.2)
[2021-01-11] MEDS: POLYETHYLENE GLYCOL 3350 119 GM BTL PO SCH (10:21)
[2021-01-11] MEDS: metoPROLOL SUCCINATE 25 MG TAB.SR.24H (FP) PO SCH (10:21)
[2021-01-11] MEDS: MEMANTINE HCL 5 MG TABLET (UD) PO SCH ×2 (10:21→22:47)
[2021-01-11] MEDS: PANTOPRAZOLE 40 MG TABLET PO SCH (10:21)
[2021-01-11] MEDS: VALSARTAN 80 MG TABLET PO SCH (10:21)
[2021-01-11] MEDS ORDERED: PT OWN MED DRAWER 7, Y5N ONE ×3 (13:33→22:45)
[2021-01-11] MEDS: AMPICILLIN NA/SULBACTAM NA 3 GM in SODIUM CHLORIDE 100 ML IVPB SCH ×2 (13:45→18:12)
[2021-01-12] MEDS ORDERED: PT OWN MED DRAWER 7, Y5N ONE ×7 (02:14→22:20)
[2021-01-12] MEDS: AMPICILLIN NA/SULBACTAM NA 3 GM in SODIUM CHLORIDE 100 ML IVPB SCH ×3 (02:40→17:45)
[2021-01-12] MEDS: carBAMazepine 200 MG TABLET PO SCH ×3 (06:33→22:55)
[2021-01-12] MEDS: TAMSULOSIN HCL 0.4 MG CAP PO SCH (08:31)
[2021-01-12] MEDS: AMINO ACIDS/PROTEIN HYDROLYS 30 ML LIQUID.PKT PO SCH ×2 (08:31→17:45)
[2021-01-12] MEDS: POLYETHYLENE GLYCOL 3350 119 GM BTL PO SCH (11:16)
[2021-01-12] MEDS: PANTOPRAZOLE 40 MG TABLET PO SCH (11:16)
[2021-01-12] MEDS: metoPROLOL SUCCINATE 25 MG TAB.SR.24H (FP) PO SCH (11:16)
[2021-01-12] MEDS: MEMANTINE HCL 5 MG TABLET (UD) PO SCH ×2 (11:16→22:55)
[2021-01-12] MEDS: VALSARTAN 80 MG TABLET PO SCH (11:16)
[2021-01-12 14:31] LABS: BASO % 0.4 % (0-2.0); EOS % 0.9 % (0-4.5); HEMATOCRIT 25.2 % (32.4-45.2); HEMOGLOBIN 8.1 GM/dL (10.7-15.3); LYMPH % 6.6 % (8-40); MCH 29.3 pg (25.7-33.7); MEAN CELL VOLUME 91.5 fl (80-96); MEAN PLT VOLUME 8.4 fl (7.5-11.1); MONO % 5.9 % (3.8-10.2); NEUT % 86.2 % (42.8-82.8); PLATELET COUNT 266 K/MM3 (134-434); RBC 2.75 M/mm3 (3.60-5.2); RDW 15.5 % (11.6-15.6)
[2021-01-12 14:55] LABS: CALCIUM 7.7 mg/dL (8.5-10.1)
[2021-01-12 14:56] LABS: ALBUMIN 1.4 g/dl (3.4-5.0); BLOOD UREA NITROGEN 23.2 mg/dL (7-18)
[2021-01-12 14:59] LABS: CREATININE 0.7 mg/dL (0.55-1.3)
[2021-01-12 15:00] LABS: BILIRUBIN,TOTAL 0.3 mg/dL (0.2-1)
[2021-01-13] MEDS ORDERED: PT OWN MED DRAWER 7, Y5N ONE ×4 (02:37→22:01)
[2021-01-13] MEDS: AMPICILLIN NA/SULBACTAM NA 3 GM in SODIUM CHLORIDE 100 ML IVPB SCH ×3 (02:51→17:31)
[2021-01-13] MEDS: carBAMazepine 200 MG TABLET PO SCH ×3 (06:15→22:26)
[2021-01-13] MEDS: AMINO ACIDS/PROTEIN HYDROLYS 30 ML LIQUID.PKT PO SCH ×2 (08:09→17:26)
[2021-01-13] MEDS: TAMSULOSIN HCL 0.4 MG CAP PO SCH (08:14)
[2021-01-13 08:23] LABS: BASO % 0.4 % (0-2.0); EOS % 1.1 % (0-4.5); HEMATOCRIT 25.9 % (32.4-45.2); HEMOGLOBIN 8.4 GM/dL (10.7-15.3); LYMPH % 8.2 % (8-40); MCH 29.9 pg (25.7-33.7); MCHC 32.5 g/dl (32.0-36.0); MEAN CELL VOLUME 92.1 fl (80-96); MEAN PLT VOLUME 8.9 fl (7.5-11.1); MONO % 7.2 % (3.8-10.2); NEUT % 83.1 % (42.8-82.8); PLATELET COUNT 241 K/MM3 (134-434); RBC 2.81 M/mm3 (3.60-5.2); RDW 15.7 % (11.6-15.6); WHITE BLOOD COUNT 8.8 K/mm3 (4.0-10.0)
[2021-01-13 08:50] LABS: CALCIUM 7.4 mg/dL (8.5-10.1)
[2021-01-13 08:52] LABS: ALBUMIN 1.5 g/dl (3.4-5.0); BLOOD UREA NITROGEN 16.3 mg/dL (7-18)
[2021-01-13 08:54] LABS: CREATININE 0.7 mg/dL (0.55-1.3)
[2021-01-13 08:55] LABS: BILIRUBIN,TOTAL 0.4 mg/dL (0.2-1)
[2021-01-13 08:56] LABS: TOT PROT 7.2 g/dl (6.4-8.2)
[2021-01-13] MEDS: POLYETHYLENE GLYCOL 3350 119 GM BTL PO SCH (09:04)
[2021-01-13] MEDS: MEMANTINE HCL 5 MG TABLET (UD) PO SCH ×2 (09:04→22:26)
[2021-01-13] MEDS: PANTOPRAZOLE 40 MG TABLET PO SCH (09:04)
[2021-01-13] MEDS: VALSARTAN 80 MG TABLET PO SCH (09:04)
[2021-01-13] MEDS: ASPIRIN 81 MG CHEWABLE TABLETS PO SCH (09:04)
[2021-01-13] MEDS: metoPROLOL SUCCINATE 25 MG TAB.SR.24H (FP) PO SCH (09:05)
[2021-01-13] MEDS ORDERED: DEXTROSE 5%-WATER - 1,000 ML with POTASSIUM CHLORIDE 20 MEQ IV SCH (14:00)
[2021-01-13] MEDS: POTASSIUM CHLORIDE 20 MEQ in DEXTROSE 5%-WATER - 1,000 ML IV SCH (17:28)
[2021-01-14] MEDS ORDERED: PT OWN MED DRAWER 7, Y5N ONE ×3 (01:19→21:55)
[2021-01-14] MEDS: AMPICILLIN NA/SULBACTAM NA 3 GM in SODIUM CHLORIDE 100 ML IVPB SCH ×3 (01:22→18:23)
[2021-01-14] MEDS: carBAMazepine 200 MG TABLET PO SCH ×4 (06:29→21:58)
[2021-01-14] MEDS: TAMSULOSIN HCL 0.4 MG CAP PO SCH (08:20)
[2021-01-14] MEDS: AMINO ACIDS/PROTEIN HYDROLYS 30 ML LIQUID.PKT PO SCH ×2 (08:20→17:20)
[2021-01-14 08:49] LABS: CALCIUM 7.3 mg/dL (8.5-10.1)
[2021-01-14 08:50] LABS: ALBUMIN 1.4 g/dl (3.4-5.0); BLOOD UREA NITROGEN 15.2 mg/dL (7-18)
[2021-01-14 08:52] LABS: CREATININE 0.7 mg/dL (0.55-1.3)
[2021-01-14 08:54] LABS: BILIRUBIN,TOTAL 0.4 mg/dL (0.2-1); TOT PROT 6.6 g/dl (6.4-8.2)
[2021-01-14] MEDS: POTASSIUM CHLORIDE 20 MEQ in DEXTROSE 5%-WATER - 1,000 ML IV SCH (11:59)
[2021-01-14] MEDS: MEMANTINE HCL 5 MG TABLET (UD) PO SCH ×2 (12:03→21:58)
[2021-01-14] MEDS: PANTOPRAZOLE 40 MG TABLET PO SCH (12:03)
[2021-01-14] MEDS: POLYETHYLENE GLYCOL 3350 119 GM BTL PO SCH (12:04)
[2021-01-14] MEDS: ASPIRIN 81 MG CHEWABLE TABLETS PO SCH (12:04)
[2021-01-14] MEDS: VALSARTAN 80 MG TABLET PO SCH (21:58)
[2021-01-15] MEDS ORDERED: PT OWN MED DRAWER 7, Y5N ONE ×3 (01:17→21:23)
[2021-01-15] MEDS: AMPICILLIN NA/SULBACTAM NA 3 GM in SODIUM CHLORIDE 100 ML IVPB SCH ×3 (01:24→17:32)
[2021-01-15] MEDS: carBAMazepine 200 MG TABLET PO SCH ×3 (06:47→22:29)
[2021-01-15] MEDS: AMINO ACIDS/PROTEIN HYDROLYS 30 ML LIQUID.PKT PO SCH ×2 (08:49→17:34)
[2021-01-15] MEDS: TAMSULOSIN HCL 0.4 MG CAP PO SCH (08:49)
[2021-01-15 10:42] LABS: CALCIUM 7.6 mg/dL (8.5-10.1)
[2021-01-15 10:43] LABS: ALBUMIN 1.5 g/dl (3.4-5.0); BLOOD UREA NITROGEN 12.4 mg/dL (7-18)
[2021-01-15 10:46] LABS: CREATININE 0.7 mg/dL (0.55-1.3)
[2021-01-15 10:48] LABS: BILIRUBIN,TOTAL 0.6 mg/dL (0.2-1); TOT PROT 6.9 g/dl (6.4-8.2)
[2021-01-15] MEDS: MEMANTINE HCL 5 MG TABLET (UD) PO SCH ×2 (11:03→22:00)
[2021-01-15] MEDS: ASPIRIN 81 MG CHEWABLE TABLETS PO SCH (11:03)
[2021-01-15] MEDS: POLYETHYLENE GLYCOL 3350 119 GM BTL PO SCH (11:04)
[2021-01-15] MEDS: VALSARTAN 80 MG TABLET PO SCH ×2 (11:04→22:05)
[2021-01-15] MEDS: PANTOPRAZOLE 40 MG TABLET PO SCH (11:04)
[2021-01-15] MEDS: POTASSIUM CHLORIDE 20 MEQ in DEXTROSE 5%-WATER - 1,000 ML IV SCH (11:07)
[2021-01-16] MEDS: AMPICILLIN NA/SULBACTAM NA 3 GM in SODIUM CHLORIDE 100 ML IVPB SCH ×3 (01:00→18:40)
[2021-01-16] MEDS: POTASSIUM CHLORIDE 20 MEQ in DEXTROSE 5%-WATER - 1,000 ML IV SCH (02:32)
[2021-01-16] MEDS: carBAMazepine 200 MG TABLET PO SCH ×3 (05:57→21:46)
[2021-01-16] MEDS: AMINO ACIDS/PROTEIN HYDROLYS 30 ML LIQUID.PKT PO SCH ×2 (11:05→17:41)
[2021-01-16] MEDS: POLYETHYLENE GLYCOL 3350 119 GM BTL PO SCH (11:05)
[2021-01-16] MEDS: ASPIRIN 81 MG CHEWABLE TABLETS PO SCH (11:06)
[2021-01-16] MEDS: TAMSULOSIN HCL 0.4 MG CAP PO SCH (11:06)
[2021-01-16] MEDS: VALSARTAN 80 MG TABLET PO SCH ×2 (11:06→21:46)
[2021-01-16] MEDS: PANTOPRAZOLE 40 MG TABLET PO SCH (11:06)
[2021-01-16] MEDS: MEMANTINE HCL 5 MG TABLET (UD) PO SCH ×2 (11:06→21:46)
[2021-01-16] MEDS ORDERED: PT OWN MED DRAWER 7, Y5N ONE ×4 (11:43→20:46)
[2021-01-17] MEDS: AMPICILLIN NA/SULBACTAM NA 3 GM in SODIUM CHLORIDE 100 ML IVPB SCH ×2 (01:06→10:15)
[2021-01-17] MEDS: carBAMazepine 200 MG TABLET PO SCH ×3 (05:33→21:30)
[2021-01-17] MEDS: AMINO ACIDS/PROTEIN HYDROLYS 30 ML LIQUID.PKT PO SCH ×2 (08:27→17:16)
[2021-01-17] MEDS: TAMSULOSIN HCL 0.4 MG CAP PO SCH (08:27)
[2021-01-17 08:47] LABS: BASO % 0.7 % (0-2.0); EOS % 2.8 % (0-4.5); HEMATOCRIT 24.9 % (32.4-45.2); HEMOGLOBIN 8.1 GM/dL (10.7-15.3); LYMPH % 17.5 % (8-40); MCH 29.7 pg (25.7-33.7); MCHC 32.7 g/dl (32.0-36.0); MEAN CELL VOLUME 90.8 fl (80-96); MEAN PLT VOLUME 8.4 fl (7.5-11.1); MONO % 9.5 % (3.8-10.2); NEUT % 69.5 % (42.8-82.8); PLATELET COUNT 291 K/MM3 (134-434); RBC 2.74 M/mm3 (3.60-5.2)
[2021-01-17 09:25] LABS: ALBUMIN 1.6 g/dl (3.4-5.0); BLOOD UREA NITROGEN 12.6 mg/dL (7-18)
[2021-01-17 09:27] LABS: BILIRUBIN,TOTAL 0.4 mg/dL (0.2-1)
[2021-01-17 09:28] LABS: CALCIUM 7.3 mg/dL (8.5-10.1); CREATININE 0.7 mg/dL (0.55-1.3)
[2021-01-17 09:34] LABS: TOT PROT 7.2 g/dl (6.4-8.2)
[2021-01-17] MEDS ORDERED: PT OWN MED DRAWER 7, Y5N ONE ×2 (10:12→21:21)
[2021-01-17] MEDS: VALSARTAN 80 MG TABLET PO SCH ×2 (10:14→21:30)
[2021-01-17] MEDS: ASPIRIN 81 MG CHEWABLE TABLETS PO SCH (10:14)
[2021-01-17] MEDS: PANTOPRAZOLE 40 MG TABLET PO SCH (10:14)
[2021-01-17] MEDS: MEMANTINE HCL 5 MG TABLET (UD) PO SCH ×2 (10:14→21:30)
[2021-01-17] MEDS: POLYETHYLENE GLYCOL 3350 119 GM BTL PO SCH (10:15)
[2021-01-17] MEDS ORDERED: cefTRIAXone SODIUM 1 GM VIAL ONE (12:02)
[2021-01-17] MEDS ORDERED: DEXTROSE 5%-WATER - 50 ML IVPB ONE (12:03)
[2021-01-17] MEDS: CEFTRIAXONE 1 GM in DEXTROSE 5%-WATER - 50 ML IVPB SCH (12:08)
[2021-01-17] MEDS: DEXTROSE 5%-WATER - 1,000 ML IV SCH (15:16)
[2021-01-18] MEDS ORDERED: PT OWN MED DRAWER 7, Y5N ONE (05:57)
[2021-01-18] MEDS: carBAMazepine 200 MG TABLET PO SCH ×3 (06:07→21:45)
[2021-01-18] MEDS ORDERED: PEG 3350/NA SULF BICARB CL/KCL 4000 ML SOLN.RECON PO ONE (09:00)
[2021-01-18] MEDS ORDERED: DEXTROSE 5%-WATER - 50 ML IVPB ONE (09:40)
[2021-01-18] MEDS ORDERED: cefTRIAXone SODIUM 1 GM VIAL ONE (09:40)
[2021-01-18] MEDS: POLYETHYLENE GLYCOL 3350 119 GM BTL PO SCH (10:00)
[2021-01-18] MEDS: CEFTRIAXONE 1 GM in DEXTROSE 5%-WATER - 50 ML IVPB SCH (10:09)
[2021-01-18] MEDS: MEMANTINE HCL 5 MG TABLET (UD) PO SCH ×2 (10:09→21:45)
[2021-01-18] MEDS: PANTOPRAZOLE 40 MG TABLET PO SCH (10:09)
[2021-01-18] MEDS: TAMSULOSIN HCL 0.4 MG CAP PO SCH (10:10)
[2021-01-18] MEDS: VALSARTAN 80 MG TABLET PO SCH ×2 (10:10→21:45)
[2021-01-18] MEDS: ASPIRIN 81 MG CHEWABLE TABLETS PO SCH (10:10)
[2021-01-18] MEDS: AMINO ACIDS/PROTEIN HYDROLYS 30 ML LIQUID.PKT PO SCH ×2 (10:24→18:48)
[2021-01-18] MEDS: DEXTROSE 5%-WATER - 1,000 ML IV SCH (18:47)
[2021-01-18] MEDS ORDERED: BISACODYL 5 MG TABLET.DR (FP) PO ONE (20:00)
[2021-01-19] MEDS: carBAMazepine 200 MG TABLET PO SCH ×3 (06:03→21:48)
[2021-01-19] MEDS ORDERED: PT OWN MED DRAWER 7, Y5N ONE ×3 (06:34→20:54)
[2021-01-19 07:45] LABS: EOS % 2.4 % (0-4.5); HEMATOCRIT 27.1 % (32.4-45.2); HEMOGLOBIN 8.8 GM/dL (10.7-15.3); LYMPH % 19.4 % (8-40); MCH 29.6 pg (25.7-33.7); MCHC 32.6 g/dl (32.0-36.0); MEAN PLT VOLUME 8.3 fl (7.5-11.1); MONO % 8.4 % (3.8-10.2); NEUT % 68.8 % (42.8-82.8); PLATELET COUNT 325 K/MM3 (134-434); RBC 2.98 M/mm3 (3.60-5.2); RDW 16.4 % (11.6-15.6)
[2021-01-19 07:50] LABS: ALBUMIN 1.7 g/dl (3.4-5.0); CALCIUM 7.7 mg/dL (8.5-10.1)
[2021-01-19 07:51] LABS: BLOOD UREA NITROGEN 7.8 mg/dL (7-18); MAGNESIUM 1.7 mg/dL (1.8-2.4)
[2021-01-19 07:54] LABS: CREATININE 0.7 mg/dL (0.55-1.3)
[2021-01-19 07:55] LABS: BILIRUBIN,TOTAL 0.3 mg/dL (0.2-1); TOT PROT 7.2 g/dl (6.4-8.2)
[2021-01-19] MEDS: TAMSULOSIN HCL 0.4 MG CAP PO SCH (08:54)
[2021-01-19] MEDS: AMINO ACIDS/PROTEIN HYDROLYS 30 ML LIQUID.PKT PO SCH ×2 (08:54→17:28)
[2021-01-19] MEDS: ASPIRIN 81 MG CHEWABLE TABLETS PO SCH (09:51)
[2021-01-19] MEDS: VALSARTAN 80 MG TABLET PO SCH ×2 (09:51→21:48)
[2021-01-19] MEDS: PANTOPRAZOLE 40 MG TABLET PO SCH (09:51)
[2021-01-19] MEDS: POLYETHYLENE GLYCOL 3350 119 GM BTL PO SCH (09:51)
[2021-01-19] MEDS: CEFTRIAXONE 1 GM in DEXTROSE 5%-WATER - 50 ML IVPB SCH ×2 (09:52→15:23)
[2021-01-19] MEDS: MEMANTINE HCL 5 MG TABLET (UD) PO SCH ×2 (09:52→21:48)
[2021-01-19] MEDS ORDERED: MAGNESIUM OXIDE 400 MG TABLET (FP) PO ONE (14:49)
[2021-01-19] MEDS ORDERED: DEXTROSE 5%-WATER - 50 ML IVPB ONE (15:14)
[2021-01-19] MEDS ORDERED: cefTRIAXone SODIUM 1 GM VIAL ONE (15:14)
[2021-01-19] MEDS: DEXTROSE 5%-WATER - 1,000 ML IV SCH (15:23)
[2021-01-20] MEDS: carBAMazepine 200 MG TABLET PO SCH ×3 (05:31→21:39)
[2021-01-20] MEDS ORDERED: cefTRIAXone SODIUM 1 GM VIAL ONE (09:10)
[2021-01-20] MEDS ORDERED: DEXTROSE 5%-WATER - 50 ML IVPB ONE (09:10)
[2021-01-20] MEDS: CEFTRIAXONE 1 GM in DEXTROSE 5%-WATER - 50 ML IVPB SCH (09:27)
[2021-01-20] MEDS: TAMSULOSIN HCL 0.4 MG CAP PO SCH (09:30)
[2021-01-20] MEDS: AMINO ACIDS/PROTEIN HYDROLYS 30 ML LIQUID.PKT PO SCH ×2 (09:30→17:59)
[2021-01-20] MEDS: PANTOPRAZOLE 40 MG TABLET PO SCH (09:31)
[2021-01-20] MEDS: VALSARTAN 80 MG TABLET PO SCH ×2 (09:31→21:39)
[2021-01-20] MEDS: ASPIRIN 81 MG CHEWABLE TABLETS PO SCH (09:31)
[2021-01-20] MEDS: MEMANTINE HCL 5 MG TABLET (UD) PO SCH ×2 (09:31→21:39)
[2021-01-20] MEDS: POLYETHYLENE GLYCOL 3350 119 GM BTL PO SCH (09:32)
[2021-01-20] MEDS ORDERED: PT OWN MED DRAWER 7, Y5N ONE ×2 (13:40→21:34)
[2021-01-20] MEDS: DEXTROSE 5%-WATER - 1,000 ML IV SCH (13:54)
[2021-01-21] MEDS: carBAMazepine 200 MG TABLET PO SCH ×3 (05:21→22:08)
[2021-01-21] MEDS: AMINO ACIDS/PROTEIN HYDROLYS 30 ML LIQUID.PKT PO SCH ×2 (08:35→16:44)
[2021-01-21] MEDS: TAMSULOSIN HCL 0.4 MG CAP PO SCH (08:35)
[2021-01-21] MEDS ORDERED: cefTRIAXone SODIUM 1 GM VIAL ONE (09:47)
[2021-01-21] MEDS ORDERED: DEXTROSE 5%-WATER - 50 ML IVPB ONE (09:48)
[2021-01-21] MEDS: ASPIRIN 81 MG CHEWABLE TABLETS PO SCH (09:49)
[2021-01-21] MEDS: MEMANTINE HCL 5 MG TABLET (UD) PO SCH ×2 (09:49→22:08)
[2021-01-21] MEDS: PANTOPRAZOLE 40 MG TABLET PO SCH (09:49)
[2021-01-21] MEDS: VALSARTAN 80 MG TABLET PO SCH ×2 (09:49→22:08)
[2021-01-21] MEDS: CEFTRIAXONE 1 GM in DEXTROSE 5%-WATER - 50 ML IVPB SCH (09:49)
[2021-01-21] MEDS: POLYETHYLENE GLYCOL 3350 119 GM BTL PO SCH (09:50)
[2021-01-21] MEDS: DEXTROSE 5%-WATER - 1,000 ML IV SCH (14:50)
[2021-01-21] MEDS ORDERED: PT OWN MED DRAWER 7, Y5N ONE (22:06)
[2021-01-22] MEDS: carBAMazepine 200 MG TABLET PO SCH ×3 (06:27→21:21)
[2021-01-22] MEDS: DEXTROSE 5%-WATER - 1,000 ML IV SCH ×2 (08:15→14:44)
[2021-01-22] MEDS ORDERED: cefTRIAXone SODIUM 1 GM VIAL ONE (09:18)
[2021-01-22] MEDS ORDERED: DEXTROSE 5%-WATER - 50 ML IVPB ONE (09:18)
[2021-01-22] MEDS: CEFTRIAXONE 1 GM in DEXTROSE 5%-WATER - 50 ML IVPB SCH (09:19)
[2021-01-22] MEDS: AMINO ACIDS/PROTEIN HYDROLYS 30 ML LIQUID.PKT PO SCH ×2 (09:19→17:54)
[2021-01-22] MEDS: MEMANTINE HCL 5 MG TABLET (UD) PO SCH ×2 (09:19→21:21)
[2021-01-22] MEDS: POLYETHYLENE GLYCOL 3350 119 GM BTL PO SCH (09:19)
[2021-01-22] MEDS: PANTOPRAZOLE 40 MG TABLET PO SCH (09:19)
[2021-01-22] MEDS: TAMSULOSIN HCL 0.4 MG CAP PO SCH (09:19)
[2021-01-22] MEDS: ASPIRIN 81 MG CHEWABLE TABLETS PO SCH (09:20)
[2021-01-22] MEDS: VALSARTAN 80 MG TABLET PO SCH ×2 (09:20→21:21)
[2021-01-22] MEDS ORDERED: PT OWN MED DRAWER 7, Y5N ONE ×2 (14:38→20:51)
[2021-01-22 17:37] LABS: CALCIUM 7.5 mg/dL (8.5-10.1)
[2021-01-22 17:38] LABS: ALBUMIN 1.6 g/dl (3.4-5.0); BLOOD UREA NITROGEN 9.2 mg/dL (7-18)
[2021-01-22 17:41] LABS: CREATININE 0.6 mg/dL (0.55-1.3)
[2021-01-22 17:43] LABS: BILIRUBIN,TOTAL 0.3 mg/dL (0.2-1); TOT PROT 6.7 g/dl (6.4-8.2)
[2021-01-22 21:50] LABS: HEMATOCRIT 26.1 % (32.4-45.2); HEMOGLOBIN 8.4 GM/dL (10.7-15.3); MCH 30.1 pg (25.7-33.7); MCHC 32.3 g/dl (32.0-36.0); MEAN CELL VOLUME 93.2 fl (80-96); MEAN PLT VOLUME 8.9 fl (7.5-11.1); PLATELET COUNT 254 K/MM3 (134-434); RDW 17.6 % (11.6-15.6); WHITE BLOOD COUNT 6.1 K/mm3 (4.0-10.0)
[2021-01-23 05:49] VITALS: PULSE 75
[2021-01-23] MEDS: carBAMazepine 200 MG TABLET PO SCH ×2 (05:49→13:56)
[2021-01-23] MEDS: DEXTROSE 5%-WATER - 1,000 ML IV SCH ×2 (09:36→17:19)
[2021-01-23] MEDS ORDERED: cefTRIAXone SODIUM 1 GM VIAL ONE (10:49)
[2021-01-23] MEDS ORDERED: DEXTROSE 5%-WATER - 50 ML IVPB ONE (10:49)
[2021-01-23] MEDS: MEMANTINE HCL 5 MG TABLET (UD) PO SCH (10:55)
[2021-01-23] MEDS: CEFTRIAXONE 1 GM in DEXTROSE 5%-WATER - 50 ML IVPB SCH (10:55)
[2021-01-23] MEDS: POLYETHYLENE GLYCOL 3350 119 GM BTL PO SCH (10:56)
[2021-01-23] MEDS: TAMSULOSIN HCL 0.4 MG CAP PO SCH (10:56)
[2021-01-23] MEDS: PANTOPRAZOLE 40 MG TABLET PO SCH (10:56)
[2021-01-23] MEDS: VALSARTAN 80 MG TABLET PO SCH (10:56)
[2021-01-23] MEDS: AMINO ACIDS/PROTEIN HYDROLYS 30 ML LIQUID.PKT PO SCH ×2 (10:57→17:15)
[2021-01-23] MEDS: ASPIRIN 81 MG CHEWABLE TABLETS PO SCH (10:57)
[2021-01-23] MEDS ORDERED: PT OWN MED DRAWER 7, Y5N ONE (13:55)
[2021-01-23 14:13] LABS: ALBUMIN 1.6 g/dl (3.4-5.0); BILIRUBIN,TOTAL 0.7 mg/dL (0.2-1); BLOOD UREA NITROGEN 7.7 mg/dL (7-18); CALCIUM 7.5 mg/dL (8.5-10.1); CREATININE 0.6 mg/dL (0.55-1.3); MAGNESIUM 1.7 mg/dL (1.8-2.4); TOT PROT 6.6 g/dl (6.4-8.2)
[2021-01-23 14:35] VITALS: BP 118/56; TEMP 98
[2021-01-23] MEDS ORDERED: MAGNESIUM OXIDE 400 MG TABLET (FP) PO ONE (16:35)
[2021-01-23] MEDS ORDERED: DEXTROSE 5%-WATER - 1,000 ML IV SCH (16:35)
== END 2021-01-23 19:05 | DRG 871 ==
LOC: JER 16:03 → JERBED 22:15 → J8W 12-20 10:36 → J6S 01-09 12:17
PROVIDERS: ADMIT Hospitalist; ATTEND Internal Medicine
PROC: 0F9230Z Drainage of Left Lobe Liver with Drainage Device, Percutaneous Approach (ICD-10-PCS; principal; 2021-01-10)
PROC: 0DBL8ZX Excision of Transverse Colon, Via Natural or Artificial Opening Endoscopic, Diagnostic (ICD-10-PCS; 2021-01-19)
DX: A40.9 Streptococcal sepsis, unspecified (principal); G93.41 Metabolic encephalopathy; K75.0 Abscess of liver; K83.1 Obstruction of bile duct; N39.0 Urinary tract infection, site not specified; N17.9 Acute kidney failure, unspecified; N13.30 Unspecified hydronephrosis; I50.32 Chronic diastolic (congestive) heart failure; E87.0 Hyperosmolality and hypernatremia; D64.9 Anemia, unspecified; R79.89 Other specified abnormal findings of blood chemistry; G50.0 Trigeminal neuralgia; R19.5 Other fecal abnormalities; G30.9 Alzheimer's disease, unspecified; F02.80 Dementia in other diseases classified elsewhere, unspecified severity, without behavioral disturbance, psychotic disturbance, mood disturbance, and anxiety; I10 Essential (primary) hypertension; E78.5 Hyperlipidemia, unspecified; I25.5 Ischemic cardiomyopathy; R41.82 Altered mental status, unspecified; E86.0 Dehydration; D72.829 Elevated white blood cell count, unspecified; R19.7 Diarrhea, unspecified; R33.9 Retention of urine, unspecified; K57.30 Diverticulosis of large intestine without perforation or abscess without bleeding; K64.8 Other hemorrhoids; K63.5 Polyp of colon; R53.1 Weakness; I25.10 Atherosclerotic heart disease of native coronary artery without angina pectoris
CPT/HCPCS: 36415; 49405; 70450-TC; 71045-TC-FY; 74177-TC; 74178-TC; 76700-TC; 76775-TC; 76856-TC; 80048; 80053; 80156; 81003; 82105; 82140; 82272; 82436; 82550; 82553; 82570; 82607; 82728; 82746; 82784; 82962; 82977; 83516; 83540; 83550; 83605; 83735; 84100; 84133; 84155; 84165; 84300; 84443; 84484; 85025; 85027; 85045; 85610; 85730; 86038; 86140; 86301; 86334; 86704; 86706; 86707; 86708; 86709; 86803; 87040; 87070; 87075; 87076; 87086; 87102; 87116; 87186; 87205; 87206; 87210; 87324; 87340; 87449; 87804; 88172; 88305-TC; 93005; 93010; 93970-TC; 97116-GP; 97161-GP; 99285-25; C9803; J0131; J1644; Q9967; U0003; U0005

== ENCOUNTER 2021-03-22 13:59 | Inpatient (IN) | payer BC ==
[2021-03-22 14:15] VITALS: BMI 25.8
[2021-03-22] MEDS ORDERED: SODIUM CHLORIDE 0.9% 1000 ML INFUS.BAG IV ONE ×3 (15:12→19:33)
[2021-03-22 16:51] LABS: BASO % 0.3 % (0-2.0); EOS % 0.5 % (0-4.5); LYMPH % 11.3 % (8-40); MCH 28.6 pg (25.7-33.7); MCHC 32.3 g/dl (32.0-36.0); MEAN CELL VOLUME 88.5 fl (80-96); MONO % 6.8 % (3.8-10.2); NEUT % 81.1 % (42.8-82.8); PLATELET COUNT 254 10^3/uL (134-434); RBC 4.18 M/mm3 (3.60-5.2); RDW 16.3 % (11.6-15.6); WHITE BLOOD COUNT 10.3 K/mm3 (4.0-10.0)
[2021-03-22 17:06] LABS: CHLORIDE 110 mmol/L (98-107); SODIUM 139 mmol/L (136-145)
[2021-03-22 17:08] LABS: CALCIUM 8.5 mg/dL (8.5-10.1)
[2021-03-22 17:09] LABS: ALBUMIN 2.4 g/dl (3.4-5.0); BLOOD UREA NITROGEN 39.3 mg/dL (7-18); CO2 21 mmol/L (21-32); GLUCOSE,RANDOM 114 mg/dL (74-106)
[2021-03-22] MEDS ORDERED: ACETAMINOPHEN 1000 MG/100 ML VIAL (NON FORMULARY) IVPB ONE (17:09)
[2021-03-22 17:12] LABS: CREATININE 1.3 mg/dL (0.55-1.3); SGOT/AST 54 U/L (15-37); SGPT/ALT 21 U/L (13-61)
[2021-03-22 17:14] LABS: BILIRUBIN,TOTAL 0.7 mg/dL (0.2-1); TOT PROT 9.8 g/dl (6.4-8.2)
[2021-03-22 17:15] LABS: ALK PHOS 280 U/L (45-117)
[2021-03-22 17:16] LABS: EPI CELLS 3 /uL (0-25.1); HYALINE CASTS 7 /uL (0-3.1); PH,URINE >= 9.0 (5.0-8.0); URINE APPEARANCE TURBID; URINE BACTERIA 7009 /uL (0-1359); URINE BILIRUBIN NEGATIVE (NEGATIVE); URINE COLOR YELLOW; URINE GLUCOSE (UA) NEGATIVE (NEGATIVE); URINE KETONE NEGATIVE (NEGATIVE); URINE LEUK ESTERASE 3+ (NEGATIVE); URINE NITRITE NEGATIVE (NEGATIVE); URINE PROTEIN 3+ (NEGATIVE); URINE RBC 47 /uL (0-23.9); URINE UROBILINOGEN 0.2 mg/dL (0.2-1.0); URINE WBC 4964 /uL (0-25.8)
[2021-03-22] MEDS ORDERED: ACETAMINOPHEN INJECTION 100 ML IVPB ONE (17:38)
[2021-03-22 17:42] LABS: ANION GAP 8 MMOL/L (8-16)
[2021-03-22 18:20] LABS: BLOOD UREA NITROGEN 38.8 mg/dL (7-18); CALCIUM 8.5 mg/dL (8.5-10.1)
[2021-03-22 18:23] LABS: CREATININE 1.2 mg/dL (0.55-1.3)
[2021-03-22 18:25] LABS: LACTIC ACID 3.9 mmol/L (0.4-2.0)
[2021-03-22] MEDS ORDERED: CEFTRIAXONE 1,000 MG in DEXTROSE 5%-WATER - 50 ML IVPB ONE (18:31)
[2021-03-22] MEDS ORDERED: CEFTRIAXONE 1 GM/50 ML BAG ONE (19:26)
[2021-03-22] MEDS ORDERED: ALBUTEROL SO4 2.5/IPRATROPIUM 0.5 INH SOL 3 ML VIAL.NEB. NEB PRN (23:48)
[2021-03-23] MEDS: DEXTROSE 5%-0.45% SALINE 1,000 ML IV SCH ×2 (00:07→04:16)
[2021-03-23] MEDS ORDERED: DEXTROSE 5%-WATER - 50 ML IVPB ONE (09:21)
[2021-03-23] MEDS ORDERED: cefTRIAXone SODIUM 1 GM VIAL ONE (09:21)
[2021-03-23] MEDS: CEFTRIAXONE 1 GM in DEXTROSE 5%-WATER - 50 ML IVPB SCH (09:28)
[2021-03-23] MEDS: MEMANTINE HCL 5 MG TABLET (UD) PO SCH ×2 (09:36→21:06)
[2021-03-23] MEDS: HEPARIN NA (PORCINE) 5,000 UNITS/ML 1ML VIAL SQ SCH ×2 (09:36→21:05)
[2021-03-23 09:38] LABS: HEMATOCRIT 31.2 % (32.4-45.2); HEMOGLOBIN 9.9 GM/dL (10.7-15.3); MCH 28.7 pg (25.7-33.7); MCHC 31.8 g/dl (32.0-36.0); MEAN CELL VOLUME 90.3 fl (80-96); PLATELET COUNT 231 10^3/uL (134-434); RBC 3.45 M/mm3 (3.60-5.2); RDW 15.8 % (11.6-15.6)
[2021-03-23 09:42] LABS: WHITE BLOOD COUNT 13.4 K/mm3 (4.0-10.0)
[2021-03-23 09:49] LABS: ALBUMIN 2.1 g/dl (3.4-5.0); BLOOD UREA NITROGEN 29.2 mg/dL (7-18); CALCIUM 8.3 mg/dL (8.5-10.1)
[2021-03-23 09:53] LABS: CREATININE 0.7 mg/dL (0.55-1.3)
[2021-03-23 09:54] LABS: BILIRUBIN,TOTAL 0.4 mg/dL (0.2-1)
[2021-03-23 10:00] LABS: TOT PROT 7.4 g/dl (6.4-8.2)
[2021-03-23 14:37] LABS: ANISOCYTOSIS 0; HELMET CELLS 0; HOWELL-JOLLY BODIES 0; MACROCYTOSIS 0; OVALOCYTE 0; PLATELET ESTIMATE NORMAL; ROULEAU 0; SICKELED CELLS 0; TARGET CELLS 0; TEAR DROP CELLS 0; TOXIC GRANULATION 0
[2021-03-23] MEDS ORDERED: ACETAMINOPHEN 1000 MG/100 ML VIAL (NON FORMULARY) IVPB PRN ×2 (14:49)
[2021-03-23] MEDS: PANTOPRAZOLE SODIUM 40 MG VIAL IVPUSH SCH (17:53)
[2021-03-23] MEDS ORDERED: POTASSIUM CHLORIDE ORAL LIQUID 20 MEQ/15 ML PO ONE (20:00)
[2021-03-23] MEDS: carBAMazepine 100 MG/5 ML UNIT-DOSE CUP PO SCH (22:56)
[2021-03-24] MEDS: carBAMazepine 100 MG/5 ML UNIT-DOSE CUP PO SCH ×3 (05:25→22:44)
[2021-03-24 08:02] LABS: BASO % 0.5 % (0-2.0); EOS % 3.6 % (0-4.5); HEMATOCRIT 30.4 % (32.4-45.2); HEMOGLOBIN 9.8 GM/dL (10.7-15.3); LYMPH % 20.8 % (8-40); MCH 28.6 pg (25.7-33.7); MCHC 32.3 g/dl (32.0-36.0); MEAN CELL VOLUME 88.4 fl (80-96); MONO % 8.3 % (3.8-10.2); NEUT % 66.8 % (42.8-82.8); PLATELET COUNT 218 10^3/uL (134-434); RBC 3.43 M/mm3 (3.60-5.2); RDW 15.6 % (11.6-15.6)
[2021-03-24 08:25] LABS: CALCIUM 8.2 mg/dL (8.5-10.1)
[2021-03-24 08:26] LABS: ALBUMIN 2.1 g/dl (3.4-5.0); BLOOD UREA NITROGEN 28.5 mg/dL (7-18)
[2021-03-24 08:29] LABS: CREATININE 0.7 mg/dL (0.55-1.3); TOT PROT 7.6 g/dl (6.4-8.2)
[2021-03-24 08:30] LABS: BILIRUBIN,TOTAL 0.1 mg/dL (0.2-1)
[2021-03-24] MEDS ORDERED: cefTRIAXone SODIUM 1 GM VIAL ONE (09:44)
[2021-03-24] MEDS ORDERED: DEXTROSE 5%-WATER - 50 ML IVPB ONE (09:45)
[2021-03-24] MEDS: CEFTRIAXONE 1 GM in DEXTROSE 5%-WATER - 50 ML IVPB SCH (10:18)
[2021-03-24] MEDS: HEPARIN NA (PORCINE) 5,000 UNITS/ML 1ML VIAL SQ SCH ×2 (10:19→22:43)
[2021-03-24] MEDS: MEMANTINE HCL 5 MG TABLET (UD) PO SCH ×2 (10:21→22:42)
[2021-03-24] MEDS: PANTOPRAZOLE SODIUM 40 MG VIAL IVPUSH SCH (10:22)
[2021-03-24] MEDS ORDERED: PT OWN MED DRAWER 7, Y5N ONE ×2 (15:01→20:34)
[2021-03-24] MEDS: LACTOBACILLUS ACIDOPHILUS 1 TABLET PO SCH (22:42)
[2021-03-24] MEDS: ATORVASTATIN CA 80 MG TABLET (FP) PO SCH (22:43)
[2021-03-24] MEDS: VALSARTAN 80 MG TABLET PO SCH (22:43)
[2021-03-25] MEDS: carBAMazepine 100 MG/5 ML UNIT-DOSE CUP PO SCH ×3 (06:37→22:10)
[2021-03-25] MEDS ORDERED: DEXTROSE 5%-WATER - 50 ML IVPB ONE (10:16)
[2021-03-25] MEDS ORDERED: cefTRIAXone SODIUM 1 GM VIAL ONE (10:16)
[2021-03-25] MEDS: CEFTRIAXONE 1 GM in DEXTROSE 5%-WATER - 50 ML IVPB SCH (10:36)
[2021-03-25] MEDS: PANTOPRAZOLE 40 MG TABLET PO SCH (10:38)
[2021-03-25] MEDS: LACTOBACILLUS ACIDOPHILUS 1 TABLET PO SCH (10:38)
[2021-03-25] MEDS: HEPARIN NA (PORCINE) 5,000 UNITS/ML 1ML VIAL SQ SCH ×2 (10:40→22:01)
[2021-03-25] MEDS: MEMANTINE HCL 5 MG TABLET (UD) PO SCH ×2 (10:40→22:01)
[2021-03-25] MEDS: VALSARTAN 80 MG TABLET PO SCH ×2 (10:41→22:01)
[2021-03-25] MEDS ORDERED: PT OWN MED DRAWER 7, Y5N ONE ×3 (11:17→21:22)
[2021-03-25] MEDS: ATORVASTATIN CA 80 MG TABLET (FP) PO SCH (22:01)
[2021-03-26] MEDS: carBAMazepine 100 MG/5 ML UNIT-DOSE CUP PO SCH ×3 (05:20→22:05)
[2021-03-26 08:57] LABS: BLOOD UREA NITROGEN 17.6 mg/dL (7-18); CALCIUM 8.4 mg/dL (8.5-10.1)
[2021-03-26 08:58] LABS: MAGNESIUM 1.9 mg/dL (1.8-2.4)
[2021-03-26 09:01] LABS: CREATININE 0.8 mg/dL (0.55-1.3)
[2021-03-26 09:02] LABS: PHOSPHOROUS 2.8 mg/dL (2.5-4.9)
[2021-03-26] MEDS ORDERED: DEXTROSE 5%-WATER - 50 ML IVPB ONE (10:04)
[2021-03-26] MEDS ORDERED: cefTRIAXone SODIUM 1 GM VIAL ONE (10:04)
[2021-03-26] MEDS: CEFTRIAXONE 1 GM in DEXTROSE 5%-WATER - 50 ML IVPB SCH (10:07)
[2021-03-26] MEDS: LACTOBACILLUS ACIDOPHILUS 1 TABLET PO SCH (10:08)
[2021-03-26] MEDS: PANTOPRAZOLE 40 MG TABLET PO SCH (10:08)
[2021-03-26] MEDS: MEMANTINE HCL 5 MG TABLET (UD) PO SCH ×2 (10:08→22:07)
[2021-03-26] MEDS: VALSARTAN 80 MG TABLET PO SCH ×2 (10:08→22:07)
[2021-03-26] MEDS: HEPARIN NA (PORCINE) 5,000 UNITS/ML 1ML VIAL SQ SCH ×2 (10:08→22:06)
[2021-03-26] MEDS: ATORVASTATIN CA 80 MG TABLET (FP) PO SCH (22:07)
[2021-03-27] MEDS: carBAMazepine 100 MG/5 ML UNIT-DOSE CUP PO SCH ×3 (06:51→22:24)
[2021-03-27] MEDS ORDERED: cefTRIAXone SODIUM 1 GM VIAL ONE (09:35)
[2021-03-27] MEDS ORDERED: DEXTROSE 5%-WATER - 50 ML IVPB ONE (09:35)
[2021-03-27] MEDS: CEFTRIAXONE 1 GM in DEXTROSE 5%-WATER - 50 ML IVPB SCH (09:49)
[2021-03-27] MEDS: HEPARIN NA (PORCINE) 5,000 UNITS/ML 1ML VIAL SQ SCH ×2 (09:50→22:24)
[2021-03-27] MEDS: PANTOPRAZOLE 40 MG TABLET PO SCH (09:51)
[2021-03-27] MEDS: VALSARTAN 80 MG TABLET PO SCH ×2 (09:51→22:25)
[2021-03-27] MEDS: MEMANTINE HCL 5 MG TABLET (UD) PO SCH ×2 (09:51→22:25)
[2021-03-27] MEDS: LACTOBACILLUS ACIDOPHILUS 1 TABLET PO SCH (09:51)
[2021-03-27] MEDS ORDERED: DEXTROSE 5%-WATER - 1,000 ML with POTASSIUM CHLORIDE 10 MEQ IV SCH (15:30)
[2021-03-27] MEDS: ATORVASTATIN CA 80 MG TABLET (FP) PO SCH (22:25)
[2021-03-28] MEDS: carBAMazepine 100 MG/5 ML UNIT-DOSE CUP PO SCH ×3 (06:00→21:55)
[2021-03-28 08:23] LABS: ALBUMIN 2.1 g/dl (3.4-5.0); CALCIUM 8.1 mg/dL (8.5-10.1)
[2021-03-28 08:24] LABS: MAGNESIUM 2.1 mg/dL (1.8-2.4)
[2021-03-28 08:26] LABS: CREATININE 0.7 mg/dL (0.55-1.3)
[2021-03-28 08:27] LABS: BILIRUBIN,TOTAL 0.1 mg/dL (0.2-1); TOT PROT 7.2 g/dl (6.4-8.2)
[2021-03-28] MEDS ORDERED: cefTRIAXone SODIUM 1 GM VIAL ONE (09:20)
[2021-03-28] MEDS ORDERED: DEXTROSE 5%-WATER - 50 ML IVPB ONE (09:21)
[2021-03-28] MEDS: MEMANTINE HCL 5 MG TABLET (UD) PO SCH ×2 (09:27→21:40)
[2021-03-28] MEDS: PANTOPRAZOLE 40 MG TABLET PO SCH (09:28)
[2021-03-28] MEDS: CEFTRIAXONE 1 GM in DEXTROSE 5%-WATER - 50 ML IVPB SCH (09:28)
[2021-03-28] MEDS: HEPARIN NA (PORCINE) 5,000 UNITS/ML 1ML VIAL SQ SCH ×2 (09:28→21:40)
[2021-03-28] MEDS: VALSARTAN 80 MG TABLET PO SCH ×2 (09:28→21:40)
[2021-03-28] MEDS: LACTOBACILLUS ACIDOPHILUS 1 TABLET PO SCH (09:28)
[2021-03-28] MEDS: ATORVASTATIN CA 80 MG TABLET (FP) PO SCH (21:39)
[2021-03-29] MEDS: carBAMazepine 100 MG/5 ML UNIT-DOSE CUP PO SCH ×2 (05:33→14:08)
[2021-03-29] MEDS ORDERED: cefTRIAXone SODIUM 1 GM VIAL ONE (09:44)
[2021-03-29] MEDS ORDERED: DEXTROSE 5%-WATER - 50 ML IVPB ONE (09:45)
[2021-03-29] MEDS: CEFTRIAXONE 1 GM in DEXTROSE 5%-WATER - 50 ML IVPB SCH (09:51)
[2021-03-29] MEDS: PANTOPRAZOLE 40 MG TABLET PO SCH (09:52)
[2021-03-29] MEDS: VALSARTAN 80 MG TABLET PO SCH (09:52)
[2021-03-29] MEDS: LACTOBACILLUS ACIDOPHILUS 1 TABLET PO SCH (09:52)
[2021-03-29] MEDS: MEMANTINE HCL 5 MG TABLET (UD) PO SCH (09:52)
[2021-03-29] MEDS: HEPARIN NA (PORCINE) 5,000 UNITS/ML 1ML VIAL SQ SCH (09:54)
[2021-03-29 14:11] VITALS: BP 132/72; PULSE 60; TEMP 98
== END 2021-03-29 16:14 | DRG 689 ==
LOC: JER 13:59 → JERBED 23:32 → J7W 03-23 03:18
PROVIDERS: ADMIT Hospitalist; ATTEND Internal Medicine
PROC: 0FP0X0Z Removal of Drainage Device from Liver, External Approach (ICD-10-PCS; principal; 2021-03-26)
DX: N39.0 Urinary tract infection, site not specified (principal); K75.0 Abscess of liver; G93.41 Metabolic encephalopathy; K83.1 Obstruction of bile duct; N17.9 Acute kidney failure, unspecified; N13.30 Unspecified hydronephrosis; R41.82 Altered mental status, unspecified; B96.4 Proteus (mirabilis) (morganii) as the cause of diseases classified elsewhere; I25.10 Atherosclerotic heart disease of native coronary artery without angina pectoris; R94.5 Abnormal results of liver function studies; E78.5 Hyperlipidemia, unspecified; F03.90 Unspecified dementia, unspecified severity, without behavioral disturbance, psychotic disturbance, mood disturbance, and anxiety; R33.9 Retention of urine, unspecified; G50.0 Trigeminal neuralgia; D64.9 Anemia, unspecified; K57.90 Diverticulosis of intestine, part unspecified, without perforation or abscess without bleeding; I25.2 Old myocardial infarction; E86.0 Dehydration; K64.9 Unspecified hemorrhoids; D32.9 Benign neoplasm of meninges, unspecified; I25.5 Ischemic cardiomyopathy; Z86.718 Personal history of other venous thrombosis and embolism; Z86.711 Personal history of pulmonary embolism
CPT/HCPCS: 36415; 49424; 70450-TC; 71045-TC-FY; 74177-TC; 76080-TC-FY; 80048; 80053; 80156; 80307; 81003; 82550; 82553; 83605; 83735; 84100; 84484; 85025; 87040; 87086; 87186; 93005; 93010; 97116-GP; 97161-GP; 99285-25; C9803; J0131; J1644; Q9967; U0003; U0005